=== PATIENT | male | born 1970 | race Caucasian/White ===

== ENCOUNTER 2019-08-23 19:39 | Inpatient (IN) ==
[2019-08-23] MEDS ORDERED: KETOROLAC TROMETHAMINE 15 MG/ML VIAL IV STA (19:57)
[2019-08-23] MEDS ORDERED: SODIUM CHLORIDE 0.9% 1000ML 1,000 ML IV SCH (20:00)
[2019-08-23 20:25] LABS: Basophils # (auto) 0.04 K/uL (0-0.2); Basophils % (auto) 0.4 %; Eosinophils # (auto) 0.03 K/uL (0-0.5); Eosinophils % (auto) 0.3 %; Hematocrit (blood only) 43.6 % (42-52); Immature Granulocytes # (auto) 0.01 K/uL (0.00-0.02); Immature Granulocytes % (auto) 0.1 %; Lymphocytes # (auto) 1.73 K/uL (1.2-3.4); Lymphocytes % (auto) 16.4 %; Mean Corpuscular Hemoglobin 31.3 pg (25-34); Mean Corpuscular Hgb Conc 34.4 g/dL (32-36); Mean Platelet Volume 8.8 fL (7.4-10.4); Monocytes # (auto) 1.62 K/uL (0.11-0.59); Monocytes % (auto) 15.4 %; Neutrophils % (auto) 67.4 %; Platelet Count 342 K/uL (130-400); RDW Coefficient of Variation 12.7 % (11.5-14.5); RDW Standard Deviation 42.6 fL (36.4-46.3); Red Blood Count 4.79 M/uL (4.7-6.1); White Blood Count 10.53 K/uL (4.8-10.8)
--- NOTE | 2019-08-23 20:30 | Emergency Department Note ---
History of Present Illness General Chief complaint: Facial Injury/Pain Stated complaint: INFECTION IN JAW Time Seen by Provider: 08/23/19 19:46 History of Present Illness Maximum Pain Intensity: 9 This is a 49-year-old male that presents to the emergency department via private vehicle with complaints of "infection". The patient notes last week he began with swelling to the right anterior neck/jawline region. He notes that he has a right posterior inferior molar that is broken below the gumline. This is a recent fracture. He unfortunate cannot see a dentist until September 22. This is secondary to the recent coronavirus. He decided to take penicillin that he had at home from a previous prescription and this cover about 2.5 days and then he presented to the emergency department here on 08/21 and at that time was discharged home on p.o. clindamycin as well as as needed [place]. He notes that the swelling has continued and now he has trouble swallowing and breathing through the mouth secondary to the amount of swelling to the right side of the neck/right cheek region. Overall pain is a 9/10. Pain is worse with chewing. Home Medications Home Medications Medication Instructions Recorded Confirmed Type ascorbic acid (vitamin C) [Vitamin 500 mg PO DAILY 04/05/19 08/23/19 History C] multivitamin 1 tab PO DAILY 04/05/19 08/23/19 History aspirin 81 mg tablet,delayed 81 mg PO DAILY 04/12/19 08/23/19 History release tiotropium bromide 2.5 2 puffs INH DAILY 30 Days #4 gm 06/20/19 08/23/19 Rx mcg/actuation mist for inhalation clindamycin HCl 300 mg PO Q6H 10 Days #40 cap 08/22/19 08/23/19 Rx hydrocodone-acetaminophen 1 tab PO Q6H PRN #14 tab 08/22/19 08/23/19 Rx albuterol sulfate 1 - 2 puff INH Q4H PRN 08/23/19 08/23/19 History fluticasone propion-salmeterol 1 puff INHALATION BID 08/23/19 08/23/19 History [Wixela Inhub] Allergies Allergy/AdvReac Type Severity Reaction Status Date / Time No Known Allergies Allergy Verified 08/22/19 01:46 Past Med/Surg History Medical History Brain aneurysm Centrilobular emphysema COPD (chronic obstructive pulmonary disease) Dyspnea on exertion Tobacco abuse Surgical History History of intravascular stent placement Family History Grandfather (Maternal) Myocardial infarction Grandfather (Paternal) Myocardial infarction Mother Ovarian cancer Bladder cancer Other Diabetes Denies family history of Prostate cancer Breast cancer Colorectal cancer Social History Preferred Language: South African Communication Ability: Effective Visual Impairment: No Limitations Hearing Ability: Normal marital status: Current Living Situation: Alone current occupational status: employed 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 Feels Safe at Home: Yes Smoking Status: Former smoker Tobacco Type: cigarettes ; Age Started Using Tobacco: 16 ; Age Quit Using Tobacco: 49 ; packs per day: 1 ; Cigarettes Per Day: 0.5 ; Hx Alcohol Use: Yes Alcohol type: beer and hard liquor Alcohol Intake Frequency: Rarely Hx Substance Use: Yes substance use type: marijuana Last Used Substance: Days (ago) Childhood Exposure to Second-Hand Smoke: Yes Dental Care, Regularly: No Physical Activity Frequency: Does not Exercise Seatbelt Use: always Sunscreen Use: No Review of Systems A total of 10 systems reviewed and were otherwise negative Physical Exam Vital Signs Vital Signs - 24 hr 08/23/19 19:42 08/23/19 21:00 08/23/19 21:24 Temperature 36.7 C Temperature Source Oral Pulse Rate 119 H Respiratory Rate 24 20 Respiratory Effort / Characteristics Non-Labored Respiratory Depth Normal Blood Pressure 115/69 Blood Pressure [Right Arm] 111/79 Blood Pressure Mean 84 Blood Pressure Mean [Right Arm] 89 Pulse Oximetry 91 93 92 Oxygen Delivery Method Room Air Room Air Room Air Sepsis Recent Fever Within 48 Hours No Sepsis Action Taken by Nursing No Action Required 08/23/19 21:41 08/23/19 22:54 Temperature 37.2 C Temperature Source Oral Pulse Rate 92 H Respiratory Rate 20 Respiratory Effort / Characteristics Respiratory Depth Blood Pressure 119/72 Blood Pressure [Right Arm] Blood Pressure Mean Blood Pressure Mean [Right Arm] Pulse Oximetry 92 Oxygen Delivery Method Room Air Sepsis Recent Fever Within 48 Hours Sepsis Action Taken by Nursing VITAL SIGNS - Vital signs and nursing notes were reviewed. Stable and afebrile. Tachycardic. GENERAL - 49-year-old male appearing his stated age who is in no acute distress. Communicates well with provider and answers questions appropriately. SKIN - Without rashes. There is right-sided facial swelling. This is most pronounced to the right anterior superior neck. No drainage. No erythema. Much of the edema is covered by his facial hair/reed. HEAD - NC/AT. EYES - PERRL with EOMI bilaterally. Sclera anicteric. EARS - No deformities of external structures noted on gross examination bilaterally. NOSE - Midline and without cyanosis. No epistaxis or purulent drainage noted. MOUTH/OROPHARYNX - Without perioral cyanosis. Buccal mucosa pink and moist and without leukoplakia. Tongue midline with equal elevation of palate bilaterally. Perhaps slight elevation of the tongue. There is tenderness inferior to the chin as well as most pronounced to the right submandibular region. No drainage in the mouth. No drooling. No trismus. NECK - Neck with FROM. Supple to palpation. Anterior cervical lymphadenopathy noted. No nuchal rigidity. LUNGS - Chest wall symmetric without accessory muscle use, intercostals retractions, or central cyanosis. Normal vesicular breath sounds CTA B/L. No wheezes, rales, or rhonchi appreciated. CARDIAC - RRR with S1/S2. No murmur, rubs, or gallops appreciated. EXTREMITIES - No clubbing or peripheral cyanosis. No pretibial edema present. +5/5 strength noted in UE/LE bilaterally. NEUROLOGIC - Cranial nerves II through XII grossly intact. Sensory intact to light touch throughout. PSYCH - A&Ox3 and cooperates fully with examiner. Pt is very pleasant and interacts well with examiner. Course Administered Medications Ioversol (Optiray 320 100ml) 91 ml IV ONCE PRN PRN Reason: Interaction Checking Stop: 08/27/19 20:59 Last Admin: 08/23/19 21:00 Dose: 91 ml Documented by: [id number] Discontinued Medications Sodium Chloride (Nss 1000ml) 1,000 mls @ 999 mls/hr IV .Q1H1M MITCH Stop: 08/23/19 21:00 Last Infusion: 08/23/19 20:54 Dose: 0 mls/hr Documented by: [id number] Admin: 08/23/19 20:09 Dose: 999 mls/hr Documented by: [id number] Piperacillin Sod/Tazobactam Sod (Zosyn) 4.5 gm in 120 mls @ 240 mls/hr IV NOW ONE Stop: 08/23/19 21:57 Last Infusion: 08/23/19 22:13 Dose: 0 mls/hr Documented by: [id number] Admin: 08/23/19 21:38 Dose: 240 mls/hr Documented by: [id number] Ketorolac Tromethamine (Toradol) 15 mg IV NOW STA Stop: 08/23/19 19:58 Last Admin: 08/23/19 20:09 Dose: 15 mg Documented by: [id number] Medical Decision Making Laboratory Data Result diagrams: 08/23/19 20:12 08/23/19 20:12 Lab Results 08/23/19 08/23/19 08/23/19 Range/Units 20:12 20:12 20:12 WBC 10.53 (4.8-10.8) K/uL RBC 4.79 (4.7-6.1) M/uL Hgb 15.0 (14.0-18.0) g/dL Hct 43.6 (42-52) % MCV 91.0 (80-100) fL MCH 31.3 (25-34) pg MCHC 34.4 (32-36) g/dL RDW Std Deviation 42.6 (36.4-46.3) fL RDW Coeff of Abner 12.7 (11.5-14.5) % Plt Count 342 (130-400) K/uL MPV 8.8 (7.4-10.4) fL Immature Gran % (Auto) 0.1 % Neut % (Auto) 67.4 % Lymph % (Auto) 16.4 % [place] % (Auto) 15.4 % Eos % (Auto) 0.3 % Baso % (Auto) 0.4 % Immature Gran # (Auto) 0.01 (0.00-0.02) K/uL Neut # (Auto) 7.10 H (1.4-6.5) K/uL Lymph # (Auto) 1.73 (1.2-3.4) K/uL [place] # (Auto) 1.62 H (0.11-0.59) K/uL Eos # (Auto) 0.03 (0-0.5) K/uL Baso # (Auto) 0.04 (0-0.2) K/uL Sodium 132 L (136-145) mmol/L Potassium 4.2 (3.5-5.1) mmol/L Chloride 98 (98-107) mmol/L Carbon Dioxide 27 (21-32) mmol/L Anion Gap 7.0 (3-11) BUN 10 (7-18) mg/dl Creatinine 0.86 (0.6-1.4) mg/dl Est Cr Clr Drug Dosing 100.5 ml/min Est GFR ( Amer) 118.0 Est GFR (Non-Af Amer) 101.8 BUN/Creatinine Ratio 11.7 (10-20) Glucose 106 H (70-99) mg/dl Lactate 1.0 (0.4-2.0) mmol/L Calcium 9.3 (8.5-10.1) mg/dl Total Bilirubin 0.8 (0.2-1) mg/dl AST 14 L (15-37) U/L ALT 23 (12-78) U/L Alkaline Phosphatase 59 (45-117) U/L Total Protein 7.4 (6.4-8.2) gm/dl Albumin 3.3 L (3.4-5.0) gm/dl Globulin 4.1 H (2.5-4.0) gm/dl Albumin/Globulin Ratio 0.8 L (0.9-2) Imaging Data Radiologist's Impression: CT OF THE NECK WITH IV CONTRAST CLINICAL HISTORY: Right sided neck edema, dental pain COMPARISON STUDY: No previous studies for comparison. TECHNIQUE: Following IV administration of 91 mL of Optiray-320, helical axial images of the neck were obtained. Sagittal and coronal reconstructions were viewed. Automated exposure control was utilized for the study. A dose lowering technique was utilized adhering to the principles of ALARA. CT DOSE: 631.07 mGy.cm FINDINGS: Incidental note is made of endovascular coils within the right aspect of the posterior fossa with vascular stents. These are suboptimally assessed on this non-CTA exam. No cervical spine fracture is noted. There is no suspicious osseous lesion. Severe emphysema is noted within visualized portions of the lungs. Multiple cavities are present. There is a periapical lucency suggestive of an abscess of a right mandibular molar, likely the third molar. There is an adjacent 2.5 x 2.2 cm rim-enhancing fluid collection along the undersurface of the right hemimandible adjacent to the periapical abscess with cortical breakthrough. There is moderate adjacent inflammation. No soft tissue gas is present. No additional fluid collections are present. Major vasculature of the neck is patent. Mild linear large right-sided cervical lymph nodes are likely reactive. IMPRESSION: 1. 2.5 x 2.2 cm rim-enhancing fluid collection consistent with abscess along the undersurface of the posterior body of the right hemimandible with associated pe riapical abscess of a right mandibular molar, likely the third molar. Moderate adjacent inflammation. Numerous additional cavities. 2. Mildly enlarged right-sided cervical lymph nodes which are likely reactive. 3. Severe emphysema. ACT 112: Negative or not required by law. Electronically signed by: Matt Garay M.D. 08/23/2019 9:42 PM MDM Narrative Patient was seen and evaluated as above in room B 10. Review was performed of nursing notes and vital signs. After obtaining a thorough history and physical examination the above work up was performed. He presents to us today with right-sided anterior neck swelling likely secondary to dental infection now with trouble swallowing secondary to edema. There is also a fair amount of edema surrounding the likely region of abscess indicative of cellulitis. He has been on clindamycin. Decision was made to obtain IV access as well as a CT scan of the neck. Results of the CT as above. There is a large abscess. Patient has maintained an n.p.o. status while here. No leukocytosis or anemia on the labs. Mild decrease in sodium at 132. No evidence of kidney or liver failure. IV Z osyn was ordered. I discussed the findings with the attending physician as well as the on-call oral maxillofacial surgeon, Dr. Ridley. He came to evaluate the patient. Patient will be taken to the operative suite tonight for further evaluation and management. I also discussed the case with the hospitalist. Please refer to further documentation regarding his stay. Case was discussed with the attending physician. In the evaluation and treatment of this patient, the following differential diagnoses were considered: Periapical Abscess, Osteonecrosis of the Jaw, Dental Fracture, Dental Caries, Ajay's Angina, Vincent's Angina, Facial Cellulitis. Impression & Plan Cellulitis and abscess of neck, Dental infection Discharge Plan Visit Data *Final* Discharge Date/Time: 08/23/19 23:14 Chief Complaint: Facial Injury/Pain Stated Complaint: INFECTION IN JAW ED Provider: Lenard Mcdaniel ED Midlevel Provider: Jaime Augustine Discharge Problem: Cellulitis and abscess of neck, Dental infection Discharge Instructions Interventions: ED Discharge Assessment Last Done: 08/23/19 22:54
[2019-08-23 20:44] LABS: Albumin Level 3.3 gm/dl (3.4-5.0); BUN Creatinine Ratio 11.7 (10-20); Calcium 9.3 mg/dl (8.5-10.1); Creatinine Clr Calc Pharmacy 100.5 ml/min; Est GFR (Non-African American) 101.8; Potassium 4.2 mmol/L (3.5-5.1)
[2019-08-23 20:47] LABS: Albumin Globulin Ratio 0.8 (0.9-2); Bilirubin,Total 0.8 mg/dl (0.2-1); Globulin 4.1 gm/dl (2.5-4.0); Total Protein 7.4 gm/dl (6.4-8.2)
[2019-08-23] MEDS ORDERED: IOVERSOL 100ml IV PRN (21:00)
[2019-08-23] MEDS ORDERED: PIPERACILLIN/TAZOBACTAM 4.5 GM/120 ML BAG IV ONE (21:28)
[2019-08-23] MEDS ORDERED: PIPERACILL/TAZOBAC CONSULT ACTIVE PRN (21:28)
--- NOTE | 2019-08-23 21:43 | CT Scan Report ---
CT OF THE NECK WITH IV CONTRAST CLINICAL HISTORY: Right sided neck edema, dental pain COMPARISON STUDY: No previous studies for comparison. TECHNIQUE: Following IV administration of 91 mL of Optiray-320, helical axial images of the neck wer e obtained. Sagittal and coronal reconstructions were viewed. Automated exposure control was utiliz ed for the study. A dose lowering technique was utilized adhering to the principles of ALARA. CT DOSE: 631.07 mGy.cm FINDINGS: Incidental note is made of endovascular coils within the right aspect of the posterior fos sa with vascular stents. These are suboptimally assessed on this non-CTA exam. No cervical spine frac ture is noted. There is no suspicious osseous lesion. Severe emphysema is noted within visualized por tions of the lungs. Multiple cavities are present. There is a periapical lucency suggestive of an abs cess of a right mandibular molar, likely the third molar. There is an adjacent 2.5 x 2.2 cm rim-enhan cing fluid collection along the undersurface of the right hemimandible adjacent to the periapical abs cess with cortical breakthrough. There is moderate adjacent inflammation. No soft tissue gas is prese nt. No additional fluid collections are present. Major vasculature of the neck is patent. Mild linear large right-sided cervical lymph nodes are likely reactive. IMPRESSION: 1. 2.5 x 2.2 cm rim-enhancing fluid collection consistent with abscess along the undersurface of the posterior body of the right hemimandible with associated periapical abscess of a right mandibular mol ar, likely the third molar. Moderate adjacent inflammation. Numerous additional cavities. 2. Mildly enlarged right-sided cervical lymph nodes which are likely reactive. 3. Severe emphysema. ACT 112: Negative or not required by law. Electronically signed by: Matt Garay M.D. 08/23/2019 9:42 PM
[2019-08-23] MEDS ORDERED: CHLORHEXIDINE GLUCONATE 0.12% 480 ML ONE (23:12)
[2019-08-23] MEDS ORDERED: BUPIVACAINE/EPINEPHRINE 0.5% 1:200,000 1.8 ML CARP ONE (23:13)
--- NOTE | 2019-08-23 23:22 | History & Physical Report ---
Date of Service August 23, 2019 Assessment & Plan (1) Dental abscess: 49 yo M with PMH severe COPD 2/2 previous tobacco abuse presents wit concerns of R lower jaw pain and worsening swelling found to have abscess along right hemimandible on Neck CT. Hemimandible Abscess -admit to ICU -Soft Tissue Neck CT: 2.5 x 2.2 cm rim-enhancing fluid collection consistent with abscess along the undersurface of the posterior body of the right hemimandible with associated periapical abscess of a right mandibular molar, likely the third molar -pt has remained afebrile. Labs without leukocytosis. LA WNL -Oral Maxillofacial Consult appreciated- Dr. Ridley took pt into OR for Incision and Drainage of Right Submandibular Abscess and extraction of the lower right wisdom tooth -post op pt self extubated and displayed respiratory distress with hypoxia. Pt emergently reintubated and now sedated. Will remain in ICU for airway management, wean ventilator as tolerated -cont antibiotic coverage with IV Vanc/Zosyn for now, narrow as needed -blood cx pending. MRSA swab pending -pain management with IV Toradol/[place] prn for moderate/severe pain. Pain had been well controlled thus far prior to OR -will advance diet as tolerated Acute Hypoxic Resp Failure/COPD -quit smoking Mar 2019 -follows with Dr. Chen of Pulmonology. Undergoing pulmonary rehab. Severe centrilobular emphysema. Last PFT May 2019: FEV1/FVC ratio of 35, FEV1 26% predicted, FVC 60% predicted -As above, pt self-extubated after procedure and displayed hypoxia, acute resp distress that required emergent re-intubation. Now on [facility] vent -IV Solumedrol 80 mg BID. Taper moving forward -cont home inhaler regimen with advair, spiriva, albuterol otherwise once able FEN/GI: Propofol/fentanyl gtt. NPO DVT Prophylaxis: Heparin, SCD's Full Code Dispo: ICU for further airway management History of Present Illness Chief Complaint: facial pain/swelling Primary Care Provider: Josep Arguello, III, COTTON [employer]ESSER 49 yo M with PMH severe COPD 2/2 previous tobacco abuse presents to [facility] with concerns of worsening R jaw swelling. Pt was seen in ED 08/21 for lower R jaw pain. Pain started last week with cracked tooth that occurred while eating. Swelling and pain has gradually increased, and he called his dentist who is not seeing pts currently 2/2 COVID and was given an appt for end of August. Pt had a tooth extraction in May and was given a Rx for PCN for which he still had 2 days worth so he took that before running out and presenting to ED. Pt was seen and dc'd on PO [place], prn [place]. Pt notes that pain was tolerated with [place]; however, swelling increased into today so represented into ED. Describes pain as constant pressure in R lower jaw, with radiation into entire head. Exacerbated with eating/drinking/swallowing, and relieved somewhat with [place] as above. 9/10 severity at its worst. Associated trouble breathing through mouth and dysphagia, but otherwise denies F/N/V/D, chills, CP, SOB, recent travel or sick contacts. Pt with no other acute concerns or complaints. Soft Tissue Neck CT: 2.5 x 2.2 cm rim-enhancing fluid collection consistent with abscess along the undersurface of the posterior body of the right hemimandible with associated periapical abscess of a right mandibular molar, likely the third molar. Moderate adjacent inflammation. Numerous additional cavities. Mildly enlarged right-sided cervical lymph nodes Pertinent Labs: Na 132. LA WNL. Otherwise unremarkable ER Course: IV Toradol 15 mg, IV Zosyn, NSS Pt to be taken in OR by Dr. Ridley took pt into OR for Incision and Drainage of Right Submandibular Abscess. Social Hx: Tobacco use-started age 16, quit age 49Mar, was 1ppd. Alcohol- social use. Denies illicit drug use Allergies Allergy/AdvReac Type Severity Reaction Status Date / Time No Known Allergies Allergy Verified 08/22/19 01:46 Home Medications Home Medications Medication Instructions Recorded Confirmed Type ascorbic acid (vitamin C) [Vitamin 500 mg PO DAILY 04/05/19 08/23/19 History C] multivitamin 1 tab PO DAILY 04/05/19 08/23/19 History aspirin 81 mg tablet,delayed 81 mg PO DAILY 04/12/19 08/23/19 History release tiotropium bromide 2.5 2 puffs INH DAILY 30 Days #4 gm 06/20/19 08/23/19 Rx mcg/actuation mist for inhalation clindamycin HCl 300 mg PO Q6H 10 Days #40 cap 08/22/19 08/23/19 Rx hydrocodone-acetaminophen 1 tab PO Q6H PRN #14 tab 08/22/19 08/23/19 Rx albuterol sulfate 1 - 2 puff INH Q4H PRN 08/23/19 08/23/19 History fluticasone propion-salmeterol 1 puff INHALATION BID 08/23/19 08/23/19 History [Wixela Inhub] Past Med/Surg History Medical History Brain aneurysm Centrilobular emphysema COPD (chronic obstructive pulmonary disease) Dyspnea on exertion Tobacco abuse Surgical History History of intravascular stent placement Family History Grandfather (Maternal) Myocardial infarction Grandfather (Paternal) Myocardial infarction Mother Ovarian cancer Bladder cancer Other Diabetes Denies family history of Prostate cancer Breast cancer Colorectal cancer Social History Preferred Language: Japanese Communication Ability: Effective Visual Impairment: No Limitations Hearing Ability: Normal Firestopper Technician Required: No marital status: Current Living Situation: Alone current occupational status: employed 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 Last Used Substance: Days (ago) Childhood Exposure to Second-Hand Smoke: Yes Dental Care, Regularly: No Physical Activity Frequency: Does not Exercise Seatbelt Use: always Sunscreen Use: No Review of Systems Review of Systems: All systems reviewed & are unremarkable except as noted in HPI & below Physical Exam Constitutional: WD/WN, vitals as above no acute distress Eyes: PERRL, conjunctivae normal, anicteric sclerae ENMT: Mouth: + dentition abnormality (poor dentition) Swelling and TTP along R lower mandible Respiratory: normal respiratory effort; no respiratory distress Auscultation: + rhonchi coarse throughout Cardiovascular: RRR, no murmur, no edema Gastrointestinal (Abdomen): normal bowel sounds, soft, nontender, no hepatosplenomegaly Skin: no rashes, warm and dry Psychiatric: A+Ox3, euthymic affect Results & Data Results & Data ([facility]) Vital Signs (Past 12 Hours) Vital Signs Temp Pulse Resp BP BP Pulse Ox 08/23/19 21:41 37.2 C 08/23/19 21:24 20 111/79 92 08/23/19 21:00 93 08/23/19 19:42 36.7 C 119 H 24 115/69 91 Laboratory Results Laboratory Results - last 24 hr 08/23/19 08/23/19 08/23/19 20:12 20:12 20:12 WBC 10.53 RBC 4.79 Hgb 15.0 Hct 43.6 MCV 91.0 MCH 31.3 MCHC 34.4 RDW Std Deviation 42.6 RDW Coeff of Abner 12.7 Plt Count 342 MPV 8.8 Immature Gran % (Auto) 0.1 Neut % (Auto) 67.4 Lymph % (Auto) 16.4 [place] % (Auto) 15.4 Eos % (Auto) 0.3 Baso % (Auto) 0.4 Immature Gran # (Auto) 0.01 Neut # (Auto) 7.10 H Lymph # (Auto) 1.73 [place] # (Auto) 1.62 H Eos # (Auto) 0.03 Baso # (Auto) 0.04 Sodium 132 L Potassium 4.2 Chloride 98 Carbon Dioxide 27 Anion Gap 7.0 BUN 10 Creatinine 0.86 Est Cr Clr Drug Dosing 100.5 Est GFR ( Amer) 118.0 Est GFR (Non-Af Amer) 101.8 BUN/Creatinine Ratio 11.7 Glucose 106 H Lactate 1.0 Calcium 9.3 Total Bilirubin 0.8 AST 14 L ALT 23 Alkaline Phosphatase 59 Total Protein 7.4 Albumin 3.3 L Globulin 4.1 H Albumin/Globulin Ratio 0.8 L Medications Administered Current Inpatient Medications Ioversol (Optiray 320 100ml) 91 ml IV ONCE PRN PRN Reason: Interaction Checking Stop: 08/27/19 20:59 Last Admin: 08/23/19 21:00 Dose: 91 ml Documented by: Miscellaneous Information (Consult) 1 ea N/A UD PRN PRN Reason: Consult Stop: 09/22/19 21:27 Code Status & VTE Plan Code Status FULL Supervising Physician Co-Signing Physician Notes Attending addendum: I have physically seen this patient, have supervised the medical residents activities, and agree with the H&P unless as otherwise noted. Assessment and Plan: Right facial abscess/periapical abscess right mandibular molar- NPO Vancomycin IV and Zosyn IV. IV fluids Zofran 4 mg IV every 6 hours PRN. Acetaminophen 1 g IV every 8 hours PRN mild pain or temperature Toradol 30 mg IV every 6 PRN moderate pain or [place] 5/325 1 p.o. every 6 hours PRN moderate pain. Consult Dr. Ridley, maxillofacial surgery, who is with the patient. Severe COPD/acute on chronic respiratory failure with hypoxia- Solu-Medrol IV as noted. Duonebs every 4 hours while awake and every 2 hours when necessary. Remainder of orders and notations as noted. Resident Activity Tracking Resident Involvement: Resident Care Provided Care Provided: Adult Hospital Medicine
[2019-08-23] MEDS ORDERED: fentaNYL citrate 100 MCG/2 ML VIAL ONE (23:29)
--- NOTE | 2019-08-24 00:25 | Post Operative Brief Note ---
Immediate Post Op Note v1 Date of Surgery August 24, 2019 Pre & Post Diagnosis Operation Date: 08/23/19 23:00 Pre-Op Diagnosis: Right submandibular space abscess associated with an infected lower right wisdom tooth. Post-Op Diagnosis: Same I identified the patient and participated in the time-out.: Yes Procedure Operation Date: 08/23/19 23:00 Actual Procedures Incision and Drainage of Right Submandibular Abscess, simple extraction of the lower right wisdom tooth #32 - Danielito Ridley MD, DDS Surgeon Danielito Ridley MD, DDS Hospital Social Worker None Estimated Blood Loss 10 Findings Consistent with Post-Op Diagnosis Drains Dinosaur Drain
[2019-08-24] MEDS ORDERED: PROPOFOL IV EMULSION 10 MG/ML 100 ML VIAL IV ONE (00:50)
[2019-08-24] MEDS ORDERED: ATROPINE SULFATE 0.1 MG/ML 10ML SYR IV PRN (00:59)
[2019-08-24] MEDS ORDERED: ePHEDrine sulfate 50 MG/ML AMP IV PRN (00:59)
--- NOTE | 2019-08-24 00:59 | Anesthesiology Consultation ---
Date of Service August 24, 2019 Assessment & Plan (1) Encounter for pre-operative examination: Chart Review Chart Review: Acceptable Risk for Surgery and Patient NOT seen in Pre Admission Testing Consults Requested none ASA [id number] Proposed Anesthesia Anesthesia Type: General Risk / Benefits Reviewed With: PT / POA / Parent / Guardian, Accepts Plan and Informed Consent Obtained History Surgery Operation Date: 08/23/19 23:00 Proposed Procedures p Complete Bony Impaction - Danielito Ridley MD, DDS Height/Weight Height: 5 ft 8 in Weight: 69.4 kg Allergies Allergy/AdvReac Type Severity Reaction Status Date / Time No Known Allergies Allergy Verified 08/22/19 01:46 Medications Home Medications Medication Instructions Recorded Confirmed Last Taken ascorbic acid (vitamin C) [Vitamin 500 mg PO DAILY 04/05/19 08/23/19 Unknown C] multivitamin 1 tab PO DAILY 04/05/19 08/23/19 Unknown aspirin 81 mg tablet,delayed 81 mg PO DAILY 04/12/19 08/23/19 Unknown release tiotropium bromide 2.5 2 puffs INH DAILY 30 Days #4 gm 06/20/19 08/23/19 Unknown mcg/actuation mist for inhalation clindamycin HCl 300 mg PO Q6H 10 Days #40 cap 08/22/19 08/23/19 08/23/19 15:00 hydrocodone-acetaminophen 1 tab PO Q6H PRN #14 tab 08/22/19 08/23/19 Unknown albuterol sulfate 1 - 2 puff INH Q4H PRN 08/23/19 08/23/19 Unknown fluticasone propion-salmeterol 1 puff INHALATION BID 08/23/19 08/23/19 Unknown [Wixela Inhub] Active Medications Generic Name Dose Route Start Last Admin Trade Name Freq PRN Reason Stop Dose Admin Ioversol 91 ml 08/23/19 21:00 08/23/19 21:00 Optiray 320 100ml IV 08/27/19 20:59 91 ml ONCE PRN Administration Interaction Checking NPO Date Last Intake of Fluids: 08/23/19 Time Last Intake of Fluids: 20:00 Date Last Intake of Solids: 08/23/19 Time Last Intake of Solids: 10:00 Past Medical History Medical History Brain aneurysm Centrilobular emphysema COPD (chronic obstructive pulmonary disease) Dyspnea on exertion Tobacco abuse Exercise / Class Metabolic Activity II 4-5 Yardwork/Stairs/Walk up hill Past Family History Family History Grandfather (Maternal) Myocardial infarction Grandfather (Paternal) Myocardial infarction Mother Ovarian cancer Bladder cancer Other Diabetes Denies family history of Prostate cancer Breast cancer Colorectal cancer Past Surgical History Surgical History History of intravascular stent placement Past Anesthesia History No Hx of Anesthesia Complications and No Family Hx of Anesthesia Complications History of PONV No Hx of PONV and No Hx of Motion Sickness Social History Smoking Status: Former smoker tobacco type: cigarettes Smoking cigarettes per day: 0.5 Hx Alcohol Use: Yes Alcohol type: beer and hard liquor Hx Substance Use: Yes substance use type: marijuana Last Used Substance: Days (ago) Physical Exam Vital Signs Last Vital Signs Temp 37.2 C 08/23/19 21:41 Pulse 92 H 08/23/19 22:54 Resp 20 08/23/19 22:54 BP 119/72 08/23/19 22:54 Pulse Ox 92 08/23/19 22:54 ENMT Mouth: + poor dentition Thyromental Distance: > or= 3.5 Finger Breadths Mallampati Class: III difficult mouth opening Neck normal visual inspection Respiratory + uses accessory muscles Auscultation: + diminished lung sounds very prolonged expiratory phase Cardiovascular Rate/Rhythm: regular rate and regular rhythm Psychiatric Orientation: alert Testing Laboratory Results 08/23/19 20:12 08/23/19 20:12
--- NOTE | 2019-08-24 01:04 | Anesthesiology Progress Note ---
Date of Service August 24, 2019 Anesthesia Post Procedure Vital Signs Vital Signs: Temp Pulse Resp BP BP Pulse Ox 08/23/19 22:54 92 H 20 119/72 92 08/23/19 21:41 37.2 C 08/23/19 21:24 20 111/79 92 08/23/19 21:00 93 08/23/19 19:42 36.7 C 119 H 24 115/69 91 Pain Intensity Right Face: Pain Intensity: 9 Transfer of Care Handoff Completed per policy Notes Mental Status: alert / awake / arousable Patient Amnestic to Procedure: Yes Nausea / Vomiting: adequately controlled Pain: adequately controlled Airway Patency, RR, SpO2: see Notes below BP & HR: stable & adequate Hydration State: stable & adequate Anesthetic Complications: no major complications apparent Notes: At end of case, patient respiratory effort insufficient to support extubation. However, when moving to ICU bed, patient sat directly up in bed and self extubated. Quickly began respiratory distress and tripoding. The decision was quickly made to reintubate as oxygen saturations were declining to the 70s. Propofol 100 and succinylcholine adiministered. 8.0 ETT pass via glidescope laryngoscopy. Oxygen saturations quickly returned to mid 90s. Patient transported on monitor to ICU for continued ventilator care. Full signout to ICU nurse practitioner, who will discuss the case with critical care attending.
[2019-08-24] MEDS ORDERED: ICU PROTOCOL FOR HYPERGLYCEMIA PRN ×2 (01:23→01:58)
[2019-08-24] MEDS ORDERED: STAT IV Infusion **Titration per Protocol STA ×2 (01:23→01:33)
[2019-08-24] MEDS ORDERED: PROPOFOL BOLUS FROM BAG IV PRN (01:23)
[2019-08-24] MEDS ORDERED: DEXAMETHASONE SOD INJ 4 MG/ML VIAL ONE (01:25)
[2019-08-24] MEDS ORDERED: PROPOFOL IV EMULSION 10 MG/ML 20 ML VIAL IV ONE (01:25)
[2019-08-24] MEDS ORDERED: SUCCINYLCHOLINE CHLORIDE 20 MG/ML 10 ML VIAL ONE (01:25)
[2019-08-24] MEDS ORDERED: LIDOCAINE HCL 2% 2 ML VIAL/AMP(20MG/ML) INFIL ONE (01:25)
[2019-08-24] MEDS ORDERED: PHENYLEPHRINE 100MCG/ML 5ML SYR ONE (01:25)
[2019-08-24] MEDS ORDERED: ONDANSETRON INJ 2 MG/ML 2 ML VIAL ONE (01:25)
[2019-08-24] MEDS: propofoL 1,000 MG/100 ML VIAL IV SCH ×2 (01:30→07:13)
[2019-08-24] MEDS ORDERED: FENTANYL BOLUS FROM BAG IV PRN (01:33)
--- NOTE | 2019-08-24 01:36 | Critical Care Consultation ---
Date of Consultation August 24, 2019 Assessment & Plan (1) Respiratory failure with hypoxia: Reason Critically Ill: 49-year-old male with history of severe emphysema, presents postop for right submandibular abscess incision and drainage, acute respiratory failure postop and unable to wean from vent. Neuro - [facility] ICU: Negative Sedation: Propofol, fentanyl drips Cardiac - No cardiac medical history, sinus rhythm and normotensive on monitor Continuous monitoring on telemetry Respiratory - Acute hypoxic hypercapnic respiratory failuresecondary to severe centrilobular emphysema with FEV1 27% in pulmonary clinic, follows with Dr. Chen -Patient undergoing pulmonary rehab, was reportedly unable to attend the last appointment secondary to covid19 pandemic -Patient self extubated in OR following procedure, displayed hypoxia, respiratory distress, and tripoding and was emergently reintubated -Chest x-ray consistent with severe emphysema -AB.33/51/61/27, Vent settings: AC VC 14/500/5/30 percent, will wean as appropriate -Was given Decadron in the OR, will continue Solu-Medrol with steroid taper -Continue DuoNeb -We will reassess with SBT in a.m., concerned that patient will be difficult for extubation due to severe pulmonary disease GI - N.p.o. for now RENAL/LYTES - Creatinine electrolytes stable, monitor with routine BMPs and replete as necessary - Foleystrict I's and O's ENDO - No history diabetes thyroid disease ICU hyperglycemic protocol HEME - H&H stable, monitor routine CBCs ID - Submandibular abscesspatient reportedly cracked tooth and was unable to see dentist for tooth extraction secondary to coronavirus pandemic -Patient was seen in ED on 08/21 for tooth abscess and was discharged with clindamycin and [place], re-presented yesterday with increased swelling and pain -Patient now post incision and drainage of right submandibular abscess and tooth extraction, Francisco drain -Blood cultures pending, surgical culture pending, lactate negative, no leukocytosis, mildly febrile, MRSA swab pending -Continue Vanco and Zosyn for now, narrow with sensitivities LINES/IV ACCESS - Peripheral IV x2, ETT, DVT PROPHYLAXIS - SCDs, heparin subcu I have personally spent 45 minutes of critical care time in the direct management of this patient. This is a life/limb threatening event. This includes time spent evaluating patient, direct bedside care, chart review, placing orders, interpretation of diagnostic studies, discussion with consultants, patient, and family members, as well as other required patient management activities. This time is exclusive of all separately billable procedures, and teaching time and separate from and in addition to any other critical care service time. Thank you for allowing us to participate in the care of this patient. Please refer to my attending physician's documentation for any further recommendations. (2) Centrilobular emphysema: (3) Dental abscess: (4) Admitted to intensive care unit: Supervising Physician Co-Signing Physician Notes Patient seen and examined. Discussed with critical care CARLO. EMR reviewed. Patient is a 49-year-old male with advanced obstructive lung disease. He is followed in the pulmonary clinic. He has known very severe obstructive lung disease. He is been successful in smoking cessation as of late. He was undergoing pulmonary rehab. He developed a tooth infection and was recently placed on antibiotics. Unfortunately this worsened to the point that he developed a submandibular abscess. He was seen in the emergency room yesterday. He was taken to the OR for incision and drainage of submandibular abscess and tooth extraction. The patient apparently self extubated in the OR and was reintubated due to hypoxemia. He was remained on the mechanical ventilator overnight on fentanyl and propofol. He is on minimal vent settings currently. He is hemodynamically stable. His chest x-ray shows no evidence of infiltrate pneumonia. We will plan on proceeding with extubation this morning. He may require noninvasive positive pressure ventilation post extubation. We will continue his bronchodilators for now. No indication for steroids from a lung standpoint at this point time. He is currently on Zosyn which should be adequate for his oral infection. Will defer antibiotics to oral maxillary facial surgery. Trend white blood cell count. Drain management per OMFS. Alpha-1 antitrypsin has been ordered in the outpatient setting so we will hold off on rechecking for now. He does have significant diffuse centrilobular emphysematous changes. Lung transplant has been addressed in the outpatient setting. Patient should remain free of all tobacco products. History of Present Illness Attending Physician: Danielito Ridley MD, DDS History of Present Illness Mr. Geronimo is a 49-year-old male with past medical history of tobacco abuse and severe centrilobular emphysema with FEV1 26%. Patient follows Dr. Chen in pulmonary clinic and has reportedly been doing well in pulmonary rehab and is quit smoking as of April. Patient was seen in the emergency department on 08/21 with complaints of cracked tooth and neck swelling and had been unable to see a dentist until September 24 due to COVID19 pandemic. He was discharged with prescription for clindamycin and [place]. The patient represented to the emergency department last night with progressive swelling and reported trouble with swallowing and difficulty breathing through his mouth secondary to swelling on the right neck/cheek. CT neck showed abscess on the right hemimandible and lymph node edema. Patient was taken to the OR for incision and drainage of right submandibular abscess, simple extraction of lower right wisdom tooth #32, placement of Francisco drain. Postoperatively decision had been made by anesthesiologist to leave patient intubated overnight due to poor respiratory effort. However, patient self extubated and displayed respiratory distress with hypoxia and tripoding, and was emergently reintubated. See anesthesia note for details. Patient arrived to ICU intubated and sedated, will leave intubated overnight and wean ventilator as tolerated. Allergies Allergy/AdvReac Type Severity Reaction Status Date / Time No Known Allergies Allergy Verified 08/22/19 01:46 Home Medications Home Medications Medication Instructions Recorded Confirmed Type ascorbic acid (vitamin C) [Vitamin 500 mg PO DAILY 04/05/19 08/23/19 History C] multivitamin 1 tab PO DAILY 04/05/19 08/23/19 History aspirin 81 mg tablet,delayed 81 mg PO DAILY 04/12/19 08/23/19 History release tiotropium bromide 2.5 2 puffs INH DAILY 30 Days #4 gm 06/20/19 08/23/19 Rx mcg/actuation mist for inhalation clindamycin HCl 300 mg PO Q6H 10 Days #40 cap 08/22/19 08/23/19 Rx hydrocodone-acetaminophen 1 tab PO Q6H PRN #14 tab 08/22/19 08/23/19 Rx albuterol sulfate 1 - 2 puff INH Q4H PRN 08/23/19 08/23/19 History fluticasone propion-salmeterol 1 puff INHALATION BID 08/23/19 08/23/19 History [Wixela Inhub] Patient History Medical History Brain aneurysm Centrilobular emphysema COPD (chronic obstructive pulmonary disease) Dyspnea on exertion Tobacco abuse Surgical History History of intravascular stent placement Family History Grandfather (Maternal) Myocardial infarction Grandfather (Paternal) Myocardial infarction Mother Ovarian cancer Bladder cancer Other Diabetes Denies family history of Prostate cancer Breast cancer Colorectal cancer Social History Preferred Language: Uzbek Communication Ability: Effective Visual Impairment: No Limitations Hearing Ability: Normal Subpoena Server Required: No marital status: Current Living Situation: Alone current occupational status: employed 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 Last Used Substance: Days (ago) Childhood Exposure to Second-Hand Smoke: Yes Dental Care, Regularly: No Physical Activity Frequency: Does not Exercise Seatbelt Use: always Sunscreen Use: No Review of Systems Review of Systems: Unobtainable due to endotracheal tube and Unobtainable due to reduced consciousness Physical Exam Constitutional: Sedated, mechanically ventilated Eyes: PERRL, conjunctivae normal, anicteric sclerae ENMT: external ear and nose normal, oropharynx normal Endotracheal tube 23 centimeters at the lips Neck: Surgical incision and dressing with Harrison drain to right anterior neck Respiratory: Mechanically ventilated, symmetrical chest wall movement, lungs coarse and rhonchi auscultated in all lung daley bilateral Cardiovascular: RRR, no murmur, no edema Heart Sounds: normal S1 and normal S2 Vessels: no JVD Extremities: no edema Gastrointestinal (Abdomen): normal bowel sounds, soft, nontender, no hepatosplenomegaly Skin: no rashes, warm and dry Neurologic: Unable to assess due to sedation Psychiatric: Unable to assess due to sedation Genitourinary: Indwelling Pimentel Results & Data ([facility]) Vital Signs (Past 12 Hours) Vital Signs Temp Pulse Resp BP BP Pulse Ox 08/24/19 00:55 102 H 15 100 08/23/19 22:54 92 H 20 119/72 92 08/23/19 21:41 37.2 C 08/23/19 21:24 20 111/79 92 08/23/19 21:00 93 08/23/19 19:42 36.7 C 119 H 24 115/69 91 Coding Level of Care Code Critical Care 1st 30-74 mins Diagnoses Respiratory failure with hypoxia J96.91 Centrilobular emphysema J43.2 Dental abscess K04.7 Admitted to intensive care unit Z78.9
[2019-08-24] MEDS ORDERED: fentaNYL DRIP 1,250 MCG/250 ML BAG IV SCH (01:45)
[2019-08-24] MEDS ORDERED: HYDROCODONE/ACETAMOPHEN 5/325MG TAB PO PRN (02:10)
[2019-08-24] MEDS ORDERED: VANCOMYCIN CONSULT ACTIVE PRN (02:10)
[2019-08-24] MEDS ORDERED: PIPERACILL/TAZOBAC CONSULT ACTIVE PRN (02:10)
[2019-08-24] MEDS ORDERED: ONDANSETRON INJ 2 MG/ML 2 ML VIAL IV PRN (02:10)
[2019-08-24] MEDS ORDERED: ALUMINUM/MAGNESIUM SUSP 30 ML UDC PO PRN (02:10)
[2019-08-24] MEDS ORDERED: ACETAMINOPHEN 325 MG TAB PO PRN (02:10)
[2019-08-24] MEDS ORDERED: ALBUTEROL HFA 8 GM INHALER INH PRN (02:10)
[2019-08-24 02:15] LABS: iSTAT Allen Test Pass; iSTAT Art Bld Gas pCO2 Correct 53 mmHg (35-46); iSTAT Art Bld Gas pH Corrected 7.312 (7.35-7.45); iSTAT Arterial Blood Gas HCO3 27 meg/L (19-24); iSTAT Arterial Blood Gas pCO2 51 mmHg (35-46); iSTAT Arterial Blood Gas pH 7.33 (7.35-7.45); iSTAT Arterial Blood Gas pO2 61 mmHg (80-95); iSTAT Arterial Blood Gas pO2 C 66; iSTAT Carbon Dioxide 28 mmol/L (24-31); iSTAT FiO2 30 %; iSTAT Hematocrit 37 % (42-52); iSTAT Hemoglobin 12.6 g/dl (14.0-18.0); iSTAT Potassium 4.7 mmol/L (3.3-5.0); iSTAT Site L Radial; iSTAT Sodium 131 mmol/L (135-144)
[2019-08-24] MEDS ORDERED: VANCOMYCIN HCL 1,750 MG in SODIUM CHLORIDE 0.9% 500 ML IV ONE (02:30)
[2019-08-24] MEDS ORDERED: PIPERACILLIN/TAZOBACTAM 3.375 GM in DEXTROSE 5% 100 ML IV SCH (03:00)
[2019-08-24] MEDS ORDERED: INFLUENZA VIRUS QUAD VACCINE 0.5 ML SYR IM ONE (03:03)
[2019-08-24] MEDS ORDERED: PNEUMOCOCCAL POLYSACCHARIDES 25 MCG/0.5 ML VIAL/SYR IM ONE (03:03)
[2019-08-24] MEDS ORDERED: PNEUMOCOCCAL ADMINISTRATION CHARGE ONE (03:03)
[2019-08-24] MEDS ORDERED: INFLUENZA ADMINISTRATION CHARGE ONE (03:03)
[2019-08-24] MEDS: ALBUT/IPRATROP 3MG/0.5MG NEB 3 ML VIAL NEB SCH ×6 (03:45→23:45)
[2019-08-24 04:18] LABS: Basophils # (auto) 0.02 K/uL (0-0.2); Basophils % (auto) 0.1 %; Hematocrit (blood only) 36.7 % (42-52); Hemoglobin 12.5 g/dL (14.0-18.0); Immature Granulocytes # (auto) 0.02 K/uL (0.00-0.02); Immature Granulocytes % (auto) 0.1 %; Lymphocytes # (auto) 0.72 K/uL (1.2-3.4); Lymphocytes % (auto) 5.3 %; Mean Corpuscular Hemoglobin 31.5 pg (25-34); Mean Corpuscular Hgb Conc 34.1 g/dL (32-36); Mean Corpuscular Volume 92.4 fL (80-100); Mean Platelet Volume 8.6 fL (7.4-10.4); Monocytes # (auto) 0.97 K/uL (0.11-0.59); Monocytes % (auto) 7.1 %; Neutrophils # (auto) 11.84 K/uL (1.4-6.5); Neutrophils % (auto) 87.4 %; Platelet Count 306 K/uL (130-400); RDW Coefficient of Variation 12.7 % (11.5-14.5); RDW Standard Deviation 43.1 fL (36.4-46.3); Red Blood Count 3.97 M/uL (4.7-6.1); White Blood Count 13.57 K/uL (4.8-10.8)
[2019-08-24 04:35] LABS: BUN Creatinine Ratio 14.7 (10-20); Calcium 8.3 mg/dl (8.5-10.1); Est GFR (African American) 112.8; Est GFR (Non-African American) 97.3; Potassium 4.8 mmol/L (3.5-5.1)
--- NOTE | 2019-08-24 07:28 | XRay Report ---
XR chest 1V portable HISTORY: resp failure/ intubation COMPARISON: Chest CT 06/20/2019. Chest x-ray 04/05/2019. FINDINGS: Emphysema. No new focal lung consolidations to suggest pneumonia. No evidence for pulmonary edema. No pleural effusions. No pneumothorax. The heart is normal in size. Endotracheal tube termina elvis 7 cm from the jaison. IMPRESSION: 1. The endotracheal tube terminates 7 cm from the jaison. This could be advanced by approximately 3 c m. 2. Emphysema. ACT 112: Negative or not required by law. Electronically signed by: Emiliano Byers M.D. 08/24/2019 7:27 AM
--- NOTE | 2019-08-24 08:03 | Consultation Report ---
DATE OF CONSULTATION: 08/24/2019 CHIEF COMPLAINT: Dental abscess with pain in the right neck and difficulty swallowing. HISTORY OF PRESENT ILLNESS: Mr. Geronimo is a 49-year-old man with longstanding problems with his dentition. Several days ago, in fact about a week ago, he began to have right mandibular pain with associated swelling. Several days ago, he presented to the ER here and was placed on oral clindamycin and recommended to see a dentist. However, with the current COVID-19 pandemic, dental offices are largely closed and he was unable to find care. He represents tonight feeling significantly worse, having a hard time swallowing and having exquisite pain in the right mandible with associated swelling. PAST MEDICAL HISTORY: Significant for stage IV COPD. CURRENT MEDICATIONS: Several inhalers which I will refer to his H and P to. ALLERGIES: He has no known drug allergies. SOCIAL HISTORY: Positive for many years of tobacco use, but he quit last March. FAMILY HISTORY: Noncontributory. REVIEW OF SYSTEMS: I will defer to ER and hospitalist documentation for his review of systems. PHYSICAL EXAMINATION: He is seen at the bedside, resting rather comfortably without any labored breathing or distress. He is afebrile. His vitals are per the EMR. His pupils are equally round and reactive to light. His extraocular movements are intact. The upper jaw is stable. The nasal airway anteriorly is unremarkable and there are no signs of any canine space infections. External ears are unremarkable. Intraoral exam shows a poorly kept dentition. Of note, in the right posterior mandible the wisdom tooth in mesioangular orientation is erupted, exquisitely tender to palpation. There is no buccal swelling but there is a modest amount of swelling in the posterior right floor of mouth. This is exquisitely tender to palpate. His oropharyngeal airway is widely patent, but slightly deviated from the swelling. There is palpable firm swelling of a moderate degree right at the angle of the mandible in the submandibular space. There is shotty lymphadenopathy. DATA: His CT scan shows a 2.5 cm abscess in the right submandibular space, associated periapical lesion with lingual cortical perforation of the right mandible associated with that right mandibular wisdom tooth. IMPRESSION AND PLAN: Aggressive odontogenic infection of the right submandibular space related to the right mandibular wisdom tooth. I discussed with the patient and the ER staff the need for prompt treatment of this airway involving infection that would require removal of the tooth and extraoral incision and drainage of the infection. We will plan to proceed to the OR this evening. The patient is n.p.o. since 10:00 a.m. this morning except for sips of clear liquids which he has not had in the last 2 hours and I have reviewed an informed consent with the patient. He understands the risks and benefits of the surgery and he has signed his consent. TANNER
--- NOTE | 2019-08-24 08:04 | Operative Report (OR) ---
DATE OF OPERATION: 08/24/2019 PREOPERATIVE DIAGNOSIS: Right submandibular space abscess associated with the right mandibular wisdom tooth #32. POSTOPERATIVE DIAGNOSIS: Right submandibular space abscess associated with the right mandibular wisdom tooth #32. PROCEDURE PERFORMED: Extraoral incision and drainage of the right submandibular space and simple extraction of tooth #32. SURGEON: Danielito Ridley DDS RADIO BOARD OPERATOR: None. ANESTHESIA: General. ESTIMATED BLOOD LOSS: 10 mL. SPECIMENS: Routine and anaerobic culture. DRAINS: Francisco x1. COMPLICATIONS: None. INDICATIONS: Mr. Geronimo is a 49-year-old man developing a right submandibular space abscess with symptoms for about a week refractory to oral clindamycin. CT shows 2.5 cm well-defined abscess cavity in the right submandibular space and he is now being brought to the OR for removal of the offending tooth and incision and drainage of the abscess. I have reviewed the diagnosis, the procedure, the risks and benefits, and he has signed an informed consent. DESCRIPTION OF PROCEDURE: The patient was taken to the operating room and placed supine on the operating room table. Routine anesthesia monitors were applied. General anesthesia was induced and oral endotracheal intubation was performed. The eyes were lubed and taped. The endotracheal tube was secured and a sterile prep and drape was performed per our usual manner. We took a timeout. I started with the right neck incision. A natural skin crease below the angle of the mandible was marked out in a position away from the marginal mandibular branch of the facial nerve. Created the skin incision with the electrocautery, divided the subcutaneous tissues and the platysma muscle. From this point forward, I did blunt dissection to skirt the submandibular gland and enter the submandibular space. Copious yellow thick purulent drainage was obtained from the abscess cavity. The loculations in the abscess cavity were broken up. Cultures were obtained and the area was copiously irrigated. A Ragland drain was placed and sutured and a dry dressing applied. We then turned our attention intraorally, packed the throat, irrigated the oral cavity with Peridex solution and gave 1.8 mL of 0.5% Marcaine with 1:200,000 epinephrine as an inferior alveolar nerve block. I then extracted the tooth, sutured it with 4-0 chromic gut sutures, turned him over to anesthesia where he was transferred to the ICU for recovery. I attest to the content of the Intraoperative Record and any orders documented therein. Any exception s are noted below.
[2019-08-24] MEDS: HEPARIN SOD 5,000 UNIT/0.5 ML VIAL SQ SCH ×2 (08:05→20:06)
[2019-08-24] MEDS ORDERED: methylPREDNISolone 80 MG in SYRINGE 0 ML IV SCH (09:00)
[2019-08-24] MEDS: AMPICILLIN/SULBACTAM SOD 3,000 MG in 0.9 % SODIUM CHLORIDE 100 ML IV SCH ×2 (10:57→16:12)
[2019-08-24] MEDS: UMECLIDINIUM BROMIDE 62.5MCG/BLISTER 7 PUFFS/INHALER INH SCH (10:58)
[2019-08-24] MEDS: FLUTICASONE/VILANTEROL 100/25MCG 14 PUFFS/INHALER INH SCH (10:59)
--- NOTE | 2019-08-24 11:28 | Progress Notes ---
DATE: 08/24/2019 I am seeing the patient for a postop check after incision and drainage of a right submandibular abscess and extraction of right mandibular infected wisdom tooth last night. Overnight, the patient was left vented in the ICU and this morning he was successfully extubated. He is speaking clearly, his voice is strong. He is in no apparent distress. Reports feeling somewhat better already. VITALS: Temperature 36.6. I will refer you to the EMR for the remainder of his vitals. On clinical exam, the swelling is already reduced. The drain is in place with simply serosanguineous drainage. No purulent drainage at this point and so I removed the drain. His extraction site looks unremarkable. His airway is widely patent. He is handling his secretions without any difficulty. IMPRESSION: A right submandibular space abscess status post incision and drainage and removal of the offending tooth. My recommendations would be to continue his IV Zosyn while he is here in the hospital, but at such time as his pulmonary status allows to be discharged home he can return to the clindamycin that he was given previously and already has in his possession. We should apply dry dressing to the I&D site p.r.n., saline mouth rinses 4 times daily. From my standpoint we can advance to mechanical soft diet as deemed appropriate by the intensive care staff. I am available if there is any head and neck concerns for this patient. He should see me in about a week's time for suture removal. He can schedule that by calling my office at [phone].
[2019-08-24] MEDS ORDERED: VANCOMYCIN HCL 1,000 MG in SODIUM CHLORIDE 0.9% 250 ML IV SCH (12:00)
[2019-08-24] MEDS: ASCORBIC ACID 500 MG TAB PO SCH (12:54)
[2019-08-24] MEDS: ASPIRIN 81 MG ECTAB PO SCH (12:54)
[2019-08-24] MEDS: MULTIVITAMIN TAB PO SCH (12:54)
--- NOTE | 2019-08-24 13:15 | Anesthesiology Progress Note ---
Date of Service August 24, 2019 Anesthesia Post Procedure Vital Signs Vital Signs: Temp Pulse Pulse Resp BP BP Pulse Ox 08/24/19 11:25 91 H 16 94 08/24/19 08:00 90 08/24/19 07:44 71 14 94 08/24/19 07:02 73 87/54 L 92 08/24/19 07:00 73 93 08/24/19 06:47 72 91/58 L 94 08/24/19 06:32 77 93/58 L 93 08/24/19 06:30 78 93 08/24/19 06:18 104 H 104/84 91 08/24/19 06:02 73 92/55 L 91 08/24/19 06:00 74 91 08/24/19 05:47 75 89/55 L 91 08/24/19 05:32 77 98/54 L 91 08/24/19 05:30 75 91 08/24/19 05:20 77 14 92 08/24/19 05:17 77 94/57 L 91 08/24/19 05:02 80 98/62 L 90 08/24/19 05:00 80 90 08/24/19 04:47 77 101/60 91 08/24/19 04:32 76 93/58 L 92 08/24/19 04:30 77 92 08/24/19 04:17 76 88/57 L 92 08/24/19 04:02 76 88/54 L 92 08/24/19 04:00 76 92 08/24/19 03:47 75 90/57 L 94 08/24/19 03:32 77 87/56 L 94 08/24/19 03:30 78 94 08/24/19 03:17 77 93/58 L 93 08/24/19 03:02 79 89/56 L 92 08/24/19 03:00 80 92 08/24/19 02:46 83 88/56 L 92 08/24/19 02:41 84 90/58 L 92 08/24/19 02:36 85 98/64 L 86 L 08/24/19 02:31 84 105/74 93 08/24/19 02:30 86 92 08/24/19 02:26 85 90/59 L 92 08/24/19 02:21 86 92/58 L 92 08/24/19 02:16 88 87/57 L 92 08/24/19 02:11 88 83/53 L 92 08/24/19 02:06 87 84/51 L 91 08/24/19 02:01 90 75/51 L 91 08/24/19 02:00 90 91 08/24/19 01:56 92 H 83/53 L 91 08/24/19 01:51 94 H 80/48 L 92 08/24/19 01:46 96 H 78/51 L 92 08/24/19 01:41 102 H 85/60 L 96 08/24/19 01:36 104 H 116/75 95 08/24/19 01:31 107 H 105/82 93 08/24/19 01:30 98 H 91 08/24/19 01:26 99 H 83/54 L 91 08/24/19 01:21 101 H 110/63 92 08/24/19 01:20 105 H 14 94 08/24/19 01:16 102 H 14 88/56 L 71 L 08/24/19 01:15 101 H 14 100 08/24/19 01:11 103 H 14 91/57 L 100 08/24/19 01:10 109 H 14 92 08/24/19 01:07 104 H 14 107/65 88 L 08/24/19 01:05 106 H 14 96 08/24/19 01:01 102 H 14 92/58 L 96 08/24/19 01:00 105 H 14 91 08/24/19 00:56 108 H 14 107/64 92 08/24/19 00:55 103 H 14 100 08/24/19 00:51 36.6 C 105 H 95/58 L 100 08/23/19 22:54 92 H 20 119/72 92 08/23/19 21:41 37.2 C 08/23/19 21:24 20 111/79 92 08/23/19 21:00 93 08/23/19 19:42 36.7 C 119 H 24 115/69 91 Pain Intensity Right Face: Pain Intensity: 9 Notes Mental Status: alert / awake / arousable and participated in evaluation Patient Amnestic to Procedure: Yes Nausea / Vomiting: see Notes below Pain: adequately controlled Airway Patency, RR, SpO2: stable & adequate BP & HR: stable & adequate Hydration State: stable & adequate Anesthetic Complications: no major complications apparent and Pt Satisfied with anesthetic care
--- NOTE | 2019-08-24 22:55 | Hospitalist Progress Note ---
Date of Service August 24, 2019 Assessment & Plan (1) Dental abscess: 49 yo M with PMH severe COPD 2/2 previous tobacco abuse presents wit concerns of R lower jaw pain and worsening swelling found to have abscess along right hemimandible on Neck CT. Hemimandible Abscess -admit to ICU -Was intubated but has been extubated on 08/23 -Soft Tissue Neck CT: 2.5 x 2.2 cm rim-enhancing fluid collection consistent with abscess along the undersurface of the posterior body of the right hemimandible with associated periapical abscess of a right mandibular molar, likely the third molar -pt has remained afebrile. Labs without leukocytosis. LA WNL -Oral Maxillofacial Consult appreciated- Dr. Ridley took pt into OR for Incision and Drainage of Right Submandibular Abscess and extraction of the lower right wisdom tooth -cont antibiotic coverage with IV unasyn -pain management with IV Toradol/[place] prn for moderate/severe pain. Pain had been well controlled thus far prior to OR -will advance diet as tolerated Patient will be transferred out of the ICU on 08/23. Will likely discharge on 08/24 (2) Respiratory failure with hypoxia: Acute Hypoxic Resp Failure/COPD -quit smoking Mar 2019 -follows with Dr. Chen of Pulmonology. Undergoing pulmonary rehab. Severe centrilobular emphysema. Last PFT May 2019: FEV1/FVC ratio of 35, FEV1 26% predicted, FVC 60% predicted -As above, now extubated. -tapered steroids. -cont home inhaler regimen with advair, spiriva, albuterol otherwise once able (3) Centrilobular emphysema: As stated above (4) Tobacco abuse: Patient has quit smoking. (5) COPD (chronic obstructive pulmonary disease): As stated above. Admission and Anticipated Discharge Date Admission Date: August 24, 2019 Subjective Patient is extubated. He reports feeling better. Patient denies any signifcant pain at this time. He is breathing better. Review of Systems Review of Systems: All systems reviewed & are unremarkable except as noted in HPI & below Physical Exam Physical Exam: Constitutional: WD/WN, vitals as above no acute distress Eyes: PERRL, conjunctivae normal, anicteric sclerae ENMT: Mouth: + dentition abnormality (poor dentition) Swelling and TTP along R lower mandible Respiratory: normal respiratory effort; no respiratory distress Auscultation: + rhonchi coarse throughout Cardiovascular: RRR, no murmur, no edema Gastrointestinal (Abdomen): normal bowel sounds, soft, nontender, no hepatosplenomegaly Skin: no rashes, warm and dry Psychiatric: A+Ox3, euthymic affect Results & Data Results & Data ([facility]) Vital Signs (Past 12 Hours) Vital Signs Temp Pulse Pulse Resp BP Pulse Ox 08/24/19 18:55 93 H 16 91 08/24/19 18:43 36.4 C L 92 H 20 117/75 90 08/24/19 15:44 86 08/24/19 15:34 100 H 18 92 08/24/19 15:23 36.5 C 81 18 111/74 93 08/24/19 14:00 36.8 C 81 16 101/65 91 08/24/19 13:48 86 95/59 L 90 08/24/19 13:33 89 102/62 90 08/24/19 13:18 94 H 109/61 90 08/24/19 13:03 98 H 114/65 92 08/24/19 13:00 101 H 89 L 08/24/19 12:48 99 H 117/64 91 08/24/19 12:19 91 H 91/72 L 92 08/24/19 12:03 90 113/65 92 08/24/19 12:00 91 H 82 L 08/24/19 11:33 92 H 107/57 L 96 08/24/19 11:25 91 H 16 94 08/24/19 11:19 83 110/66 95 08/24/19 11:03 92 H 113/78 92 08/24/19 11:00 90 91 PG Care Time/CCT Total # of Minutes Spent Total Time Spent with Patient: Total time spent is greater than 50% in coordination of care (as documented) at patient's floor/unit and/or counseling patient: Coding Level of Care Code 80964 Subseq Hosp Care Lvl 3 Diagnoses Dental abscess K04.7 Respiratory failure with hypoxia J96.21 Chronicity: acute on chronic Centrilobular emphysema J43.2 Tobacco abuse Z72.0 COPD (chronic obstructive pulmonary disease) J43.2 COPD type: emphysema Emphysema type: centrilobular Time Spent (min) 35 (1) Respiratory failure with hypoxia Chronicity: acute on chronic Qualified Code(s): J96.21 - Acute and chronic respiratory failure with hypoxia (2) COPD (chronic obstructive pulmonary disease) COPD type: emphysema Emphysema type: centrilobular Qualified Code(s): J43.2 - Centrilobular emphysema
--- NOTE | 2019-08-24 23:29 | Billing Data ---
Date of Service August 24, 2019 Coding Level of Care Code 41885 Initial Inpt Care Lvl 3
[2019-08-25] MEDS: AMPICILLIN/SULBACTAM SOD 3,000 MG in 0.9 % SODIUM CHLORIDE 100 ML IV SCH ×5 (00:37→22:51)
[2019-08-25] MEDS: KETOROLAC TROMETHAMINE 15 MG/ML VIAL IV PRN (00:57)
[2019-08-25] MEDS: ALBUT/IPRATROP 3MG/0.5MG NEB 3 ML VIAL NEB SCH ×5 (03:53→19:16)
[2019-08-25 07:26] LABS: Magnesium 2.5 mg/dl (1.8-2.4); Phosphorus 2.4 mg/dl (2.5-4.9)
[2019-08-25] MEDS: ASCORBIC ACID 500 MG TAB PO SCH (09:08)
[2019-08-25] MEDS: FLUTICASONE/VILANTEROL 100/25MCG 14 PUFFS/INHALER INH SCH (09:09)
[2019-08-25] MEDS: UMECLIDINIUM BROMIDE 62.5MCG/BLISTER 7 PUFFS/INHALER INH SCH (09:09)
[2019-08-25] MEDS: ASPIRIN 81 MG ECTAB PO SCH (09:09)
[2019-08-25] MEDS: MULTIVITAMIN TAB PO SCH (09:09)
[2019-08-25] MEDS: HEPARIN SOD 5,000 UNIT/0.5 ML VIAL SQ SCH ×2 (09:11→20:22)
--- NOTE | 2019-08-25 22:56 | Hospitalist Progress Note ---
Date of Service August 25, 2019 Assessment & Plan (1) Dental abscess: 49 yo M with PMH severe COPD 2/2 previous tobacco abuse presents wit concerns of R lower jaw pain and worsening swelling found to have abscess along right hemimandible on Neck CT. Hemimandible Abscess -admit to ICU -Was intubated but has been extubated on 08/23 -Soft Tissue Neck CT: 2.5 x 2.2 cm rim-enhancing fluid collection consistent with abscess along the undersurface of the posterior body of the right hemimandible with associated periapical abscess of a right mandibular molar, likely the third molar -pt has remained afebrile. Labs without leukocytosis. LA WNL -Oral Maxillofacial Consult appreciated- Dr. Ridley took pt into OR for Incision and Drainage of Right Submandibular Abscess and extraction of the lower right wisdom tooth -cont antibiotic coverage with IV unasyn, while in the hospital. -pain management with IV Toradol/[place] prn for moderate/severe pain. Pain had been well controlled, -will advance diet as tolerated Patient will be transferred out of the ICU on 08/23. Plan was to be discharged home today (08/24), however, patient is still on oxygen. It is too late to set up home oxygen today. Placed on incentive spirometry. will order 2 step, may cancel in AM if patient is doing better however. will hold discharge. Patient already has clindamycin script, the pills are locked in the pharmacy. Worked on his discharge: likely on 08/25 (2) Respiratory failure with hypoxia: Acute Hypoxic Resp Failure/COPD -quit smoking Mar 2019 -follows with Dr. Chen of Pulmonology. Undergoing pulmonary rehab. Severe centrilobular emphysema. Last PFT May 2019: FEV1/FVC ratio of 35, FEV1 26% predicted, FVC 60% predicted -As above, now extubated. -tapered steroids. -On Breo, Incruse and rescue neb while here. - home inhaler regimen with advair, spiriva, albuterol otherwise once able (3) Centrilobular emphysema: As stated above (4) Tobacco abuse: Patient has quit smoking. (5) COPD (chronic obstructive pulmonary disease): As stated above. Admission and Anticipated Discharge Date Admission Date: August 24, 2019 Subjective Patient reports feeling better. Denies any significant pain. Patient continues to have require oxygen in hopsital but states he is not on any oxygen at home. Review of Systems Review of Systems: All systems reviewed & are unremarkable except as noted in HPI & below Physical Exam Physical Exam: Constitutional: WD/WN, vitals as above no acute distress Eyes: PERRL, conjunctivae normal, anicteric sclerae ENMT: Mouth: + dentition abnormality (poor dentition) Decreased Swelling with dry dressing along R lower mandible Respiratory: normal respiratory effort; no respiratory distress Auscultation: + rhonchi coarse throughout Cardiovascular: RRR, no murmur, no edema Gastrointestinal (Abdomen): normal bowel sounds, soft, nontender, no hepatosplenomegaly Skin: no rashes, warm and dry Psychiatric: A+Ox3, euthymic affect Results & Data Results & Data ([facility]) Vital Signs (Past 12 Hours) Vital Signs Temp Pulse Pulse Pulse Resp BP Pulse Ox 08/25/19 19:42 36.8 C 99 H 20 109/68 92 08/25/19 19:17 95 H 18 95 08/25/19 15:36 36.7 C 87 20 104/71 91 08/25/19 12:09 36.7 C 92 H 22 117/67 91 08/25/19 11:13 88 18 92 PG Care Time/CCT Total # of Minutes Spent Total Time Spent with Patient: Total time spent is greater than 50% in coordination of care (as documented) at patient's floor/unit and/or counseling patient: Coding Level of Care Code 71924 Subseq Hosp Care Lvl 3 Diagnoses Dental abscess K04.7 Respiratory failure with hypoxia J96.21 Chronicity: acute on chronic Centrilobular emphysema J43.2 Tobacco abuse Z72.0 COPD (chronic obstructive pulmonary disease) J43.2 COPD type: emphysema Emphysema type: centrilobular Time Spent (min) 35 (1) Respiratory failure with hypoxia Chronicity: acute on chronic Qualified Code(s): J96.21 - Acute and chronic respiratory failure with hypoxia (2) COPD (chronic obstructive pulmonary disease) COPD type: emphysema Emphysema type: centrilobular Qualified Code(s): J43.2 - Centrilobular emphysema
[2019-08-26] MEDS: AMPICILLIN/SULBACTAM SOD 3,000 MG in 0.9 % SODIUM CHLORIDE 100 ML IV SCH ×2 (05:24→11:55)
[2019-08-26] MEDS: KETOROLAC TROMETHAMINE 15 MG/ML VIAL IV PRN (05:28)
[2019-08-26] MEDS: ALBUT/IPRATROP 3MG/0.5MG NEB 3 ML VIAL NEB SCH ×3 (07:05→15:27)
[2019-08-26] MEDS: MULTIVITAMIN TAB PO SCH (08:45)
[2019-08-26] MEDS: ASCORBIC ACID 500 MG TAB PO SCH (08:45)
[2019-08-26] MEDS: ASPIRIN 81 MG ECTAB PO SCH (08:45)
[2019-08-26] MEDS: HEPARIN SOD 5,000 UNIT/0.5 ML VIAL SQ SCH (08:46)
[2019-08-26] MEDS: UMECLIDINIUM BROMIDE 62.5MCG/BLISTER 7 PUFFS/INHALER INH SCH (08:46)
[2019-08-26] MEDS: FLUTICASONE/VILANTEROL 100/25MCG 14 PUFFS/INHALER INH SCH (08:46)
[2019-08-26 09:09] LABS: Hematocrit (blood only) 38.6 % (42-52); Hemoglobin 12.7 g/dL (14.0-18.0); Mean Corpuscular Hemoglobin 30.8 pg (25-34); Mean Corpuscular Hgb Conc 32.9 g/dL (32-36); Mean Corpuscular Volume 93.7 fL (80-100); Mean Platelet Volume 8.6 fL (7.4-10.4); Platelet Count 369 K/uL (130-400); RDW Standard Deviation 44.5 fL (36.4-46.3); Red Blood Count 4.12 M/uL (4.7-6.1)
[2019-08-26 09:27] LABS: BUN Creatinine Ratio 15.3 (10-20); Calcium 8.7 mg/dl (8.5-10.1); Creatinine Clr Calc Pharmacy 110.8 ml/min; Est GFR (African American) 122.8; Potassium 3.9 mmol/L (3.5-5.1)
--- NOTE | 2019-08-26 12:47 | Discharge Summary ---
Date of Service August 26, 2019 Admission HPI Per Admitting Provider 49 yo M with PMH severe COPD 2/2 previous tobacco abuse presents to [facility] with concerns of worsening R jaw swelling. Pt was seen in ED 08/21 for lower R jaw pain. Pain started last week with cracked tooth that occurred while eating. Swelling and pain has gradually increased, and he called his dentist who is not seeing pts currently 2/2 COVID and was given an appt for end of August. Pt had a tooth extraction in May and was given a Rx for PCN for which he still had 2 days worth so he took that before running out and presenting to ED. Pt was seen and dc'd on PO Clinda, prn Gillespie. Pt notes that pain was tolerated with Gillespie; however, swelling increased into today so represented into ED. Describes pain as constant pressure in R lower jaw, with radiation into entire head. Exacerbated with eating/drinking/swallowing, and relieved somewhat with Gillespie as above. 9/10 severity at its worst. Associated trouble breathing through mouth and dysphagia, but otherwise denies F/N/V/D, chills, CP, SOB, recent travel or sick contacts. Pt with no other acute concerns or complaints. Soft Tissue Neck CT: 2.5 x 2.2 cm rim-enhancing fluid collection consistent with abscess along the undersurface of the posterior body of the right hemimandible with associated periapical abscess of a right mandibular molar, likely the third molar. Moderate adjacent inflammation. Numerous additional cavities. Mildly enlarged right-sided cervical lymph nodes Pertinent Labs: Na 132. LA WNL. Otherwise unremarkable ER Course: IV Toradol 15 mg, IV Zosyn, NSS Pt to be taken in OR by Dr. Ridley took pt into OR for Incision and Drainage of Right Submandibular Abscess. Social Hx: Tobacco use-started age 16, quit age 49Mar, was 1ppd. Alcohol- social use. Denies illicit drug use Admission Exam Per Admitting Provider Physical Exam Constitutional: WD/WN, vitals as above no acute distress Eyes: PERRL, conjunctivae normal, anicteric sclerae ENMT: Mouth: + dentition abnormality (poor dentition) Swelling and TTP along R lower mandible Respiratory: normal respiratory effort; no respiratory distress Auscultation: + rhonchi coarse throughout Cardiovascular: RRR, no murmur, no edema Gastrointestinal (Abdomen): normal bowel sounds, soft, nontender, no hepatosplenomegaly Skin: no rashes, warm and dry Psychiatric: A+Ox3, euthymic affect Principal Diagnosis Dental Abscess Hemimandible abscess Acute hypoxic respiratory failure/COPD Centrilobular emphysema Acute respiratory failure with hypoxia Discharge Exam General: awake, alert, no apparent distress Head: Normocephalic, atraumatic ENT: PERRL, EOMI, + purulent exudate expressed from pulled tooth in right lower jaw, mucous membranes moist, + minimal edema surrounding I&D site, poor dentition, multiple missing teeth Chest: + Barrel chested, on room air, O2 sats 90%, on room air, coarse throughout, no wheeze, + cough Cardiac: Regular rate and rhythm, no murmur, no JVD, normal peripheral pulses, good capillary refill Abdominal: NABS x 4 quadrants, soft, nontender to palpation, no rebound, guarding or tenderness Extremities: Normal inspection, no peripheral edema or erythema, calfs nontender to palpation Psych: Normal mood and affect Neuro: AAO x 3, strength intact bilaterally and rated 5/5, no motor deficits, speech is clear, no peripheral sensory deficits Discharge Data Allergies Allergy/AdvReac Type Severity Reaction Status Date / Time No Known Allergies Allergy Verified 08/22/19 01:46 Consultations 08/23/19 22:01 ED Decision to Admit Stat 08/24/19 01:23 Consult Case Management - Discharge Planning Routine 08/24/19 01:58 Consult Case Management - Discharge Planning Routine Consult Multigraph Operator Routine 08/24/19 02:10 Consult Oromaxillofacial Surgery Routine Procedures Performed Operation Date: 08/23/19 23:00 Actual Procedures p Incision and Drainage of Right Submandibular Abcess(Not Applicable) - Danielito Ridley MD, DDS Ordered Studies 08/23/19 19:57 CT soft tissue neck w con Stat CXR Hospital Course (1) Dental abscess: 49 yo M with PMH severe COPD 2/2 previous tobacco abuse presents wit concerns of R lower jaw pain and worsening swelling found to have abscess along right hemimandible on Neck CT. Hemimandible Abscess -admit to ICU initially for airway protection, Was intubated but has been extubated on 08/23 then transferred to [facility]. -Soft Tissue Neck CT: 2.5 x 2.2 cm rim-enhancing fluid collection consistent with abscess along the undersurface of the posterior body of the right hemimandible with associated periapical abscess of a right mandibular molar, likely the third molar -pt has remained afebrile. Labs with leukocytosis likely due to steroid burst. LA WNL -Oral Maxillofacial Consult appreciated- Dr. Ridley took pt into OR for Incision and Drainage of Right Submandibular Abscess and extraction of the lower right wisdom tooth -cont antibiotic coverage with IV unasyn, while in the hospital - continue on clindamycin once discharged -pain management with IV Toradol/[place] prn for moderate/severe pain. Pain had been well controlled, may continue use of Tylenol and Percocet -will advance diet as tolerated, tolerating well -Patient completed two-step walk test for O2, needs for O2 on exertion, delivered in the hospital and can dc home today. (2) Respiratory failure with hypoxia: -secondary to COPD/emphysema in the setting of acute hypoxia d/t edema from dental abscess - s/p extubation on 08/23 -tapered steroids -On Breo, Incruse and rescue neb while here. -home inhaler regimen with advair, spiriva, albuterol otherwise once able (3) Centrilobular emphysema: -quit smoking Mar 2019 -follows with Dr. Chen of Pulmonology. Undergoing pulmonary rehab. Severe centrilobular emphysema. Last PFT May 2019: FEV1/FVC ratio of 35, FEV1 26% predicted, FVC 60% predicted (4) COPD (chronic obstructive pulmonary disease): As stated above. (5) Tobacco abuse: - Hx of such Total Time Total Time Spent Total Time Spent (In Minutes): 44 Discharge Plan Discharge Items Patient Disposition: Home - Self-Care Reason For Visit: ABSCESS Discharge Diagnosis: abscess Condition on Discharge: Fair Activity: Resume your previous activity Lifting: None and Gradually increase as tolerated Bathing: No limitations Exercise/Sports: Gradually increase as tolerated Driving/Machine Use: Resume 1 day after discharge Non-emergency contact: Primary Care Provider, Surgeon and Solar Project Manager Call non-emergency contact if: you have any medication questions, your pain is not controlled, your pain is concerning for you, you have a fever, your temperature is above 101, your wound has increased drainage and your wound pain has increased Follow-up/Referrals: Griel,Josep C. III, [employer] [Primary Care Provider] - (Please call your primary care office to see if they would like you to set up a follow up appointment.) Danielito Ridley MD, DDS [Surgeon] - (Please follow up in at the end of this week for suture removal and follow up.) Diet: Regular Diet Texture: Mechanical soft (ground) Diet Comment: Advance as tolerated. Addtl Attending Provider Instructions: You have been hospitalized for an acute medical problem: tooth abscess. During your stay at [facility], we have made an effort to correct the problem that brought you to the hospital while keeping you as comfortable as possible. Medications were used to bring your condition under control and your discharge instructions will include directions for any medications you should take after leaving the hospital. Please make sure you see your Primary Care Provider as part of your follow up plan. You can return on your clindamycin that you were already given previously and already have in your possession. Apply dry dressing to the I&D site as needed Use saline mouth rinses 4 times daily Continue on mechanical soft diet as needed and advanced as tolerated. You may use Percocet as you were already given this by the ER, for pain every 6 hours as needed[address] DO NOT DRIVE while taking this medication. Percocet contains acetaminophen. Use acetaminophen (Tylenol) for pain, do not exceed 3000 mg within a 24 hour period. Follow Up with ENT, Dr. Ridley Schedule in 1-2 days for an appointment about a week's time out for suture removal. Call my office at [phone]. You will need to wear Oxygen 2L via nasal cannula with exertion, but can take it off at rest. Please follow up with your PCP and Pulmonology to determine when you can come off of the oxygen. Pending Studies at Discharge: No Stand-Alone Forms: My [facility], Smoking Cessation Medications and DC Order Prescriptions: Continued aspirin 81 mg tablet,delayed release (DR/EC) 81 mg PO DAILY RF: 0 Spiriva Respimat 2.5 mcg/actuation mist 2 puffs INH DAILY 30 Days Qty: 4 RF: 2 hydrocodone-acetaminophen 5-325 mg tablet 1 tab PO Q6H PRN (Reason: pain) Qty: 14 RF: 0 clindamycin HCl 300 mg capsule 300 mg PO Q6H 10 Days Qty: 40 RF: 0 ascorbic acid (vitamin C) [Vitamin C] 500 mg Tablet 500 mg PO DAILY RF: 0 multivitamin Tablet,Chewable 1 tab PO DAILY RF: 0 fluticasone propion-salmeterol [Wixela Inhub] 100-50 mcg/dose blister with device 1 puff INHALATION BID RF: 0 albuterol sulfate 90 mcg/actuation HFA aerosol inhaler 1 - 2 puff INH Q4H PRN (Reason: shortness of breath or wheezing) RF: 0 Discharge Orders: Discharge Order (Routine); Ordered 08/26/19 Ordered By: Rowena James Admission Data Admit Date/Time: 08/24/19 01:58 Attending Provider: Rowena James Admit Provider: Tyson Levy Primary Care Provider: Josep Arguello III Other Providers: Paul Borrego ; Oseas Glover ; Danielito Ridley Other Interventions: Discharge Summary Assessment (RN) Last Done: 08/26/19 12:56 DC Date/Time DO NOT enter until pt leaves facility: 08/26/19 16:17 Supervising Physician Co-Signing Physician Notes PA Supervision Note: I personally saw and examined the patient. I verified all brody points and agree with SHERLYN Duarte with the following exceptions and/or additions: Pt feeling much better. Minimal pain at surgical site left jaw. Draining a bit onto his dressing from incision right mandible. Denies dyspnea over his usual Is agreeable to O2 use with exertion His outpt Pulm rehab is currently on hold Right facial abscess/periapical abscess right mandibular molar- now s/p I&D, doing well, finish out clinda on discharge and f/u with OMFS Severe COPD, acute resp failure with hypoxia--> sent out with home O2 for with exertion f/u with Pulm Stable for dc Coding Level of Care Code D/C Day Management >30 mins Diagnoses Dental abscess K04.7 Respiratory failure with hypoxia J96.21 Chronicity: acute on chronic Centrilobular emphysema J43.2 COPD (chronic obstructive pulmonary disease) J43.2 COPD type: emphysema Emphysema type: centrilobular Tobacco abuse Z72.0
== END 2019-08-26 16:17 | disposition home or self-care (01) | DRG 157 ==
LOC: ED 19:39 → OR 23:06 → SUATTDRO 08-24 01:58 → 1E 08-24 01:58 → 2W 08-24 15:11

== ENCOUNTER 2021-03-05 20:22 | Inpatient (IN) ==
[~2021-03-05 20:22] MED LIST: ETOMIDATE 2 MG/ML 20 ML VIAL IV ONE; ROCURONIUM BROMIDE 10 MG/ML 5 ML VIAL IV ONE
[2021-03-05] MEDS ORDERED: ALBUT/IPRATROP 3MG/0.5MG NEB 3 ML VIAL NEB ONE (20:33)
--- NOTE | 2021-03-05 20:39 | Emergency Department Note ---
Impression & Plan Respiratory failure, Acute exacerbation of chronic obstructive airways disease, Acute respiratory acidosis, Hypoxia ED Provider Note NAME: EMILEE MAHARAJ AGE: 50 SEX: M : 1970 ARRIVES VIA: Ambulance INFORMANT: Patient,EMS ED PROVIDER(S): Lenard Mcdaniel DO CHIEF COMPLAINT: Shortness of breath HPI: The patient is a 50-year-old male who presented to the emergency department for an evaluation of difficulty breathing. The patient has a history of COPD and emphysema. He states over the last week he has been having progressive shortness of breath. He describes a cough which is sometimes productive for clear sputum. He denies having any fever or chest pain. He denies having any lower extremity pain. The patient states symptoms became much more severe this evening so he called 911. The patient was noted to have an oxygen saturation of 82% on ambient room air. The patient was placed on submental oxygen prior to arrival. He was also given Solu-Medrol 125 mg and a DuoNeb prior to arrival. The patient states his symptoms are mildly improved. He does complain of severe dyspnea on exertion. He denies having any orthopnea. The patient states he had similar episodes in the past with COPD. ROS: See above HPI for pertinent positives & negatives. A total of 10 systems reviewed and were otherwise negative. PAST MEDICAL HISTORY: See Below PAST SURGICAL HISTORY: See Below FAMILY HISTORY: See Below SOCIAL HISTORY: See Below HOME MEDICATIONS: See Below ALLERGIES: See Below VITALS: See Below PHYSICAL EXAMINATION: GENERAL: The patient is awake and alert. The patient is very anxious appearing and appears to be in significant distress. EYES: The conjunctivae are clear. The pupils are round and reactive. EARS, NOSE, MOUTH AND THROAT: The nose is without any evidence of any deformity. Mucous membranes are dry. NECK: The neck is nontender and supple. RESPIRATORY: Shallow respirations were noted. Supraclavicular retractions were noted. Diminished breath sounds are noted throughout. Pursed lip breathing was noted. Significant conversational dyspnea was appreciated. CARDIOVASCULAR: Regular rate and rhythm noted there no murmurs rubs or gallops normal S1 normal S2. GASTROINTESTINAL: The abdomen is soft. Abdomen is nontender. MUSCULOSKELETAL/EXTREMITIES: There is no evidence of gross deformity full range of motion is noted in the hips and shoulders. SKIN: There is no obvious evidence of any rash. There are no petechiae, pallor or cyanosis noted. NEUROLOGIC: Patient is awake alert and oriented x3 MEDICAL DECISION MAKING: The patient is a 50-year-old male who presented to the emergency department for an evaluation of shortness of breath. The patient does have a history of COPD. The patient initially was placed on an hour-long DuoNeb. He did receive a DuoNeb as well as Solu-Medrol by the EMS personnel prior to arrival. The patient was awake and alert initially. His condition started to decompensate. Initially he was found to have a low pH and a high CO2. He started to have decreased mental status. I discussed the patient's condition with the on-call [facility]. Given the patient's change in his vital signs as well as his mental status decision was made to intubate the patient. The patient was intubated in usual fashion. He tolerated this well. He was placed on a ventilator. Arterial blood gas was obtained. He did have a slight improvement in his pH as well as his CO2 retention. The patient was treated with IV fluids and IV antibiotics. Triage Nursing notes reviewed. Prior medical records reviewed Vital Signs: reviewed and remarkable for hypoxia tachycardia and elevated blood pressure. Differential diagnosis: Reactive airway disease, pneumonia, pneumothorax, COPD, CHF, infections, cardiac ischemia, pulmonary embolism, musculoskeletal, gastrointestinal, as well as other pathologies. ER treatment provided: See below Diagnostics interpreted by me: ECG: EKG was obtained in the emergency department. My interpretation is sinus tachycardia 104 bpm. PACs were noted. There was no acute ST segment abnormalities noted. This was compared to a tracing from April 05, 2019. The PACs are new otherwise there are no significant changes. Cardiac Monitoring: An order was placed for continuous cardiac monitoring. The monitor shows a rate of 169 bpm with multifocal atrial tachycardia. Laboratory studies: As stated above and show below. Imaging studies: See below Consultation(s): I discussed this case with Dr. Dukes who is on-call for the [facility] group. They will evaluate the patient in the emergency department. ED COURSE: Procedures: Endotracheal Intubation Indication respiratory failure. The patient was on 100% oxygen via NRB prior to the procedure. Suction, airway equipment, RSI drugs, respiratory equipment, and appropriate personnel were prepared prior to the initiation of the procedure. A time out was taken. Induction was performed with etomidate and rocuronium. After observing the clinical benefit of the medications, the airway was easily visualized utilizing a glide scope. A 8.0 size ETT tube was placed atraumatically to 26 cm using standard technique. The cuff inflated without signs of malfunction. There were bilateral breath sounds, positive colormetric change, no gastric sounds, a good capnography waveform, and post procedure pulse oximetry was 96%. There were no complications. PDMP:reviewed and no issues Critical Care: I have personally spent greater than 65 minutes of critical care time in the direct management of this patient. This includes bedside care, interpretation of diagnostic studies, and testing, discussion with consultants, patient, and family members, and other required patient management activities. This 65 minutes is in excess of all separately billable procedures. Past Med/Surg History Medical History Brain aneurysm Centrilobular emphysema Chronic hypoxemic respiratory failure COPD (chronic obstructive pulmonary disease) Dyspnea and respiratory abnormalities Dyspnea on exertion History of tobacco abuse Tobacco abuse Surgical History History of intravascular stent placement Family History Grandfather (Maternal) Myocardial infarction Grandfather (Paternal) Myocardial infarction Mother Ovarian cancer Bladder cancer Other Diabetes Denies family history of Prostate cancer Breast cancer Colorectal cancer Social History Smoking Status: Former smoker Tobacco Type: Cigarettes Age Started Using Tobacco: 16; Age Quit Using Tobacco: 49; packs per day: 1; Years Smoked: 33; Cigarettes Per Day: 0.5; Hx Alcohol Use: Yes Alcohol type: beer and hard liquor Hx Substance Use: Yes Last Used Substance: Days (ago) Last Used Substance Othe r:: 2 days ago Substance Use Type Other:: INTUBATED. 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 Feels Safe at Home: Yes Childhood Exposure to Second-Hand Smoke: Yes Dental Care, Regularly: No Physical Activity Frequency: Does not Exercise Seatbelt Use: always Sunscreen Use: No Assistive Devices: Nebulizer Allergies Allergies Allergy/AdvReac Type Severity Reaction Status Date / Time No Known Allergies Allergy Verified 03/05/21 21:08 Home Meds Home Medications Medication Instructions Recorded Confirmed multivitamin 1 tab PO DAILY 04/05/19 03/05/21 aspirin 81 mg tablet,delayed 81 mg PO DAILY 04/12/19 03/05/21 release ascorbic acid (vitamin C) 500 mg 1 g PO DAILY tab 08/04/20 03/05/21 tablet (Vitamin C) Previous Rx's Medication Instructions Recorded ipratropium 20 mcg-albuterol 100 1 puff INHALATION BID #4 g 08/04/20 mcg/actuation mist for inhalation (Combivent Respimat) fluticasone 500 mcg-salmeterol 50 1 inh INH BID #60 ea 09/12/20 mcg/dose blistr powdr for inhalation (Wixela Inhub) albuterol sulfate 90 mcg/actuation 2 puff INHALATION Q4H PRN #8.5 g 01/14/21 aerosol inhaler (Ventolin HFA) Results & Data (ED) Vital Signs Vital Signs - 24 hr 03/05/21 20:29 03/05/21 20:33 03/05/21 20:36 Temperature 36.9 C Temperature Source Oral Pulse Rate 107 H 115 H Pulse Rate from SpO2 Sensor 103 H Respiratory Rate 28 H 22 Respiratory Effort / Characteristics Labored Blood Pressure 145/100 H Blood Pressure Mean 115 Pulse Oximetry 99 Oxygen Delivery Method Nasal Cannula Nasal Cannula Oxygen Flow Rate 2 2 Fraction of Inspired Oxygen Sepsis Recent Fever Within 48 Hours No Sepsis New/Unexplained Change in Mental Status N/A Sepsis Action Taken by Nursing No Action Required End-Tidal CO2 03/05/21 20:40 03/05/21 20:48 03/05/21 20:50 Temperature Temperature Source Pulse Rate 107 H 113 H Pulse Rate from SpO2 Sensor 104 H 103 H Respiratory Rate 24 22 22 Respiratory Effort / Characteristics Spontaneous Labored Short of Breath Blood Pressure Blood Pressure Mean Pulse Oximetry 100 97 99 Oxygen Delivery Method Nasal Cannula Nasal Cannula Oxygen Flow Rate 2 2 Fraction of Inspired Oxygen Sepsis Recent Fever Within 48 Hours Sepsis New/Unexplained Change in Mental Status Sepsis Action Taken by Nursing End-Tidal CO2 03/05/21 21:00 03/05/21 21:10 03/05/21 21:20 Temperature Temperature Source Pulse Rate 101 H 106 H 108 H Pulse Rate from SpO2 Sensor 94 H 106 H 102 H Respiratory Rate 28 H 26 H Respiratory Effort / Characteristics Blood Pressure 162/91 H Blood Pressure Mean 114 Pulse Oximetry 100 100 100 Oxygen Delivery Method Oxygen Flow Rate Fraction of Inspired Oxygen Sepsis Recent Fever Within 48 Hours Sepsis New/Unexplained Change in Mental Status Sepsis Action Taken by Nursing End-Tidal CO2 03/05/21 21:30 03/05/21 21:40 03/05/21 21:50 Temperature Temperature Source Pulse Rate 127 H 114 H 109 H Pulse Rate from SpO2 Sensor 127 H 102 H 108 H Respiratory Rate 25 H 25 H 22 Respiratory Effort / Characteristics Blood Pressure 167/93 H Blood Pressure Mean 117 Pulse Oximetry 100 100 100 Oxygen Delivery Method Oxygen Flow Rate Fraction of Inspired Oxygen Sepsis Recent Fever Within 48 Hours Sepsis New/Unexplained Change in Mental Status Sepsis Action Taken by Nursing End-Tidal CO2 03/05/21 22:00 03/05/21 23:30 03/05/21 23:31 Temperature Temperature Source Pulse Rate 115 H 171 H 162 H Pulse Rate from SpO2 Sensor 117 H 121 H Respiratory Rate 28 H 18 Respiratory Effort / Characteristics Blood Pressure 114/73 Blood Pressure Mean 86 Pulse Oximetry 100 100 100 Oxygen Delivery Method Mechanical Vent Oxygen Flow Rate Fraction of Inspired Oxygen 40 100 Sepsis Recent Fever Within 48 Hours Sepsis New/Unexplained Change in Mental Status Sepsis Action Taken by Nursing End-Tidal CO2 50 55 03/05/21 23:34 03/05/21 23:40 03/05/21 23:50 Temperature Temperature Source Pulse Rate 160 H 169 H Pulse Rate from SpO2 Sensor 117 H 130 H Respiratory Rate 22 Respiratory Effort / Characteristics Blood Pressure 148/100 H Blood Pressure Mean 116 Pulse Oximetry 99 99 Oxygen Delivery Method Mechanical Vent Mechanical Vent Oxygen Flow Rate Fraction of Inspired Oxygen 40 Sepsis Recent Fever Within 48 Hours Sepsis New/Unexplained Change in Mental Status Sepsis Action Taken by Nursing End-Tidal CO2 48 47 Home Medications Current Medication List: was personally reviewed by me Laboratory Data Attestation: I reviewed the patient's lab results. Result diagrams: 03/05/21 20:30 03/05/21 20:30 Lab Results 03/05/21 03/05/21 03/05/21 Range/Units 20:30 20:30 20:30 WBC 11.58 H (4.8-10.8) K/uL RBC 4.50 L (4.7-6.1) M/uL Hgb 13.9 L (14.0-18.0) g/dL POC Hgb (14.0-18.0) g/dl Hct 41.0 L (42-52) % POC Hct (42-52) % MCV 91.1 (80-100) fL MCH 30.9 (25-34) pg MCHC 33.9 (32-36) g/dL RDW Std Deviation 42.3 (36.4-46.3) fL RDW Coeff of Abner 12.6 (11.5-14.5) % Plt Count 304 (130-400) K/uL MPV 10.3 (7.4-10.4) fL Immature Gran % (Auto) 0.2 % Neut % (Auto) 75.0 % Lymph % (Auto) 13.7 % [place] % (Auto) 10.7 % Eos % (Auto) 0.3 % Baso % (Auto) 0.1 % Neut # (Auto) 8.68 H (1.4-6.5) K/uL Lymph # (Auto) 1.59 (1.2-3.4) K/uL [place] # (Auto) 1.24 H (0.11-0.59) K/uL Eos # (Auto) 0.04 (0-0.5) K/uL Baso # (Auto) 0.01 (0-0.2) K/uL Immature Gran # (Auto) 0.02 (0.00-0.02) K/uL PT Cancelled INR Cancelled APTT Cancelled PTT Ratio Cancelled POC pH (7.35-7.45) POC pCO2 (35-46) mmHg POC pO2 (80-95) mmHg POC HCO3 (19-24) tj/L POC Total CO2 (24-31) mmol/L POC Base Excess (-9-1.8) tj/L ABG pH (7.35-7.45) ABG pCO2 (35-46) mmHg ABG pO2 (80-95) mmHg ABG HCO3 (19-24) mmol/L POC ABG O2 Sat (90-95) % ABG O2 Saturation (90-95) % ABG Base Excess (-9-1.8) mEq/L Terrell Test (Pos) VBG pH (7.36-7.41) VBG pCO2 (38-50) mmHg VBG pO2 mmHg VBG HCO3 mmol/L VBG O2 Saturation % VBG Base Excess mEq/L Barometric Pressure mm/Hg Oxygen Given POC Sodium (135-144) mmol/L Sodium 126 L (136-145) mmol/L POC Potassium (3.3-5.0) mmol/L Potassium 4.3 (3.5-5.1) mmol/L Chloride 88 L (98-107) mmol/L Carbon Dioxide 36 H (21-32) mmol/L Anion Gap 3.0 (3-11) BUN 11 (7-18) mg/dl Creatinine 0.55 L (0.6-1.4) mg/dl Est Cr Clr Drug Dosing 155.5 ml/min Est GFR ( Amer) 140.8 ml/min Est GFR (Non-Af Amer) 121.5 ml/min BUN/Creatinine Ratio 20.5 H (10-20) Glucose 111 H (70-99) mg/dl Lactate (0.4-2.0) mmol/L Calcium 8.7 (8.5-10.1) mg/dl Magnesium 2.2 (1.8-2.4) mg/dl Total Bilirubin 1.0 (0.2-1) mg/dl AST 22 (15-37) U/L ALT 21 (12-78) U/L Alkaline Phosphatase 52 (45-117) U/L Troponin I < 0.015 (0-0.045) ng/ml NT-Pro-B Natriuret Pep 116 (0-900) pg/ml Total Protein 6.9 (6.4-8.2) gm/dl Albumin 3.6 (3.4-5.0) gm/dl Globulin 3.3 (2.5-4.0) gm/dl Albumin/Globulin Ratio 1.1 (0.9-2) Procalcitonin (0-0.5) ng/ml Specimen Hemolysis Urine Color Urine Appearance (Clear) Urine pH (4.5-7.5) Ur Specific [place] (1.000-1.030) Urine Protein (Negative) Urine Glucose (UA) (Negative) Urine Ketones (Negative) Urine Blood (Negative) Urine Nitrite (Negative) Urine Bilirubin (Negative) Urine Urobilinogen (Negative) Ur Leukocyte Esterase (Negative) Urine WBC (Auto) (0-5) /hpf Urine RBC (Auto) (0-4) /hpf U Hyaline Cast (Auto) (0-5) /lpf U Epithel Cells (Auto) (0-5) /lpf Urine Bacteria (Auto) (Negative) COVID-19 Eval Order SARS-CoV-2 (PCR) (Negative) 03/05/21 03/05/21 03/05/21 Range/Units 20:45 20:45 21:15 WBC (4.8-10.8) K/uL RBC (4.7-6.1) M/uL Hgb (14.0-18.0) g/dL POC Hgb (14.0-18.0) g/dl Hct (42-52) % POC Hct (42-52) % MCV (80-100) fL MCH (25-34) pg MCHC (32-36) g/dL RDW Std Deviation (36.4-46.3) fL RDW Coeff of Abner (11.5-14.5) % Plt Count (130-400) K/uL MPV (7.4-10.4) fL Immature Gran % (Auto) % Neut % (Auto) % Lymph % (Auto) % [place] % (Auto) % Eos % (Auto) % Baso % (Auto) % Neut # (Auto) (1.4-6.5) K/uL Lymph # (Auto) (1.2-3.4) K/uL [place] # (Auto) (0.11-0.59) K/uL Eos # (Auto) (0-0.5) K/uL Baso # (Auto) (0-0.2) K/uL Immature Gran # (Auto) (0.00-0.02) K/uL PT INR APTT PTT Ratio POC pH (7.35-7.45) POC pCO2 (35-46) mmHg POC pO2 (80-95) mmHg POC HCO3 (19-24) tj/L POC Total CO2 (24-31) mmol/L POC Base Excess (-9-1.8) tj/L ABG pH (7.35-7.45) ABG pCO2 (35-46) mmHg ABG pO2 (80-95) mmHg ABG HCO3 (19-24) mmol/L POC ABG O2 Sat (90-95) % ABG O2 Saturation (90-95) % ABG Base Excess (-9-1.8) mEq/L Terrell Test (Pos) VBG pH (7.36-7.41) VBG pCO2 (38-50) mmHg VBG pO2 mmHg VBG HCO3 mmol/L VBG O2 Saturation % VBG Base Excess mEq/L Barometric Pressure mm/Hg Oxygen Given POC Sodium (135-144) mmol/L Sodium (136-145) mmol/L POC Potassium (3.3-5.0) mmol/L Potassium (3.5-5.1) mmol/L Chloride (98-107) mmol/L Carbon Dioxide (21-32) mmol/L Anion Gap (3-11) BUN (7-18) mg/dl Creatinine (0.6-1.4) mg/dl Est Cr Clr Drug Dosing ml/min Est GFR ( Amer) ml/min Est GFR (Non-Af Amer) ml/min BUN/Creatinine Ratio (10-20) Glucose (70-99) mg/dl Lactate 1.1 (0.4-2.0) mmol/L Calcium (8.5-10.1) mg/dl Magnesium (1.8-2.4) mg/dl Total Bilirubin (0.2-1) mg/dl AST (15-37) U/L ALT (12-78) U/L Alkaline Phosphatase (45-117) U/L Troponin I (0-0.045) ng/ml NT-Pro-B Natriuret Pep (0-900) pg/ml Total Protein (6.4-8.2) gm/dl Albumin (3.4-5.0) gm/dl Globulin (2.5-4.0) gm/dl Albumin/Globulin Ratio (0.9-2) Procalcitonin (0-0.5) ng/ml Specimen Hemolysis Urine Color Urine Appearance (Clear) Urine pH (4.5-7.5) Ur Specific [place] (1.000-1.030) Urine Protein (Negative) Urine Glucose (UA) (Negative) Urine Ketones (Negative) Urine Blood (Negative) Urine Nitrite (Negative) Urine Bilirubin (Negative) Urine Urobilinogen (Negative) Ur Leukocyte Esterase (Negative) Urine WBC (Auto) (0-5) /hpf Urine RBC (Auto) (0-4) /hpf U Hyaline Cast (Auto) (0-5) /lpf U Epithel Cells (Auto) (0-5) /lpf Urine Bacteria (Auto) (Negative) COVID-19 Eval Order Covid19 at [facility] SARS-CoV-2 (PCR) NEGATIVE (Negative) 03/05/21 03/05/21 03/05/21 Range/Units 21:15 21:15 21:15 WBC (4.8-10.8) K/uL RBC (4.7-6.1) M/uL Hgb (14.0-18.0) g/dL POC Hgb (14.0-18.0) g/dl Hct (42-52) % POC Hct (42-52) % MCV (80-100) fL MCH (25-34) pg MCHC (32-36) g/dL RDW Std Deviation (36.4-46.3) fL RDW Coeff of Abner (11.5-14.5) % Plt Count (130-400) K/uL MPV (7.4-10.4) fL Immature Gran % (Auto) % Neut % (Auto) % Lymph % (Auto) % [place] % (Auto) % Eos % (Auto) % Baso % (Auto) % Neut # (Auto) (1.4-6.5) K/uL Lymph # (Auto) (1.2-3.4) K/uL [place] # (Auto) (0.11-0.59) K/uL Eos # (Auto) (0-0.5) K/uL Baso # (Auto) (0-0.2) K/uL Immature Gran # (Auto) (0.00-0.02) K/uL PT 9.9 INR 1.0 APTT 27.9 PTT Ratio 1.1 POC pH (7.35-7.45) POC pCO2 (35-46) mmHg POC pO2 (80-95) mmHg POC HCO3 (19-24) tj/L POC Total CO2 (24-31) mmol/L POC Base Excess (-9-1.8) tj/L ABG pH (7.35-7.45) ABG pCO2 (35-46) mmHg ABG pO2 (80-95) mmHg ABG HCO3 (19-24) mmol/L POC ABG O2 Sat (90-95) % ABG O2 Saturation (90-95) % ABG Base Excess (-9-1.8) mEq/L Terrell Test (Pos) VBG pH 7.21 L (7.36-7.41) VBG pCO2 93 H (38-50) mmHg VBG pO2 49 mmHg VBG HCO3 37 mmol/L VBG O2 Saturation 79.2 % VBG Base Excess 5.1 mEq/L Barometric Pressure 736.9 mm/Hg Oxygen Given POC Sodium (135-144) mmol/L Sodium (136-145) mmol/L POC Potassium (3.3-5.0) mmol/L Potassium (3.5-5.1) mmol/L Chloride (98-107) mmol/L Carbon Dioxide (21-32) mmol/L Anion Gap (3-11) BUN (7-18) mg/dl Creatinine (0.6-1.4) mg/dl Est Cr Clr Drug Dosing ml/min Est GFR ( Amer) ml/min Est GFR (Non-Af Amer) ml/min BUN/Creatinine Ratio (10-20) Glucose (70-99) mg/dl Lactate (0.4-2.0) mmol/L Calcium (8.5-10.1) mg/dl Magnesium (1.8-2.4) mg/dl Total Bilirubin (0.2-1) mg/dl AST (15-37) U/L ALT (12-78) U/L Alkaline Phosphatase (45-117) U/L Troponin I (0-0.045) ng/ml NT-Pro-B Natriuret Pep (0-900) pg/ml Total Protein (6.4-8.2) gm/dl Albumin (3.4-5.0) gm/dl Globulin (2.5-4.0) gm/dl Albumin/Globulin Ratio (0.9-2) Procalcitonin < 0.05 (0-0.5) ng/ml Specimen Hemolysis Urine Color Urine Appearance (Clear) Urine pH (4.5-7.5) Ur Specific [place] (1.000-1.030) Urine Protein (Negative) Urine Glucose (UA) (Negative) Urine Ketones (Negative) Urine Blood (Negative) Urine Nitrite (Negative) Urine Bilirubin (Negative) Urine Urobilinogen (Negative) Ur Leukocyte Esterase (Negative) Urine WBC (Auto) (0-5) /hpf Urine RBC (Auto) (0-4) /hpf U Hyaline Cast (Auto) (0-5) /lpf U Epithel Cells (Auto) (0-5) /lpf Urine Bacteria (Auto) (Negative) COVID-19 Eval Order SARS-CoV-2 (PCR) (Negative) 03/05/21 03/05/21 03/05/21 Range/Units 22:53 23:19 23:31 WBC (4.8-10.8) K/uL RBC (4.7-6.1) M/uL Hgb (14.0-18.0) g/dL POC Hgb 13.6 L (14.0-18.0) g/dl Hct (42-52) % POC Hct 40 L (42-52) % MCV (80-100) fL MCH (25-34) pg MCHC (32-36) g/dL RDW Std Deviation (36.4-46.3) fL RDW Coeff of Abner (11.5-14.5) % Plt Count (130-400) K/uL MPV (7.4-10.4) fL Immature Gran % (Auto) % Neut % (Auto) % Lymph % (Auto) % [place] % (Auto) % Eos % (Auto) % Baso % (Auto) % Neut # (Auto) (1.4-6.5) K/uL Lymph # (Auto) (1.2-3.4) K/uL [place] # (Auto) (0.11-0.59) K/uL Eos # (Auto) (0-0.5) K/uL Baso # (Auto) (0-0.2) K/uL Immature Gran # (Auto) (0.00-0.02) K/uL PT INR APTT PTT Ratio POC pH 7.27 L (7.35-7.45) POC pCO2 86 H (35-46) mmHg POC pO2 > 420 H (80-95) mmHg POC HCO3 40 H (19-24) tj/L POC Total CO2 > 40 H* (24-31) mmol/L POC Base Excess 13.0 H (-9-1.8) tj/L ABG pH 7.30 L 7.30 L (7.35-7.45) ABG pCO2 72 H 64 H (35-46) mmHg ABG pO2 53 L 162 H (80-95) mmHg ABG HCO3 35 H 31 H (19-24) mmol/L POC ABG O2 Sat 100.0 H (90-95) % ABG O2 Saturation 87.3 L 99.1 H (90-95) % ABG Base Excess 5.7 H 2.8 H (-9-1.8) mEq/L Terrell Test POS POS (Pos) VBG pH (7.36-7.41) VBG pCO2 (38-50) mmHg VBG pO2 mmHg VBG HCO3 mmol/L VBG O2 Saturation % VBG Base Excess mEq/L Barometric Pressure 737.0 737.0 mm/Hg Oxygen Given 2 L 40 FIO2 POC Sodium 124 L (135-144) mmol/L Sodium (136-145) mmol/L POC Potassium 3.9 (3.3-5.0) mmol/L Potassium (3.5-5.1) mmol/L Chloride (98-107) mmol/L Carbon Dioxide (21-32) mmol/L Anion Gap (3-11) BUN (7-18) mg/dl Creatinine (0.6-1.4) mg/dl Est Cr Clr Drug Dosing ml/min Est GFR ( Amer) ml/min Est GFR (Non-Af Amer) ml/min BUN/Creatinine Ratio (10-20) Glucose (70-99) mg/dl Lactate (0.4-2.0) mmol/L Calcium (8.5-10.1) mg/dl Magnesium (1.8-2.4) mg/dl Total Bilirubin (0.2-1) mg/dl AST (15-37) U/L ALT (12-78) U/L Alkaline Phosphatase (45-117) U/L Troponin I (0-0.045) ng/ml NT-Pro-B Natriuret Pep (0-900) pg/ml Total Protein (6.4-8.2) gm/dl Albumin (3.4-5.0) gm/dl Globulin (2.5-4.0) gm/dl Albumin/Globulin Ratio (0.9-2) Procalcitonin (0-0.5) ng/ml Specimen Hemolysis Urine Color Urine Appearance (Clear) Urine pH (4.5-7.5) Ur Specific [place] (1.000-1.030) Urine Protein (Negative) Urine Glucose (UA) (Negative) Urine Ketones (Negative) Urine Blood (Negative) Urine Nitrite (Negative) Urine Bilirubin (Negative) Urine Urobilinogen (Negative) Ur Leukocyte Esterase (Negative) Urine WBC (Auto) (0-5) /hpf Urine RBC (Auto) (0-4) /hpf U Hyaline Cast (Auto) (0-5) /lpf U Epithel Cells (Auto) (0-5) /lpf Urine Bacteria (Auto) (Negative) COVID-19 Eval Order SARS-CoV-2 (PCR) (Negative) 03/05/21 Range/Units 23:40 WBC (4.8-10.8) K/uL RBC (4.7-6.1) M/uL Hgb (14.0-18.0) g/dL POC Hgb (14.0-18.0) g/dl Hct (42-52) % POC Hct (42-52) % MCV (80-100) fL MCH (25-34) pg MCHC (32-36) g/dL RDW Std Deviation (36.4-46.3) fL RDW Coeff of Abner (11.5-14.5) % Plt Count (130-400) K/uL MPV (7.4-10.4) fL Immature Gran % (Auto) % Neut % (Auto) % Lymph % (Auto) % [place] % (Auto) % Eos % (Auto) % Baso % (Auto) % Neut # (Auto) (1.4-6.5) K/uL Lymph # (Auto) (1.2-3.4) K/uL [place] # (Auto) (0.11-0.59) K/uL Eos # (Auto) (0-0.5) K/uL Baso # (Auto) (0-0.2) K/uL Immature Gran # (Auto) (0.00-0.02) K/uL PT INR APTT PTT Ratio POC pH (7.35-7.45) POC pCO2 (35-46) mmHg POC pO2 (80-95) mmHg POC HCO3 (19-24) tj/L POC Total CO2 (24-31) mmol/L POC Base Excess (-9-1.8) tj/L ABG pH (7.35-7.45) ABG pCO2 (35-46) mmHg ABG pO2 (80-95) mmHg ABG HCO3 (19-24) mmol/L POC ABG O2 Sat (90-95) % ABG O2 Saturation (90-95) % ABG Base Excess (-9-1.8) mEq/L Terrell Test (Pos) VBG pH (7.36-7.41) VBG pCO2 (38-50) mmHg VBG pO2 mmHg VBG HCO3 mmol/L VBG O2 Saturation % VBG Base Excess mEq/L Barometric Pressure mm/Hg Oxygen Given POC Sodium (135-144) mmol/L Sodium (136-145) mmol/L POC Potassium (3.3-5.0) mmol/L Potassium (3.5-5.1) mmol/L Chloride (98-107) mmol/L Carbon Dioxide (21-32) mmol/L Anion Gap (3-11) BUN (7-18) mg/dl Creatinine (0.6-1.4) mg/dl Est Cr Clr Drug Dosing ml/min Est GFR ( Amer) ml/min Est GFR (Non-Af Amer) ml/min BUN/Creatinine Ratio (10-20) Glucose (70-99) mg/dl Lactate (0.4-2.0) mmol/L Calcium (8.5-10.1) mg/dl Magnesium (1.8-2.4) mg/dl Total Bilirubin (0.2-1) mg/dl AST (15-37) U/L ALT (12-78) U/L Alkaline Phosphatase (45-117) U/L Troponin I (0-0.045) ng/ml NT-Pro-B Natriuret Pep (0-900) pg/ml Total Protein (6.4-8.2) gm/dl Albumin (3.4-5.0) gm/dl Globulin (2.5-4.0) gm/dl Albumin/Globulin Ratio (0.9-2) Procalcitonin (0-0.5) ng/ml Specimen Hemolysis Urine Color Yellow Urine Appearance Clear (Clear) Urine pH 5.5 (4.5-7.5) Ur Specific [place] 1.020 (1.000-1.030) Urine Protein 1+ H (Negative) Urine Glucose (UA) Negative (Negative) Urine Ketones 2+ H (Negative) Urine Blood Trace H (Negative) Urine Nitrite Negative (Negative) Urine Bilirubin Negative (Negative) Urine Urobilinogen Negative (Negative) Ur Leukocyte Esterase Negative (Negative) Urine WBC (Auto) 1-5 (0-5) /hpf Urine RBC (Auto) 0-4 (0-4) /hpf U Hyaline Cast (Auto) 1-5 (0-5) /lpf U Epithel Cells (Auto) 10-20 H (0-5) /lpf Urine Bacteria (Auto) Negative (Negative) COVID-19 Eval Order SARS-CoV-2 (PCR) (Negative) Administered Medications Azithromycin 500 mg/ Dextrose 255 mls @ 127.5 mls/hr IV NOW STA Stop: 03/06/21 01:11 Last Admin: 03/05/21 23:29 Dose: 127.5 mls/hr Documented by: [id number] Propofol (Diprivan) 1,000 mg in 100 mls @ 8.244 mls/hr IV .Q12H8M [facility]; Protocol Stop: 03/08/21 23:44 Last Admin: 03/06/21 00:20 Dose: 20 mcg/kg/min, 8.2 mls/hr Documented by: [id number] Cosigned by: [id number] Discontinued Medications Albuterol (Albut/Ipratrop 3mg/0.5mg Neb 3 Ml Vial) 12 ml NEB ONE ONE Stop: 03/05/21 20:34 Last Admin: 03/05/21 20:49 Dose: 12 ml Documented by: [id number] Magnesium Sulfate/Dextrose (Magnesium Sulfate / D5w) 1 gm in 100 mls @ 600 mls/hr IV Q10M MITCH Stop: 03/05/21 23:01 Last Admin: 03/05/21 23:51 Dose: Not Given Documented by: [id number] Infusion: 03/05/21 23:28 Dose: 0 mls/hr Documented by: [id number] Admin: 03/05/21 23:16 Dose: 600 mls/hr Documented by: [id number] Sodium Chloride (Nss 1000ml) 1,000 mls @ 999 mls/hr IV .Q1H1M ONE Stop: 03/06/21 00:04 Last Admin: 03/05/21 23:30 Dose: 999 mls/hr Documented by: [id number] Piperacillin Sod/Tazobactam Sod (Zosyn) 4.5 gm in 120 mls @ 240 mls/hr IV NOW ONE Stop: 03/05/21 23:33 Last Infusion: 03/06/21 00:21 Dose: 0 mls/hr Documented by: [id number] Admin: 03/05/21 23:53 Dose: 240 mls/hr Documented by: [id number] Magnesium Sulfate/Dextrose (Magnesium Sulfate 1gm / D5w Bag) Confirm Administered Dose 2 gm IV .STK-MED ONE Stop: 03/05/21 22:47 Last Admin: 03/05/21 22:50 Dose: 1 gm Documented by: [id number] Methylprednisolone (Methylprednisolone 125 Mg/2 Ml Vial) 125 mg IV NOW STA Stop: 03/05/21 22:57 Last Admin: 03/05/21 23:42 Dose: Not Given Documented by: [id number] Miscellaneous (Rapid Sequence Induction Bag) Confirm Administered Dose 1 ea .ROUTE .STK-MED ONE Stop: 03/05/21 22:53 Last Admin: 03/05/21 23:21 Dose: 1 ea Documented by: [id number] Imaging Data Attestation: I personally reviewed and interpreted this imaging study as follows: My Impression: Initial chest x-ray was obtained in the emergency department. My interpretation is hyperinflation with bilateral pleural effusions and atelectasis at both bases. There is no free air. There was a suggestion of bullous disease in the right lung field. A second chest x-ray was obtained in the emergency department. An endotracheal tube is noted above the jaison. An orogastric tube was noted as well. There was no definite free air or pneumothorax noted. Discharge Plan Visit Data Chief Complaint: Shortness of Breath/Dyspnea Stated Complaint: SOB ED Provider: Lenard Mcdaniel Discharge Problem: Respiratory failure, Acute exacerbation of chronic obstructive airways disease, Acute respiratory acidosis, Hypoxia Patient Disposition: Being Evaluated by Hospitalist Forms Stand Alone Forms: My [facility] Prescriptions Prescriptions: No Action fluticasone propion-salmeterol [Wixela Inhub] 500-50 mcg/dose blister with device 1 inh INH BID Qty: 60 RF: 5 albuterol sulfate [Ventolin HFA] 90 mcg/actuation HFA aerosol inhaler 2 puff inhalation Q4H PRN (Reason: shortness of breath or wheezing) Qty: 8.5 RF: 3 aspirin 81 mg tablet,delayed release (DR/EC) 81 mg PO DAILY RF: 0 Combivent Respimat 20-100 mcg/actuation mist 1 puff inhalation BID Qty: 4 RF: 2 multivitamin Tablet,Chewable 1 tab PO DAILY RF: 0 ascorbic acid (vitamin C) [Vitamin C] 500 mg tablet 1 g PO DAILY RF: 0 Referrals Referrals: Josep Arguello III, CRNP [Primary Care Provider] -
[2021-03-05 20:56] LABS: Basophils # (auto) 0.01 K/uL (0-0.2); Basophils % (auto) 0.1 %; Eosinophils # (auto) 0.04 K/uL (0-0.5); Eosinophils % (auto) 0.3 %; Hemoglobin 13.9 g/dL (14.0-18.0); Immature Granulocytes # (auto) 0.02 K/uL (0.00-0.02); Immature Granulocytes % (auto) 0.2 %; Lymphocytes # (auto) 1.59 K/uL (1.2-3.4); Lymphocytes % (auto) 13.7 %; Mean Corpuscular Hemoglobin 30.9 pg (25-34); Mean Corpuscular Hgb Conc 33.9 g/dL (32-36); Mean Corpuscular Volume 91.1 fL (80-100); Mean Platelet Volume 10.3 fL (7.4-10.4); Monocytes # (auto) 1.24 K/uL (0.11-0.59); Monocytes % (auto) 10.7 %; Neutrophils # (auto) 8.68 K/uL (1.4-6.5); Platelet Count 304 K/uL (130-400); RDW Coefficient of Variation 12.6 % (11.5-14.5); RDW Standard Deviation 42.3 fL (36.4-46.3); White Blood Count 11.58 K/uL (4.8-10.8)
[2021-03-05 21:25] LABS: Alanine Aminotransferase 21 U/L (12-78); Albumin Globulin Ratio 1.1 (0.9-2); Albumin Level 3.6 gm/dl (3.4-5.0); Alkaline Phosphatase 52 U/L (45-117); Aspartate Aminotransferase 22 U/L (15-37); BUN Creatinine Ratio 20.5 (10-20); Blood Urea Nitrogen 11 mg/dl (7-18); Calcium 8.7 mg/dl (8.5-10.1); Carbon Dioxide 36 mmol/L (21-32); Chloride 88 mmol/L (98-107); Creatinine Clr Calc Pharmacy 155.5 ml/min; Est GFR (African American) 140.8 ml/min; Est GFR (Non-African American) 121.5 ml/min; Globulin 3.3 gm/dl (2.5-4.0); Glucose 111 mg/dl (70-99); Magnesium 2.2 mg/dl (1.8-2.4); Potassium 4.3 mmol/L (3.5-5.1); Sodium 126 mmol/L (136-145); Total Protein 6.9 gm/dl (6.4-8.2); Troponin I < 0.015 ng/ml (0-0.045)
[2021-03-05 21:31] LABS: Base Excess VBG 5.1 mEq/L; Oxygen Saturation VBG 79.2 %; pH VBG 7.21 (7.36-7.41)
[2021-03-05 21:35] LABS: Partial Thromboplastin Ratio 1.1; Partial Thromboplastin Time 27.9 Seconds (21.0-31.0); Prothrombin Time 9.9 Seconds (9.0-12.0)
[2021-03-05] MEDS ORDERED: MAGNESIUM SULFATE 1GM / D5W BAG IV ONE (22:46)
[2021-03-05] MEDS ORDERED: RAPID SEQUENCE INDUCTION BAG ONE (22:52)
[2021-03-05 23:02] LABS: NT Pro B Type Natriuretic Pept 116 pg/ml (0-900)
[2021-03-05 23:04] LABS: Base Excess ABG 5.7 mEq/L (-9-1.8); HCO3 ABG 35 mmol/L (19-24); Oxygen Saturation ABG 87.3 % (90-95); PCO2 ABG 72 mmHg (35-46); PO2 ABG 53 mmHg (80-95)
[2021-03-05] MEDS ORDERED: PIPERACILLIN/TAZOBACTAM 4.5 GM/120 ML BAG IV ONE (23:04)
[2021-03-05] MEDS ORDERED: PIPERACILL/TAZOBAC CONSULT ACTIVE PRN (23:04)
[2021-03-05] MEDS ORDERED: SODIUM CHLORIDE 0.9% 1000ML 1,000 ML IV ONE (23:04)
[2021-03-05 23:12] LABS: Allen Test POS (Pos)
[2021-03-05] MEDS ORDERED: AZITHROMYCIN 500 MG in DEXTROSE 5% 250 ML IV STA (23:12)
[2021-03-05] MEDS: MAGNESIUM SULFATE / D5W 1 GM/100 ML BAG IV SCH ×2 (23:16→23:51)
--- NOTE | 2021-03-05 23:25 | History & Physical Report ---
Date of Service March 05, 2021 Assessment & Plan (1) COPD (chronic obstructive pulmonary disease): Plan: 50yo C male with history of very severe COPD, (FEV1=15% predicted) chronic respiratory failure with hypoxia on 2L home O2 presenting with acute exacerbation of COPD. Hypercarbic respiratory failure on arrival with worsening mental status. Initially trialed on BiPAP but then intubated in the ER admitted to ICU PFTs from 12/21/19 unable to be completed due to shortness of breath. Patient noted to have a very severe obstructive ventilatory defect. COPD Gold D, significant air trapping Patient has been in contact with [facility] re: possible bronchoscopic lung volume reduction surgery vs transplant High resolution CT scan demonstrated severe bilateral centrilobular emphysema [id number] level and mutation studies ordered Nocturnal oxygen study with significant desaturations - average of 84.9% on RA, lowest to 63% Patient intubated in ER. Will be admitted to MICU -Solumedrol 40mg IV TID -Duoneb q 4 hours -ALbuterol q 2 hours PRN -Azithromycin -Mucinex PRN -Consider CT to rule out PE as underlying cause of decompensation (2) Acute and chronic respiratory failure: Plan: Status post intubation with mechanical ventilation Check ABG Sedation with propofol, pain control fentanyl (3) Tachycardia: Plan: ?MFAT in setting of respiratory decompensation vs AF with RVR. Patient does not have history of AF -Management of respiratory failure as above History of Present Illness Chief Complaint: SOB Primary Care Provider: Josep Arguello III, JASMYNE Angel Luis Geronimo is a 50yo male with very severe COPD - Gold D presenting with SOB. Patient reports frequent shortness of breath, worse during the summer due to humidity. Patient reports acute worsening of his baseline shortness of breath starting last night around midnight. He felt short of breath all day which acutely worsened this afternoon around 16:00. Patient reports dry cough as well as chest tightness and wheeze. He also reports pain across his back and between his shoulders. He denies fevers, chills, abdominal pain, nausea, vomiting, diarrhea or constipation Patient clinically worsened while in the ER. Developed narrow complex tachycardia with rate 180 - 200's. Worsening mental state He was initially trialed on BiPAP, however, ultimately intubated for worsening m ental status Allergies Allergy/AdvReac Type Severity Reaction Status Date / Time No Known Allergies Allergy Verified 03/05/21 21:08 Home Medications Medication Instructions Recorded Confirmed Type multivitamin 1 tab PO DAILY 04/05/19 03/05/21 History aspirin 81 mg tablet,delayed 81 mg PO DAILY 04/12/19 03/05/21 History release ascorbic acid (vitamin C) 500 mg 1 g PO DAILY tab 08/04/20 03/05/21 History tablet (Vitamin C) ipratropium 20 mcg-albuterol 100 1 puff INHALATION BID #4 g 08/04/20 03/05/21 Rx mcg/actuation mist for inhalation (Combivent Respimat) fluticasone 500 mcg-salmeterol 50 1 inh INH BID #60 ea 09/12/20 03/05/21 Rx mcg/dose blistr powdr for inhalation (Wixela Inhub) albuterol sulfate 90 mcg/actuation 2 puff INHALATION Q4H PRN #8.5 g 01/14/21 03/05/21 Rx aerosol inhaler (Ventolin HFA) Past Med/Surg History Medical History Brain aneurysm Centrilobular emphysema Chronic hypoxemic respiratory failure COPD (chronic obstructive pulmonary disease) Dyspnea and respiratory abnormalities Dyspnea on exertion History of tobacco abuse Tobacco abuse Surgical History History of intravascular stent placement Family History Grandfather (Maternal) Myocardial infarction Grandfather (Paternal) Myocardial infarction Mother Ovarian cancer Bladder cancer Other Diabetes Denies family history of Prostate cancer Breast cancer Colorectal cancer Social History Smoking Status: Former smoker Tobacco Type: Cigarettes Age Started Using Tobacco: 16; Age Quit Using Tobacco: 49; packs per day: 1; Years Smoked: 33; Cigarettes Per Day: 0.5; Hx Alcohol Use: Yes Alcohol type: beer and hard liquor Hx Substance Use: Yes Last Used Substance: Days (ago) Last Used Substance Other:: 2 days ago Substance Use Type Other:: INTUBATED. 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 Feels Safe at Home: Yes Childhood Exposure to Second-Hand Smoke: Yes Dental Care, Regularly: No Physical Activity Frequency: Does not Exercise Seatbelt Use: always Sunscreen Use: No Assistive Devices: Nebulizer Review of Systems Review of Systems: All systems reviewed & are unremarkable except as noted in HPI & below Physical Exam Physical Exam: General: patient ill in appearance, pursed lip breathing, use of accessory muscles to breath, speaking in 1-2 word sentences Skin: warm, dry, intact, no rashes or lesions HEENT: NC/AT, PERRL, EOMI, anicteric sclera, conjunctiva without injection, external ear normal to inspection and nontender, nares patent, moist mucus membranes, dentition intact, no oropharyngeal lesions, neck supple, trachea midline, no LAD, no thyromegaly, no JVD Heart: +S1/S2, irregularly irregular, tachycardic, no m/r/g Lungs: markedly diminished breath sounds right lung, diminished throughout Abd: +BS, soft, NT/ND, no masses/organomegaly/ascites Ext: warm, 2+ pulses in UE/LE bilaterally, no clubbing/cyanosis or edema Neuro: grossly nonfocal, oriented, episodes of decreased consciousness during my encounter in the ER Results & Data Results & Data ([place]) Vital Signs (Past 12 Hours) Vital Signs Temp Pulse Resp BP Pulse Ox 03/05/21 22:00 115 H 28 H 100 03/05/21 21:50 109 H 22 100 03/05/21 21:40 114 H 25 H 100 03/05/21 21:30 127 H 25 H 167/93 H 100 03/05/21 21:20 108 H 26 H 100 03/05/21 21:10 106 H 28 H 100 03/05/21 21:00 101 H 162/91 H 100 03/05/21 20:50 113 H 22 99 03/05/21 20:48 22 97 03/05/21 20:40 107 H 24 100 03/05/21 20:33 115 H 22 03/05/21 20:29 36.9 C 107 H 28 H 145/100 H 99 Laboratory Results Laboratory Results WBC 11.58 K/uL (4.8-10.8) H 03/05/21 20:30 RBC 4.50 M/uL (4.7-6.1) L 03/05/21 20:30 Hgb 13.9 g/dL (14.0-18.0) L 03/05/21 20:30 POC Hgb 13.6 g/dl (14.0-18.0) L 03/05/21 23:19 Hct 41.0 % (42-52) L 03/05/21 20:30 POC Hct 40 % (42-52) L 03/05/21 23:19 MCV 91.1 fL (80-100) 03/05/21 20:30 MCH 30.9 pg (25-34) 03/05/21 20: MCHC 33.9 g/dL (32-36) 03/05/21 20:30 RDW Std Deviation 42.3 fL (36.4-46.3) 03/05/21 20:30 RDW Coeff of Abner 12.6 % (11.5-14.5) 03/05/21 20: Plt Count 304 K/uL (130-400) 03/05/21 20:30 MPV 10.3 fL (7.4-10.4) 03/05/21 20:30 Immature Gran % (Auto) 0.2 % 03/05/21 20: Neut % (Auto) 75.0 % 03/05/21 20:30 Lymph % (Auto) 13.7 % 03/05/21 20:30 [place] % (Auto) 10.7 % 03/05/21 20:30 Eos % (Auto) 0.3 % 03/05/21 20:30 Baso % (Auto) 0.1 % 03/05/21 20:30 Neut # (Auto) 8.68 K/uL (1.4-6.5) H 03/05/21 20:30 Lymph # (Auto) 1.59 K/uL (1.2-3.4) 03/05/21 20:30 [place] # (Auto) 1.24 K/uL (0.11-0.59) H 03/05/21 20:30 Eos # (Auto) 0.04 K/uL (0-0.5) 03/05/21 20: Baso # (Auto) 0.01 K/uL (0-0.2) 03/05/21 20:30 Immature Gran # (Auto) 0.02 K/uL (0.00-0.02) 03/05/21 20:30 PT 9.9 Seconds (9.0-12.0) 03/05/21 21:15 INR 1.0 (0.9-1.1) 03/05/21 21:15 APTT 27.9 Seconds (21.0-31.0) 03/05/21 21:15 PTT Ratio 1.1 03/05/21 21:15 POC pH 7.27 (7.35-7.45) L 03/05/21 23:19 POC pCO2 86 mmHg (35-46) H 03/05/21 23:19 POC pO2 > 420 mmHg (80-95) H 03/05/21 23:19 POC HCO3 40 tj/L (19-24) H 03/05/21 23:19 POC Total CO2 > 40 mmol/L (24-31) H* 03/05/21 23:19 POC Base Excess 13.0 tj/L (-9-1.8) H 03/05/21 23:19 ABG pH 7.30 (7.35-7.45) L 03/05/21 22:53 ABG pCO2 72 mmHg (35-46) H 03/05/21 22:53 ABG pO2 53 mmHg (80-95) L 03/05/21 22:53 ABG HCO3 35 mmol/L (19-24) H 03/05/21 22:53 POC ABG O2 Sat 100.0 % (90-95) H 03/05/21 23:19 ABG O2 Saturation 87.3 % (90-95) L 03/05/21 22:53 ABG Base Excess 5.7 mEq/L (-9-1.8) H 03/05/21 22:53 Terrell Test POS (Pos) 03/05/21 22:53 VBG pH 7.21 (7.36-7.41) L 03/05/21 21:15 VBG pCO2 93 mmHg (38-50) H 03/05/21 21:15 VBG pO2 49 mmHg 03/05/21 21:15 VBG HCO3 37 mmol/L 03/05/21 21:15 VBG O2 Saturation 79.2 % 03/05/21 21:15 VBG Base Excess 5.1 mEq/L 03/05/21 21:15 Barometric Pressure 737.0 mm/Hg 03/05/21 22:53 Oxygen Given 2 L 03/05/21 22:53 POC Sodium 124 mmol/L (135-144) L 03/05/21 23:19 Sodium 126 mmol/L (136-145) L 03/05/21 20:30 POC Potassium 3.9 mmol/L (3.3-5.0) 03/05/21 23:19 Potassium 4.3 mmol/L (3.5-5.1) 03/05/21 20:30 Chloride 88 mmol/L (98-107) L 03/05/21 20:30 Carbon Dioxide 36 mmol/L (21-32) H 03/05/21 20:30 Anion Gap 3.0 (3-11) 03/05/21 20:30 BUN 11 mg/dl (7-18) 03/05/21 20:30 Creatinine 0.55 mg/dl (0.6-1.4) L 03/05/21 20:30 Est Cr Clr Drug Dosing 155.5 ml/min 03/05/21 20:30 Est GFR ( Amer) 140.8 ml/min 03/05/21 20:30 Est GFR (Non-Af Amer) 121.5 ml/min 03/05/21 20:30 BUN/Creatinine Ratio 20.5 (10-20) H 03/05/21 20:30 Glucose 111 mg/dl (70-99) H 03/05/21 20:30 Lactate 1.1 mmol/L (0.4-2.0) 03/05/21 21:15 Calcium 8.7 mg/dl (8.5-10.1) 03/05/21 20:30 Magnesium 2.2 mg/dl (1.8-2.4) 03/05/21 20:30 Total Bilirubin 1.0 mg/dl (0.2-1) 03/05/21 20:30 AST 22 U/L (15-37) 03/05/21 20:30 ALT 21 U/L (12-78) 03/05/21 20:30 Alkaline Phosphatase 52 U/L (45-117) 03/05/21 20:30 Troponin I < 0.015 ng/ml (0-0.045) 03/05/21 20:30 NT-Pro-B Natriuret Pep 116 pg/ml (0-900) 03/05/21 20:30 Total Protein 6.9 gm/dl (6.4-8.2) 03/05/21 20:30 Albumin 3.6 gm/dl (3.4-5.0) 03/05/21 20:30 Globulin 3.3 gm/dl (2.5-4.0) 03/05/21 20:30 Albumin/Globulin Ratio 1.1 (0.9-2) 03/05/21 20:30 Procalcitonin < 0.05 ng/ml (0-0.5) 03/05/21 21:15 Specimen Hemolysis 03/05/21 20:30 COVID-19 Eval Order Covid19 at [facility] 03/05/21 20:45 SARS-CoV-2 (PCR) NEGATIVE (Negative) 03/05/21 20:45 Diagnostic Findings CXR with hyperinflation, large bullae noted in right hemithorax No PTX, edema Code Status & VTE Plan VTE Prophylaxis Plan VTE Prophylaxis will be ordered: Yes Critical Care Time 45 min PG Care Time/CCT Total # of Minutes Spent Total Time Spent with Patient: Total time spent is greater than 50% in coordination of care (as documented) at patient's floor/unit and/or counseling patient: Coding Level of Care Code None Diagnoses Acute and chronic respiratory failure J96.20 COPD (chronic obstructive pulmonary disease) J43.2 COPD type: emphysema Emphysema type: centrilobular Tachycardia R00.0 (1) COPD (chronic obstructive pulmonary disease) COPD type: emphysema Emphysema type: centrilobular Qualified Code(s): J43.2 - Centrilobular emphysema
[2021-03-05 23:33] LABS: iSTAT Arterial Blood Gas HCO3 40 meg/L (19-24); iSTAT Arterial Blood Gas pCO2 86 mmHg (35-46); iSTAT Arterial Blood Gas pH 7.27 (7.35-7.45); iSTAT Arterial Blood Gas pO2 > 420 mmHg (80-95); iSTAT Carbon Dioxide > 40 mmol/L (24-31); iSTAT Hematocrit 40 % (42-52); iSTAT Hemoglobin 13.6 g/dl (14.0-18.0); iSTAT Potassium 3.9 mmol/L (3.3-5.0); iSTAT Sodium 124 mmol/L (135-144)
[2021-03-05] MEDS: methylPREDNISolone 125 MG/2 ML VIAL IV STA ×2 (23:33→23:42)
[2021-03-05] MEDS ORDERED: propofoL 1,000 MG/100 ML VIAL IV SCH (23:45)
[2021-03-05 23:53] LABS: Appearance Urine Clear (Clear); Bacteria Urine Automated Negative (Negative); Bilirubin Urine Negative (Negative); Blood Urine Trace (Negative); Color Urine Yellow; Glucose Urine UA Negative (Negative); Ketones Urine 2+ (Negative); Leukocyte Esterase Urine Negative (Negative); Nitrite Urine Negative (Negative); Protein Urine 1+ (Negative); RBC Urine Automated 0-4 /hpf (0-4); Urobilinogen Urine Negative (Negative); pH Urine 5.5 (4.5-7.5)
[2021-03-05 23:56] LABS: Base Excess ABG 2.8 mEq/L (-9-1.8); HCO3 ABG 31 mmol/L (19-24); Oxygen Saturation ABG 99.1 % (90-95); PCO2 ABG 64 mmHg (35-46); PO2 ABG 162 mmHg (80-95)
[2021-03-05 23:57] LABS: Allen Test POS (Pos)
[2021-03-05] MEDS ORDERED: STAT IV Infusion **Titration per Protocol STA (23:57)
[2021-03-05] MEDS ORDERED: PROPOFOL BOLUS FROM BAG IV PRN (23:57)
[2021-03-06] MEDS ORDERED: STAT IV Infusion **Titration per Protocol STA ×4 (00:45→10:19)
[2021-03-06] MEDS ORDERED: METOPROLOL TARTRATE 1 MG/ML VIAL IV STA (00:45)
--- NOTE | 2021-03-06 00:49 | Critical Care Consultation ---
Date of Consultation March 06, 2021 Assessment & Plan (1) Acute exacerbation of chronic obstructive airways disease: Reason Critically Ill: 50-year-old male presents to the ICU following acute COPD exacerbation requiring mechanical ventilation. Neuro - Sedation: Holding propofol due to hypotension, currently on fentanyl drip Cardiac - Hypotensionlikely multifactorial as patient was initially normotensive but became hypotensive following propofol infusion, A. fib RVR, and IV metoprolol -Currently on Levophed drip, weaning as tolerated for maps greater than 65 -Hold on further beta-blockers/antihypertensives. Will undergo synchronized cardioversion if patient becomes more tachycardic -Propofol in favor of fentanyl drip due to hemodynamics -Improving, continue to wean vasopressors A. fib RVRno prior history, patient not anticoagulated -Currently rate controlled after receiving 5 mg IV metoprolol, however patient did become hypotensive. Will proceed with synchronized cardioversion if patient becomes tachycardic -Follow-up echo in a.m. -No severe electrolyte abnormalities -Continuous monitor on telemetry Respiratory - Acute on chronic hypercapnic respiratory failuresecondary to COPD exacerbation and patient with end-stage COPD. (FEV1 equals 15%). 2 L O2 at baseline -Patient in contact with [facility] for possible bronchoscopic lung volume reduction versus transplant -Intubated due to hypercapnic respiratory failure with worsening mental statu s, failed trial of BiPAP in ED -ABG with improved hypercapnia following intubation, will wean vent as tolerated -Continue DuoNeb every 4 hours -Solu-Medrol 40 mg IV 3 times daily -Azithromycin, Zosyn -Continuous monitoring on telemetry and end-tidal CO2 -Follow-up chest x-ray in a.m. GI - N.p.o. RENAL/LYTES - Creatinine within normal limits, monitor routine BMPs and replete electrolytes as indicated Hyponatremiasodium 126. Patient appears hypovolemic on exam -Continue LR infusion -Goal to increase sodium no more than 8 mEq per 24-hour -Follow-up BMP this a.m. - Foleystrict I's and O's ENDO - No history of diabetes or thyroid disease ICU hyperglycemic protocol HEME - H&H stable, monitor routine CBCs ID - Afebrile, no leukocytosis, procalcitonin and lactate negative COVID-19 negative Blood cultures pending Continue azithromycin, Zosyn for now LINES/IV ACCESS - Peripheral IVs, OG tube, ET tube DVT PROPHYLAXIS - SCDs, Lovenox I have personally spent 70 minutes of critical care time in the direct management of this patient. This is a life/limb threatening event. This includes time spent evaluating patient, direct bedside care, chart review, placing orders, interpretation of diagnostic studies, discussion with consultants, patient, and family members, as well as other required patient management activities. This time is exclusive of all separately billable procedures, and teaching time and separate from and in addition to any other critical care service time. Thank you for allowing us to participate in the care of this patient. Please refer to my attending physician's documentation for any further recommendations. (2) Respiratory failure: (3) Acute respiratory acidosis: (4) Hypoxia: (5) Tachycardia: (6) Acute and chronic respiratory failure: (7) Chronic hypoxemic respiratory failure: (8) Dyspnea and respiratory abnormalities: (9) History of tobacco abuse: (10) Centrilobular emphysema: (11) Atrial fibrillation with RVR: (12) Hypotension: History of Present Illness History of Present Illness Patient is a 50-year-old male with PMH significant for severe COPD (Gold D) chronically on 2 L nasal cannula who presents to the emergency department earlier today with complaints of shortness of breath that been worsening for the past week and cough with clear sputum. VBG showed respiratory acidosis with CO2 93 and the patient was placed on BiPAP but became altered mental status and entered narrow complex tachycardia with rate 180-200. Patient was intubated in the emergency department and transferred to the ICU. He received antibiotics, DuoNeb, and Solu-Medrol in the ED. On arrival to the ICU patient was noted to be in a irregular tachycardia with rates 150s to 160s. EKG revealed A. fib RVR. He received 5 mg IV metoprolol and although became rate controlled, subsequently became hypotensive requiring vasopressors. Repeat ABG showed improvement and hypercapnia and patient is not significantly hypoxic following intubation. Plan to proceed with synchronized cardioversion if patient becomes increasingly tachycardic. Currently weaning vasopressors. Patient to remain in ICU further management at this time. Allergies Allergy/AdvReac Type Severity Reaction Status Date / Time No Known Allergies Allergy Verified 03/05/21 21:08 Home Medications Medication Instructions Recorded Confirmed Type multivitamin 1 tab PO DAILY 04/05/19 03/05/21 History aspirin 81 mg tablet,delayed 81 mg PO DAILY 04/12/19 03/05/21 History release ascorbic acid (vitamin C) 500 mg 1 g PO DAILY tab 08/04/20 03/05/21 History tablet (Vitamin C) ipratropium 20 mcg-albuterol 100 1 puff INHALATION BID #4 g 08/04/20 03/05/21 Rx mcg/actuation mist for inhalation (Combivent Respimat) fluticasone 500 mcg-salmeterol 50 1 inh INH BID #60 ea 09/12/20 03/05/21 Rx mcg/dose blistr powdr for inhalation (Wixela Inhub) albuterol sulfate 90 mcg/actuation 2 puff INHALATION Q4H PRN #8.5 g 01/14/21 03/05/21 Rx aerosol inhaler (Ventolin HFA) Patient History Medical History Brain aneurysm Centrilobular emphysema Chronic hypoxemic respiratory failure COPD (chronic obstructive pulmonary disease) Dyspnea and respiratory abnormalities Dyspnea on exertion History of tobacco abuse Tobacco abuse Surgical History History of intravascular stent placement Family History Grandfather (Maternal) Myocardial infarction Grandfather (Paternal) Myocardial infarction Mother Ovarian cancer Bladder cancer Other Diabetes Denies family history of Prostate cancer Breast cancer Colorectal cancer Social History Smoking Status: Former smoker Tobacco Type: Cigarettes Age Started Using Tobacco: 16; Age Quit Using Tobacco: 49; packs per day: 1; Years Smoked: 33; Cigarettes Per Day: 0.5; Hx Alcohol Use: No Hx Substance Use: No Preferred Language: Vietnamese Communication Ability: Effective Visual Impairment: No Limitations Hearing Ability: Normal Medical Delivery Driver Required: No marital status: Current Living Situation: Alone current occupational status: employed 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 Feels Safe at Home: Yes Childhood Exposure to Second-Hand Smoke: Yes Dental Care, Regularly: No Physical Activity Frequency: Does not Exercise Seatbelt Use: always Sunscreen Use: No Assistive Devices: Oxygen - Continuous Review of Systems Review of Systems: Unobtainable due to cognitive status and Unobtainable due to endotracheal tube Physical Exam Constitutional: + thin and + mechanically ventilated Eyes: PERRL, conjunctivae normal, anicteric sclerae ENMT: external ear and nose normal, oropharynx normal Neck: trachea midline, no thyromegaly Respiratory: Lungs diminished bilaterally, symmetrical chest wall movement. Cardiovascular: Irregular tachycardia, S1/S2, palpable pedal and radial pulses +2 bilaterally, no edema Gastrointestinal (Abdomen): normal bowel sounds, soft, nontender, no hepatosplenomegaly Skin: no rashes, warm and dry Neurologic: Unable to assess due to sedation Psychiatric: Unable to assess due to sedation Genitourinary: Indwelling Pimentel catheter present Results & Data Results & Data ([facility]) Vital Signs (Past 12 Hours) Vital Signs Temp Pulse Resp BP Pulse Ox 03/06/21 00:42 157 H 26 H 100 03/05/21 23:50 169 H 148/100 H 99 03/05/21 23:40 160 H 99 03/05/21 23:34 22 03/05/21 23:31 162 H 18 100 03/05/21 23:30 171 H 114/73 100 03/05/21 22:00 115 H 28 H 100 03/05/21 21:50 109 H 22 100 03/05/21 21:40 114 H 25 H 100 03/05/21 21:30 127 H 25 H 167/93 H 100 03/05/21 21:20 108 H 26 H 100 03/05/21 21:10 106 H 28 H 100 03/05/21 21:00 101 H 162/91 H 100 03/05/21 20:50 113 H 22 99 03/05/21 20:48 22 97 03/05/21 20:40 107 H 24 100 03/05/21 20:33 115 H 22 03/05/21 20:29 36.9 C 107 H 28 H 145/100 H 99 Coding Level of Care Code Critical Care 1st 30-74 mins Diagnoses Respiratory failure J96.90 Acute exacerbation of chronic obstructive airways disease J44.1 Acute respiratory acidosis E87.2 Hypoxia R09.02 Tachycardia R00.0 Acute and chronic respiratory failure J96.20 Chronic hypoxemic respiratory failure J96.11 Dyspnea and respiratory abnormalities R06.00; R06.89 History of tobacco abuse Z87.891 Centrilobular emphysema J43.2 Atrial fibrillation with RVR I48.91 Hypotension I95.9
[2021-03-06] MEDS ORDERED: ICU PROTOCOL FOR HYPERGLYCEMIA PRN (00:59)
[2021-03-06] MEDS ORDERED: LACTATED RINGER'S 1,000 ML IV SCH (00:59)
[2021-03-06] MEDS ORDERED: ALBUTEROL 0.5% NEB SOLN 2.5 MG/0.5 ML VIAL NEB PRN (00:59)
[2021-03-06] MEDS: PHENYLEPHRINE HCL 20 MG in DEXTROSE 5% 500 ML IV SCH ×3 (01:01→07:50)
[2021-03-06] MEDS: fentaNYL citrate 100 MCG/2 ML VIAL IV PRN ×2 (01:02→13:03)
[2021-03-06] MEDS ORDERED: fentaNYL DRIP 1,250 MCG/250 ML BAG IV SCH (01:15)
[2021-03-06] MEDS ORDERED: NOREPINEPHRINE/D5W 8 MG/508 ML IV ONE (01:19)
[2021-03-06] MEDS: ALBUT/IPRATROP 3MG/0.5MG NEB 3 ML VIAL NEB SCH ×7 (01:31→22:31)
[2021-03-06 01:40] LABS: iSTAT Allen Test Fail; iSTAT Art Bld Gas pCO2 Correct 35 mmHg (35-46); iSTAT Art Bld Gas pH Corrected 7.473 (7.35-7.45); iSTAT Arterial Blood Gas HCO3 26 meg/L (19-24); iSTAT Arterial Blood Gas pCO2 35 mmHg (35-46); iSTAT Arterial Blood Gas pH 7.47 (7.35-7.45); iSTAT Arterial Blood Gas pO2 201 mmHg (80-95); iSTAT Arterial Blood Gas pO2 C 201; iSTAT Carbon Dioxide 27 mmol/L (24-31); iSTAT FiO2 40 %; iSTAT Hematocrit 40 % (42-52); iSTAT Hemoglobin 13.6 g/dl (14.0-18.0); iSTAT Potassium 4.4 mmol/L (3.3-5.0); iSTAT Site R Radial; iSTAT Sodium 121 mmol/L (135-144)
[2021-03-06] MEDS: ENOXAPARIN INJ 40 MG/0.4 ML SYR SQ SCH ×2 (01:55→20:24)
[2021-03-06] MEDS ORDERED: NOREPINEPHRINE/D5W 8 MG/508 ML BAG IV SCH (02:45)
[2021-03-06] MEDS ORDERED: VANCOMYCIN CONSULT ACTIVE PRN (03:44)
[2021-03-06] MEDS ORDERED: DEXTROSE 50% 50 ML SYRINGE IV PRN (03:45)
[2021-03-06] MEDS ORDERED: GLUCOSE 40% GEL 15 GM TUBE PO PRN (03:45)
[2021-03-06] MEDS ORDERED: GLUCAGON FOR INJ 1 MG VIAL SQ PRN (03:45)
[2021-03-06] MEDS ORDERED: GLUCOSE 10 TABS/TUBE PO PRN (03:45)
[2021-03-06] MEDS ORDERED: CARBOHYDRATES FOR HYPOGLYCEMIA PO PRN (03:45)
[2021-03-06] MEDS ORDERED: VANCOMYCIN HCL 1,500 MG in SODIUM CHLORIDE 0.9% 500 ML IV ONE (04:00)
[2021-03-06 04:38] LABS: Hematocrit (blood only) 37.4 % (42-52); Hemoglobin 13.1 g/dL (14.0-18.0); Immature Granulocytes # (auto) 0.02 K/uL (0.00-0.02); Immature Granulocytes % (auto) 0.3 %; Lymphocytes # (auto) 0.46 K/uL (1.2-3.4); Lymphocytes % (auto) 6.3 %; Mean Corpuscular Hemoglobin 30.4 pg (25-34); Mean Corpuscular Volume 86.8 fL (80-100); Mean Platelet Volume 9.7 fL (7.4-10.4); Monocytes # (auto) 0.37 K/uL (0.11-0.59); Neutrophils # (auto) 6.48 K/uL (1.4-6.5); Neutrophils % (auto) 88.4 %; Platelet Count 287 K/uL (130-400); RDW Coefficient of Variation 12.1 % (11.5-14.5); RDW Standard Deviation 38.7 fL (36.4-46.3); Red Blood Count 4.31 M/uL (4.7-6.1); White Blood Count 7.33 K/uL (4.8-10.8)
[2021-03-06 04:40] LABS: iSTAT Allen Test Pass; iSTAT Arterial Blood Gas HCO3 31 meg/L (19-24); iSTAT Arterial Blood Gas pCO2 46 mmHg (35-46); iSTAT Arterial Blood Gas pH 7.44 (7.35-7.45); iSTAT Arterial Blood Gas pO2 91 mmHg (80-95); iSTAT Carbon Dioxide 33 mmol/L (24-31); iSTAT FiO2 30 %; iSTAT Site R Radial
[2021-03-06 04:56] LABS: BUN Creatinine Ratio 13.7 (10-20); Calcium 8.3 mg/dl (8.5-10.1); Creatinine Clr Calc Pharmacy 89.2 ml/min; Est GFR (African American) 116.1 ml/min; Est GFR (Non-African American) 100.2 ml/min; Magnesium 2.4 mg/dl (1.8-2.4); Potassium 4.3 mmol/L (3.5-5.1)
[2021-03-06 05:10] LABS: Phosphorus 1.5 mg/dl (2.5-4.9)
[2021-03-06] MEDS: INSULIN ASPART 100 UNITS/ML 3 ML PEN SC SCH ×3 (05:14→17:57)
[2021-03-06] MEDS: SODIUM CHLORIDE 0.9% 1000ML 1,000 ML IV SCH ×2 (06:12→16:42)
--- NOTE | 2021-03-06 07:16 | XRay Report ---
XR chest 1V portable INDICATION: MN ^SEPSIS . TECHNIQUE: Single frontal radiograph of the chest was obtained. Comparison: Comparison is made to chest one view 08/24/2019 FINDINGS: Lungs are hyperinflated and emphysematous changes are seen. The cardiomediastinal silhouette is olivia l. The lungs are clear. No evidence of pleural effusion or pneumothorax. IMPRESSION: No airspace opacities to suggest pneumonia. ACT 112: Negative or not required by law. Electronically signed by: Timothy Gomez M.D. 03/06/2021 7:15 AM
--- NOTE | 2021-03-06 07:32 | Critical Care Progress Note ---
Date of Service March 06, 2021 Assessment & Plan (1) Acute exacerbation of chronic obstructive airways disease: Plan: Reason Critically Ill: 50-year-old male presents to the ICU on 03/05/21 following acute COPD exacerbation requiring mechanical ventilation and pressors after failing bipap in the ED. Extubated 2:30pm 03/06/21 and is off of pressors. Neuro - Sedation: At 8AM, was on fentanyl 100 for sedation. Propofol was held for hypotension. At 5PM, no sedation, not on vent. CAM ICU negative. Cardiac - Hypotensionlikely multifactorial as patient was initially normotensive but became hypotensive following propofol infusion, A. fib RVR, and IV metoprolol -Patient was started on neosynephrine and levophed (both given via peripheral access), weaned to neosynephrine, switched to levophed, and weaned off levophed in afternoon. A. fib RVRno prior history, patient not anticoagulated -IV metoprolol 5mg provided rate control, but patient became hypotensive after use. -Hold on further beta-blockers/antihypertensives. -ecg at initial ICU presentation showed a fib RVR 170s. Will repeat ecg in AM. -Converted to sinus after amiodarone bolus and drip. Prior to this, considered synchronized cardioversion if unstable vs failed medical therapy. D/c amiodarone if maintains sinus rhythm. -Echo: Normal LV systolic function. EF 55-60. LV wall motion is normal. Borderline concentric LVH. Respiratory - Acute on chronic hypercapnic respiratory failuresecondary to COPD exacerbation and patient with end-stage COPD, GOLD class D. (FEV1 equals 15%). 2 L O2 at baseline -Patient in contact with [facility] for possible bronchoscopic lung volume reduction versus transplant -Intubated due to hypercapnic respiratory failure with worsening mental status, failed trial of BiPAP in ED. Vent settings this AM were Vt450 16 rr 5 peep pplat 16.8. sat 99. -ABG with improved hypercapnia following intubation, since weaned off me chanical ventilation -Continue DuoNeb every 4 hours -Solu-Medrol 40 mg IV 3 times daily x 48 hours. Transition to PO taper after for total of 2 weeks of corticosteroids. -Azithromycin, Zosyn provided at admission, transitioned to vanc, cefepime, and levaquin. Vanc because pos nasal MRSA. Cefepime and Levaquin for double coverage of strep pneumo based on resistance patterns. Also chosed to cover pseudomonas given end-stage COPD GI - NPO at time of writing, may start regular diet. RENAL/LYTES - Creatinine within normal limits, monitor routine BMPs and replete electrolytes as indicated Hyponatremiasodium 126 (121 on POC) ->131. Patient appeared hypovolemic on admission -NSS 100/hr provided, since discontinued -Follow-up BMP - Foleystrict I's and O's. cumulative 3L in 1.4L out. ENDO - No history of diabetes or thyroid disease ICU hyperglycemic protocol HEME - H&H stable, monitor routine CBCs ID - Afebrile, no leukocytosis, procalcitonin and lactate negative COVID-19 negative Blood cultures, sputum culture, and biofire pending COPD exacerbation Consider descalating vanc after 24 hours. Consider descalating cefepime after 48 hours. Longer course of Levaquin. Although endorsed 1 month of urinary frequency and urgency, no dysuria and UA not suggestive of infection LINES/IV ACCESS - Peripheral IVs, OG tube (removed), ET tube (removed) DVT PROPHYLAXIS - SCDs, Lovenox code: full dispo: stable for downgrade from ICU (2) Respiratory failure: (3) Acute respiratory acidosis: (4) Hypoxia: (5) Tachycardia: (6) Acute and chronic respiratory failure: (7) Chronic hypoxemic respiratory failure: (8) Dyspnea and respiratory abnormalities: (9) History of tobacco abuse: (10) Centrilobular emphysema: (11) Atrial fibrillation with RVR: (12) Hypotension: Admission and Anticipated Discharge Date Admission Date: March 05, 2021 Supervising Physician Co-Signing Physician Notes Dr. Servin was resident physician during care of patient. I separately evaluated patient for brody portions of the history and the exam. I was present during the critical portion of medical decision making, and I discussed the case with the resident. I generally agree with the findings and plan. Transition sedation to Precedex and fentanyl pushes Cardiovascular loaded with amiodarone hopefully will stop once cardiovert discontinue phenylephrine consideration given to emergent electrical cardioversion should he not be able to maintain a map Optimize electrolytes 30 mmol K-Phos Can start tube feeding Antibiotics of cefepime and Zyvox given positive MRSA swab -Sputum ordered DVT prophylaxis with Lovenox Subjective Overnight narrative: New onset afib w/ rvr. Intubated for copd exac. Required pressors. This AM: Patient was partially sedated and history limited. 5PM: Patient is off sedation, pressors, and vent. He states his breathing feels mostly back to his baseline. He does have chronic dyspnea on exertion. Denies colored sputum both during and during the days prior to this hospitalization. He endorses 1 month of urinary frequency and urgency, but no dysuria or hematuria. Denies other ROS complaints, including fever/chills, N/V, chest pain, abd pain, OLIVEIRA. Review of Systems Review of Systems: See HPI Physical Exam Physical Exam: Initial exam in AM General: Sedated HEENT: Atraumatic, normocephalic. Pulm: CTAB anteriorly. -wheezes. Slightly decreased air entry. No respiratory distress. + ETT on mechanical ventilation. Cardiac: IRR, tachycardic. No MRG. Peripheral pulses intact. Deferred R radial because wrapped/covered. No LE edema. Abdominal: Nontender, nondistended, soft. Integ: R antecubital area has some swelling at PIV x2 site, asked nurse to readjust. Does not have central line. + [place]. 5PM exam CTAB anteriorly and posteriorly. No wheezes. Decreased air movement diffusely. Results & Data Results & Data ([facility]) Vital Signs (Past 12 Hours) Vital Signs This AM RVR up to 140s, 171 max around midnight. more recently 110s. afebrile At 5PM: Patient was satting 97 on 2L NC. He had a brief desat to low-mid 80s 15 minutes prior, but this was after exertion and the pulse O2 monitor of forehead was not properly attached. This was readjusted and patient's saturation improved. Most recent vitals: 111/74. pulse 87. rr 20. 36.7C. Temp Pulse Pulse Resp BP BP Pulse Ox 03/06/21 06:00 112 H 16 105/79 100 03/06/21 05:48 125 H 16 93/71 L 99 03/06/21 05:18 128 H 16 94/74 L 97 03/06/21 04:48 120 H 16 97/63 L 94 03/06/21 04:18 36.8 C 132 H 16 93/70 L 16 L 03/06/21 03:48 129 H 16 88/71 L 97 03/06/21 03:29 126 H 16 99 03/06/21 03:18 130 H 16 131/100 98 03/06/21 02:48 120 H 16 129/93 100 03/06/21 02:30 132 H 97 03/06/21 02:18 36.8 C 126 H 16 119/87 100 03/06/21 02:15 122 H 98 03/06/21 02:00 120 H 122/94 100 03/06/21 01:49 117 H 16 138/89 98 03/06/21 01:45 116 H 91 03/06/21 01:31 122 H 100 03/06/21 01:26 128 H 22 71/56 L 99 03/06/21 01:15 111 H 22 100 03/06/21 01:02 153 H 99/52 L 03/06/21 01:00 144 H 22 95 03/06/21 00:45 153 H 24 100 03/06/21 00:42 157 H 26 H 100 03/06/21 00:38 157 H 03/06/21 00:35 158 H 22 104/74 100 03/05/21 23:50 169 H 148/100 H 99 03/05/21 23:40 160 H 99 03/05/21 23:34 22 03/05/21 23:31 162 H 18 100 03/05/21 23:30 171 H 114/73 100 03/05/21 22:00 115 H 28 H 100 03/05/21 21:50 109 H 22 100 03/05/21 21:40 114 H 25 H 100 03/05/21 21:30 127 H 25 H 167/93 H 100 03/05/21 21:20 108 H 26 H 100 03/05/21 21:10 106 H 28 H 100 03/05/21 21:00 101 H 162/91 H 100 03/05/21 20:50 113 H 22 99 03/05/21 20:48 22 97 03/05/21 20:40 107 H 24 100 03/05/21 20:33 115 H 22 03/05/21 20:29 36.9 C 107 H 28 H 145/100 H 99 Laboratory Results 11.58->7.33. Hb stable 13.1. 03/05 coags ok. abg 7.27L/86H/>420H/40H -> 7.44/46/91/31H. HypoNa 124->121. Cl 86. Cr 0.55->0.88. baseline ~.8. bsgs 200s. 03/05 lactate 1.1. corrected Ca ok. phos 1.5L*. liver panel ok. neg trop x1. BNP normal.03/05 UA 2+ ketones. nasal mrsa pos. 03/06/21 04:23 03/06/21 04:23 Diagnostic Findings Chest X-Ray 03/05/21 20:33 XR chest 1V portable INDICATION: MN ^SEPSIS . TECHNIQUE: Single frontal radiograph of the chest was obtained. Comparison: Comparison is made to chest one view 08/24/2019 FINDINGS: Lungs are hyperinflated and emphysematous changes are seen. The cardiomediastinal silhouette is normal. The lungs are clear. No evidence of pleural effusion or pneumothorax. IMPRESSION: No airspace opacities to suggest pneumonia. ACT 112: Negative or not required by law. Electronically signed by: Timothy Gomez M.D. 03/06/2021 7:15 AM Chest X-Ray 03/05/21 23:04 XR chest 1V portable INDICATION: MN ^post ETT. TECHNIQUE: Single frontal radiograph of the chest was obtained. Comparison: Comparison is made to chest one view 03/05/2021 FINDINGS: An enteric tube has been placed with the side-port at the gastroesophageal junction. An endotracheal tube has been placed with the tip approximately 2 cm from the jaison. The cardiomediastinal silhouette is normal. The lungs are clear. No evidence of pleural effusion or pneumothorax. IMPRESSION: No acute chest disease. ACT 112: Negative or not required by law. Electronically signed by: Timothy Gomez M.D. 03/06/2021 7:37 AM Chest X-Ray 03/06/21 07:00 XR chest 1V portable INDICATION: MN ^Resp failure . TECHNIQUE: Single frontal radiograph of the chest was obtained. Comparison: Comparison is made to chest one view 03/05/2021 FINDINGS: Unchanged position of the endotracheal tube. Enteric tube side-port is at the level of the gastroesophageal junction. The cardiomediastinal silhouette is normal. The lungs are clear. No evidence of pleural effusion or pneumothorax. IMPRESSION: 1. No evidence of acute abnormality. 2. Enteric tube can be advanced approximately 10 cm for improved positioning. ACT 112: Negative or not required by law. Electronically signed by: Timothy Gomez M.D. 03/06/2021 8:55 AM Critical Care Time I have personally spent 45 minutes of critical care time in the direct management of this patient. This is a life/limb threatening event. This includes time spent evaluating patient, direct bedside care, chart review, placing orders, interpretation of diagnostic studies, discussion with consultants, patient, and/or family members regarding treatment decisions, as well as other required patient management activities. This time is exclusive of all separately billable procedures, and teaching time and separate from and in addition to any other critical care service time. Resident Activity Tracking Resident Involvement: Resident Care Provided Care Provided: Adult [facility]
--- NOTE | 2021-03-06 07:39 | XRay Report ---
XR chest 1V portable INDICATION: MN ^post ETT. TECHNIQUE: Single frontal radiograph of the chest was obtained. Comparison: Comparison is made to chest one view 03/05/2021 FINDINGS: An enteric tube has been placed with the side-port at the gastroesophageal junction. An endotracheal tube has been placed with the tip approximately 2 cm from the jaison. The cardiomediastinal silhouett e is normal. The lungs are clear. No evidence of pleural effusion or pneumothorax. IMPRESSION: No acute chest disease. ACT 112: Negative or not required by law. Electronically signed by: Timothy Gomez M.D. 03/06/2021 7:37 AM
[2021-03-06] MEDS ORDERED: FLUARIX QUADRIVALENT 0.5 ML SYR IM ONE (08:00)
[2021-03-06] MEDS ORDERED: PNEUMOCOCCAL POLYSACCHARIDES 25 MCG/0.5 ML VIAL/SYR IM ONE (08:00)
[2021-03-06] MEDS: ASPIRIN 81 MG CHEW NG SCH (08:29)
--- NOTE | 2021-03-06 08:56 | XRay Report ---
XR chest 1V portable INDICATION: MN ^Resp failure . TECHNIQUE: Single frontal radiograph of the chest was obtained. Comparison: Comparison is made to chest one view 03/05/2021 FINDINGS: Unchanged position of the endotracheal tube. Enteric tube side-port is at the level of the gastroesop hageal junction. The cardiomediastinal silhouette is normal. The lungs are clear. No evidence of pleu ral effusion or pneumothorax. IMPRESSION: 1. No evidence of acute abnormality. 2. Enteric tube can be advanced approximately 10 cm for improved positioning. ACT 112: Negative or not required by law. Electronically signed by: Timothy Gomez M.D. 03/06/2021 8:55 AM
[2021-03-06] MEDS ORDERED: FAMOTIDINE 20 MG in SYRINGE 3 ML IV SCH (09:00)
[2021-03-06] MEDS ORDERED: PANTOprazole 40 MG TAB PO SCH (09:00)
[2021-03-06] MEDS ORDERED: ASPIRIN 81 MG ECTAB PO SCH (09:00)
[2021-03-06] MEDS ORDERED: POTASSIUM PHOS 3 MMOL/1 ML INFUSION IV STA (09:39)
--- NOTE | 2021-03-06 09:49 | Billing Data ---
Date of Service March 06, 2021 Coding Level of Care Code Critical Care 1st - mins
[2021-03-06] MEDS ORDERED: POTASSIUM PHOSPHATE 30 MMOL in SODIUM CHLORIDE 0.9% 500 ML IV ONE (10:00)
[2021-03-06] MEDS ORDERED: 0.2 MICRON FILTER SET 1 EA IV ONE (10:19)
[2021-03-06] MEDS ORDERED: AMIODARONE / D5W 150 MG/100 ML BAG IV STA (10:19)
[2021-03-06] MEDS ORDERED: AMIODARONE IV BOLUS & DRIP IV STA (10:19)
[2021-03-06] MEDS ORDERED: AMIODARONE / D5W 360 MG/200 ML BAG IV ONE (10:29)
[2021-03-06 11:27] LABS: BUN Creatinine Ratio 11.2 (10-20); Calcium 8.6 mg/dl (8.5-10.1); Creatinine Clr Calc Pharmacy 88.2 ml/min; Est GFR (African American) 115.6 ml/min; Est GFR (Non-African American) 99.7 ml/min; Potassium 4.9 mmol/L (3.5-5.1)
[2021-03-06 11:57] LABS: Adenovirus PCR Not Detected (NotDetected); Bordetella parapertussis PCR Not Detected (NotDetected); Bordetella pertussis PCR Not Detected (NotDetected); Chlamydia pneumoniae PCR Not Detected (NotDetected); Coronavirus 229E PCR Not Detected (NotDetected); Coronavirus CoV-2 (COVID19)PCR Not Detected (NotDetected); Coronavirus HKU1 PCR Not Detected (NotDetected); Coronavirus NL63 PCR Not Detected (NotDetected); Coronavirus OC43PCR Not Detected (NotDetected); Human Metapneumovirus PCR Not Detected (NotDetected); Influenza A PCR Not Detected (NotDetected); Influenza B PCR Not Detected (NotDetected); Mycoplasma pneumoniae PCR Not Detected (NotDetected); Parainfluenza Virus 1 PCR Not Detected (NotDetected); Parainfluenza Virus 2 PCR Not Detected (NotDetected); Parainfluenza Virus 3 PCR Not Detected (NotDetected); Parainfluenza Virus 4 PCR Not Detected (NotDetected); Respiratory Syncytial VirusPCR Not Detected (NotDetected); Rhinovirus/Enterovirus PCR Not Detected (NotDetected)
[2021-03-06] MEDS ORDERED: PEPTAMEN 1.5 CAL 1,000 ML BAG NG SCH (12:15)
--- NOTE | 2021-03-06 12:31 | XCELERA ---
[id number]
--- NOTE | 2021-03-06 12:55 | Hospitalist Progress Note ---
Date of Service March 06, 2021 Assessment & Plan (1) Acute exacerbation of chronic obstructive airways disease: Plan: Angel Luis Geronimo is a 50-year-old male with PMHx significant for severe COPD (Gold D) chronically on 2 L nasal cannula who was admitted to [facility] ICU on 03/05 for acute on chronic hypercapnic respiratory failure. Intubated/sedated. Care per ICU. Acute on Chronic Hypercapnic Respiratory Failure COPD Gold D with symptoms suspicious for acute COPD exacerbation. However MRSA nares positive although no leukocytosis, inflammatory markers negative, and no signs of pulmonary infection clinically or on imaging. - Intubated, currently PEEP 5 and FiO2 30% - ABG significantly improved on vent: most recently 7.44/46// this AM - sedated with Fentanyl/Precedex IV pushes - blood/sputum cultures pending, urine Legionella pending - continue DuoNeb Q4H - stopped Solu-Medrol today - Initially started on Azithromycin/Zosyn; will continue with Vancomycin/Levofloxacin/Cefepime to cover for MRSA and respiratory pathogens, including Pseudomonas double-coverage A-fib with RVR; Hypotension Patient presented in a-fib with RVR and became profoundly hypotensive with initially BB treatment, requiring pressors. Care per ICU. - TTE with EF 55-60% and normal RVSP - started on Amiodarone gtt today - consider synchronized cardioversion if RVR remains uncontrolled - continue Levophed to maintain MAP >65 - continue home Aspirin Acute Hyponatremia Patient presented hypovolemic on exam, suspect due to this. However underlying pulmonary infection (not readily noticeable on imaging) may be contributing as well. - continue mIVFs with NSS @100cc/hr - continue to monitor - goal 6-8mEq increase per 24 hours FEN/GI: NPO, tube feeds, NSS @100cc/hr DVT Prophylaxis: Lovenox Code Status: Full code Disposition: ICU (2) Acute and chronic respiratory failure: (3) COPD (chronic obstructive pulmonary disease): (4) Centrilobular emphysema: (5) Admitted to intensive care unit: (6) History of tobacco abuse: (7) Atrial fibrillation with RVR: (8) Acute respiratory acidosis: Admission and Anticipated Discharge Date Admission Date: March 05, 2021 Supervising Physician Co-Signing Physician Notes I also saw the patient confirmed brody portions of the history and physical examination. At the time of our exam, the patient was sedated and intubated. I agree with the impression and plan as noted in the resident documentation. Patient remains under primary care of the ICU team. Family medicine service continues to follow. Acute on chronic hypercapnic respiratory failure Remains intubated Sedation with fentanyl and Precedex Blood and sputum cultures pending, urine Legionella pending. Atrial fibrillation with RVR Consideration for synchronized cardioversion Remains on Levophed Amiodarone started today. Hypotension Acute hyponatremia Suspect secondary to hypovolemia, perhaps underlying infection Continue IV fluids, monitor BMP Additional per resident documentation Subjective Patient is intubated/sedated, on pressors. Remains in a-fib RVR; tachycardic in 120s-130s. Review of Systems Review of Systems: Unobtainable due to endotracheal tube Physical Exam Physical Exam: General: Intubated/sedated. HEENT: Atraumatic, normocephalic. ETT in place. Pulm: No wheezes. Poor air movement bilaterally. Symmetrical chest rise. Breathing in sync with vent. Cardiac: Tachycardic rate, irregularly irregular rhythm. Radial pulses intact and symmetrical. Abdominal: soft, non-distended Skin: warm, dry, no rash Results & Data Results & Data ([facility]) Vital Signs (Past 12 Hours) Vital Signs Temp Pulse Pulse Resp BP BP Pulse Ox 03/06/21 10:50 120 H 16 99 03/06/21 08:50 121 H 98 03/06/21 08:40 108 H 99 03/06/21 08:30 114 H 99 03/06/21 08:20 110 H 99 03/06/21 08:10 127 H 99 03/06/21 08:00 126 H 99 03/06/21 07:50 119 H 99 03/06/21 07:40 106 H 98 03/06/21 07:35 116 H 16 96 03/06/21 07:30 117 H 98 03/06/21 07:20 113 H 98 03/06/21 07:10 106 H 98 03/06/21 07:00 116 H 99 03/06/21 06:50 115 H 100 03/06/21 06:40 116 H 98 03/06/21 06:30 119 H 98 03/06/21 06:20 114 H 100 03/06/21 06:10 130 H 100 03/06/21 06:00 115 H 112 H 16 105/79 99 03/06/21 05:50 128 H 96 03/06/21 05:48 125 H 16 93/71 L 99 03/06/21 05:40 126 H 97 03/06/21 05:30 118 H 97 03/06/21 05:20 120 H 97 03/06/21 05:18 128 H 16 94/74 L 97 03/06/21 05:10 120 H 95 03/06/21 05:00 120 H 95 03/06/21 04:50 128 H 94 03/06/21 04:48 120 H 16 97/63 L 94 03/06/21 04:40 125 H 95 03/06/21 04:30 119 H 95 03/06/21 04:20 123 H 98 03/06/21 04:18 36.8 C 132 H 16 93/70 L 16 L 03/06/21 04:10 121 H 98 03/06/21 04:00 121 H 98 03/06/21 03:50 123 H 98 03/06/21 03:48 129 H 16 88/71 L 97 03/06/21 03:40 124 H 98 03/06/21 03:30 123 H 99 03/06/21 03:29 126 H 16 99 03/06/21 03:20 119 H 99 03/06/21 03:18 130 H 16 131/100 98 03/06/21 03:10 117 H 100 03/06/21 03:00 120 H 100 03/06/21 02:50 126 H 100 03/06/21 02:48 120 H 16 129/93 100 03/06/21 02:40 119 H 99 03/06/21 02:30 132 H 97 03/06/21 02:18 36.8 C 126 H 16 119/87 100 03/06/21 02:15 122 H 98 03/06/21 02:00 120 H 122/94 100 03/06/21 01:49 117 H 16 138/89 98 03/06/21 01:45 116 H 91 03/06/21 01:31 122 H 100 03/06/21 01:26 128 H 22 71/56 L 99 03/06/21 01:15 111 H 22 100 03/06/21 01:02 153 H 99/52 L 03/06/21 01:00 144 H 22 95 Resident Activity Tracking Resident Involvement: Resident Care Provided Care Provided: Adult Hospital Medicine (1) COPD (chronic obstructive pulmonary disease) COPD type: emphysema Emphysema type: centrilobular Qualified Code(s): J43.2 - Centrilobular emphysema
[2021-03-06] MEDS ORDERED: PROSOURCE NO CARB 30 ML/PKT NG SCH (13:00)
[2021-03-06] MEDS: CEFEPIME 2,000 MG in SYRINGE 0 ML IV SCH ×2 (13:41→20:25)
[2021-03-06] MEDS: levoFLOXacin/D5W 750 MG/150 ML BAG IV SCH (13:41)
--- NOTE | 2021-03-06 14:01 | Pharmacy Report ---
Pharmacy Vanc AUC Short Note - Date of Service March 06, 2021 - Assessment & Plan Assessment 50 year old M receiving vancomycin, cefepime and levofloxacin for treatment of pulmonary source. Pertinent microbiologic data includes: Positive MRSA Nasal Swab sputum culture pending. Day # 1 of antimicrobial therapy. Plan Vancomycin * AUC/BOZENA is the preferred PK/PD target for vancomycin * AUC guided dosing is effective and associated with decreased risk of nephroto xicity compared to traditional trough targets * Predicted steady state trough level of 17.5 mcg/mL is predicted to achieve target AUC/BOZENA of 400-600 mg/L.hr and may be associated with a 13 % risk of ne phrotoxicity * Loading dose of 1500mg X 1 administered @ 0500 this morning * Initiate dose of 1000 mg IV every 12 hours @ 1700 * Trough or random level ordered for: 03/08/21 @ 0430 Pharmacy will continue to follow and will adjust dose/frequency as necessary. Thank you.
[2021-03-06] MEDS: TUBE FEEDING WATER FLUSH NG SCH ×2 (14:03→16:34)
[2021-03-06 16:27] LABS: BUN Creatinine Ratio 16.8 (10-20); Calcium 8.4 mg/dl (8.5-10.1); Creatinine Clr Calc Pharmacy 110.6 ml/min; Est GFR (African American) 126.8 ml/min; Est GFR (Non-African American) 109.4 ml/min; Potassium 4.9 mmol/L (3.5-5.1)
[2021-03-06] MEDS: AMIODARONE / D5W 360 MG/200 ML BAG IV SCH (16:42)
[2021-03-06] MEDS: VANCOMYCIN HCL 1,000 MG in SODIUM CHLORIDE 0.9% 250 ML IV SCH (17:26)
--- NOTE | 2021-03-06 17:48 | Electrocardiogram Report ---
Test Reason : Blood Pressure : / mmHG Vent. Rate : 104 BPM Atrial Rate : 104 BPM P-R Int : 114 ms QRS Dur : 082 ms QT Int : 334 ms P-R-T Axes : 090 065 065 degrees QTc Int : 439 ms Poor data quality, interpretation may be adversely affected Sinus tachycardia with occasional Premature ventricular complexes Otherwise normal ECG When compared with ECG of 05-APR-2019 20:02, Premature ventricular complexes are now Present Confirmed by Shahab Lewis ([id number]) on 03/06/2021 5:47:52 PM Referred By: REFERRED SELF Confirmed By:Link Lewis
[2021-03-06] MEDS: methylPREDNISolone 40 MG in SYRINGE 0 ML IV SCH (17:57)
[2021-03-06] MEDS: FAMOTIDINE 20 MG in SYRINGE 3 ML IV SCH (20:25)
[2021-03-06] MEDS ORDERED: Nursing to Pharmacy Communication SCH (21:45)
[2021-03-06] MEDS ORDERED: AZITHROMYCIN 250 MG in DEXTROSE 5% 250 ML IV SCH (22:00)
[2021-03-06 23:03] LABS: BUN Creatinine Ratio 15.7 (10-20); Calcium 9.3 mg/dl (8.5-10.1); Creatinine Clr Calc Pharmacy 93.5 ml/min; Est GFR (African American) 118.3 ml/min; Est GFR (Non-African American) 102.1 ml/min; Potassium 4.9 mmol/L (3.5-5.1)
[2021-03-07] MEDS: methylPREDNISolone 40 MG in SYRINGE 0 ML IV SCH ×3 (00:08→16:28)
[2021-03-07] MEDS: ALBUT/IPRATROP 3MG/0.5MG NEB 3 ML VIAL NEB SCH ×4 (03:44→15:37)
[2021-03-07] MEDS: VANCOMYCIN HCL 1,000 MG in SODIUM CHLORIDE 0.9% 250 ML IV SCH (04:17)
[2021-03-07] MEDS: CEFEPIME 2,000 MG in SYRINGE 0 ML IV SCH ×2 (04:18→13:49)
[2021-03-07] MEDS: AMIODARONE / D5W 360 MG/200 ML BAG IV SCH ×2 (04:19→16:27)
[2021-03-07 05:11] LABS: Basophils # (auto) 0.01 K/uL (0-0.2); Basophils % (auto) 0.1 %; Hemoglobin 12.8 g/dL (14.0-18.0); Immature Granulocytes # (auto) 0.05 K/uL (0.00-0.02); Immature Granulocytes % (auto) 0.3 %; Lymphocytes % (auto) 2.5 %; Mean Corpuscular Hemoglobin 30.2 pg (25-34); Mean Corpuscular Hgb Conc 33.7 g/dL (32-36); Mean Corpuscular Volume 89.6 fL (80-100); Mean Platelet Volume 9.7 fL (7.4-10.4); Monocytes # (auto) 0.83 K/uL (0.11-0.59); Monocytes % (auto) 5.3 %; Neutrophils # (auto) 14.51 K/uL (1.4-6.5); Neutrophils % (auto) 91.8 %; Platelet Count 285 K/uL (130-400); RDW Coefficient of Variation 12.8 % (11.5-14.5); RDW Standard Deviation 41.8 fL (36.4-46.3); Red Blood Count 4.24 M/uL (4.7-6.1)
[2021-03-07 05:34] LABS: BUN Creatinine Ratio 16.6 (10-20); Calcium 9.3 mg/dl (8.5-10.1); Creatinine Clr Calc Pharmacy 85.3 ml/min; Est GFR (Non-African American) 96.6 ml/min; Magnesium 2.4 mg/dl (1.8-2.4); Potassium 4.7 mmol/L (3.5-5.1)
[2021-03-07 05:36] LABS: Phosphorus 2.8 mg/dl (2.5-4.9)
--- NOTE | 2021-03-07 06:53 | Electrocardiogram Report ---
Test Reason : Blood Pressure : / mmHG Vent. Rate : 158 BPM Atrial Rate : 025 BPM P-R Int : 000 ms QRS Dur : 078 ms QT Int : 304 ms P-R-T Axes : 000 089 072 degrees QTc Int : 492 ms Atrial fibrillation with rapid ventricular response Abnormal ECG When compared with ECG of 05-MAR-2021 22:32, (unconfirmed) ST no longer depressed in Anterolateral leads Nonspecific T wave abnormality no longer evident in Inferior leads Confirmed by Shahab Lewis ([id number]) on 03/07/2021 6:53:28 AM Referred By: REFERRED SELF Confirmed By:Link Lewis
--- NOTE | 2021-03-07 06:53 | Electrocardiogram Report ---
Test Reason : Blood Pressure : / mmHG Vent. Rate : 173 BPM Atrial Rate : 082 BPM P-R Int : 000 ms QRS Dur : 082 ms QT Int : 248 ms P-R-T Axes : 000 094 026 degrees QTc Int : 420 ms Poor data quality, interpretation may be adversely affected Atrial fibrillation with rapid ventricular response Rightward axis Nonspecific ST and T wave abnormality Abnormal ECG When compared with ECG of 05-MAR-2021 20:45, (unconfirmed) Atrial fibrillation has replaced Sinus rhythm Vent. rate has increased BY 69 BPM Nonspecific T wave abnormality now evident in Inferior leads Confirmed by Shahab Lewis ([id number]) on 03/07/2021 6:53:07 AM Referred By: REFERRED SELF Confirmed By:Link Lewis
--- NOTE | 2021-03-07 07:31 | XRay Report ---
XR chest 1V portable HISTORY: 50 years-old Male f/u COPD/PNA acute shortness breath with reported pneumonia COMPARISON: Chest radiograph 03/06/2021 TECHNIQUE: AP view of the chest FINDINGS: Interval extubation. Status post removal of the enteric tube. Advanced emphysema with chronic interst itial coarsening. No pneumothorax, large pleural effusion or overt pulmonary edema. Unchanged bluntin g of the costophrenic angles. No acute fracture. IMPRESSION: 1. Interval extubation with removal of the enteric tube. 2. Advanced emphysema with chronic interstitial coarsening. ACT 112: Negative or not required by law. The above report was generated using voice recognition software. It may contain grammatical, syntax o r spelling errors. Electronically signed by: Henry Zimmerman M.D. 03/07/2021 7:29 AM
--- NOTE | 2021-03-07 07:56 | Hospitalist Progress Note ---
Date of Service March 07, 2021 Assessment & Plan (1) Acute and chronic respiratory failure: Plan: Angel Luis Geronimo is a 50-year-old male with PMHx significant for severe COPD (Gold D) chronically on 2 L nasal cannula who was admitted to [facility] ICU on 03/05 for acute on chronic hypercapnic respiratory failure. Intubated/sedated. Care per ICU. Acute on Chronic Hypercapnic Respiratory Failure COPD Gold D with symptoms suspicious for acute COPD exacerbation. However MRSA nares positive although no leukocytosis, inflammatory markers negative, and no signs of pulmonary infection clinically or on imaging. - Intubated, currently PEEP 5 and FiO2 30% - ABG significantly improved on vent: most recently 7.44/46// this AM - sedated with Fentanyl/Precedex IV pushes - blood/sputum cultures pending, urine Legionella pending - continue DuoNeb Q4H prn - Added levalbuterol inhaler scheduled -- patient on albuterol inhaler at home but with elevated HR will use levalbuterol to minimize worsening of this - Plan to continue SoluMedrol 40mg IV q8h x 48h, then transition to PO taper -Pulmonology consulted -- follows with Dr. Chen as outpatient -Continue IV Solu-Medrol at the current dose and decrease to p.o. prednisone the next 1 to 2 days. I would recommend a 10-day course of steroids. -He would qualify for a trilogy noninvasive ventilator. -Due to chronic hypercapnic respiratory failure consequent to COPD, the patient now requires a noninvasive home ventilator. Bilevel therapy with and without a rate would be ineffective as patient requires a volume targeted mode. (See pulm consult note for specific settings) -Discontinued all antibiotics as there is no sign of infection at this time. Started azithromycin 250 mg daily as an immunomodulatory therapy, can be continued for the next 6 to 8 weeks to see if he has improvement in his respiratory symptoms. Anxiety - Patient anxious and easily agitated - He does not have home medications for this - Per pulm consult: - at high risk for reintubation given his anxiety and propensity to develop air trapping - continue to encourage pursed lip breathing - Anxiolytic therapy may be required at low doses - Start lorazepam 1mg PO q4h prn agitation A-fib with RVR Patient presented in a-fib with RVR and became profoundly hypotensive with initial BB treatment, requiring pressors thereafter while intubated. Now extubated and hypotension resolved. - TTE with EF 55-60% and normal RVSP - Cardiology consulted: -would continue intravenous amiodarone through the acute illness. -severe pulmonary disease the likely culprit in his dysrhythmia. -does not need long-term anticoagulation. -uncertain if he will need long-term antiarrhythmic therapy. - Continue amiodarone gtt as above - continue home Aspirin Acute Hyponatremia - resolved Patient presented hypovolemic on exam, suspect due to this. However underlying pulmonary infection (not readily noticeable on imaging) may be contributing as well. - normalized with mIVFs with NSS @100cc/hr -- now discontinued - continue to monitor FEN/GI: Regular DVT Prophylaxis: Lovenox Code Status: Full code Disposition: PCU/Telemetry (2) Acute exacerbation of chronic obstructive airways disease: (3) COPD (chronic obstructive pulmonary disease): (4) Centrilobular emphysema: (5) Tobacco abuse: (6) Atrial fibrillation with RVR: Admission and Anticipated Discharge Date Admission Date: March 05, 2021 Supervising Physician Co-Signing Physician Notes I also saw the patient confirmed brody portions of the history and physical e xamination. The patient has been extubated and is currently maintaining adequate oxygenation on 2 L via nasal cannula. Upon exam, his only complaint is that he wishes he could use a bedside commode r ather than a bedpan. He can speak 1-2 sentences. He does seem anxious. Exam 149/84, 104, 24, 36.9 C, 95% on nasal cannula 1.5 L/min Seated in bed. Mildly anxious. Somewhat pressured speech, hard to tell if this is from anxiety or secondary to his respiratory status, suspect combination of both. Lungs with tachypneic respirations, prolonged expiratory phase. He does use accessory muscles. I do not appreciate wheezing although decreased air movement throughout. Heart is tachycardic but regular Data White blood cell count 15.8, hemoglobin 12.8, platelet count 285 Sodium 137, potassium 4.7, BUN 16, creatinine 0.9 Phosphorus 2.8, magnesium 2.4 Chest x-ray this morning demonstrates interval extubation. No infiltrates or evidence of volume overload. Acute on chronic hypercapnic respiratory failure with hypoxia and hypercapnia Appreciate pulmonary consultation Discontinue levofloxacin, cefepime, vancomycin Azithromycin 250 mg daily Continue methylprednisolone 40 mg TID, consider transition to p.o. prednisone tomorrow or Tuesday We will try to substitute Xopenex for albuterol given tachycardia Pulmonary recommendation for trilogy noninvasive home ventilator noted; case management consultation for assistance in obtaining. Smoking cessation, although he is clearly not open to this idea presently. Atrial fibrillation with RVR, secondary to pulmonary disease and acute illness Now in sinus rhythm Remains on amiodarone for time being No indication for systemic anticoagulation Appreciate cardiology consultation. Hypotension Acute hyponatremia Resolved Monitor BMP Additional per resident documentation Subjective No acute events overnight. Patient reporting he does feel very short of breath and worse than his baseline. However, he is adamant that he wants to be able to get up from bed to use the toilet, insists on not using bedpan and feels if he moves his bowels he will feel less SOB, as he feels somewhat bloated. Denies fever, chills, n/v, CP, diarrhea, abd pain. Review of Systems Review of Systems: per HPI Physical Exam Physical Exam: General: Easily agitated, in moderate distress HEENT: Atraumatic, normocephalic. EOMI. Pulm: No wheezes. Poor air movement bilaterally. Symmetrical chest rise. Increased WOB. Cardiac: Tachycardic rate, regular rhythm. Radial pulses intact and symmetrical. Abdominal: soft, NTND, BS+ Skin: warm, dry, no rash Psych: A&Ox3. Easily agitated. Anxious affect. No hallucinations, normal speech for affect Results & Data Results & Data ([facility]) Vital Signs (Past 12 Hours) Vital Signs Pulse Pulse Resp BP BP Pulse Ox 03/07/21 03:54 88 22 132/76 95 03/07/21 03:44 90 20 95 03/06/21 22:31 96 H 20 94 03/06/21 22:30 90 93 03/06/21 22:05 85 03/06/21 22:00 82 120/68 94 03/06/21 21:30 82 96 03/06/21 21:00 85 124/76 92 03/06/21 20:00 87 92 Resident Activity Tracking Resident Involvement: Resident Care Provided Care Provided: Adult Hospital Medicine (1) COPD (chronic obstructive pulmonary disease) COPD type: emphysema Emphysema type: centrilobular Qualified Code(s): J43.2 - Centrilobular emphysema
[2021-03-07] MEDS: FAMOTIDINE 20 MG in SYRINGE 3 ML IV SCH ×2 (09:24→20:09)
[2021-03-07] MEDS: ASPIRIN 81 MG CHEW NG SCH (09:24)
[2021-03-07] MEDS: INSULIN ASPART 100 UNITS/ML 3 ML PEN SC SCH ×4 (09:32→20:26)
--- NOTE | 2021-03-07 10:05 | Electrocardiogram Report ---
Test Reason : Blood Pressure : / mmHG Vent. Rate : 094 BPM Atrial Rate : 094 BPM P-R Int : 108 ms QRS Dur : 084 ms QT Int : 356 ms P-R-T Axes : 088 074 066 degrees QTc Int : 445 ms Sinus rhythm with short [place] Otherwise normal ECG When compared with ECG of 06-MAR-2021 00:41, (unconfirmed) Sinus rhythm has replaced Atrial fibrillation Vent. rate has decreased BY 64 BPM Confirmed by Lenard Elizondo ([id number]) on 03/07/2021 10:04:27 AM Referred By: REFERRED SELF Confirmed By:Lenard Elizondo
[2021-03-07 10:30] LABS: BUN Creatinine Ratio 18.4 (10-20); Calcium 9.2 mg/dl (8.5-10.1); Creatinine Clr Calc Pharmacy 88.2 ml/min; Est GFR (African American) 115.6 ml/min; Est GFR (Non-African American) 99.7 ml/min; Potassium 4.7 mmol/L (3.5-5.1)
--- NOTE | 2021-03-07 13:29 | Cardiology Consultation ---
Date of Consultation March 07, 2021 Assessment & Plan (1) Atrial fibrillation with RVR: -the patient converted to sinus rhythm on intravenous amiodarone. -would continue intravenous amiodarone through the acute illness. -severe pulmonary disease the likely culprit in his dysrhythmia. -does not need long-term anticoagulation. -uncertain if he will need long-term antiarrhythmic therapy. History of Present Illness Attending Physician: Dante Jerez DO History of Present Illness Mr. Geronimo is a 50-year-old male admitted March 05 with respiratory failure, hypotension, mental status changes, and atrial fibrillation with a rapid ventricular response. This consult was ordered to assistance cardiac management. The patient has a longstanding history of severe COPD. He is undergoing an evaluation for possible lung transplant at [facility]. In any event, he developed severe shortness of breath and presented to the emergency room with the symptoms as described above. The patient was intubated and placed in the intensive care unit. Intravenous amiodarone was started yesterday and the patient has converted to sinus rhythm. He has never had the diagnosis of paroxysmal atrial fibrillation previously. He has never experienced sustained palpitations. Currently, patient is resting comfortably in bed without complaints. Past medical and surgical history 1. Severe COPD 2. Paroxysmal atrial fibrillation-February 2021 3. 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 Allergies Allergy/AdvReac Type Severity Reaction Status Date / Time No Known Allergies Allergy Verified 03/05/21 21:08 Home Medications Medication Instructions Recorded Confirmed Type multivitamin 1 tab PO DAILY 04/05/19 03/05/21 History aspirin 81 mg tablet,delayed 81 mg PO DAILY 04/12/19 03/05/21 History release ascorbic acid (vitamin C) 500 mg 1 g PO DAILY tab 08/04/20 03/05/21 History tablet (Vitamin C) ipratropium 20 mcg-albuterol 100 1 puff INHALATION BID #4 g 08/04/20 03/05/21 Rx mcg/actuation mist for inhalation (Combivent Respimat) fluticasone 500 mcg-salmeterol 50 1 inh INH BID #60 ea 09/12/20 03/05/21 Rx mcg/dose blistr powdr for inhalation (Wixela Inhub) albuterol sulfate 90 mcg/actuation 2 puff INHALATION Q4H PRN #8.5 g 01/14/21 03/05/21 Rx aerosol inhaler (Ventolin HFA) Patient History Medical History Brain aneurysm Centrilobular emphysema Chronic hypoxemic respiratory failure COPD (chronic obstructive pulmonary disease) Dyspnea and respiratory abnormalities Dyspnea on exertion History of tobacco abuse Tobacco abuse Surgical History History of intravascular stent placement Family History Grandfather (Maternal) Myocardial infarction Grandfather (Paternal) Myocardial infarction Mother Ovarian cancer Bladder cancer Other Diabetes Denies family history of Prostate cancer Breast cancer Colorectal cancer Social History Smoking Status: Former smoker Tobacco Type: Cigarettes Age Started Using Tobacco: 16; Age Quit Using Tobacco: 49; packs per day: 1; Years Smoked: 33; Cigarettes Per Day: 0.5; Hx Alcohol Use: No Hx Substance Use: No Preferred Language: [place] Citizen Communication Ability: Unable Visual Impairment: No Limitations Hearing Ability: Normal Parking Lot Signaler Required: No marital status: Single Current Living Situation: Alone current occupational status: employed 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 HEENT exam is negative. Neck is supple with full carotid upstrokes. No obvious bruits. Jugular is pressure is flat at 90. Cardiovascular exam reveals a regular rhythm with a normal S1-S2. No S3 or murmurs. Lungs note distant breath sounds but no rales. Abdomen is soft without bruits. Extremities reveal intact radial artery pulses bilaterally. There is no peripheral edema. Results & Data ([facility]) Vital Signs (Past 12 Hours) Vital Signs Temp Pulse Pulse Resp BP BP Pulse Ox 03/07/21 12:19 36.9 C 104 H 24 149/84 H 95 03/07/21 11:17 99 H 22 96 03/07/21 08:00 36.7 C 91 H 03/07/21 07:55 99 H 22 95 03/07/21 07:20 101 H 115/57 L 97 03/07/21 03:54 88 22 132/76 95 03/07/21 03:44 90 20 95 Laboratory Results CBC notes a hemoglobin of 12.8, crit 30.0, white count 15.8, platelet count [id number]. Electrolytes note a sodium of 135, potassium 4.7, chloride 98, bicarb 35, BUN 15, creatinine 0.92, and glucose of 133. Magnesium level is 2.4. Troponin I level was undetectable at less than 0.015. Diagnostic Findings Initial EKG noted atrial fibrillation with a rapid ventricular response of 170 beats per minute. There is a nonspecific ST and T-wave abnormality. Current tracing notes sinus rhythm without significant abnormalities. Echocardiogram notes normal left ventricular systolic function with ejection fraction 55-60%. There is borderline LVH and no valvular pathology. PG Care Time/CCT Total # of Minutes Spent Total Time Spent with Patient: Total time spent is greater than 50% in coordination of care (as documented) at patient's floor/unit and/or counseling patient: Coding Level of Care Code 76280 Inpt Consult Level 4 Diagnoses Atrial fibrillation with RVR I48.91
[2021-03-07] MEDS: LEVALBUTEROL TARTRATE 15 GM HFA.AER.AD INH SCH ×3 (13:46→20:02)
[2021-03-07] MEDS: levoFLOXacin/D5W 750 MG/150 ML BAG IV SCH (13:54)
--- NOTE | 2021-03-07 14:30 | Pulmonary Consultation ---
Date of Consultation March 07, 2021 Assessment & Plan (1) Acute exacerbation of chronic obstructive airways disease: (2) Acute on chronic respiratory failure with hypoxia and hypercapnia: (3) Tobacco abuse: (4) Centrilobular emphysema: (5) Pulmonary air trapping: (6) Anxiety: 50-year-old male with a past medical history of tobacco abuse (smoked 1.5 packs/day for 34 years), coronary artery disease, CVA, severe COPD (Gold class D) and chronic hypoxemic respiratory failure presenting to the hospital due to an acute COPD exacerbation. Acute COPD exacerbation: Continue IV Solu-Medrol at the current dose and decrease to p.o. prednisone the next 1 to 2 days. I would recommend a 10-day course of steroids. He would qualify for a trilogy noninvasive ventilator. Due to chronic hypercapnic respiratory failure consequent to COPD, the patient now requires a noninvasive home ventilator. Bilevel therapy with and without a rate would be ineffective as patient requires a volume targeted mode. Ventilation is required to decrease work of breathing and improve pulmonary status. Interruption of ventilator support would lead to decline of health status. NIMV settings should be AVAPS-AE; Breath rate: auto; Inspiratory time: auto; Sigh: off; Tidal Volume: 350-450, PS min: 4-10 PS max: 12-20; EPAP min: 6- 10; EPAP max: 10-16; AVAPS rate: 14 during sleep and as needed He has many issues obtaining insurance and I think a case management consultation would be prudent to help him establish insurance so that he can afford his medications. I also strongly encouraged complete smoking cessation. He is in denial with regards to tobacco causing lung injury. He does not feel that all of his problems are tobacco related. Certainly he may have some degree of disease from occupational exposures, but continuing to smoke is going to worsen his lung function and predispose him to future exacerbations of COPD. It does not appear that he completed his alpha-1 antitrypsin deficiency testing as an outpatient. I have discontinued all antibiotics as there is no sign of infection at this time. I have started azithromycin 250 mg daily as an immunomodulatory therapy. This can be continued for the next 6 to 8 weeks to see if he has improvement in his respiratory symptoms. Anxiety: He is at high risk for reintubation given his anxiety and propensity to develop air trapping. Please continue to encourage pursed lip breathing. Anxiolytic therapy may be required at low doses. I will defer this to the primary team. Atrial fibrillation: Secondary to the patient's underlying lung disease. Currently on amiodarone. He is in a normal sinus rhythm. Defer management to cardiology. Tobacco abuse: Strongly encouraged complete cessation as noted above. He called me a "smoking Nazi". It seems that he is not completely ready to quit smoking. Pulmonary will sign off at this time. Thank you for the consultation. Please call with questions. History of Present Illness Reason for Consultation: Acute COPD exacerbation Attending Physician: Dante Jerez DO History of Present Illness 50-year-old male with history of COPD Gold class D, poor compliance with medications, continued tobacco abuse, severe emphysema and severe air trapping who presented to the hospital on 03/05/2021. He has been having shortness of breath and worse cough with clear sputum over the last several weeks. He was altered on admission to the hospital. He was placed on BiPAP. He developed a narrow complex tachycardia with rates in the 180s and he was ultimately intubated. He is currently on amiodarone. He is very short of breath at present. He gets anxious and worked up. He became argumentative with me tangential. He started asking me about why I am wearing a mask and tried to divert the conversation towards COVID-19. He also was upset about his current financial situation and noted that he is unable to get insurance. He uses albuterol, Wixela and Spiriva at home. During previous outpatient encounters with me he has noted that he does not want to wear supplemental oxygen outside the hospital. It is unclear whether he is using oxygen on an outpatient basis at this time. His biggest concern was getting out of bed to use the toilet to have a bowel movement. He does not want to use the bedpan. The nurse and I reiterated to him that he is at risk for worsening respiratory failure and reintubation should he get out of bed. He is very worked up about this. An echocardiogram was completed during this hospital visit. LVEF was normal. Right ventricular systolic pressure was normal. Cardiology consultation appreciated. It is thought that his atrial fibrillation with rapid ventricular response was secondary to his underlying pulmonary disease. The patient is now extubated after requiring a brief amount of time on the ventilator. This is his second intubation in the past year. On arrival to the hospital his ABG was as follows pH 7.27, PCO2 86, PO2 420. Yesterday's ABG improved and his pH is 7.44, PCO2 46 and PO2 of 91. He is currently on amiodarone, levofloxacin, cefepime, vancomycin and methylprednisone 40 mg three times daily. He is receiving levalbuterol four times daily. Cultures are negative to date. Procalcitonin is negative. Chest x-ray without acute infiltrate. No leukocytosis or fever seen. Allergies Allergy/AdvReac Type Severity Reaction Status Date / Time No Known Allergies Allergy Verified 03/05/21 21:08 Home Medications Medication Instructions Recorded Confirmed Type multivitamin 1 tab PO DAILY 04/05/19 03/05/21 History aspirin 81 mg tablet,delayed 81 mg PO DAILY 04/12/19 03/05/21 History release ascorbic acid (vitamin C) 500 mg 1 g PO DAILY tab 08/04/20 03/05/21 History tablet (Vitamin C) ipratropium 20 mcg-albuterol 100 1 puff INHALATION BID #4 g 08/04/20 03/05/21 Rx mcg/actuation mist for inhalation (Combivent Respimat) fluticasone 500 mcg-salmeterol 50 1 inh INH BID #60 ea 09/12/20 03/05/21 Rx mcg/dose blistr powdr for inhalation (Wixela Inhub) albuterol sulfate 90 mcg/actuation 2 puff INHALATION Q4H PRN #8.5 g 01/14/21 03/05/21 Rx aerosol inhaler (Ventolin HFA) Patient History Medical History (Updated 03/07/21 @ 14:43 by Dylon Chen MD) Acute on chronic respiratory failure with hypoxia and hypercapnia Anxiety Brain aneurysm Centrilobular emphysema Chronic hypoxemic respiratory failure COPD (chronic obstructive pulmonary disease) Dyspnea and respiratory abnormalities Dyspnea on exertion History of tobacco abuse Pulmonary air trapping Tobacco abuse Surgical History History of intravascular stent placement Family History Grandfather (Maternal) Myocardial infarction Grandfather (Paternal) Myocardial infarction Mother Ovarian cancer Bladder cancer Other Diabetes Denies family history of Prostate cancer Breast cancer Colorectal cancer Social History Smoking Status: Former smoker Tobacco Type: Cigarettes Age Started Using Tobacco: 16; Age Quit Using Tobacco: 49; packs per day: 1; Years Smoked: 33; Cigarettes Per Day: 0.5; Hx Alcohol Use: No Hx Substance Use: No Preferred Language: Maltese Communication Ability: Unable Visual Impairment: No Limitations Hearing Ability: Normal Internal Auditor Required: No marital status: Single Current Living Situation: Alone current occupational status: employed 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 Nasal cannula in place. Eyes: Pupils are equal round and reactive to light. Conjunctivae are normal. Anicteric sclera. Ears nose, mouth and throat: Mallampati class 2. Normal posterior oropharynx. Uvula is midline. Neck: Trachea is midline. Visual inspection is normal. Respiratory: Prolonged phase of exhalation. No wheezes. He is using accessory muscles. Cardiovascular: Regular rate and rhythm. No murmurs. No edema. Gastrointestinal: Normal bowel sounds, soft, nontender and nondistended. No hepatosplenomegaly noted. Musculoskeletal: No cyanosis. Patient is able to move all extremities. Skin: No rashes, warm dry and intact. Neurologic: No obvious focal neurological deficits seen. Psychiatric: Anxious and agitated. Sometimes tangential. Results & Data Results & Data ([facility]) Vital Signs (Past 12 Hours) Vital Signs Temp Pulse Pulse Resp BP BP Pulse Ox 03/07/21 12:19 98.4 F 104 H 24 149/84 H 95 03/07/21 11:17 99 H 22 96 03/07/21 08:00 98.1 F 91 H 03/07/21 07:55 99 H 22 95 03/07/21 07:20 101 H 115/57 L 97 03/07/21 03:54 88 22 132/76 95 03/07/21 03:44 90 20 95 Vital signs, labs and imaging reviewed PG Care Time/CCT Total # of Minutes Spent Total Time Spent with Patient: Total time spent is greater than 50% in coordination of care (as documented) at patient's floor/unit and/or counseling patient: Coding Level of Care Code 34640 Inpt Consult Level 5 Diagnoses Acute exacerbation of chronic obstructive airways disease J44.1 Acute on chronic respiratory failure with hypoxia and hypercapnia J96.21; J96.22 Tobacco abuse Z72.0 Centrilobular emphysema J43.2 Pulmonary air trapping R09.89 Anxiety F41.9
[2021-03-07] MEDS ORDERED: LORazepam 1 MG TAB PO PRN (15:26)
[2021-03-07 16:21] LABS: BUN Creatinine Ratio 19.9 (10-20); Calcium 9.1 mg/dl (8.5-10.1); Creatinine Clr Calc Pharmacy 95.7 ml/min; Est GFR (African American) 119.5 ml/min; Est GFR (Non-African American) 103.1 ml/min; Potassium 4.6 mmol/L (3.5-5.1)
[2021-03-07] MEDS ORDERED: ALBUT/IPRATROP 3MG/0.5MG NEB 3 ML VIAL NEB PRN (18:16)
[2021-03-07] MEDS: ENOXAPARIN INJ 40 MG/0.4 ML SYR SQ SCH (20:09)
[2021-03-08] MEDS: methylPREDNISolone 40 MG in SYRINGE 0 ML IV SCH ×2 (00:19→10:18)
[2021-03-08] MEDS: AMIODARONE / D5W 360 MG/200 ML BAG IV SCH (02:20)
[2021-03-08] MEDS ORDERED: VANCOMYCIN TROUGH ONE (04:30)
[2021-03-08 06:22] LABS: Hematocrit (blood only) 40.3 % (42-52); Hemoglobin 13.2 g/dL (14.0-18.0); Immature Granulocytes # (auto) 0.05 K/uL (0.00-0.02); Immature Granulocytes % (auto) 0.3 %; Lymphocytes # (auto) 0.41 K/uL (1.2-3.4); Lymphocytes % (auto) 2.5 %; Mean Corpuscular Hemoglobin 30.3 pg (25-34); Mean Corpuscular Hgb Conc 32.8 g/dL (32-36); Mean Corpuscular Volume 92.4 fL (80-100); Mean Platelet Volume 9.7 fL (7.4-10.4); Neutrophils # (auto) 15.19 K/uL (1.4-6.5); Neutrophils % (auto) 91.2 %; Platelet Count 273 K/uL (130-400); Red Blood Count 4.36 M/uL (4.7-6.1); White Blood Count 16.65 K/uL (4.8-10.8)
[2021-03-08 06:48] LABS: BUN Creatinine Ratio 23.6 (10-20); Calcium 8.9 mg/dl (8.5-10.1); Creatinine Clr Calc Pharmacy 120.8 ml/min; Est GFR (African American) 131.5 ml/min; Est GFR (Non-African American) 113.4 ml/min; Magnesium 2.5 mg/dl (1.8-2.4); Potassium 4.3 mmol/L (3.5-5.1)
[2021-03-08] MEDS: LEVALBUTEROL TARTRATE 15 GM HFA.AER.AD INH SCH ×4 (06:51→16:56)
[2021-03-08] MEDS: INSULIN ASPART 100 UNITS/ML 3 ML PEN SC SCH ×4 (07:07→21:30)
[2021-03-08] MEDS ORDERED: METOPROLOL TARTRATE 1 MG/ML VIAL IV ONE (07:10)
[2021-03-08 07:14] LABS: Phosphorus 4.1 mg/dl (2.5-4.9)
[2021-03-08] MEDS: ASPIRIN 81 MG CHEW NG SCH (10:06)
[2021-03-08] MEDS: AZITHROMYCIN 250 MG TAB PO SCH (10:06)
[2021-03-08] MEDS: FAMOTIDINE 20 MG in SYRINGE 3 ML IV SCH ×2 (10:18→20:51)
[2021-03-08] MEDS ORDERED: POLYETHYLENE (MIRALAX) 17 GM PACK PO PRN (10:26)
--- NOTE | 2021-03-08 10:31 | Cardiology Progress Note ---
Date of Service March 08, 2021 Assessment & Plan (1) Atrial fibrillation with RVR: Plan: -converted to sinus rhythm on intravenous amiodarone. -could convert amiodarone to p.o., 200 mg b.i.d.. -severe pulmonary disease the likely culprit in his dysrhythmia. -does not need long-term anticoagulation. -uncertain if he will need long-term antiarrhythmic therapy. Admission and Anticipated Discharge Date Admission Date: March 05, 2021 Subjective The patient is resting comfortably in bed without complaints of chest pain or palpitations. Dyspnea somewhat improved compared with yesterday Physical Exam Physical Exam: In general is well-developed well-nourished white male in no acute distress. HEENT exam is negative. Neck is supple with full carotid upstrokes. No obvious bruits. Jugular is pressure is flat at 90. Cardiovascular exam reveals a regular rhythm with a normal S1-S2. No S3 or murmurs. Lungs note distant breath sounds but no rales. Abdomen is soft without bruits. Extremities reveal intact radial artery pulses bilaterally. There is no peripheral edema. Results & Data ([facility]) Vital Signs (Past 12 Hours) Vital Signs Temp Pulse Pulse Resp BP BP Pulse Ox 03/08/21 08:00 87 03/08/21 07:40 36.8 C 84 117/80 95 03/08/21 06:52 91 H 23 93 03/08/21 05:00 36.7 C 82 24 156/96 H 96 03/07/21 22:59 36.8 C 86 24 98 Diagnostic Findings manager monitoring notes sinus rhythm. No atrial fibrillation. PG Care Time/CCT Total # of Minutes Spent Total Time Spent with Patient: Total time spent is greater than 50% in coordination of care (as documented) at patient's floor/unit and/or counseling patient: Coding Level of Care Code 19850 Subseq Hosp Care Lvl 3 Diagnoses Atrial fibrillation with RVR I48.91
--- NOTE | 2021-03-08 10:57 | Hospitalist Progress Note ---
Date of Service March 08, 2021 Assessment & Plan (1) Acute and chronic respiratory failure: Plan: Angel Luis Geronimo is a 50-year-old male with PMHx significant for severe COPD (Gold D) chronically on 2 L nasal cannula who was admitted to [facility] ICU on 03/05 for acute on chronic hypercapnic respiratory failure. Extubated on 03/06 and downgraded from ICU on 03/06. Improving. Acute on Chronic Hypercapnic Respiratory Failure COPD Gold D with symptoms suspicious for acute COPD exacerbation. MRSA nares positive although no leukocytosis, inflammatory markers negative, and no signs of pulmonary infection clinically or on imaging. - Extubated on 03/06, currently satting well on 2L NC and BiPAP QHS - blood/sputum cultures no growth to date, urine Legionella and alpha-1 antitrypsin pending - Pulm on board - appreciate recs - antibiotics discontinued on 03/07, but will continue for Zithromax 250mg PO daily x6-8 weeks for anti-inflammatory effect - Solu-Medrol decreased to 40mg IV BID today, plan to transition to PO taper tomorrow - continue DuoNeb Q4H PRN, Levalbuterol QID - Requires non-invasive ventilation as outpatient; he would qualify for a trilogy noninvasive ventilator. Anxiety Patient anxious and easily agitated which likely contributes to pulmonary decompensation. Does not have home medications for this. - Per pulm consult: - at high risk for reintubation given his anxiety and propensity to develop air trapping - continue to encourage pursed lip breathing - Anxiolytic therapy may be required at low doses - Started Lorazepam 1mg PO Q4H PRN while hospitalized; may require further treatment as outpatient A-fib with RVR, resolved Patient presented in a-fib with RVR and became profoundly hypotensive with initial BB treatment, requiring pressors thereafter while intubated. Likely was instigated by COPD exacerbation. Now extubated, hypotension resolved, and has been NSR (rate-controlled) for >24 hours. - TTE with EF 55-60% and normal RVSP - Cards on board - appreciate recs - transition Amiodarone gtt to 200mg PO BID, starting this morning - uncertain of need for long-term anti-arrhythmic - does not need long-term anti-coagulation - continue home Aspirin Acute Hyponatremia, resolved Patient presented hypovolemic on exam, suspect due to this. However underlying pulmonary infection (not readily noticeable on imaging) may be contributing as well. - normalized with mIVFs with NSS @100cc/hr - IVFs discontinued on 03/06 - continue to monitor FEN/GI: Regular DVT Prophylaxis: Lovenox Code Status: Full code Disposition: PCU/Telemetry, will need PT/OT evals for safe disposition plan (lives alone) - will order these tomorrow if improves from cardiorespiratory standpoint (2) Acute exacerbation of chronic obstructive airways disease: (3) COPD (chronic obstructive pulmonary disease): (4) Centrilobular emphysema: (5) Tobacco abuse: (6) Atrial fibrillation with RVR: Admission and Anticipated Discharge Date Admission Date: March 05, 2021 Supervising Physician Co-Signing Physician Notes I also saw the patient confirmed brody portions of the history and physical examination. He tells us that his breathing is closer, but not at, his home baseline. He can speak in 1 or 2 sentences before pausing; he is using accessory muscles to breathe. He tolerated BiPAP for most of last evening. Exam 117/80, 100, 17, 36.8, 93% on nasal cannula 2 L/min Lungs with tachypneic respirations, prolonged expiratory phase. He does use accessory muscles. I do not appreciate wheezing. Heart is tachycardic but regular Data There is a 16.65, hemoglobin 13.2, platelet count 273 Sodium 138, potassium 4.3, BUN 15, creatinine 0.65 Phosphorus 4.1, magnesium 2.5 Acute on chronic hypercapnic respiratory failure with hypoxia and hypercapnia Appreciate pulmonary consultation Azithromycin 250 mg daily Continue methylprednisolone 40 mg TID, consider transition to p.o. prednisone tomorrow. Pulmonary recommendation for trilogy noninvasive home ventilator noted; case management consultation for assistance in obtaining. Smoking cessation, although he is clearly not open to this idea presently. Leukocytosis Suspect secondary to steroids Atrial fibrillation with RVR, secondary to pulmonary disease and acute illness Now in sinus rhythm Convert amiodarone to p.o. No indication for systemic anticoagulation Appreciate cardiology consultation. Hypotension Acute hyponatremia Resolved Monitor BMP Additional per resident documentation Subjective Patient mostly tolerated BiPAP overnight although had to switch to 2L NC @ ~0300 - currently 2L NC in place. Patient reports some persistent SOB although improved from yesterday - still not at baseline. Denies anxiety currently. Trying expiration with pursed lips. Denies fever/chills, chest pain, palpitations, N/V, abdominal pain, rash. Review of Systems Review of Systems: All systems reviewed & are unremarkable except as noted in HPI & below Physical Exam Physical Exam: General: A&Ox3. NAD. Cooperative. HEENT: Atraumatic, normocephalic. NC in place. Pulm: Visible shoulder elevation with each respiratory cycle. Appears in mild respiratory distress. Symetrical chest rise. Decreased air movement bilaterally. -wheezes, -rales, -rhonchi. Cardiac: RRR, -mrg. Radial pulses intact and symmetrical. Abdominal: soft, non-tender, non-distended, BS x 4 Skin: warm, dry, no rash Results & Data Results & Data ([facility]) Vital Signs (Past 12 Hours) Vital Signs Temp Pulse Pulse Resp BP BP Pulse Ox 03/08/21 08:00 87 03/08/21 07:40 36.8 C 84 117/80 95 03/08/21 06:52 91 H 23 93 03/08/21 05:00 36.7 C 82 24 156/96 H 96 03/07/21 22:59 36.8 C 86 24 98 Resident Activity Tracking Resident Involvement: Resident Care Provided Care Provided: Adult Hospital Medicine (1) COPD (chronic obstructive pulmonary disease) COPD type: emphysema Emphysema type: centrilobular Qualified Code(s): J43.2 - Centrilobular emphysema
[2021-03-08] MEDS: AMIODARONE 200 MG TAB PO SCH ×2 (11:25→17:07)
[2021-03-08] MEDS: FLUTICASONE/VILANTEROL 200/25MCG 14 PUFFS/INHALER INH SCH (12:54)
[2021-03-08] MEDS: UMECLIDINIUM BROMIDE 62.5MCG/BLISTER 7 PUFFS/INHALER INH SCH (12:55)
[2021-03-08] MEDS: LEVALBUTEROL TARTRATE 15 GM HFA.AER.AD INH PRN ×2 (20:15→23:11)
[2021-03-08] MEDS: ENOXAPARIN INJ 40 MG/0.4 ML SYR SQ SCH (20:52)
[2021-03-08] MEDS ORDERED: methylPREDNISolone 40 MG in SYRINGE 0 ML IV SCH (21:00)
[2021-03-09] MEDS: LEVALBUTEROL TARTRATE 15 GM HFA.AER.AD INH PRN ×6 (04:05→23:42)
[2021-03-09 04:53] LABS: Basophils # (auto) 0.01 K/uL (0-0.2); Basophils % (auto) 0.1 %; Hematocrit (blood only) 40.1 % (42-52); Immature Granulocytes # (auto) 0.02 K/uL (0.00-0.02); Immature Granulocytes % (auto) 0.1 %; Lymphocytes # (auto) 0.42 K/uL (1.2-3.4); Mean Corpuscular Hemoglobin 30.2 pg (25-34); Mean Corpuscular Hgb Conc 32.4 g/dL (32-36); Mean Corpuscular Volume 93.3 fL (80-100); Mean Platelet Volume 9.7 fL (7.4-10.4); Monocytes # (auto) 0.74 K/uL (0.11-0.59); Monocytes % (auto) 5.3 %; Neutrophils # (auto) 12.86 K/uL (1.4-6.5); Neutrophils % (auto) 91.5 %; Platelet Count 291 K/uL (130-400); RDW Coefficient of Variation 13.2 % (11.5-14.5); RDW Standard Deviation 45.1 fL (36.4-46.3); White Blood Count 14.05 K/uL (4.8-10.8)
[2021-03-09 05:07] LABS: BUN Creatinine Ratio 26.2 (10-20); Calcium 8.7 mg/dl (8.5-10.1); Creatinine Clr Calc Pharmacy 98.1 ml/min; Est GFR (African American) 120.7 ml/min; Est GFR (Non-African American) 104.2 ml/min; Magnesium 2.3 mg/dl (1.8-2.4); Phosphorus 3.6 mg/dl (2.5-4.9); Potassium 4.2 mmol/L (3.5-5.1)
[2021-03-09] MEDS: INSULIN ASPART 100 UNITS/ML 3 ML PEN SC SCH ×4 (08:14→20:40)
[2021-03-09] MEDS: AZITHROMYCIN 250 MG TAB PO SCH (09:07)
[2021-03-09] MEDS: AMIODARONE 200 MG TAB PO SCH ×2 (09:07→16:28)
[2021-03-09] MEDS: ASPIRIN 81 MG CHEW NG SCH (09:07)
[2021-03-09] MEDS: FAMOTIDINE 20 MG in SYRINGE 3 ML IV SCH ×2 (09:08→20:18)
[2021-03-09] MEDS: UMECLIDINIUM BROMIDE 62.5MCG/BLISTER 7 PUFFS/INHALER INH SCH (09:08)
[2021-03-09] MEDS: FLUTICASONE/VILANTEROL 200/25MCG 14 PUFFS/INHALER INH SCH (09:08)
[2021-03-09] MEDS: predniSONE 20 MG TAB PO SCH (09:47)
--- NOTE | 2021-03-09 11:31 | Cardiology Progress Note ---
Date of Service March 09, 2021 Assessment & Plan (1) Atrial fibrillation with RVR: Plan: -converted to sinus rhythm on intravenous amiodarone. -tolerating amiodarone 200 mg b.i.d.. -severe pulmonary disease likely culprit in his atrial dysrhythmia. -does not need long-term anticoagulation. -doubt he will need long-term antiarrhythmic therapy. Admission and Anticipated Discharge Date Admission Date: March 05, 2021 Subjective The patient is resting comfortably in the bedside chair without chest pain or p alpitations. Physical Exam Physical Exam: In general is well-developed well-nourished white male in no acute distress. HEENT exam is negative. Neck is supple with full carotid upstrokes. No obvious bruits. Jugular is pressure is flat at 90. Cardiovascular exam reveals a regular rhythm with a normal S1-S2. No S3 or murmurs. Lungs note distant breath sounds but no rales. Abdomen is soft without bruits. Extremities reveal intact radial artery pulses bilaterally. There is no peripheral edema. Results & Data ([facility]) Vital Signs (Past 12 Hours) Vital Signs Temp Pulse Pulse Resp BP Pulse Ox 03/09/21 10:38 92 H 32 H 96 03/09/21 09:00 36.7 C 104 H 21 136/76 96 03/09/21 08:00 94 H 03/09/21 07:14 98 H 14 96 03/09/21 04:07 83 26 H 92 03/09/21 04:00 36.7 C 86 20 111/83 95 03/09/21 00:00 37.1 C 86 26 H 120/70 98 Diagnostic Findings environmental monitoring specialist notes normal sinus rhythm. No further episodes of atrial fibrillation. PG Care Time/CCT Total # of Minutes Spent Total Time Spent with Patient: Total time spent is greater than 50% in coordination of care (as documented) at patient's floor/unit and/or counseling patient: Coding Level of Care Code 25596 Subseq Hosp Care Lvl 3 Diagnoses Atrial fibrillation with RVR I48.91
--- NOTE | 2021-03-09 11:57 | Hospitalist Progress Note ---
Date of Service March 09, 2021 Assessment & Plan (1) Acute and chronic respiratory failure: Plan: Angel Luis Geronimo is a 50-year-old male with PMHx significant for severe COPD (Gold D) chronically on 2 L nasal cannula who was admitted to [facility] ICU on 03/05 for acute on chronic hypercapnic respiratory failure. Extubated on 03/06 and downgraded from ICU on 03/06. Improving. Acute on Chronic Hypercapnic Respiratory Failure COPD Gold D with symptoms suspicious for acute COPD exacerbation. MRSA nares positive although no leukocytosis, inflammatory markers negative, and no signs of pulmonary infection clinically or on imaging. - Extubated on 03/06, currently satting well on 2L NC and BiPAP QHS - blood/sputum cultures no growth to date, urine Legionella and alpha-1 antitrypsin pending - Pulm on board - appreciate recs - antibiotics discontinued on 03/07, but will continue for Zithromax 250mg PO daily x6-8 weeks for anti-inflammatory effect - Transitioned to PO Prednisone taper today (12 days, 60/50/40/30/20/10mg) - continue DuoNeb Q4H PRN, Levalbuterol QID - recommend non-invasive ventilation as outpatient; he would qualify for a trilogy noninvasive ventilator - patient prefers to continue with NC only A-fib with RVR, resolved Patient presented in a-fib with RVR and became profoundly hypotensive with initial BB treatment, requiring pressors thereafter while intubated. Likely was instigated by COPD exacerbation. Now extubated, hypotension resolved, and has been NSR (rate-controlled) for >48 hours. - TTE with EF 55-60% and normal RVSP - Cards on board - appreciate recs - continue Amiodarone 200mg PO BID, plan to discontinue upon discharge - may require low-dose BB, will stop Amio after tonight's dose and reassess tomorrow morning - does not need long-term anti-coagulation - continue home Aspirin Anxiety Patient anxious and easily agitated which likely contributes to pulmonary decompensation. Does not have home medications for this, although he is unlikely to have BASSAM as his anxiety is only in regards to respiratory status. - Per pulm consult: - at high risk for reintubation given his anxiety and propensity to develop air trapping - continue to encourage pursed lip breathing - Anxiolytic therapy may be required at low doses - Started Lorazepam 1mg PO Q4H PRN while hospitalized but patient has not required these at all; will not discharge with medications - f/u with PCP for further eval/management Acute Hyponatremia, resolved Patient presented hypovolemic on exam, suspect due to this. However underlying pulmonary infection (not readily noticeable on imaging) may be contributing as well. - normalized with mIVFs with NSS @100cc/hr - IVFs discontinued on 03/06 - continue to monitor FEN/GI: Regular DVT Prophylaxis: Lovenox Code Status: Full code Disposition: med/surg, tentative plan for home tomorrow (2) Acute exacerbation of chronic obstructive airways disease: (3) COPD (chronic obstructive pulmonary disease): (4) Centrilobular emphysema: (5) Tobacco abuse: (6) Atrial fibrillation with RVR: Admission and Anticipated Discharge Date Admission Date: March 05, 2021 Supervising Physician Co-Signing Physician Notes I personally examined the patient and verified all brody points of history and exam, discussed case, and agree with decision making with Dr Christensen Feeling better. Still significant dyspnea with nearly any exertion, but also not that far from his baseline breathing. Seems to be willing to quit smoking. Has a reasonable understanding of use of maintenance inhalers. Vitals noted, in general he is awake and alert fatigued appearing and using accessory muscles, which unfortunately appears to be close to his baseline. HEENT normocephalic atraumatic mucous membranes moist. Breathing is a bit labored with mild conversational dyspnea and use especially of neck accessory muscles. Neuro shows no focal deficits. Skin without rashes, pallor, icterus. Severe COPD with acute on chronic mixed hypoxic and hypercapnic respiratory failurewas on ventilator for this, fortunately was able to come off, and is now approaching baseline. Continue inhalers, continue oxygen/supportive care. Probably home soon. Would benefit from noninvasive ventilation at night, but there may be nearly insurmountable hurdles with this at this time. A. fib/RVRlow [id number], now sinus. Agree, hopefully will not need long- term management for this. DVT prophylaxisLovenox Otherwise as above. Subjective No acute events overnight. Remained on 2L NC overnight; did not want BiPAP. This morning the patient feels in general to be at respiratory baseline status although is a little "tired". Denies SOB or wheezing. Would like to stay one more night to ensure improved status. Denies fever/chills, chest pain, palpitations, N/V, abdominal pain, rash. Review of Systems Review of Systems: All systems reviewed & are unremarkable except as noted in HPI & below Physical Exam Physical Exam: General: A&Ox3. NAD. Cooperative. HEENT: Atraumatic, normocephalic. NC in place. Pulm: Visible shoulder elevation with each respiratory cycle. Appears in mild respiratory distress. Symetrical chest rise. Decreased air movement bilaterally. -wheezes, -rales, -rhonchi. Cardiac: RRR, -mrg. Radial pulses intact and symmetrical. Abdominal: soft, non-tender, non-distended, BS x 4 Skin: warm, dry, no rash Results & Data Results & Data ([facility]) Vital Signs (Past 12 Hours) Vital Signs Temp Pulse Pulse Resp BP Pulse Ox 03/09/21 10:38 92 H 32 H 96 03/09/21 09:00 36.7 C 104 H 21 136/76 96 03/09/21 08:00 94 H 03/09/21 07:14 98 H 14 96 03/09/21 04:07 83 26 H 92 03/09/21 04:00 36.7 C 86 20 111/83 95 03/09/21 00:00 37.1 C 86 26 H 120/70 98 Resident Activity Tracking Resident Involvement: Resident Care Provided Care Provided: Adult Hospital Medicine (1) COPD (chronic obstructive pulmonary disease) COPD type: emphysema Emphysema type: centrilobular Qualified Code(s): J43.2 - Centrilobular emphysema
--- NOTE | 2021-03-09 18:14 | Billing Data ---
Date of Service March 09, 2021 Coding Level of Care Code 36093 Subseq Hosp Care Lvl 3
[2021-03-09] MEDS: ENOXAPARIN INJ 40 MG/0.4 ML SYR SQ SCH (20:18)
[2021-03-09] MEDS: guaiFENesin 600 MG TABCR PO SCH (20:20)
[2021-03-10] MEDS: LEVALBUTEROL TARTRATE 15 GM HFA.AER.AD INH PRN ×3 (03:04→10:20)
[2021-03-10 05:59] LABS: Hematocrit (blood only) 38.8 % (42-52); Hemoglobin 12.7 g/dL (14.0-18.0); Immature Granulocytes # (auto) 0.03 K/uL (0.00-0.02); Immature Granulocytes % (auto) 0.2 %; Lymphocytes # (auto) 1.23 K/uL (1.2-3.4); Lymphocytes % (auto) 10.2 %; Mean Corpuscular Hemoglobin 30.5 pg (25-34); Mean Corpuscular Hgb Conc 32.7 g/dL (32-36); Mean Corpuscular Volume 93.3 fL (80-100); Mean Platelet Volume 9.3 fL (7.4-10.4); Monocytes # (auto) 1.67 K/uL (0.11-0.59); Monocytes % (auto) 13.9 %; Neutrophils % (auto) 75.7 %; Platelet Count 262 K/uL (130-400); Red Blood Count 4.16 M/uL (4.7-6.1); White Blood Count 12.03 K/uL (4.8-10.8)
[2021-03-10 06:19] LABS: BUN Creatinine Ratio 31.5 (10-20); Calcium 8.8 mg/dl (8.5-10.1); Creatinine Clr Calc Pharmacy 110.4 ml/min; Est GFR (African American) 125.4 ml/min; Est GFR (Non-African American) 108.2 ml/min; Magnesium 2.4 mg/dl (1.8-2.4)
--- NOTE | 2021-03-10 07:59 | Discharge Summary ---
Date of Service March 10, 2021 Admission HPI Per Admitting Provider Angel Luis Geronimo is a 50yo male with very severe COPD - Gold D presenting with SOB. Patient reports frequent shortness of breath, worse during the summer due to humidity. Patient reports acute worsening of his baseline shortness of breath starting last night around midnight. He felt short of breath all day which acutely worsened this afternoon around 16:00. Patient reports dry cough as well as chest tightness and wheeze. He also reports pain across his back and between his shoulders. He denies fevers, chills, abdominal pain, nausea, vomiting, diarrhea or constipation Patient clinically worsened while in the ER. Developed narrow complex tachycardia with rate 180 - 200's. Worsening mental state He was initially trialed on BiPAP, however, ultimately intubated for worsening mental status Admission Exam Per Admitting Provider General: patient ill in appearance, pursed lip breathing, use of accessory muscles to breath, speaking in 1-2 word sentences Skin: warm, dry, intact, no rashes or lesions HEENT: NC/AT, PERRL, EOMI, anicteric sclera, conjunctiva without injection, external ear normal to inspection and nontender, nares patent, moist mucus membranes, dentition intact, no oropharyngeal lesions, neck supple, trachea midline, no LAD, no thyromegaly, no JVD Heart: +S1/S2, irregularly irregular, tachycardic, no m/r/g Lungs: markedly diminished breath sounds right lung, diminished throughout Abd: +BS, soft, NT/ND, no masses/organomegaly/ascites Ext: warm, 2+ pulses in UE/LE bilaterally, no clubbing/cyanosis or edema Neuro: grossly nonfocal, oriented, episodes of decreased consciousness during my encounter in the ER Principal Diagnosis COPD Exacerbation Discharge Exam General: A&Ox3. NAD. Cooperative. HEENT: Atraumatic, normocephalic. NC in place. Pulm: Visible shoulder elevation with each respiratory cycle. Appears in mild respiratory distress (patient reports this is chronic baseline). Symmetrical chest rise. Diminished lung sounds bilaterally. -wheezes, -rales, -rhonchi. Cardiac: RRR, -mrg. Radial pulses intact and symmetrical. Abdominal: soft, non-tender, non-distended, BS x 4 Skin: warm, dry, no rash Discharge Data Allergies Allergy/AdvReac Type Severity Reaction Status Date / Time No Known Allergies Allergy Verified 03/05/21 21:08 Consultations 03/06/21 00:59 Consult Occupational Ther Routine 03/06/21 17:51 Consult Cardiology Routine 03/07/21 11:41 Consult Pulmonology Routine Hospital Course (1) Acute and chronic respiratory failure: Angel Luis Geronimo is a 50-year-old male with PMHx significant for severe COPD (Gold D) chronically on 2 L nasal cannula who was admitted to [facility] ICU on 03/05 for acute on chronic hypercapnic respiratory failure. Extubated on 03/06 and downgraded from ICU on 03/06. Improved to baseline and discharged on 03/10. Acute on Chronic Hypercapnic Respiratory Failure COPD Gold D with symptoms suspicious for acute COPD exacerbation. MRSA nares positive although no leukocytosis, inflammatory markers negative, and no signs of pulmonary infection clinically or on imaging. - Extubated on 03/06, currently satting well on 2L NC and occasional BiPAP QHS - blood/sputum cultures no growth to date, urine Legionella negative - alpha-1 antitrypsin pending - Pulm on board - appreciate recs - antibiotics discontinued on 03/07, but will continue for Zithromax 250mg PO daily x6-8 weeks for anti-inflammatory effect - Transitioned to PO Prednisone taper yesterday (12 days, 60/50/40/30/20/10mg) - recommend non-invasive ventilation as outpatient; he would qualify for a trilogy noninvasive ventilator - patient prefers to continue with NC only - continue home inhalers and NC - patient wants to try changing Wixela for Symbicort - script sent - overall patient needs to be on chronic long-acting beta agonist, inhaled corticosteroid, and anti-cholinergic A-fib with RVR, resolved Patient presented in a-fib with RVR and became profoundly hypotensive with initial BB treatment, requiring pressors thereafter while intubated. Likely was instigated by COPD exacerbation. Now extubated, hypotension resolved, and has been NSR (rate-controlled) for >3 days. - TTE with EF 55-60% and normal RVSP - Cards on board - appreciate recs - Amiodarone gtt transitioned to Amiodarone 200mg PO BID on 03/08 - discontinued on 03/09 - may require rate-control in the future for recurrence, but for now can hold on this - does not need long-term anti-coagulation (CHADS-VASc 0) - continue home Aspirin Anxiety Patient anxious and easily agitated which likely contributes to pulmonary decompensation. Does not have home medications for this, although he is unlikely to have BASSAM as his anxiety is only in regards to respiratory status. - Per pulm consult: - at high risk for reintubation given his anxiety and propensity to develop air trapping - continue to encourage pursed lip breathing - Anxiolytic therapy may be required at low doses - Started Lorazepam 1mg PO Q4H PRN while hospitalized but patient has not required these at all; will not discharge with medications - f/u with PCP for further eval/management Acute Hyponatremia, resolved Patient presented hypovolemic on exam, suspect due to this. However underlying pulmonary infection (not readily noticeable on imaging) may be contributing as well. - normalized with mIVFs with NSS @100cc/hr - IVFs discontinued on 03/06 - no further management indicated (2) Acute exacerbation of chronic obstructive airways disease: (3) COPD (chronic obstructive pulmonary disease): (4) Centrilobular emphysema: (5) Tobacco abuse: (6) Atrial fibrillation with RVR: Total Time Total Time Spent Total Time Spent (In Minutes): <30 minutes Discharge Plan Discharge Items Patient Disposition: Home - Self-Care Reason For Visit: SOB Discharge Diagnosis: COPD Exacerbation Activity: Per Instructions section Non-emergency contact: Primary Care Provider and [employer] Department Manager Call non-emergency contact if: you have any medication questions, your symptoms worsen and you have a fever Follow-up/Referrals: Josep Arguello III, CRNP [Primary Care Provider] - 03/17/21 9:20 am (Please follow up with JASMYNE Wilson on Tuesday03/17/21 at 9:20 am. Please arrive to the office at 9:05 am for your appointment. If you are unable to keep this appointment, please call the office to reschedule at [phone].) Dylon Chen MD [Physician] - (please schedule f/u in 2 weeks) Diet: Regular Addtl Attending Provider Instructions: You were admitted to [facility] from 03/05 - 03/09 for a COPD exacerbation. You need to be intubated (have a breathing tube) for 1 day to help with your breathing but thankfully you were extubated (breathing tube removed) on 03/06. You quickly improved to your chronic 2 liter supplemental oxygen requirement. You were also started on IV steroids for the COPD exacerbation. You were weaned to oral steroids on 03/09. You will continue to take an oral steroid taper for the next 11 days (including today): 60mg daily x1 day, 50mg daily x2 days, 40mg daily x2 days, 30mg daily x2 days, 20mg daily x2 days, 10mg daily x2 days. You were also started on several IV antibiotics initially as there was concern for pneumonia, but thankfully your blood work and imaging ultimately suggested no infection, so the IV antibiotics were stopped. You were started on an oral antibiotic called Azithromycin which is also helpful in COPD exacerbations. You should continue to take this medicine once daily for the next 7 weeks. You were trialed on a breathing machine called BiPAP while you were here. Our [employer] Department Manager was consulted and recommended that you use a BiPAP machine called Trilogy after discharge, but you have elected to continue using supplemental oxygen. Please speak more with your Ready [employer] Department Manager about BiPAP at your next appointment. You will also start taking a combination inhaler called Symbicort. Please take this inhaler twice per day, instead of your Wixela). Continue to use Combivent twice per day, and Albuterol as needed. Additionally, please follow up with your PCP regarding more affordable options for inhalers. Lastly, your heart rate became fast and irregular (a-fib) due to the COPD exacerbation, and you were started on an IV heart rhythm-control medication for this. The medication was transitioned to a twice per day pill on 03/08. Per Cardiology recommendations, you will not need to take any rate-controlling medications after discharge, as your heart rate has remained regular and stable over the last several days. Please follow up with your PCP within 1 week. Pending Studies at Discharge: Yes Studies:: alpha-1 antitrypsin Stand-Alone Forms: [employer], Smoking Cessation Medications and DC Order Prescriptions: New azithromycin 250 mg tablet 250 mg PO DAILY 49 Days Qty: 49 RF: 0 budesonide-formoterol [Symbicort] 160-4.5 mcg/actuation HFA aerosol inhaler 2 inh inhalation BID Qty: 10.2 RF: 1 prednisone 10 mg tablet See Rx Instructions .ROUTE .COMPLEX Qty: 36 RF: 0 Continued fluticasone propion-salmeterol [Wixela Inhub] 500-50 mcg/dose blister with device 1 inh INH BID Qty: 60 RF: 5 albuterol sulfate [Ventolin HFA] 90 mcg/actuation HFA aerosol inhaler 2 puff inhalation Q4H PRN (Reason: shortness of breath or wheezing) Qty: 8.5 RF: 3 aspirin 81 mg tablet,delayed release (DR/EC) 81 mg PO DAILY RF: 0 Combivent Respimat 20-100 mcg/actuation mist 1 puff inhalation BID Qty: 4 RF: 2 multivitamin Tablet,Chewable 1 tab PO DAILY RF: 0 ascorbic acid (vitamin C) [Vitamin C] 500 mg tablet 1 g PO DAILY RF: 0 Discharge Orders: Discharge Order (Routine); Ordered 03/10/21 Ordered By: Tushar Christensen Admission Data Admit Date/Time: 03/05/21 23:05 Attending Provider: Gibran Marshall Admit Provider: Zena Dukes Primary Care Provider: Josep Arguello III Other Providers: Augie Dejesus ; Lenard Elizondo ; Dylon Chen Other Interventions: Discharge Summary Assessment (RN) Last Done: 03/10/21 12:12 Supervising Physician Co-Signing Physician Notes I personally examined the patient and verified all brody points of history and exam, discussed case, and agree with decision making with Dr Christensen Feeling better. feels more or less at his baseline, definitely up to going home. Vitals noted, in general he is awake and alert pleasant no distress. HEENT normocephalic atraumatic mucous membranes moist. Breathing unlabored no accessory muscle use now surprisingly, overall appearing unlabored and good effort. No conversational dyspnea. Skin without rashes, pallor, icterus. Severe COPD with acute on chronic mixed hypoxic and hypercapnic respiratory failurewas on ventilator for this, fortunately was able to come off, and is now approaching baseline. Now appears stable for homereiterated use of maintenance inhalers and rescue inhaler, reiterated the need to be on a chronic maintenance inhaler regimenwith lack of insurance coverage likely to need to switch based on what is available as samples, etc. Would benefit from noninvasive ventilation at night, but there may be nearly insurmountable hurdles with this at this time. Hopefully he will qualify for some form of state coverage and a lot of these hurdles will be less A. fib/RVRlow [id number], now sinus. Agree, hopefully will not need long- term management for this. [id number] is low, does not require antico agulation. DVT prophylaxisLovenox utilized during his stay Otherwise as above. Resident Activity Tracking Resident Involvement: Resident Care Provided Care Provided: Adult Hospital Medicine
[2021-03-10] MEDS: predniSONE 20 MG TAB PO SCH (08:25)
[2021-03-10] MEDS: AZITHROMYCIN 250 MG TAB PO SCH (08:25)
[2021-03-10] MEDS: guaiFENesin 600 MG TABCR PO SCH (08:25)
[2021-03-10] MEDS: FLUTICASONE/VILANTEROL 200/25MCG 14 PUFFS/INHALER INH SCH (08:27)
[2021-03-10] MEDS: UMECLIDINIUM BROMIDE 62.5MCG/BLISTER 7 PUFFS/INHALER INH SCH (08:27)
[2021-03-10] MEDS: INSULIN ASPART 100 UNITS/ML 3 ML PEN SC SCH (08:27)
[2021-03-10] MEDS: FAMOTIDINE 20 MG in SYRINGE 3 ML IV SCH (08:35)
[2021-03-10] MEDS: ASPIRIN 81 MG CHEW NG SCH (08:35)
--- NOTE | 2021-03-10 17:41 | Billing Data ---
Date of Service March 10, 2021 Coding Level of Care Code D/C DAY MANAGEMENT <30 MINS
== END 2021-03-10 13:11 | disposition home or self-care (01) | DRG 208 ==
LOC: ED 20:22 → SUATTDRO 23:05 → 1E 23:05

== ENCOUNTER 2021-10-09 16:19 | Inpatient (IN) ==
[2021-10-09] MEDS ORDERED: ALBUT/IPRATROP 3MG/0.5MG NEB 3 ML VIAL NEB ONE (16:36)
[2021-10-09] MEDS ORDERED: SODIUM CHLORIDE 0.9% 1000ML 1,000 ML IV ONE (16:36)
--- NOTE | 2021-10-09 16:52 | XRay Report ---
XR chest 1V portable CLINICAL HISTORY: Atypical chest pain TECHNIQUE: Single frontal radiograph of the chest was obtained. Comparison: Comparison is made to chest radiograph 03/07/2021 FINDINGS: No lines and tubes are seen. The cardiomediastinal silhouette is normal. The lungs are clear. Bluntin g of the costophrenic angles bilaterally may represent scarring or trace effusions. IMPRESSION: No acute abnormalities apart from possible trace bilateral pleural effusions. ACT 112: Negative or not required by law. Electronically signed by: Timothy Gomez M.D. 10/09/2021 4:51 PM
[2021-10-09] MEDS ORDERED: ETOMIDATE 2 MG/ML 20 ML VIAL IV ONE ×2 (17:24→18:46)
[2021-10-09] MEDS ORDERED: SUCCINYLCHOLINE CHLORIDE 20 MG/ML 10 ML VIAL IV ONE (17:24)
[2021-10-09] MEDS ORDERED: fentaNYL citrate 100 MCG/2 ML VIAL IV ONE (17:24)
[2021-10-09 17:41] LABS: Base Excess VBG 12.8 mEq/L; Oxygen Saturation VBG 65.8 %; pH VBG 7.28 (7.36-7.41)
[2021-10-09 17:43] LABS: Basophils # (auto) 0.01 K/uL (0-0.2); Basophils % (auto) 0.1 %; Eosinophils # (auto) 0.01 K/uL (0-0.5); Eosinophils % (auto) 0.1 %; Hematocrit (blood only) 38.5 % (42-52); Hemoglobin 13.6 g/dL (14.0-18.0); Immature Granulocytes # (auto) 0.01 K/uL (0.00-0.02); Immature Granulocytes % (auto) 0.1 %; Lymphocytes # (auto) 0.74 K/uL (1.2-3.4); Mean Corpuscular Hemoglobin 31.6 pg (25-34); Mean Corpuscular Hgb Conc 35.3 g/dL (32-36); Mean Corpuscular Volume 89.5 fL (80-100); Monocytes # (auto) 0.73 K/uL (0.11-0.59); Monocytes % (auto) 8.9 %; Neutrophils % (auto) 81.8 %; Platelet Count 365 K/uL (130-400); RDW Standard Deviation 38.7 fL (36.4-46.3)
[2021-10-09 18:05] LABS: Alanine Aminotransferase 15 U/L (7-52); Albumin Globulin Ratio 1.8 (0.9-2); Albumin Level 4.2 gm/dl (3.4-5.0); Alkaline Phosphatase 51 U/L (34-104); Anion Gap 5 (3-11); Aspartate Aminotransferase 25 U/L (13-39); BUN Creatinine Ratio 32.4 (10-20); Bilirubin,Total 1.7 mg/dl (0.2-1.0); Blood Urea Nitrogen 12 mg/dl (6-23); Calcium 9.2 mg/dl (8.5-10.1); Carbon Dioxide 41 mmol/L (21-32); Chloride 75 mmol/L (98-107); Creatinine Clr Calc Pharmacy 205.5 ml/min; Est GFR (African American) > 150.0 ml/min; Globulin 2.3 gm/dl (2.5-4.0); Glucose 134 mg/dl (70-99(Fasting)); Lipase 8 U/L (11-82); Magnesium 1.7 mg/dl (1.7-2.4); Phosphorus 3.2 mg/dl (2.5-4.9); Potassium 4.1 mmol/L (3.5-5.1); Sodium 121 mmol/L (136-145); Total Protein 6.5 gm/dl (6.0-8.3); Troponin I High Sensitivity 9.4 pg/ml (0-20)
[2021-10-09 18:14] LABS: Prothrombin Time 10.7 Seconds (9.0-12.0)
[2021-10-09 18:28] LABS: Adenovirus PCR Not Detected (NotDetected); Bordetella parapertussis PCR Not Detected (NotDetected); Bordetella pertussis PCR Not Detected (NotDetected); Chlamydia pneumoniae PCR Not Detected (NotDetected); Coronavirus 229E PCR Not Detected (NotDetected); Coronavirus CoV-2 (COVID19)PCR Not Detected (NotDetected); Coronavirus HKU1 PCR Not Detected (NotDetected); Coronavirus NL63 PCR Not Detected (NotDetected); Coronavirus OC43PCR Not Detected (NotDetected); Human Metapneumovirus PCR Not Detected (NotDetected); Influenza A PCR Not Detected (NotDetected); Influenza B PCR Not Detected (NotDetected); Mycoplasma pneumoniae PCR Not Detected (NotDetected); Parainfluenza Virus 1 PCR Not Detected (NotDetected); Parainfluenza Virus 2 PCR Not Detected (NotDetected); Parainfluenza Virus 3 PCR Not Detected (NotDetected); Parainfluenza Virus 4 PCR Not Detected (NotDetected); Respiratory Syncytial VirusPCR Not Detected (NotDetected); Rhinovirus/Enterovirus PCR Not Detected (NotDetected)
[2021-10-09] MEDS ORDERED: SUCCINYLCHOLINE CHLORIDE 20 MG/ML 10 ML VIAL IV STA (18:46)
[2021-10-09] MEDS ORDERED: STAT IV Infusion **Titration per Protocol STA ×2 (18:46→22:55)
[2021-10-09] MEDS ORDERED: RAPID SEQUENCE INDUCTION BAG ONE (18:48)
[2021-10-09] MEDS: propofoL 1,000 MG/100 ML VIAL IV SCH ×2 (19:10→19:30)
[2021-10-09] MEDS ORDERED: fentaNYL citrate 100 MCG/2 ML VIAL IV STA (19:17)
[2021-10-09] MEDS: PROPOFOL BOLUS FROM BAG IV PRN ×2 (19:17→19:30)
--- NOTE | 2021-10-09 19:35 | XRay Report ---
XR chest 1V portable HISTORY: post intubation COMPARISON: Chest 10/09/2021. FINDINGS: The lungs are hyperexpanded with apical predominant emphysematous changes. The heart is nor mal in size. No pleural effusions. No pneumothorax. The endotracheal tube terminates 6 cm from the ca gladys. Nasogastric tube terminates in the stomach. The tip is not entirely included on this study. IMPRESSION: 1. Endotracheal tube terminates 6 cm from the jaison. This should be advanced by approximately 2 to 3 cm. 2. Nasogastric tube terminates below the diaphragm. 3. Emphysema. ACT 112: Negative or not required by law. Electronically signed by: Emiliano Byers M.D. 10/09/2021 7:33 PM
[2021-10-09] MEDS ORDERED: methylPREDNISolone 125 MG/2 ML VIAL IV STA (19:42)
--- NOTE | 2021-10-09 19:45 | History & Physical Report ---
Date of Service October 09, 2021 Assessment & Plan (1) Acute on chronic respiratory failure with hypoxia and hypercapnia: (2) COPD (chronic obstructive pulmonary disease): (3) Tobacco abuse: (4) Anxiety: (5) Hyponatremia: (6) Metabolic encephalopathy: Plan: 51 yo M PMHx significant for COPD Gold stage D and centrilobular emphysema requiring chronic supplemental oxygen and intubation in the past, atrial fibrillation, anxiety admitted for acute hypoxic hypercapnic respiratory failure. Acute hypoxic hypercapnic respiratory failure, COPD exacerbation: Presented to the ER with worsening dyspnea and noted to be tripoding. Initially placed on BiPAP however patient had worsening of somnolence and ultimately required intubation. ABG with severe hypercapnia with CO2 123 after about 1 hour of BiPAP. Repeat ABG after intubation with pH 7.30, PCO2 80. No urgent need for bicarb drip at this time. CXR with trace bilateral pleural effusions otherwise no acute abnormalities; chronic emphysematous changes noted. Normal WBC count and procalcitonin. Biofire negative CT chest ordered; pending. Solu-Medrol 125 mg x 1 while in the ER, with 40 mg IV every 8 hours following. DuoNebs every 6 hours scheduled with DuoNebs every 2 hours as needed for shortness of breath/wheezing. Continue budesonideformoterol and ipratropiumalbuterol inhalers. Azithromycin 500 mg IV x3 days. Mucinex 1200 mg p.o. twice daily when able to tolerate p.o. Patient is still actively smoking 1/2 pack per day; strongly encourage smoking cessation when patient no longer intubated. Hyponatremia: Admission Na of 121. Patient did receive 1L NSS in ER prior to lab results. Urine and serum osmolality and urine sodium pending. We will adjust plan based on results; most suspicious of SIADH at this point. Patient may require hypertonic saline if he has had further drop since admission. Metabolic encephalopathy: Suspected secondary to hypercapnia. Differential of encephalopathy also includes significant hyponatremia, however patient was conversing appropriately on arrival to ER. CT head pending. CODE STATUS: Full code FEN: N.p.o. DVT prophylaxis: Heparin 5000 units SQ twice daily Dispo: ICU History of Present Illness Chief Complaint: Dyspnea Primary Care Provider: Josep Arguello, III, BILLING SPECIALIST 51 yo M with PMHx significant for COPD and centrilobular emphysema requiring intubation in the past atrial fibrillation, anxiety presented to the ER for worsening dyspnea overnight. On arrival patient noted to be tripoding with poor air movement and was put on BiPAP initially. However patient continued to become less responsive and ABG revealed CO2 of 123 despite 1 hour of BiPAP. Decision was made to intubate patient. Also of note patient received DuoNeb and 1L NSS. Lab work after receiving fluids noted to have sodium of 121, creatinine 0.37, T bili 1.7. Urine and serum lyte/Osms pending. Pro-Stephan negative. Biofire negative. Hospitalist service consulted for admission to ICU for hypoxic hypercapnic respiratory failure. On my interview patient was already intubated and therefore unable to provide history, and no family members were available for collateral. Was able to get leleold of patient's point of contact over the phone (his friend Matt) who reported that patient was discharged from [facility] about 6 weeks ago for trouble breathing with high CO2 and was discharged with advisement to use BIPAP at night. Friend reports that Angel Luis is still actively smoking. Allergies Allergy/AdvReac Type Severity Reaction Status Date / Time No Known Allergies Allergy Verified 10/09/21 19:55 Home Medications Medication Instructions Recorded Confirmed Type aspirin 81 mg tablet,delayed 81 mg PO DAILY 04/12/19 10/09/21 History release ascorbic acid (vitamin C) 500 mg 1 g PO DAILY tab 08/04/20 10/09/21 History tablet (Vitamin C) hydrochlorothiazide 25 mg tablet 25 mg PO DAILY #90 tab 03/17/21 10/09/21 Rx BI-PAP 07/17/21 09/15/21 History Portable Oxygen 07/17/21 09/15/21 History ipratropium 20 mcg-albuterol 100 1 puff INHALATION BID #4 g 08/18/21 10/09/21 Rx mcg/actuation mist for inhalation (Combivent Respimat) albuterol sulfate 90 mcg/actuation 2 puff INHALATION Q4H PRN #8.5 g 09/15/21 10/09/21 Rx aerosol inhaler (Ventolin HFA) budesonide-formoterol HFA 160 2 inh INHALATION BID #10.2 g 09/15/21 10/09/21 Rx mcg-4.5 mcg/actuation aerosol inhaler (Symbicort) multivitamin 1 tab PO DAILY 10/09/21 10/09/21 History Past Med/Surg History Medical History Acute on chronic respiratory failure with hypoxia and hypercapnia Anxiety Brain aneurysm Centrilobular emphysema Chronic hypoxemic respiratory failure COPD (chronic obstructive pulmonary disease) Dyspnea and respiratory abnormalities Dyspnea on exertion History of tobacco abuse Pulmonary air trapping Tobacco abuse Surgical History History of intravascular stent placement Family History Grandfather (Maternal) Myocardial infarction Grandfather (Paternal) Myocardial infarction Mother Ovarian cancer Bladder cancer Other Diabetes Denies family history of Prostate cancer Breast cancer Colorectal cancer Social History Smoking Status: Unknown if ever smoked Tobacco Type: Cigarettes Age Started Using Tobacco: 16; Age Quit Using Tobacco: 49; packs per day: 1; Years Smoked: 33; Cigarettes Per Day: 0.5; Second Hand Exposure: Yes; Preferred Language: Urdu Communication Ability: Unable Visual Impairment: No Limitations Hearing Ability: Normal Vocational Placement Specialist Required: No Beliefs That Will Affect Care: None marital status: Single Current Living Situation: Alone current occupational status: employed 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 Feels Safe at Home: Yes Childhood Exposure to Second-Hand Smoke: Yes Dental Care, Regularly: No Physical Activity Frequency: Does not Exercise Seatbelt Use: always Sunscreen Use: No Assistive Devices: Oxygen - Continuous Review of Systems Review of Systems: Unobtainable due to endotracheal tube Physical Exam Constitutional: WD/WN, vitals as above Eyes: PERRL, conjunctivae normal, anicteric sclerae ENMT: external ear and nose normal, oropharynx normal (Patient intubated) Neck: normal visual inspection Respiratory: Patient on ventilator, lungs clear to auscultation Cardiovascular: Regular rhythm, tachycardic, no murmurs Gastrointestinal (Abdomen): Abdomen soft with normal bowel sounds Musculoskeletal: No cyanosis or clubbing Skin: no rashes, warm and dry Neurologic: Patient is intubated and sedated Results & Data Results & Data ([facility]) Vital Signs (Past 12 Hours) Vital Signs Pulse Resp BP Pulse Ox 10/09/21 19:30 106 H 22 88/59 L 100 10/09/21 19:20 105 H 22 117/70 100 10/09/21 19:15 118 H 16 136/86 100 10/09/21 19:10 117 H 23 163/135 H 100 10/09/21 19:05 110 H 14 163/101 H 100 10/09/21 19:00 141 H 10 L 164/96 H 10/09/21 18:55 119 H 22 100 10/09/21 17:05 28 H 99 10/09/21 17:02 105 H 22 99 10/09/21 16:37 30 H 100 10/09/21 16:13 110 H 30 H 137/83 100 Code Status & VTE Plan VTE Prophylaxis Plan VTE Prophylaxis will be ordered: Yes Critical Care Time 45 minutes Supervising Physician Co-Signing Physician Notes Attending addendum: I have physically seen this patient, have supervised the medical residents activities, and agree with the H&P unless as otherwise noted. Assessment and Plan: Acute on chronic respiratory failure with hypoxia and hypercapnia/COPD exacerbation- While in ED, patient worsened despite BiPAP, and ultimately required intubation Status post Solu-Medrol 125 mg IV x1 from the ED Solu-Medrol 40 mg IV every 8 hours Azithromycin 5 mg IV daily Duonebs every 4 hours while awake and every 2 hours when necessary. Consult routing equipment tender and ICU team for further management Will need tobacco cessation counseling when improved Hyponatremia- Sodium 121 upon admission Order serum and urine osmolality Treat accordingly Remaining orders and notations as noted Resident Activity Tracking Resident Involvement: Resident Care Provided Care Provided: Adult Hospital Medicine (1) COPD (chronic obstructive pulmonary disease) COPD type: emphysema Emphysema type: centrilobular Qualified Code(s): J43.2 - Centrilobular emphysema
[2021-10-09 20:07] LABS: iSTAT Arterial Blood Gas HCO3 40 meg/L (19-24); iSTAT Arterial Blood Gas pCO2 80 mmHg (35-46); iSTAT Arterial Blood Gas pO2 78 mmHg (80-95); iSTAT Carbon Dioxide > 40 mmol/L (24-31); iSTAT Hematocrit 39 % (42-52); iSTAT Hemoglobin 13.3 g/dl (14.0-18.0); iSTAT Sodium 121 mmol/L (135-144)
[2021-10-09 20:07] LABS: iSTAT Arterial Blood Gas HCO3 20 meg/L (19-24); iSTAT Arterial Blood Gas pCO2 54 mmHg (35-46); iSTAT Arterial Blood Gas pH 7.18 (7.35-7.45); iSTAT Arterial Blood Gas pO2 < 32 mmHg (80-95); iSTAT Carbon Dioxide 22 mmol/L (24-31); iSTAT Hematocrit 17 % (42-52); iSTAT Hemoglobin 5.8 g/dl (14.0-18.0); iSTAT Potassium < 2.0 mmol/L (3.3-5.0); iSTAT Sodium 137 mmol/L (135-144)
[2021-10-09] MEDS ORDERED: OPTIRAY 320 125ml IV ONE (20:14)
--- NOTE | 2021-10-09 20:21 | CT Scan Report ---
HEAD CT NONCONTRAST CT DOSE: 1621.66 mGy.cm HISTORY: Altered mental status. Intubation. TECHNIQUE: Multiaxial CT images of the head were performed without the use of intravenous contrast. A utomated exposure control was utilized for this study. A dose lowering technique was utilized adheri ng to the principles of ALARA. Comparison: None. Findings: Mild mucosal thickening within the ethmoid air cells. The mastoid air cells are clear. Part ially visualized endotracheal tube and nasogastric tube. The distal basilar artery stent with adjacen t embolization coils. This results in metallic artifact within the posterior fossa. The calvarium and skull base are intact. The ventricles and sulci are within normal limits. There is no mass, hematoma , midline shift, or acute infarct. Impression: No acute intracranial abnormality. Additional findings as described above. ACT 112: Negative or not required by law. Electronically signed by: Emiliano Byers M.D. 10/09/2021 8:19 PM
--- NOTE | 2021-10-09 20:26 | CT Scan Report ---
CHEST CTA for PULMONARY ARTERIES CT DOSE: 331.02 mGy.cm HISTORY: Altered mental status. Status post intubation. TECHNIQUE: Multiaxial CT images of the chest were performed following the intravenous administration of contrast to evaluate the pulmonary arteries. Maximal intensity projection images were also obtaine d. A dose lowering technique was utilized adhering to the principles of ALARA. COMPARISON STUDY: Chest CT 06/20/2019. FINDINGS: Limited views of the upper abdomen demonstrate normal liver and spleen. There is mild thick ening of the bilateral adrenal glands, unchanged. A nasogastric tube is seen within the stomach. The tip is not included on this study. No pleural or pericardial effusions. The heart is normal in size. Endotracheal tube terminates 4 cm from the jaison. The thyroid gland enhances normally. No mediastina l or hilar lymphadenopathy. Normal caliber thoracic aorta with no evidence for dissection. No filling defects within the pulmonary arteries to suggest a pulmonary embolus. No suspicious lytic or blastic osseous lesions. No pneumothorax. Mild central bronchial wall thickening, unchanged. This likely rep resents a mild chronic bronchitis. Severe emphysema. No focal lung consolidations to suggest pneumoni a. No evidence for pulmonary edema. IMPRESSION: 1. No evidence for pulmonary embolus. 2. Severe emphysema. 3. Satisfactory support line placement. ACT 112: Negative or not required by law. Electronically signed by: Emiliano Byers M.D. 10/09/2021 8:24 PM
[2021-10-09] MEDS ORDERED: ICU PROTOCOL FOR HYPERGLYCEMIA PRN (21:09)
[2021-10-09] MEDS ORDERED: IPRATROPIUM BROMIDE/ALBUTEROL respimat INH INH SCH (21:09)
[2021-10-09] MEDS ORDERED: SODIUM CHLORIDE 3 % 500 ML IV SCH (21:30)
[2021-10-09] MEDS ORDERED: MONTELUKAST SODIUM 10 MG TABLET PO ONE (21:45)
--- NOTE | 2021-10-09 21:45 | Critical Care Consultation ---
Date of Consultation October 09, 2021 Assessment & Plan (1) Acute and chronic respiratory failure: Reason Critically Ill: 51-year-old male presents to the ICU with acute on chronic hypercapnic and hypoxic respiratory failure requiring emergent intubation likely secondary to COPD exacerbation Neuro - Encephalopathylikely secondary to elevated CO2 123. Patient was subsequently intubated at this time and CO2 has shown improvement. Patient also has hyponatremia with sodium of 121 but was apparently exhibiting normal mentation at the time the sodium was drawn so presumed this is mostly related to elevated CO2 although he may be a mixed picture in etiology. CT head Noncon unremarkable. Continue with propofol while intubated. Expect encephalopathy to improve with correction of sodium and CO2. Cardiac - HTNhold HCTZ for now as blood pressure currently soft with sedation. Continuou s monitoring on telemetry Respiratory - Acute on chronic hypercapnic and hypoxic respiratory failurepatient with end- stage COPD requiring 3 L nasal cannula at baseline. Per report still actively smokes. Unsure if he is compliant with BiPAP at home. -Intubated following failed BiPAP trial in the emergency department. Repeat ABG shows improvement in CO2 and respiratory acidosis. -Chest x-ray without evidence of active disease -CTA chest without evidence of PE. Did show severe emphysema -Continue with Solu-Medrol, DuoNeb, Symbicort, Mucinex -Continuous end-tidal CO2 and pulse ox monitor -Follow-up chest x-ray and ABG in a.m. GI - PPI N.p.o. RENAL/LYTES - hyponatremiasodium 121, acute as patient's last BMP from February with normal sodium. Unsure of etiology at this time -Euvolemic on exam and hypoosmolar with osmolality 258 -Urine Osmo and sodium pending -Received 1 L normal saline in the ED -Repeat BMP pending. Will start 3% saline at 50 mL/h and trend BMPs every 4. Consider DDAVP if sodium overcorrects. Target correction of 8 mEq/L in 24 hours - Foleystrict I's and O's ENDO - No history of diabetes or thyroid disease ICU hyperglycemic protocol HEME - H&H stable, monitor routine CBCs ID - Chest x-ray and CTA without evidence of infiltrates Bio fire negative, Pro-Stephan negative. No leukocytosis or fevers Continue empiric azithromycin for now LINES/IV ACCESS - Peripheral IVs DVT PROPHYLAXIS - SCDs, subcu heparin I have personally spent 45 minutes of critical care time in the direct management of this patient. This is a life/limb threatening event. This includes time spent evaluating patient, direct bedside care, chart review, placing orders, interpretation of diagnostic studies, discussion with consultants, patient, and family members, as well as other required patient management activities. This time is exclusive of all separately billable procedures, and teaching time and separate from and in addition to any other critical care service time. Thank you for allowing us to participate in the care of this patient. Please refer to my attending physician's documentation for any further recommendations. (2) Metabolic encephalopathy: (3) Hyponatremia: (4) COPD (chronic obstructive pulmonary disease): (5) Tobacco abuse: (6) Centrilobular emphysema: (7) Admitted to intensive care unit: (8) Anxiety: History of Present Illness Attending Physician: Paul Borrego MD History of Present Illness Patient is a 51-year-old male with past medical history significant for COPD (on 3 L nasal cannula baseline), anxiety disorder, hypertension, tobacco abuse (active smoker) who presented to the emergency department with respiratory distress and tripoding. Patient was placed on BiPAP and given hour-long nebulizer but repeat ABG showed worsening of acidosis and CO2 of 123. His mentation was deteriorating and decision was made in the emergency department to intubate. Patient was also found to be hyponatremic with sodium 121. Chest x- ray was unremarkable and Pro-Stephan and bio fire were negative. Repeat ABG showed improving respiratory acidosis following intubation. Patient is now being transferred to ICU for further management at this time. Allergies Allergy/AdvReac Type Severity Reaction Status Date / Time No Known Allergies Allergy Verified 10/09/21 19:55 Home Medications Medication Instructions Recorded Confirmed Type aspirin 81 mg tablet,delayed 81 mg PO DAILY 04/12/19 10/09/21 History release ascorbic acid (vitamin C) 500 mg 1 g PO DAILY tab 08/04/20 10/09/21 History tablet (Vitamin C) hydrochlorothiazide 25 mg tablet 25 mg PO DAILY #90 tab 03/17/21 10/09/21 Rx BI-PAP 07/17/21 09/15/21 History Portable Oxygen 07/17/21 09/15/21 History ipratropium 20 mcg-albuterol 100 1 puff INHALATION BID #4 g 08/18/21 10/09/21 Rx mcg/actuation mist for inhalation (Combivent Respimat) albuterol sulfate 90 mcg/actuation 2 puff INHALATION Q4H PRN #8.5 g 09/15/21 10/09/21 Rx aerosol inhaler (Ventolin HFA) budesonide-formoterol HFA 160 2 inh INHALATION BID #10.2 g 09/15/21 10/09/21 Rx mcg-4.5 mcg/actuation aerosol inhaler (Symbicort) multivitamin 1 tab PO DAILY 10/09/21 10/09/21 History Patient History Medical History Acute on chronic respiratory failure with hypoxia and hypercapnia Anxiety Brain aneurysm Centrilobular emphysema Chronic hypoxemic respiratory failure COPD (chronic obstructive pulmonary disease) Dyspnea and respiratory abnormalities Dyspnea on exertion History of tobacco abuse Pulmonary air trapping Tobacco abuse Surgical History History of intravascular stent placement Family History Grandfather (Maternal) Myocardial infarction Grandfather (Paternal) Myocardial infarction Mother Ovarian cancer Bladder cancer Other Diabetes Denies family history of Prostate cancer Breast cancer Colorectal cancer Social History Smoking Status: Unknown if ever smoked Tobacco Type: Cigarettes Age Started Using Tobacco: 16; Age Quit Using Tobacco: 49; packs per day: 1; Years Smoked: 33; Cigarettes Per Day: 0.5; Second Hand Exposure: Yes; Preferred Language: Swedish Communication Ability: Unable Visual Impairment: No Limitations Hearing Ability: Normal Farm Supervisor Required: No Beliefs That Will Affect Care: None marital status: Single Current Living Situation: Alone current occupational status: employed 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 Feels Safe at Home: Yes Childhood Exposure to Second-Hand Smoke: Yes Dental Care, Regularly: No Physical Activity Frequency: Does not Exercise Seatbelt Use: always Sunscreen Use: No Assistive Devices: Oxygen - Continuous Review of Systems Review of Systems: Unobtainable due to cognitive status and Unobtainable due to endotracheal tube Physical Exam Constitutional: + mechanically ventilated Sedated Eyes: PERRL, conjunctivae normal, anicteric sclerae ENMT: external ear and nose normal, oropharynx normal Neck: trachea midline, no thyromegaly Respiratory: symmetric chest movement diminished lung sounds auscultated bilaterally in all daley Cardiovascular: RRR, no murmur, no edema Heart Sounds: normal S1 and normal S2 Extremities: normal capillary refill; no edema Gastrointestinal (Abdomen): normal bowel sounds, soft, nontender, no hepatosplenomegaly Musculoskeletal: Unable to assess due to sedation Skin: no rashes, warm and dry Neurologic: Unable to assess due to sedation Psychiatric: Unable to assess due to sedation Genitourinary: Indwelling Pimentel catheter present Results & Data Results & Data ([facility]) Vital Signs (Past 12 Hours) Vital Signs Pulse Resp BP Pulse Ox 10/09/21 20:45 110 H 22 100 10/09/21 19:50 98 H 22 114/84 96 10/09/21 19:45 105 H 23 109/72 99 10/09/21 19:40 98 H 16 106/70 90 10/09/21 19:35 108 H 22 100/73 100 10/09/21 19:30 106 H 22 88/59 L 100 10/09/21 19:20 105 H 22 117/70 100 10/09/21 19:15 118 H 16 136/86 100 10/09/21 19:10 117 H 23 163/135 H 100 10/09/21 19:05 110 H 14 163/101 H 100 10/09/21 19:00 141 H 10 L 164/96 H 100 10/09/21 18:55 119 H 22 100 10/09/21 17:05 28 H 99 10/09/21 17:02 105 H 22 99 10/09/21 16:37 30 H 100 10/09/21 16:13 110 H 30 H 137/83 100 Coding Level of Care Code Critical Care 1st 30-74 mins Diagnoses Metabolic encephalopathy G93.41 Hyponatremia E87.1 COPD (chronic obstructive pulmonary disease) J43.2 COPD type: emphysema Emphysema type: centrilobular Acute and chronic respiratory failure J96.20 Tobacco abuse Z72.0 Centrilobular emphysema J43.2 Admitted to intensive care unit Z78.9 Anxiety F41.9 (1) COPD (chronic obstructive pulmonary disease) COPD type: emphysema Emphysema type: centrilobular Qualified Code(s): J43.2 - Centrilobular emphysema
[2021-10-09] MEDS ORDERED: NOREPINEPHRINE/D5W 8 MG/508 ML IV ONE (21:50)
[2021-10-09 21:59] LABS: Anion Gap 8 (3-11); Blood Urea Nitrogen 11 mg/dl (6-23); Carbon Dioxide 34 mmol/L (21-32); Chloride 81 mmol/L (98-107); Creatinine Clr Calc Pharmacy 161.3 ml/min; Est GFR (African American) > 150.0 ml/min; Est GFR (Non-African American) 132.2 ml/min; Glucose 137 mg/dl (70-99(Fasting)); Sodium 123 mmol/L (136-145)
--- NOTE | 2021-10-09 22:24 | Emergency Department Note ---
Impression & Plan Acute on chronic respiratory failure with hypoxia and hypercapnia, COPD exacerbation, Hyponatremia, Acute respiratory acidosis ED Provider Note NAME: EMILEE MAHARAJ AGE: 51 SEX: M ARRIVES VIA: Ambulance INFORMANT: Patient ED PROVIDER(S): Jeff Gleason MD CHIEF COMPLAINT: SOB PLAN: Disposition: Admit MEDICAL DECISION MAKING: The patient is a pleasant 51-year-old gentleman with a past medical history of COPD with history of prior intubations for exacerbations who presents emergency department via EMS with worsening shortness of breath in setting of worsening COPD symptoms over the past several days. The patient was treated with Solu-Med rol by EMS and given DuoNeb. He arrives to the emergency department in severe respiratory distress with tripoding with accessory muscle use. On arrival patient is afebrile with heart rate in the 110s, respiratory rate in the 30s with O2 saturation 95% on oxime mask. Patient was agreeable to have his reed shaved and was placed on BiPAP which did appear to improve his work of breathing. Fortunately, while initially improved upon reevaluation I was alerted by RN that the patient was less responsive. I reevaluated the patient and he awaken and open his eyes and follow commands though he was somnolent and nonverbal. He would exhibit intermittent myoclonic jerks, raising suspicion for worsening hypercapnia. Byejg-wv-nihi ABG was performed by respiratory therapy demonstrated worsening respiratory failure. pH 7.18, PCO2 123. Initial VBG demonstrated pH of 7.28 with PCO2 of 96. Thus, patient was transferred to critical care bay where rapid sequence intubation was performed with etomidate and succinylcholine per procedure note. Intubation was successful without complication. ET Tube was subsequently advanced following chest x-ray per my instruction. EKG without overt acute ischemia. Chest x-ray negative for acute cardiopulmonary process. WBC and platelets within normal limits. H/H 13.6/38.5 approximate to prior values. Chemistry with bicarbonate of 41 suggesting chronic component to the patient's hypercapnia and his similar to prior values. Sodium 121 with chloride 75 and glucose 134. Given the patient did arrive alert and oriented do not suspect the patient's obtundation was related to his hyponatremia. He was initially treated with IV fluid hydration and so will defer aggressive treatment with hypertonic saline to avoid overcorrection as the patient's change in mental status is explained by his worsening CO2 retention. LFTs are unremarkable. High-sensitivity troponin 9.4, within normal limits. Lipase is not elevated. Procalcitonin was undetectable. Respiratory viral panel/bio fire was negative and specifically negative for COVID-19. CT of the head was negative for acute process. Case was discussed with Dr. Marcin FERGUSON admitting resident with OLIVIA Mcclellan hospitalist, who will evaluate the patient for admission. Case also discussed with Jaime Goodwin, ICU PAC. I did review the patient's condition with his primary contact Matt Pressley ([phone] cell). He reports the patient does not have family nearby and he is the primary contact and friend. He reports the patient was admitted to [facility] last month for similar flare and recalls that he was also intubated. He reports that the patient was told that he requires a double lung transplant as his COPD given the severity of his COPD. Triage Nursing notes reviewed and agree them. Prior medical records reviewed Vital Signs: reviewed and remarkable for tachycardia, tachypnea. Differential diagnosis: Reactive airway disease, pneumonia, pneumothorax, COPD, CHF, infections, cardiac ischemia, pulmonary embolism, musculoskeletal, gastrointestinal, as well as other pathologies. ER treatment provided: See below. Diagnostics interpreted by me: ECG: Sinus tachycardia, PACs with aberrant conduction, 106 bpm, no overt ST elevation or depression, QTC 438, QRS 82 Cardiac Monitoring: An order for continuous cardiac monitoring was placed and demonstrated Sinus tachycardia, PACs with aberrant conduction, 106 bpm. Laboratory studies See below Imaging studies: See below Consultation(s): Case was discussed with Dr. Marcin FERGUSON admitting resident with OLIVIA Perez hospitalist. Case also discussed with Jaime Goodwin, ICU PAC. HPI: The patient is a pleasant 51-year-old gentleman with a past medical history of COPD with history of prior intubations for exacerbations who presents emergency department via EMS with worsening shortness of breath in setting of worsening COPD symptoms over the past several days. The patient was treated with Solu-Medrol by EMS and given DuoNeb. He arrives to the emergency department in severe respiratory distress with tripoding with accessory muscle use. ROS: See above HPI for pertinent positives & negatives. A total of 10 systems reviewed and were otherwise negative. VITALS:See Below PHYSICAL EXAMINATION: GENERAL: Awake, alert, ill-appearing, in no distress HENT: Normocephalic, atraumatic. Oropharynx with dry mucous membranes and otherwise unremarkable. Poor dentition. EYES: Normal conjunctiva. Sclera non-icteric. NECK: Supple. No nuchal rigidity. FROM. No JVD. RESPIRATORY: Diminished breath sounds throughout with scant underlying wheeze and prolonged expiratory phase. Severe respiratory distress with tripoding/accessory muscle use. CARDIAC: Tachycardic rate, normal rhythm. Extremities warm and well perfused. Pulses equal. ABDOMEN: Soft, non-distended. No tenderness to palpation. No rebound or guarding. No masses. RECTAL: Deferred. MUSCULOSKELETAL: Chest examination reveals no tenderness. The back is symmetrical on inspection without obvious abnormality. There is no CVA tenderness to palpation. No joint edema. LOWER EXTREMITIES: Calves are equal size bilaterally and non-tender. No edema. No discoloration. NEURO: Normal sensorium. No sensory or motor deficits noted. SKIN: No rash or jaundice noted. ED COURSE: Procedures: Endotracheal Intubation Indication: Acute on chronic hypercapnic respiratory failure. Obtundation. The patient was on 100% oxygen via NRB prior to the procedure. Suction, airway equipment, RSI drugs, respiratory equipment, and appropriate personnel were prepared prior to the initiation of the procedure. A time out was taken. Induction was performed with etomidate and paralysis with succinylcholine. After observing the clinical benefit of the medications, the airway was easily visualized utilizing a Mac3 glidescope. A 7.5 size ETT tube was placed atraumatically to 22.5 cm using standard technique. The cuff inflated without signs of malfunction. There were bilateral breath sounds, positive colormetric change, no gastric sounds, a good capnography waveform, and post procedure pulse oximetry was 100%. Post intubation sedation was administered using propofol. Fentanyl bolus for pain. There were no complications. Critical Care: I have personally spent greater than 75 minutes of critical care time in the direct management of this patient. This includes bedside care, interpretation of diagnostic studies, and testing, discussion with consultants, patient, and family members, and other required patient management activities. This 75 too elvis is in excess of all separately billable procedures. Jeff Gleason MD Past Med/Surg History Medical History Acute on chronic respiratory failure with hypoxia and hypercapnia Anxiety Brain aneurysm Centrilobular emphysema Chronic hypoxemic respiratory failure COPD (chronic obstructive pulmonary disease) Dyspnea and respiratory abnormalities Dyspnea on exertion History of tobacco abuse Pulmonary air trapping Tobacco abuse Surgical History History of intravascular stent placement Family History Grandfather (Maternal) Myocardial infarction Grandfather (Paternal) Myocardial infarction Mother Ovarian cancer Bladder cancer Other Diabetes Denies family history of Prostate cancer Breast cancer Colorectal cancer Social History Smoking Status: Unknown if ever smoked Tobacco Type: Cigarettes Age Started Using Tobacco: 16; Age Quit Using Tobacco: 49; packs per day: 1; Years Smoked: 33; Cigarettes Per Day: 0.5; Second Hand Exposure: Yes; Preferred Language: Amharic Communication Ability: Unable Visual Impairment: No Limitations Hearing Ability: Normal Pigment Weigher Required: No Beliefs That Will Affect Care: None marital status: Single Current Living Situation: Alone current occupational status: employed 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 Feels Safe at Home: Yes Childhood Exposure to Second-Hand Smoke: Yes Dental Care, Regularly: No Physical Activity Frequency: Does not Exercise Seatbelt Use: always Sunscreen Use: No Assistive Devices: Oxygen - Continuous Allergies Allergies Allergy/AdvReac Type Severity Reaction Status Date / Time No Known Allergies Allergy Verified 10/09/21 19:55 Home Meds Home Medications Medication Instructions Recorded Confirmed aspirin 81 mg tablet,delayed 81 mg PO DAILY 04/12/19 10/09/21 release ascorbic acid (vitamin C) 500 mg 1 g PO DAILY tab 08/04/20 10/09/21 tablet (Vitamin C) BI-PAP 07/17/21 09/15/21 Portable Oxygen 07/17/21 09/15/21 multivitamin 1 tab PO DAILY 10/09/21 10/09/21 Previous Rx's Medication Instructions Recorded hydrochlorothiazide 25 mg tablet 25 mg PO DAILY #90 tab 03/17/21 ipratropium 20 mcg-albuterol 100 1 puff INHALATION BID #4 g 08/18/21 mcg/actuation mist for inhalation (Combivent Respimat) albuterol sulfate 90 mcg/actuation 2 puff INHALATION Q4H PRN #8.5 g 09/15/21 aerosol inhaler (Ventolin HFA) budesonide-formoterol HFA 160 2 inh INHALATION BID #10.2 g 09/15/21 mcg-4.5 mcg/actuation aerosol inhaler (Symbicort) Results & Data (ED) Vital Signs Vital Signs - 24 hr 10/09/21 16:13 10/09/21 16:37 10/09/21 17:02 Pulse Rate 110 H 105 H Pulse Rate from SpO2 Sensor Respiratory Rate 30 H 30 H 22 Respiratory Effort / Characteristics Tripoding Spontaneous Labored Respiratory Depth Retractive Shallow Respiratory Pattern Tachypnea Grunting Blood Pressure 137/83 Blood Pressure Mean 101 Pulse Oximetry 100 100 99 Oxygen Delivery Method Oxymask Oxymask BiPAP Oxygen Flow Rate 15 Fraction of Inspired Oxygen 35 Sepsis Recent Fever Within 48 Hours No Sepsis New/Unexplained Change in Mental Status No Sepsis Action Taken by Nursing No Action Required End-Tidal CO2 10/09/21 17:05 10/09/21 18:55 10/09/21 19:00 Pulse Rate 119 H 141 H Pulse Rate from SpO2 Sensor Respiratory Rate 28 H 22 10 L Respiratory Effort / Characteristics Spontaneous Grunting Labored Short of Breath Respiratory Depth Respiratory Pattern Blood Pressure 164/96 H Blood Pressure Mean 118 Pulse Oximetry 99 100 100 Oxygen Delivery Method High Flow Nasal Cannula Oxygen Flow Rate 40 Fraction of Inspired Oxygen 60 40 Sepsis Recent Fever Within 48 Hours Sepsis New/Unexplained Change in Mental Status Sepsis Action Taken by Nursing End-Tidal CO2 62 10/09/21 19:05 10/09/21 19:10 10/09/21 19:15 Pulse Rate 110 H 117 H 118 H Pulse Rate from SpO2 Sensor 112 H 114 H 118 H Respiratory Rate 14 23 16 Respiratory Effort / Characteristics Respiratory Depth Respiratory Pattern Blood Pressure 163/101 H 163/135 H 136/86 Blood Pressure Mean 121 144 102 Pulse Oximetry 100 100 100 Oxygen Delivery Method Oxygen Flow Rate Fraction of Inspired Oxygen Sepsis Recent Fever Within 48 Hours Sepsis New/Unexplained Change in Mental Status Sepsis Action Taken by Nursing End-Tidal CO2 56 72 10/09/21 19:20 Pulse Rate 105 H Pulse Rate from SpO2 Sensor 103 H Respiratory Rate 22 Respiratory Effort / Characteristics Respiratory Depth Respiratory Pattern Blood Pressure 117/70 Blood Pressure Mean 85 Pulse Oximetry 100 Oxygen Delivery Method Oxygen Flow Rate Fraction of Inspired Oxygen Sepsis Recent Fever Within 48 Hours Sepsis New/Unexplained Change in Mental Status Sepsis Action Taken by Nursing End-Tidal CO2 69 Laboratory Data Attestation: I reviewed the patient's lab results. Result diagrams: 10/09/21 16:00 10/09/21 21:19 Lab Results 10/09/21 10/09/21 10/09/21 Range/Units 16:00 16:00 16:00 WBC 8.20 (4.8-10.8) K/uL RBC 4.30 L (4.7-6.1) M/uL Hgb 13.6 L (14.0-18.0) g/dL Hct 38.5 L (42-52) % MCV 89.5 (80-100) fL MCH 31.6 (25-34) pg MCHC 35.3 (32-36) g/dL RDW Std Deviation 38.7 (36.4-46.3) fL RDW Coeff of Abner 12.0 (11.5-14.5) % Plt Count 365 (130-400) K/uL MPV 10.0 (7.4-10.4) fL Immature Gran % (Auto) 0.1 % Neut % (Auto) 81.8 % Lymph % (Auto) 9.0 % Roosevelt % (Auto) 8.9 % Eos % (Auto) 0.1 % Baso % (Auto) 0.1 % Neut # (Auto) 6.70 H (1.4-6.5) K/uL Lymph # (Auto) 0.74 L (1.2-3.4) K/uL Roosevelt # (Auto) 0.73 H (0.11-0.59) K/uL Eos # (Auto) 0.01 (0-0.5) K/uL Baso # (Auto) 0.01 (0-0.2) K/uL Immature Gran # (Auto) 0.01 (0.00-0.02) K/uL PT (9.0-12.0) Seconds INR (0.9-1.1) VBG pH (7.36-7.41) VBG pCO2 (38-50) mmHg VBG pO2 mmHg VBG HCO3 mmol/L VBG O2 Saturation % VBG Base Excess mEq/L Barometric Pressure mm/Hg Sodium 121 L (136-145) mmol/L Potassium 4.1 (3.5-5.1) mmol/L Chloride 75 L (98-107) mmol/L Carbon Dioxide 41 H* (21-32) mmol/L Anion Gap 5 (3-11) BUN 12 (6-23) mg/dl Creatinine 0.37 L (0.6-1.4) mg/dl Est Cr Clr Drug Dosing 205.5 ml/min Est GFR ( Amer) > 150.0 ml/min Est GFR (Non-Af Amer) 142.0 ml/min BUN/Creatinine Ratio 32.4 H (10-20) Glucose 134 H (70-99(Fasting)) mg/dl POC Glucose (70-99) mg/dl Osmolality (280-300) mOsm/kg Calcium 9.2 (8.5-10.1) mg/dl Phosphorus 3.2 (2.5-4.9) mg/dl Magnesium 1.7 (1.7-2.4) mg/dl Total Bilirubin 1.7 H (0.2-1.0) mg/dl AST 25 (13-39) U/L ALT 15 (7-52) U/L Alkaline Phosphatase 51 (34-104) U/L Troponin I High Sens 9.4 (0-20) pg/ml Total Protein 6.5 (6.0-8.3) gm/dl Albumin 4.2 (3.4-5.0) gm/dl Globulin 2.3 L (2.5-4.0) gm/dl Albumin/Globulin Ratio 1.8 (0.9-2) Lipase 8 L (11-82) U/L Procalcitonin < 0.05 (0-0.5) ng/ml Adenovirus (PCR) (NotDetected) B. pertussis DNA (PCR) (NotDetected) B.parapertussis DNA PCR (NotDetected) C. pneumoniae DNA (PCR) (NotDetected) Coronavirus OC43 (PCR) (NotDetected) Coronavirus HKU1 (PCR) (NotDetected) Coronavirus 229E (PCR) (NotDetected) SARS-CoV-2 (PCR) (NotDetected) Coronavirus NL63 (PCR) (NotDetected) Human Metapneumovir PCR (NotDetected) Influenza Type A (PCR) (NotDetected) Influenza Type B (PCR) (NotDetected) M. pneumoniae (PCR) (NotDetected) Parainfluenza 1 (PCR) (NotDetected) Parainfluenza 2 (PCR) (NotDetected) Parainfluenza 3 (PCR) (NotDetected) Parainfluenza 4 (PCR) (NotDetected) RSV (PCR) (NotDetected) Entero/Rhino (PCR) (NotDetected) 10/09/21 10/09/21 10/09/21 Range/Units 16:00 17:15 17:27 WBC (4.8-10.8) K/uL RBC (4.7-6.1) M/uL Hgb (14.0-18.0) g/dL Hct (42-52) % MCV (80-100) fL MCH (25-34) pg MCHC (32-36) g/dL RDW Std Deviation (36.4-46.3) fL RDW Coeff of Abner (11.5-14.5) % Plt Count (130-400) K/uL MPV (7.4-10.4) fL Immature Gran % (Auto) % Neut % (Auto) % Lymph % (Auto) % Roosevelt % (Auto) % Eos % (Auto) % Baso % (Auto) % Neut # (Auto) (1.4-6.5) K/uL Lymph # (Auto) (1.2-3.4) K/uL Roosevelt # (Auto) (0.11-0.59) K/uL Eos # (Auto) (0-0.5) K/uL Baso # (Auto) (0-0.2) K/uL Immature Gran # (Auto) (0.00-0.02) K/uL PT 10.7 (9.0-12.0) Seconds INR 1.0 (0.9-1.1) VBG pH 7.28 L (7.36-7.41) VBG pCO2 96 H (38-50) mmHg VBG pO2 37 mmHg VBG HCO3 44 mmol/L VBG O2 Saturation 65.8 % VBG Base Excess 12.8 mEq/L Barometric Pressure 734.7 mm/Hg Sodium (136-145) mmol/L Potassium (3.5-5.1) mmol/L Chloride (98-107) mmol/L Carbon Dioxide (21-32) mmol/L Anion Gap (3-11) BUN (6-23) mg/dl Creatinine (0.6-1.4) mg/dl Est Cr Clr Drug Dosing ml/min Est GFR ( Amer) ml/min Est GFR (Non-Af Amer) ml/min BUN/Creatinine Ratio (10-20) Glucose (70-99(Fasting)) mg/dl POC Glucose (70-99) mg/dl Osmolality (280-300) mOsm/kg Calcium (8.5-10.1) mg/dl Phosphorus (2.5-4.9) mg/dl Magnesium (1.7-2.4) mg/dl Total Bilirubin (0.2-1.0) mg/dl AST (13-39) U/L ALT (7-52) U/L Alkaline Phosphatase (34-104) U/L Troponin I High Sens (0-20) pg/ml Total Protein (6.0-8.3) gm/dl Albumin (3.4-5.0) gm/dl Globulin (2.5-4.0) gm/dl Albumin/Globulin Ratio (0.9-2) Lipase (11-82) U/L Procalcitonin (0-0.5) ng/ml Adenovirus (PCR) Not Detected (NotDetected) B. pertussis DNA (PCR) Not Detected (NotDetected) B.parapertussis DNA PCR Not Detected (NotDetected) C. pneumoniae DNA (PCR) Not Detected (NotDetected) Coronavirus OC43 (PCR) Not Detected (NotDetected) Coronavirus HKU1 (PCR) Not Detected (NotDetected) Coronavirus 229E (PCR) Not Detected (NotDetected) SARS-CoV-2 (PCR) Not Detected (NotDetected) Coronavirus NL63 (PCR) Not Detected (NotDetected) Human Metapneumovir PCR Not Detected (NotDetected) Influenza Type A (PCR) Not Detected (NotDetected) Influenza Type B (PCR) Not Detected (NotDetected) M. pneumoniae (PCR) Not Detected (NotDetected) Parainfluenza 1 (PCR) Not Detected (NotDetected) Parainfluenza 2 (PCR) Not Detected (NotDetected) Parainfluenza 3 (PCR) Not Detected (NotDetected) Parainfluenza 4 (PCR) Not Detected (NotDetected) RSV (PCR) Not Detected (NotDetected) Entero/Rhino (PCR) Not Detected (NotDetected) 10/09/21 10/09/21 Range/Units 18:28 19:06 WBC (4.8-10.8) K/uL RBC (4.7-6.1) M/uL Hgb (14.0-18.0) g/dL Hct (42-52) % MCV (80-100) fL MCH (25-34) pg MCHC (32-36) g/dL RDW Std Deviation (36.4-46.3) fL RDW Coeff of Abner (11.5-14.5) % Plt Count (130-400) K/uL MPV (7.4-10.4) fL Immature Gran % (Auto) % Neut % (Auto) % Lymph % (Auto) % Roosevelt % (Auto) % Eos % (Auto) % Baso % (Auto) % Neut # (Auto) (1.4-6.5) K/uL Lymph # (Auto) (1.2-3.4) K/uL Roosevelt # (Auto) (0.11-0.59) K/uL Eos # (Auto) (0-0.5) K/uL Baso # (Auto) (0-0.2) K/uL Immature Gran # (Auto) (0.00-0.02) K/uL PT (9.0-12.0) Seconds INR (0.9-1.1) VBG pH (7.36-7.41) VBG pCO2 (38-50) mmHg VBG pO2 mmHg VBG HCO3 mmol/L VBG O2 Saturation % VBG Base Excess mEq/L Barometric Pressure mm/Hg Sodium (136-145) mmol/L Potassium (3.5-5.1) mmol/L Chloride (98-107) mmol/L Carbon Dioxide (21-32) mmol/L Anion Gap (3-11) BUN (6-23) mg/dl Creatinine (0.6-1.4) mg/dl Est Cr Clr Drug Dosing ml/min Est GFR ( Amer) ml/min Est GFR (Non-Af Amer) ml/min BUN/Creatinine Ratio (10-20) Glucose (70-99(Fasting)) mg/dl POC Glucose 153 H (70-99) mg/dl Osmolality 258 L (280-300) mOsm/kg Calcium (8.5-10.1) mg/dl Phosphorus (2.5-4.9) mg/dl Magnesium (1.7-2.4) mg/dl Total Bilirubin (0.2-1.0) mg/dl AST (13-39) U/L ALT (7-52) U/L Alkaline Phosphatase (34-104) U/L Troponin I High Sens (0-20) pg/ml Total Protein (6.0-8.3) gm/dl Albumin (3.4-5.0) gm/dl Globulin (2.5-4.0) gm/dl Albumin/Globulin Ratio (0.9-2) Lipase (11-82) U/L Procalcitonin (0-0.5) ng/ml Adenovirus (PCR) (NotDetected) B. pertussis DNA (PCR) (NotDetected) B.parapertussis DNA PCR (NotDetected) C. pneumoniae DNA (PCR) (NotDetected) Coronavirus OC43 (PCR) (NotDetected) Coronavirus HKU1 (PCR) (NotDetected) Coronavirus 229E (PCR) (NotDetected) SARS-CoV-2 (PCR) (NotDetected) Coronavirus NL63 (PCR) (NotDetected) Human Metapneumovir PCR (NotDetected) Influenza Type A (PCR) (NotDetected) Influenza Type B (PCR) (NotDetected) M. pneumoniae (PCR) (NotDetected) Parainfluenza 1 (PCR) (NotDetected) Parainfluenza 2 (PCR) (NotDetected) Parainfluenza 3 (PCR) (NotDetected) Parainfluenza 4 (PCR) (NotDetected) RSV (PCR) (NotDetected) Entero/Rhino (PCR) (NotDetected) Administered Medications Propofol (Diprivan) 1,000 mg in 100 mls @ 15.6 mls/hr IV .Q6H25M MITCH; Protocol Stop: 10/12/21 18:59 Last Titration: 10/09/21 19:51 Dose: 40 mcg/kg/min, 15.6 mls/hr Documented by: [id number] Admin: 10/09/21 19:30 Dose: 30 mcg/kg/min, 11.7 mls/hr Documented by: [id number] Cosigned by: [id number] Titration: 10/09/21 19:30 Dose: 20 mcg/kg/min, 7.8 mls/hr Documented by: [id number] Cosigned by: [id number] Admin: 10/09/21 19:10 Dose: 20 mcg/kg/min, 7.8 mls/hr Documented by: [id number] Cosigned by: [id number] Propofol (Propofol Bolus From Bag) 20 mg IV Q5M PRN PRN Reason: Sedation Stop: 10/12/21 18:45 Last Admin: 10/09/21 19:30 Dose: 20 mg Documented by: [id number] Cosigned by: [id number] Admin: 10/09/21 19:17 Dose: 20 mg Documented by: [id number] Cosigned by: [id number] Discontinued Medications Albuterol (Albut/Ipratrop 3mg/0.5mg Neb 3 Ml Vial) 12 ml NEB ONE ONE; Protocol Stop: 10/09/21 16:37 Last Admin: 10/09/21 17:02 Dose: 12 ml Documented by: [id number] Etomidate (Etomidate 2 Mg/Ml 20 Ml Vial) 20 mg IV NOW ONE Stop: 10/09/21 18:47 Last Admin: 10/09/21 19:17 Dose: Not Given Documented by: [id number] Fentanyl Citrate (Fentanyl Citrate 100 Mcg/2 Ml Vial) 100 mcg IV NOW STA Stop: 10/09/21 19:18 Last Admin: 10/09/21 19:30 Dose: Not Given Documented by: [id number] Sodium Chloride (Nss 1000ml) 1,000 mls @ 999 mls/hr IV .Q1H1M ONE Stop: 10/09/21 17:36 Last Infusion: 10/09/21 18:43 Dose: 0 mls/hr Documented by: [id number] Admin: 10/09/21 17:42 Dose: 999 mls/hr Documented by: [id number] Ioversol (Optiray 320 125ml) 118 ml IV ONCE ONE Stop: 10/09/21 20:15 Last Admin: 10/09/21 20:15 Dose: 118 ml Documented by: [id number] Methylprednisolone (Methylprednisolone 125 Mg/2 Ml Vial) 125 mg IV NOW STA Stop: 10/09/21 19:43 Last Admin: 10/09/21 19:50 Dose: 125 mg Documented by: [id number] Miscellaneous (Rapid Sequence Induction Bag) Confirm Administered Dose 1 ea .ROUTE .STK-MED ONE Stop: 10/09/21 18:49 Last Admin: 10/09/21 19:16 Dose: 1 ea Documented by: [id number] Succinylcholine Chloride (Succinylcholine Chloride 20 Mg/Ml 10 Ml Vial) 100 mg IV NOW STA Stop: 10/09/21 18:47 Last Admin: 10/09/21 19:17 Dose: Not Given Documented by: [id number] Imaging Data Radiologist's Impression: Chest X-Ray 10/09/21 16:37 XR chest 1V portable CLINICAL HISTORY: Atypical chest pain TECHNIQUE: Single frontal radiograph of the chest was obtained. Comparison: Comparison is made to chest radiograph 03/07/2021 FINDINGS: No lines and tubes are seen. The cardiomediastinal silhouette is normal. The lungs are clear. Blunting of the costophrenic angles bilaterally may represent scarring or trace effusions. IMPRESSION: No acute abnormalities apart from possible trace bilateral pleural effusions. ACT 112: Negative or not required by law. Electronically signed by: Timothy Gomez M.D. 10/09/2021 4:51 PM Chest X-Ray 10/09/21 19:03 XR chest 1V portable HISTORY: post intubation COMPARISON: Chest 10/09/2021. FINDINGS: The lungs are hyperexpanded with apical predominant emphysematous changes. The heart is normal in size. No pleural effusions. No pneumothorax. The endotracheal tube terminates 6 cm from the jaison. Nasogastric tube terminates in the stomach. The tip is not entirely included on this study. IMPRESSION: 1. Endotracheal tube terminates 6 cm from the jaison. This should be advanced by approximately 2 to 3 cm. 2. Nasogastric tube terminates below the diaphragm. 3. Emphysema. ACT 112: Negative or not required by law. Electronically signed by: Emiliano Byers M.D. 10/09/2021 7:[address] 10/09/21 19:[address] DOSE: 1621.66 mGy.cm HISTORY: Altered mental status. Intubation. TECHNIQUE: Multiaxial CT images of the head were performed without the use of intravenous contrast. Automated exposure control was utilized for this study. A dose lowering technique was utilized adhering to the principles of ALARA. Comparison: None. Findings: Mild mucosal thickening within the ethmoid air cells. The mastoid air cells are clear. Partially visualized endotracheal tube and nasogastric tube. The distal basilar artery stent with adjacent embolization coils. This results in metallic artifact within the posterior fossa. The calvarium and skull base are intact. The ventricles and sulci are within normal limits. There is no mass, hematoma, midline shift, or acute infarct. Impression: No acute intracranial abnormality. Additional findings as described above. ACT 112: Negative or not required by law. Electronically signed by: Emiliano Byers M.D. 10/09/2021 8:19 PM Discharge Plan Visit Data Chief Complaint: Shortness of Breath/Dyspnea Discharge Problem: Acute on chronic respiratory failure with hypoxia and hypercapnia, COPD exacerbation, Hyponatremia, Acute respiratory acidosis Patient Disposition: Admitted As Inpatient Discharge Instructions Interventions: ED Discharge Assessment Last Done: 10/09/21 20:30
[2021-10-09] MEDS: AZITHROMYCIN 500 MG in DEXTROSE 5% 250 ML IV SCH (22:35)
[2021-10-09] MEDS: guaiFENesin 600 MG TABCR PO SCH (22:39)
[2021-10-09] MEDS: HEPARIN SOD 5,000 UNIT/0.5 ML VIAL SQ SCH (22:40)
[2021-10-09] MEDS ORDERED: NOREPINEPHRINE/D5W 8 MG/508 ML BAG IV SCH (23:00)
[2021-10-09] MEDS ORDERED: VANCOMYCIN CONSULT ACTIVE PRN (23:34)
[2021-10-10] MEDS ORDERED: VANCOMYCIN HCL 1,500 MG in SODIUM CHLORIDE 0.9% 500 ML IV ONE
[2021-10-10] MEDS: ALBUT/IPRATROP 3MG/0.5MG NEB 3 ML VIAL INH SCH ×4 (00:16→19:25)
[2021-10-10] MEDS: propofoL 1,000 MG/100 ML VIAL IV SCH ×5 (01:19→23:40)
[2021-10-10 01:23] LABS: Blood Urea Nitrogen 13 mg/dl (6-23); Calcium 9.2 mg/dl (8.5-10.1); Carbon Dioxide 32 mmol/L (21-32); Chloride 79 mmol/L (98-107); Creatinine Clr Calc Pharmacy 120.3 ml/min; Est GFR (African American) 135.9 ml/min; Est GFR (Non-African American) 117.2 ml/min; Glucose 187 mg/dl (70-99(Fasting))
[2021-10-10] MEDS: fentaNYL citrate 100 MCG/2 ML VIAL IV PRN ×7 (02:16→23:40)
[2021-10-10 04:31] LABS: Hematocrit (blood only) 35.2 % (42-52); Hemoglobin 12.3 g/dL (14.0-18.0); Immature Granulocytes # (auto) 0.01 K/uL (0.00-0.02); Immature Granulocytes % (auto) 0.1 %; Lymphocytes # (auto) 0.38 K/uL (1.2-3.4); Lymphocytes % (auto) 5.6 %; Mean Corpuscular Hemoglobin 31.1 pg (25-34); Mean Corpuscular Hgb Conc 34.9 g/dL (32-36); Mean Corpuscular Volume 88.9 fL (80-100); Mean Platelet Volume 9.6 fL (7.4-10.4); Monocytes # (auto) 0.26 K/uL (0.11-0.59); Monocytes % (auto) 3.8 %; Neutrophils # (auto) 6.19 K/uL (1.4-6.5); Neutrophils % (auto) 90.5 %; Platelet Count 315 K/uL (130-400); RDW Standard Deviation 38.9 fL (36.4-46.3); Red Blood Count 3.96 M/uL (4.7-6.1); White Blood Count 6.84 K/uL (4.8-10.8)
[2021-10-10] MEDS: methylPREDNISolone 40 MG in SYRINGE 0 ML IV SCH ×2 (04:47→11:13)
[2021-10-10 04:50] LABS: iSTAT Allen Test Pass; iSTAT Arterial Blood Gas HCO3 39 meg/L (19-24); iSTAT Arterial Blood Gas pCO2 45 mmHg (35-46); iSTAT Arterial Blood Gas pH 7.55 (7.35-7.45); iSTAT Arterial Blood Gas pO2 73 mmHg (80-95); iSTAT Carbon Dioxide > 40 mmol/L (24-31); iSTAT FiO2 30 %; iSTAT Site R Radial
[2021-10-10 05:11] LABS: Calcium 8.8 mg/dl (8.5-10.1); Creatinine Clr Calc Pharmacy 101.4 ml/min; Est GFR (African American) 126.6 ml/min; Est GFR (Non-African American) 109.3 ml/min; Magnesium 1.7 mg/dl (1.7-2.4); Phosphorus 1.4 mg/dl (2.5-4.9)
[2021-10-10] MEDS ORDERED: DEXTROSE 5% 250 ML IV ONE (05:28)
[2021-10-10] MEDS: MAGNESIUM SULFATE / D5W 1 GM/100 ML BAG IV SCH ×3 (06:40→11:00)
--- NOTE | 2021-10-10 08:07 | Pharmacy Report ---
Pharmacy Vanc AUC Short Note - Date of Service October 10, 2021 - Assessment & Plan Assessment 51 year old M receiving vancomycin + azithromycin for treatment of Acute hypoxic hypercapnic respiratory failure, COPD exacerbation Pertinent microbiologic data includes: Positive MRSA Nasal Swab Plan Vancomycin * Loading dose: 1500 mg (25 mg/kg) * Maintenance dose: 1250 mg (~22 mg/kg) IV every 12 hours * This regimen is predicted to achieve target AUC/BOZENA of 400-600 mg/L.hr * Trough level ordered for: 10/11/21 @ 0730 Pharmacy will continue to follow and will adjust dose/frequency as necessary. Thank you.
[2021-10-10] MEDS: HEPARIN SOD 5,000 UNIT/0.5 ML VIAL SQ SCH (09:07)
[2021-10-10 09:20] LABS: BUN Creatinine Ratio 24.2 (10-20); Calcium 9.3 mg/dl (8.5-10.1); Creatinine Clr Calc Pharmacy 114.4 ml/min; Est GFR (African American) 133.1 ml/min; Est GFR (Non-African American) 114.9 ml/min; Potassium 3.8 mmol/L (3.5-5.1)
--- NOTE | 2021-10-10 09:26 | Critical Care Progress Note ---
Date of Service October 10, 2021 Assessment & Plan (1) Acute and chronic respiratory failure: Plan: Reason Critically Ill: 51-year-old male presents to the ICU with acute on chronic hypercapnic and hypoxic respiratory failure requiring emergent intubation likely secondary to COPD exacerbation Neuro - Encephalopathysecondary to hypercapnic respiratory failure and possibly a component of acute hyponatremia. Continue propofol and intermittent boluses of fentanyl as needed. Cardiac - HTNholding antihypertensive therapy at this time given that he is on continuous sedation and is hypotensive. Maintain maps above 65. Respiratory - Acute on chronic hypercapnic and hypoxic respiratory failurepatient with end- stage COPD requiring 3 L nasal cannula at baseline. Per report still actively smokes. Unsure if he is compliant with BiPAP at home. -Intubated following failed BiPAP trial in the emergency department. Repeat ABG shows improvement in CO2 and respiratory acidosis. -Chest x-ray without evidence of active disease -CTA chest without evidence of PE. Did show severe emphysema -Continue with Solu-Medrol, DuoNeb, Symbicort, Mucinex -Continuous end-tidal CO2 and pulse ox monitor GI - PPI Start tube feeds today. RENAL/LYTES - hyponatremiareceived hypertonic saline overnight. We will keep a close eye on the sodium level and consider additional boluses of D5 if sodium level is correcting too quickly. Replace electrolytes. - Foleystrict I's and O's ENDO - No history of diabetes or thyroid disease ICU hyperglycemic protocol HEME - H&H stable, monitor routine CBCs ID - Chest x-ray and CTA without evidence of infiltrates Bio fire negative, Pro-Stephan negative. No leukocytosis or fevers Continue empiric Vanc/azithromycin for now LINES/IV ACCESS - Peripheral IVs DVT PROPHYLAXIS - SCDs, subcu heparin I have personally spent 36 minutes of critical care time in the direct management of this patient. This is a life/limb threatening event. This includes time spent evaluating patient, direct bedside care, chart review, placing o rders, interpretation of diagnostic studies, discussion with consultants, patient, and family members, as well as other required patient management activities. This time is exclusive of all separately billable procedures, and teaching time and separate from and in addition to any other critical care service time. Thank you for allowing us to participate in the care of this patient. (2) Metabolic encephalopathy: (3) Hyponatremia: (4) COPD (chronic obstructive pulmonary disease): (5) Tobacco abuse: (6) Centrilobular emphysema: (7) Admitted to intensive care unit: (8) Anxiety: Admission and Anticipated Discharge Date Admission Date: October 09, 2021 Subjective Currently on sedation and mechanically intubated. Appears comfortable on the ventilator. Hemodynamically stable. Review of Systems Review of Systems: Unobtainable due to endotracheal tube Physical Exam Constitutional: + mechanically ventilated Sedated Eyes: PERRL, conjunctivae normal, anicteric sclerae ENMT: external ear and nose normal, oropharynx normal Neck: trachea midline, no thyromegaly Respiratory: symmetric chest movement diminished lung sounds auscultated bilaterally in all daley Cardiovascular: RRR, no murmur, no edema Heart Sounds: normal S1 and normal S2 Extremities: normal capillary refill; no edema Gastrointestinal (Abdomen): normal bowel sounds, soft, nontender, no hepatosplenomegaly Musculoskeletal: Unable to assess due to sedation Skin: no rashes, warm and dry Neurologic: Unable to assess due to sedation Psychiatric: Unable to assess due to sedation Genitourinary: Indwelling Pimentel catheter present Results & Data Results & Data ([facility]) Vital Signs (Past 12 Hours) Vital Signs Temp Pulse Pulse Resp BP Pulse Ox 10/10/21 07:12 95 H 16 94 10/10/21 05:00 37.1 C 108 H 14 100/64 95 10/10/21 04:40 16 10/10/21 04:00 37.1 C 110 H 22 118/83 99 10/10/21 03:12 109 H 22 100 10/10/21 03:00 37.0 C 111 H 22 95/70 L 100 10/10/21 02:10 37.0 C 117 H 22 93/60 L 99 10/10/21 02:00 37.0 C 108 H 22 104/74 99 10/10/21 01:00 37.0 C 99 H 22 108/70 98 10/10/21 00:16 97 H 22 99 10/10/21 00:00 37.3 C 100 H 22 110/75 99 10/09/21 23:43 37.4 C 101 H 22 120/86 100 10/09/21 23:30 37.4 C 109 H 22 108/75 99 10/09/21 23:18 37.4 C 113 H 22 101/73 99 10/09/21 23:00 37.4 C 111 H 22 96/74 L 99 10/09/21 22:40 126 H 22 100 10/09/21 22:00 37.3 C 116 H 25 H 83/66 L 100 Coding Level of Care Code Critical Care 1st 30-74 mins Diagnoses Acute and chronic respiratory failure J96.20 Metabolic encephalopathy G93.41 Hyponatremia E87.1 COPD (chronic obstructive pulmonary disease) J43.2 COPD type: emphysema Emphysema type: centrilobular Tobacco abuse Z72.0 Centrilobular emphysema J43.2 Admitted to intensive care unit Z78.9 Anxiety F41.9 Time Spent (min) 36 (1) COPD (chronic obstructive pulmonary disease) COPD type: emphysema Emphysema type: centrilobular Qualified Code(s): J43.2 - Centrilobular emphysema
--- NOTE | 2021-10-10 09:29 | XRay Report ---
KUB HISTORY: Evaluate NG tube placement. COMPARISON: None. FINDINGS: The bowel gas pattern is unremarkable. There are no dilated loops of small bowel to suggest an obstruction. No renal calculi. No ureteral calculi. No pneumoperitoneum or pneumatosis. Nasogastric tube terminates in the distal stomach. IMPRESSION: Nasogastric tube terminates in the distal stomach. ACT 112: Negative or not required by law. Electronically signed by: Emiliano Byers M.D. 10/10/2021 9:28 AM
[2021-10-10] MEDS ORDERED: Nursing to Pharmacy Communication SCH (09:30)
[2021-10-10] MEDS ORDERED: PANTOprazole 40 MG TAB PO SCH (09:30)
--- NOTE | 2021-10-10 09:30 | XRay Report ---
XR chest 1V portable HISTORY: Stroke failure. Follow-up. COMPARISON: Chest 10/09/2021. FINDINGS: Endotracheal tube terminates approximately 5.8 cm from the jaison. This is similar to the p rior study. Nasogastric tube terminates below the diaphragm. The tip is not included on this study. N o pneumothorax. No pleural fusions. The lungs are clear. Severe emphysema again noted. The heart is n ormal in size. IMPRESSION: 1. Lines and tubes are unchanged in position as described above. 2. Severe emphysema again noted. ACT 112: Negative or not required by law. Electronically signed by: Emiliano Byers M.D. 10/10/2021 9:29 AM
[2021-10-10] MEDS: FLUTICASONE/VILANTEROL 200/25MCG 14 PUFFS/INHALER INH SCH (09:36)
[2021-10-10] MEDS: VANCOMYCIN HCL 1,250 MG in SODIUM CHLORIDE 0.9% 250 ML IV SCH ×2 (09:38→20:11)
--- NOTE | 2021-10-10 10:05 | Electrocardiogram Report ---
Test Reason : Blood Pressure : / mmHG Vent. Rate : 106 BPM Atrial Rate : 106 BPM P-R Int : 114 ms QRS Dur : 082 ms QT Int : 330 ms P-R-T Axes : 088 076 071 degrees QTc Int : 438 ms Poor data quality, interpretation may be adversely affected Sinus tachycardia with PVC's Possible Left atrial enlargement RSR' or QR pattern in V1 suggests right ventricular conduction delay Abnormal ECG When compared with ECG of 07-MAR-2021 05:42, PVC is now Present Septal infarct is now Present Confirmed by Matt Garcia ([id number]) on 10/10/2021 10:04:52 AM Referred By: REFERRED SELF Confirmed By:Matt Garcia
--- NOTE | 2021-10-10 10:12 | Electrocardiogram Report ---
Test Reason : Blood Pressure : / mmHG Vent. Rate : 107 BPM Atrial Rate : 107 BPM P-R Int : 140 ms QRS Dur : 102 ms QT Int : 364 ms P-R-T Axes : 086 086 088 degrees QTc Int : 485 ms Sinus tachycardia RSR' or QR pattern in V1 suggests right ventricular conduction delay Nonspecific T wave abnormality Abnormal ECG When compared with ECG of 09-OCT-2021 16:29, (unconfirmed) pvc's is no longer Present Nonspecific T wave abnormality now evident in Lateral leads Confirmed by Matt Garcia ([id number]) on 10/10/2021 10:12:42 AM Referred By: REFERRED SELF Confirmed By:Matt Garcia
[2021-10-10] MEDS: ALBUT/IPRATROP 3MG/0.5MG NEB 3 ML VIAL NEB PRN ×2 (10:56→15:23)
[2021-10-10] MEDS ORDERED: PEPTAMEN INTENSE VHP 1.0 CAL 1,000 ML BAG OG SCH (11:00)
[2021-10-10] MEDS ORDERED: PANTOprazole 40 MG in SYRINGE 0 ML IV SCH (11:00)
[2021-10-10] MEDS: guaiFENesin 600 MG TABCR PO SCH (11:07)
[2021-10-10] MEDS: TUBE FEEDING WATER FLUSH OG SCH ×5 (11:08→22:50)
[2021-10-10] MEDS: LANSOPRAZOLE 30 MG SOLTAB OG SCH ×2 (11:50→12:00)
[2021-10-10] MEDS ORDERED: PANTOPRAZOLE BOLUS/DRIP 1 EA IV STA (11:58)
[2021-10-10 12:19] LABS: Hematocrit (blood only) 34.1 % (42-52); Hemoglobin 11.9 g/dL (14.0-18.0); Mean Corpuscular Volume 88.8 fL (80-100); Mean Platelet Volume 9.2 fL (7.4-10.4); Platelet Count 284 K/uL (130-400); RDW Coefficient of Variation 12.3 % (11.5-14.5); RDW Standard Deviation 39.4 fL (36.4-46.3); Red Blood Count 3.84 M/uL (4.7-6.1)
[2021-10-10] MEDS ORDERED: PANTOprazole 80 MG in DEXTROSE 5% 100 ML IV ONE (12:30)
[2021-10-10 12:54] LABS: Mean Corpuscular Hgb Conc 34.9 g/dL (32-36)
[2021-10-10 13:08] LABS: BUN Creatinine Ratio 25.9 (10-20); Creatinine Clr Calc Pharmacy 129.8 ml/min; Est GFR (African American) 140.9 ml/min; Est GFR (Non-African American) 121.6 ml/min; Potassium 3.7 mmol/L (3.5-5.1)
[2021-10-10] MEDS: PANTOprazole 40 MG in DEXTROSE 5% 100 ML IV SCH ×3 (13:17→22:50)
--- NOTE | 2021-10-10 13:41 | Hospitalist Progress Note ---
Date of Service October 10, 2021 Assessment & Plan (1) COPD exacerbation: Plan: With worse respiratory failure despite BiPap that resulted in intubation on 10/09. - Presently ventilated per ICU team - As of AM settings were 16/380/5/30% with SpO2 of 95%. - Will keep him intubated today per ICU team, then attempt to extubate tomorrow. - Continue antibiotics, steroids, and breathing treatments. - Discussed with ICU provider. Per provider, he was recently evaluated for lung transplant at [facility] and was rejected for continued tobacco abuse and poor social support. (2) Atrial fibrillation with RVR: Plan: Presently in NSR in the ICU. - Monitor (3) Anxiety: Plan: No anxiety at this time due to intubation and sedation. - Monitor (4) DVT prophylaxis: Plan: SCDs - Per ICU team GI ppx - PPI IV Admission and Anticipated Discharge Date Admission Date: October 09, 2021 Subjective Sedated and intubated. Review of Systems Review of Systems: Unobtainable due to endotracheal tube Physical Exam Constitutional: WD/WN, vitals as above + acute distress Eyes: EOM intact bilaterally; no conjunctival abnormality ENMT: external ear and nose normal, oropharynx normal Neck: trachea midline, no thyromegaly normal visual inspection Respiratory: + labored breathing; no respiratory distress Auscultation: + rhonchi Intubated Cardiovascular: RRR, no murmur, no edema Gastrointestinal (Abdomen): Inspection/Auscultation: abdomen normal to inspection; abdomen not distended Skin: no rashes, warm and dry Neurologic: + does not move all extremities and + not awake Psychiatric: Orientation: + not alert and + not oriented x 3 Results & Data Results & Data ([facility]) Vital Signs (Past 12 Hours) Vital Signs Temp Pulse Resp BP Pulse Ox 10/10/21 12:10 36.8 C 98 H 16 10/10/21 12:00 36.8 C 100 H 16 108/61 10/10/21 11:52 36.7 C 10/10/21 11:50 36.7 C 101 H 16 94 10/10/21 11:40 36.7 C 100 H 13 94 10/10/21 11:30 36.7 C 101 H 16 104/60 94 10/10/21 11:20 36.8 C 100 H 16 93 10/10/21 11:10 36.7 C 100 H 14 94 10/10/21 11:00 36.7 C 99 H 16 104/61 95 10/10/21 10:48 96 H 16 94 10/10/21 10:30 36.7 C 97 H 17 110/67 94 10/10/21 10:00 36.6 C 109 H 14 133/79 97 10/10/21 09:30 36.6 C 95 H 16 99/62 L 95 10/10/21 09:00 36.6 C 98 H 16 109/64 95 10/10/21 08:30 36.8 C 103 H 17 119/74 96 10/10/21 08:01 36.7 C 107 H 17 126/85 98 10/10/21 08:00 36.7 C 100 H 18 97 10/10/21 07:30 36.8 C 100 H 16 106/64 96 10/10/21 07:12 95 H 16 94 10/10/21 07:00 36.9 C 92 H 16 114/73 96 10/10/21 05:00 37.1 C 108 H 14 100/64 95 10/10/21 04:40 16 10/10/21 04:00 37.1 C 110 H 22 118/83 99 10/10/21 03:12 109 H 22 100 10/10/21 03:00 37.0 C 111 H 22 95/70 L 100 10/10/21 02:10 37.0 C 117 H 22 93/60 L 99 10/10/21 02:00 37.0 C 108 H 22 104/74 99 PG Care Time/CCT Total # of Minutes Spent Total Time Spent with Patient: Total time spent is greater than 50% in coordination of care (as documented) at patient's floor/unit and/or counseling patient: Coding Level of Care Code 60985 Subseq Hosp Care Lvl 3 Diagnoses COPD exacerbation J44.1 Atrial fibrillation with RVR I48.91 Anxiety F41.9 DVT prophylaxis Z29.9
--- NOTE | 2021-10-10 14:13 | Gastrointestinal Consultation ---
Date of Consultation October 10, 2021 Assessment & Plan (1) Upper GI bleed: In this setting, UGI bleeding noted in the gastric aspirate could be related to suction trauma to the gastric mucosa, stress hemorrhagic gastritis or stress gastric ulceration, dieulafoy gastric erosion, duodenal ulcer, erosive esophagitis. Evidence is that bleeding has been minor and not destabilizing to this point. I agree with conservative management with an IV PPI, avoidance of aspirin, NSAIDs, anticoagulants, observation and monitoring. Resuscitation with packed RBCs for HCT <27%. Endoscopy indicated for management of life threatening bleeding, hemodynamic instability, blood loss anemia requiring packed RBC resuscitation. Otherwise, endoscopy is elective in this case. GI service will follow patient progress and assist as needed. Supervising Physician Co-Signing Physician Notes As the consulting physician I, have spent 75 minutes of discrete time performing the activities of this consultation which include but are not limited to: 1. Review of past and current medical records 2. Patient interview, physical examination, discussion of the assessment and plan of care with the patient and family if present 3. Documentation of the consultation in the medical record including orders and discussion of the plan of care with members of the healthcare team History of Present Illness Reason for Consultation: UGI bleeding noted Attending Physician: Radu Padron MD History of Present Illness Mr. Geronimo is a 51 year old man with history of acute on chronic hypoxemic COPD and tobacco use disorder admitted to ICU late yesterday PM after intubation in the ER due to acute respiratory failure. An orogastric tube was passed for gastric decompression. According to healthcare team staff in the ICU, dark blood tinged and coffee ground drainage was noted in the OG tube and cannister starting overnight and continuing to the present, there is minimal volume of drainage noted on this day shift, and the drainage is thin translucent dark rust colored with scattered coffee grounds, no bright red blood. He has had no stools, no melena, no hematochezia. Past medical history is obtained from the EHR and health care team staff in the ICU, the patient is intubated and sedated on Propofol and unable to give any history. There is no recorded or known history of previous GI bleed, digestive disorder, alcohol use disorder, NSAID abuse. Home medications did include daily 81 mg aspirin, no other NSAIDs. Oral prednisone was prescribed in June 2021 but is not on his list of home medications this admission. I don't see any references to GI bleeding, GI consultation, or endoscopy in the EHR going back to March 2019. Allergies Allergy/AdvReac Type Severity Reaction Status Date / Time No Known Allergies Allergy Verified 10/09/21 19:55 Home Medications Medication Instructions Recorded Confirmed Type aspirin 81 mg tablet,delayed 81 mg PO DAILY 04/12/19 10/09/21 History release ascorbic acid (vitamin C) 500 mg 1 g PO DAILY tab 08/04/20 10/09/21 History tablet (Vitamin C) hydrochlorothiazide 25 mg tablet 25 mg PO DAILY #90 tab 03/17/21 10/09/21 Rx BI-PAP 07/17/21 09/15/21 History Portable Oxygen 07/17/21 09/15/21 History ipratropium 20 mcg-albuterol 100 1 puff INHALATION BID #4 g 08/18/21 10/09/21 Rx mcg/actuation mist for inhalation (Combivent Respimat) albuterol sulfate 90 mcg/actuation 2 puff INHALATION Q4H PRN #8.5 g 09/15/21 10/09/21 Rx aerosol inhaler (Ventolin HFA) budesonide-formoterol HFA 160 2 inh INHALATION BID #10.2 g 09/15/21 10/09/21 Rx mcg-4.5 mcg/actuation aerosol inhaler (Symbicort) multivitamin 1 tab PO DAILY 10/09/21 10/09/21 History Patient History Medical History Acute on chronic respiratory failure with hypoxia and hypercapnia Anxiety Brain aneurysm Centrilobular emphysema Chronic hypoxemic respiratory failure COPD (chronic obstructive pulmonary disease) Dyspnea and respiratory abnormalities Dyspnea on exertion History of tobacco abuse Pulmonary air trapping Tobacco abuse Surgical History History of intravascular stent placement Family History Grandfather (Maternal) Myocardial infarction Grandfather (Paternal) Myocardial infarction Mother Ovarian cancer Bladder cancer Other Diabetes Denies family history of Prostate cancer Breast cancer Colorectal cancer Social History Smoking Status: Unknown if ever smoked Tobacco Type: Cigarettes Age Started Using Tobacco: 16; Age Quit Using Tobacco: 49; packs per day: 1; Years Smoked: 33; Cigarettes Per Day: 0.5; Second Hand Exposure: Yes; Preferred Language: French Communication Ability: Unable Visual Impairment: No Limitations Hearing Ability: Normal Director Of Officiating Required: No Beliefs That Will Affect Care: None marital status: Single Current Living Situation: Alone current occupational status: employed 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 Feels Safe at Home: Yes Childhood Exposure to Second-Hand Smoke: Yes Dental Care, Regularly: No Physical Activity Frequency: Does not Exercise Seatbelt Use: always Sunscreen Use: No Assistive Devices: Oxygen - Continuous Review of Systems Review of Systems: Unobtainable due to cognitive status and Unobtainable due to endotracheal tube Physical Exam Constitutional: Chronically ill appearing, intubated and sedated, unresponsive to verbal stimuli, slight response to palpation of the abdomen Eyes: no scleral icterus noted Respiratory: distant decreased breath sounds Cardiovascular: Distant heart tones Gastrointestinal (Abdomen): Flat, soft, no guarding, no palpable masses. Rectal exam deferred, staff states no stools at all throughout ER visit and hospital admission Skin: Erythematous rash on both arms. Not jaundiced Neurologic: sedated, unresponsive Results & Data ([facility]) Vital Signs (Past 12 Hours) Vital Signs Temp Pulse Resp BP Pulse Ox 10/10/21 13:00 36.9 C 10/10/21 12:10 36.8 C 98 H 16 10/10/21 12:00 36.8 C 100 H 16 108/61 94 10/10/21 11:52 36.7 C 10/10/21 11:50 36.7 C 101 H 16 10/10/21 11:40 36.7 C 100 H 13 10/10/21 11:30 36.7 C 101 H 16 104/60 94 10/10/21 11:20 36.8 C 100 H 16 93 10/10/21 11:10 36.7 C 100 H 14 10/10/21 11:00 36.7 C 99 H 16 104/61 95 10/10/21 10:48 96 H 16 94 10/10/21 10:30 36.7 C 97 H 17 110/67 94 10/10/21 10:00 36.6 C 109 H 14 133/79 97 10/10/21 09:30 36.6 C 95 H 16 99/62 L 95 10/10/21 09:00 36.6 C 98 H 16 109/64 95 10/10/21 08:30 36.8 C 103 H 17 119/74 96 10/10/21 08:01 36.7 C 107 H 17 126/85 98 10/10/21 08:00 36.7 C 100 H 18 97 10/10/21 07:30 36.8 C 100 H 16 106/64 96 10/10/21 07:12 95 H 16 94 10/10/21 07:00 36.9 C 92 H 16 114/73 96 10/10/21 05:00 37.1 C 108 H 14 100/64 95 10/10/21 04:40 16 10/10/21 04:00 37.1 C 110 H 22 118/83 99 10/10/21 03:12 109 H 22 100 10/10/21 03:00 37.0 C 111 H 22 95/70 L 100 10/10/21 02:10 37.0 C 117 H 22 93/60 L 99 Laboratory Results Laboratory Results WBC 8.20 K/uL (4.8-10.8) 10/10/21 12:12 RBC 3.84 M/uL (4.7-6.1) L 10/10/21 12:12 Hgb 11.9 g/dL (14.0-18.0) L 10/10/21 12:12 POC Hgb 13.3 g/dl (14.0-18.0) L 10/09/21 19:49 Hct 34.1 % (42-52) L 10/10/21 12:12 POC Hct 39 % (42-52) L 10/09/21 19:49 MCV 88.8 fL (80-100) 10/10/21 12:12 MCH 31.0 pg (25-34) 10/10/21 12:12 MCHC 34.9 g/dL (32-36) 10/10/21 12:12 RDW Std Deviation 39.4 fL (36.4-46.3) 10/10/21 12:12 RDW Coeff of Abner 12.3 % (11.5-14.5) 10/10/21 12:12 Plt Count 284 K/uL (130-400) 10/10/21 12:12 MPV 9.2 fL (7.4-10.4) 10/10/21 12:12 Immature Gran % (Auto) 0.1 % 10/10/21 04:16 Neut % (Auto) 90.5 % 10/10/21 04:16 Lymph % (Auto) 5.6 % 10/10/21 04:16 [place]man % (Auto) 3.8 % 10/10/21 04:16 Eos % (Auto) 0.0 % 10/10/21 04:16 Baso % (Auto) 0.0 % 10/10/21 04:16 Neut # (Auto) 6.19 K/uL (1.4-6.5) 10/10/21 04:16 Lymph # (Auto) 0.38 K/uL (1.2-3.4) L 10/10/21 04:16 [place]utsman # (Auto) 0.26 K/uL (0.11-0.59) 10/10/21 04:16 Eos # (Auto) 0.00 K/uL (0-0.5) 10/10/21 04:16 Baso # (Auto) 0.00 K/uL (0-0.2) 10/10/21 04:16 Immature Gran # (Auto) 0.01 K/uL (0.00-0.02) 10/10/21 04:16 PT 10.7 Seconds (9.0-12.0) 10/09/21 16:00 INR 1.0 (0.9-1.1) 10/09/21 16:00 Sample Site R Radial 10/10/21 04:35 POC pH 7.55 (7.35-7.45) H* 10/10/21 04:35 POC pCO2 45 mmHg (35-46) 10/10/21 04:35 POC pO2 73 mmHg (80-95) L 10/10/21 04:35 POC HCO3 39 tj/L (19-24) H 10/10/21 04:35 POC Total CO2 > 40 mmol/L (24-31) H* 10/10/21 04:35 POC Base Excess 17.0 tj/L (-9-1.8) H 10/10/21 04:35 POC ABG O2 Sat 96.0 % (90-95) H 10/10/21 04:35 Terrell Test Pass 10/10/21 04:35 VBG pH 7.28 (7.36-7.41) L 10/09/21 17:27 VBG pCO2 96 mmHg (38-50) H 10/09/21 17:27 VBG pO2 37 mmHg 10/09/21 17:27 VBG HCO3 44 mmol/L 10/09/21 17:27 VBG O2 Saturation 65.8 % 10/09/21 17:27 VBG Base Excess 12.8 mEq/L 10/09/21 17:27 Barometric Pressure 734.7 mm/Hg 10/09/21 17:27 O2 Delivery Device Ventilator 10/10/21 04:35 POC O2 Rate 22 10/10/21 04:35 POC FiO2 30 % 10/10/21 04:35 Tidal Volume 380 10/10/21 04:35 PEEP 5 10/10/21 04:35 POC Sodium 121 mmol/L (135-144) L 10/09/21 19:49 Sodium 130 mmol/L (136-145) L 10/10/21 12:12 POC Potassium 4.0 mmol/L (3.3-5.0) 10/09/21 19:49 Potassium 3.7 mmol/L (3.5-5.1) 10/10/21 12:12 Chloride 88 mmol/L (98-107) L 10/10/21 12:12 Carbon Dioxide 40 mmol/L (21-32) H 10/10/21 12:12 Anion Gap 2 (3-11) L 10/10/21 12:12 BUN 14 mg/dl (6-23) 10/10/21 12:12 Creatinine 0.54 mg/dl (0.6-1.4) L 10/10/21 12:12 Est Cr Clr Drug Dosing 129.8 ml/min 10/10/21 12:12 Est GFR ( Amer) 140.9 ml/min 10/10/21 12:12 Est GFR (Non-Af Amer) 121.6 ml/min 10/10/21 12:12 BUN/Creatinine Ratio 25.9 (10-20) H 10/10/21 12:12 Glucose 171 mg/dl (70-99(Fasting)) H 10/10/21 12:12 POC Glucose 205 mg/dl (70-99) H 10/10/21 11:15 Osmolality 258 mOsm/kg (280-300) L 10/09/21 19:06 Calcium 9.0 mg/dl (8.5-10.1) 10/10/21 12:12 Phosphorus 1.4 mg/dl (2.5-4.9) L* D 10/10/21 04:16 Magnesium 1.7 mg/dl (1.7-2.4) 10/10/21 04:16 Total Bilirubin 1.7 mg/dl (0.2-1.0) H 10/09/21 16:00 AST 25 U/L (13-39) 10/09/21 16:00 ALT 15 U/L (7-52) 10/09/21 16:00 Alkaline Phosphatase 51 U/L (34-104) 10/09/21 16:00 Troponin I High Sens 9.4 pg/ml (0-20) 10/09/21 16:00 Total Protein 6.5 gm/dl (6.0-8.3) 10/09/21 16:00 Albumin 4.2 gm/dl (3.4-5.0) 10/09/21 16:00 Globulin 2.3 gm/dl (2.5-4.0) L 10/09/21 16:00 Albumin/Globulin Ratio 1.8 (0.9-2) 10/09/21 16:00 Lipase 8 U/L (11-82) L 10/09/21 16:00 Procalcitonin < 0.05 ng/ml (0-0.5) 10/09/21 16:00 Urine Osmolality 112 mOsm/kg (500-800) L 10/10/21 10:52 Ur Random Sodium < 10 mmol/L 10/10/21 10:52 Nasal Screen MRSA (PCR) Positive (Negative) A 10/09/21 20:50 Adenovirus (PCR) Not Detected (NotDetected) 10/09/21 17:15 B. pertussis DNA (PCR) Not Detected (NotDetected) 10/09/21 17:15 B.parapertussis DNA PCR Not Detected (NotDetected) 10/09/21 17:15 C. pneumoniae DNA (PCR) Not Detected (NotDetected) 10/09/21 17:15 Coronavirus OC43 (PCR) Not Detected (NotDetected) 10/09/21 17:15 Coronavirus HKU1 (PCR) Not Detected (NotDetected) 10/09/21 17:15 Coronavirus 229E (PCR) Not Detected (NotDetected) 10/09/21 17:15 SARS-CoV-2 (PCR) Not Detected (NotDetected) 10/09/21 17:15 Coronavirus NL63 (PCR) Not Detected (NotDetected) 10/09/21 17:15 Human Metapneumovir PCR Not Detected (NotDetected) 10/09/21 17:15 Influenza Type A (PCR) Not Detected (NotDetected) 10/09/21 17:15 Influenza Type B (PCR) Not Detected (NotDetected) 10/09/21 17:15 M. pneumoniae (PCR) Not Detected (NotDetected) 10/09/21 17:15 Parainfluenza 1 (PCR) Not Detected (NotDetected) 10/09/21 17:15 Parainfluenza 2 (PCR) Not Detected (NotDetected) 10/09/21 17:15 Parainfluenza 3 (PCR) Not Detected (NotDetected) 10/09/21 17:15 Parainfluenza 4 (PCR) Not Detected (NotDetected) 10/09/21 17:15 RSV (PCR) Not Detected (NotDetected) 10/09/21 17:15 Entero/Rhino (PCR) Not Detected (NotDetected) 10/09/21 17:[address] 10/09/21 19:[address] DOSE: 1621.66 mGy.cm HISTORY: Altered mental status. Intubation. TECHNIQUE: Multiaxial CT images of the head were performed without the use of intravenous contrast. Automated exposure control was utilized for this study. A dose lowering technique was utilized adhering to the principles of ALARA. Comparison: None. Findings: Mild mucosal thickening within the ethmoid air cells. The mastoid air cells are clear. Partially visualized endotracheal tube and nasogastric tube. The distal basilar artery stent with adjacent embolization coils. This results in metallic artifact within the posterior fossa. The calvarium and skull base are intact. The ventricles and sulci are within normal limits. There is no mass, hematoma, midline shift, or acute infarct. Impression: No acute intracranial abnormality. Additional findings as described above. ACT 112: Negative or not required by law. Electronically signed by: Emiliano Byers M.D. 10/09/2021 8:19 PM Chest CTA 10/09/21 20:05 CHEST CTA for PULMONARY ARTERIES CT DOSE: 331.02 mGy.cm HISTORY: Altered mental status. Status post intubation. TECHNIQUE: Multiaxial CT images of the chest were performed following the intravenous administration of contrast to evaluate the pulmonary arteries. Maximal intensity projection images were also obtained. A dose lowering technique was utilized adhering to the principles of ALARA. COMPARISON STUDY: Chest CT 06/20/2019. FINDINGS: Limited views of the upper abdomen demonstrate normal liver and spleen. There is mild thickening of the bilateral adrenal glands, unchanged. A nasogastric tube is seen within the stomach. The tip is not included on this study. No pleural or pericardial effusions. The heart is normal in size. Endotracheal tube terminates 4 cm from the jaison. The thyroid gland enhances normally. No mediastinal or hilar lymphadenopathy. Normal caliber thoracic aorta with no evidence for dissection. No filling defects within the pulmonary arteries to suggest a pulmonary embolus. No suspicious lytic or blastic osseous lesions. No pneumothorax. Mild central bronchial wall thickening, unchanged. This likely represents a mild chronic bronchitis. Severe emphysema. No focal lung consolidations to suggest pneumonia. No evidence for pulmonary edema. IMPRESSION: 1. No evidence for pulmonary embolus. 2. Severe emphysema. 3. Satisfactory support line placement. ACT 112: Negative or not required by law. Electronically signed by: Emiliano Byers M.D. 10/09/2021 8:24 PM Chest X-Ray 10/10/21 07:00 XR chest 1V portable HISTORY: Stroke failure. Follow-up. COMPARISON: Chest 10/09/2021. FINDINGS: Endotracheal tube terminates approximately 5.8 cm from the jaison. This is similar to the prior study. Nasogastric tube terminates below the diaphragm. The tip is not included on this study. No pneumothorax. No pleural fusions. The lungs are clear. Severe emphysema again noted. The heart is normal in size. IMPRESSION: 1. Lines and tubes are unchanged in position as described above. 2. Severe emphysema again noted. ACT 112: Negative or not required by law. Electronically signed by: Emiliano Byers M.D. 10/10/2021 9:29 AM KUB X-Ray 10/10/21 08:19 KUB HISTORY: Evaluate NG tube placement. COMPARISON: None. FINDINGS: The bowel gas pattern is unremarkable. There are no dilated loops of small bowel to suggest an obstruction. No renal calculi. No ureteral calculi. No pneumoperitoneum or pneumatosis. Nasogastric tube terminates in the distal stomach. IMPRESSION: Nasogastric tube terminates in the distal stomach. ACT 112: Negative or not required by law. Electronically signed by: Emiliano Byers M.D. 10/10/2021 9:28 AM Diagnostic Findings Since admission there has been a drop in Hgb from his baseline of around 1 gm, from 13 gm to 12 gm. There has been a drop in Hct from his baseline of around 4%, 38% to 34%. Alycia sifnificant change in vital signs noted. Blood count changes could be dilutional or related to blood loss
[2021-10-10] MEDS ORDERED: SODIUM PHOSPHATE 3 MMOL/1 ML INFUSION IV STA (15:23)
[2021-10-10] MEDS ORDERED: SODIUM PHOSPHATE 30 MMOL in SODIUM CHLORIDE 0.9% 500 ML IV ONE (15:45)
[2021-10-10] MEDS: CEFEPIME 2,000 MG in SYRINGE 0 ML IV SCH (16:35)
[2021-10-10] MEDS: ICU ELECTROLYTE REPLACEMENT PROTOCOL SCH (18:23)
[2021-10-10] MEDS: MONTELUKAST SODIUM 10 MG TABLET PO SCH ×2 (20:09→20:40)
[2021-10-10] MEDS: AZITHROMYCIN 500 MG in DEXTROSE 5% 250 ML IV SCH (21:44)
--- NOTE | 2021-10-10 21:57 | Billing Data ---
Date of Service October 10, 2021 Coding Level of Care Code Critical Care 1st 30-74 mins
[2021-10-11] MEDS: ALBUT/IPRATROP 3MG/0.5MG NEB 3 ML VIAL INH SCH ×4 (00:15→19:50)
[2021-10-11] MEDS: CEFEPIME 2,000 MG in SYRINGE 0 ML IV SCH ×4 (00:24→23:12)
[2021-10-11] MEDS: TUBE FEEDING WATER FLUSH OG SCH ×3 (03:55→10:24)
[2021-10-11] MEDS: PANTOprazole 40 MG in DEXTROSE 5% 100 ML IV SCH ×2 (04:06→08:00)
[2021-10-11 04:27] LABS: iSTAT Allen Test Pass; iSTAT Arterial Blood Gas HCO3 43 meg/L (19-24); iSTAT Arterial Blood Gas pCO2 59 mmHg (35-46); iSTAT Arterial Blood Gas pH 7.48 (7.35-7.45); iSTAT Arterial Blood Gas pO2 64 mmHg (80-95); iSTAT Carbon Dioxide > 40 mmol/L (24-31); iSTAT FiO2 30 %; iSTAT Site R Brachial
[2021-10-11] MEDS: fentaNYL citrate 100 MCG/2 ML VIAL IV PRN (04:59)
[2021-10-11 05:13] LABS: Hematocrit (blood only) 33.1 % (42-52); Hemoglobin 11.2 g/dL (14.0-18.0); Immature Granulocytes # (auto) 0.03 K/uL (0.00-0.02); Immature Granulocytes % (auto) 0.3 %; Lymphocytes # (auto) 0.79 K/uL (1.2-3.4); Lymphocytes % (auto) 6.6 %; Mean Corpuscular Hemoglobin 30.9 pg (25-34); Mean Corpuscular Hgb Conc 33.8 g/dL (32-36); Mean Corpuscular Volume 91.2 fL (80-100); Mean Platelet Volume 9.7 fL (7.4-10.4); Monocytes # (auto) 0.71 K/uL (0.11-0.59); Monocytes % (auto) 5.9 %; Neutrophils # (auto) 10.41 K/uL (1.4-6.5); Neutrophils % (auto) 87.2 %; Platelet Count 290 K/uL (130-400); RDW Coefficient of Variation 12.5 % (11.5-14.5); Red Blood Count 3.63 M/uL (4.7-6.1); White Blood Count 11.94 K/uL (4.8-10.8)
[2021-10-11 05:44] LABS: BUN Creatinine Ratio 26.4 (10-20); Calcium 8.9 mg/dl (8.5-10.1); Creatinine Clr Calc Pharmacy 132.2 ml/min; Est GFR (Non-African American) 122.5 ml/min; Magnesium 2.5 mg/dl (1.7-2.4); Potassium 3.7 mmol/L (3.5-5.1)
[2021-10-11] MEDS: ICU ELECTROLYTE REPLACEMENT PROTOCOL SCH (05:51)
[2021-10-11] MEDS: propofoL 1,000 MG/100 ML VIAL IV SCH (06:03)
[2021-10-11] MEDS: POTASSIUM CHLORIDE / WTR 10 MEQ/100 ML PLCT IV SCH ×4 (06:03→08:59)
[2021-10-11] MEDS ORDERED: VANCOMYCIN TROUGH ONE (07:30)
[2021-10-11] MEDS: methylPREDNISolone 40 MG in SYRINGE 0 ML IV SCH (08:05)
[2021-10-11] MEDS ORDERED: VANCOMYCIN TROUGH STA (08:26)
--- NOTE | 2021-10-11 08:54 | Critical Care Progress Note ---
Date of Service October 11, 2021 Assessment & Plan (1) Acute and chronic respiratory failure: Plan: Reason Critically Ill: 51-year-old male presents to the ICU with acute on chronic hypercapnic and hypoxic respiratory failure requiring emergent intubation likely secondary to COPD exacerbation Neuro - Encephalopathysecondary to hypercapnic respiratory failure and possibly a component of acute hyponatremia. Resolved. Off sedation. Cardiac - HTNwe will discontinue hydrochlorothiazide given hyponatremia. We will start a different agent depending on his blood pressure. Respiratory - Acute on chronic hypercapnic and hypoxic respiratory failureextubated 022. Patient has poor compliance with therapy as an outpatient he should be on NIV therapy and ICS/LABA/LAMA. Follows with outpatient pulmonology at [facility]. Start Performist and budesonide nebulized twice daily. Continue IV steroids and transition to p.o. once able to take p.o. P.o. steroids should be on board for 5 to 7 days. He should be on a noninvasive ventilator at all times while sleeping including upon discharge. GI - Swallow study and then diet if able. Currently on Protonix drip due to suspicion of upper GI bleed. GI consultation appreciated. No indication for EG D at this time. Will need outpatient follow-up most likely. RENAL/LYTES - Replacing electrolytes per protocol. Hyponatremia resolved. Likely SIADH. Possibly related to HCTZ as well. - Foleystrict I's and O's ENDO - No history of diabetes or thyroid disease ICU hyperglycemic protocol HEME - Slight downtrend in hemoglobin. ID - Chest x-ray and CTA without evidence of infiltrates Bio fire negative, Pro-Stephan negative. No leukocytosis or fevers Continue empiric vancomycin, azithromycin and cefepime. LINES/IV ACCESS - Peripheral IVs DVT PROPHYLAXIS - SCDs, chemical prophylaxis on hold Downgrade out of ICU I have personally spent 34 minutes of critical care time in the direct management of this patient. This is a life/limb threatening event. This includes time spent evaluating patient, direct bedside care, chart review, placing orders, interpretation of diagnostic studies, discussion with consultants, patient, and family members, as well as other required patient management activities. This time is exclusive of all separately billable procedures, and teaching time and separate from and in addition to any other critical care service time. Thank you for allowing us to participate in the care of this patient. (2) Metabolic encephalopathy: (3) Hyponatremia: (4) COPD (chronic obstructive pulmonary disease): (5) Tobacco abuse: (6) Centrilobular emphysema: (7) Admitted to intensive care unit: (8) Anxiety: Admission and Anticipated Discharge Date Admission Date: October 09, 2021 Subjective Patient seen and examined. Following commands on spontaneous breathing trial and with sedation weaned off. He was ultimately extubated and is currently on BiPAP. He is using his cell phone. Review of Systems Review of Systems: All systems reviewed & are unremarkable except as noted in HPI & below Physical Exam Constitutional: WD/WN, vitals as above + thin Eyes: PERRL, conjunctivae normal, anicteric sclerae ENMT: external ear and nose normal, oropharynx normal Neck: trachea midline, no thyromegaly Respiratory: Auscultation: + diminished lung sounds and + abnormal I/E ratio; no wheezes Cardiovascular: RRR, no murmur, no edema Gastrointestinal (Abdomen): normal bowel sounds, soft, nontender, no hepatosplenomegaly Musculoskeletal: no cyanosis or clubbing, extremities motor strength 5/5 Skin: no rashes, warm and dry Neurologic: PERRL, EOMI, accommodation nl, no face palsy, no dysarthria Psychiatric: A+Ox3, euthymic affect Results & Data Results & Data ([facility]) Vital Signs (Past 12 Hours) Vital Signs Temp Pulse Pulse Resp BP Pulse Ox Pulse Ox 10/11/21 08:30 36.6 C 114 H 20 117/77 94 10/11/21 08:25 114 H 26 H 96 10/11/21 08:15 36.4 C L 106 H 15 108/66 97 10/11/21 08:00 36.4 C L 98 H 17 113/69 98 10/11/21 07:50 16 10/11/21 07:45 36.3 C L 94 H 20 96/67 L 96 10/11/21 07:34 88 10/11/21 07:30 36.2 C L 87 16 104/66 97 10/11/21 07:15 36.2 C L 93 H 17 93/54 L 96 10/11/21 07:00 36.2 C L 87 16 88/49 L 93 10/11/21 06:30 36.3 C L 89 16 89/47 L 93 10/11/21 06:00 36.3 C L 92 H 14 97/55 L 95 10/11/21 05:00 36.4 C L 93 H 16 115/71 96 10/11/21 04:00 36.4 C L 103 H 16 116/73 92 10/11/21 03:45 92 H 16 95 10/11/21 03:00 36.4 C L 96 H 16 107/69 94 10/11/21 02:00 36.3 C L 97 H 16 110/65 94 10/11/21 01:00 36.5 C 97 H 16 106/59 L 93 10/11/21 00:16 98 H 17 94 10/11/21 00:07 98 H 10/11/21 00:00 36.6 C 97 H 16 104/61 93 10/10/21 23:00 36.6 C 94 H 21 105/58 L 95 10/10/21 22:47 88 17 93 10/10/21 22:00 36.7 C 95 H 15 94/54 L 93 10/10/21 21:09 95 10/10/21 21:00 36.8 C 104 H 20 96/55 L 93 Coding Level of Care Code Critical Care 1st 30-74 mins Diagnoses Acute and chronic respiratory failure J96.20 Metabolic encephalopathy G93.41 Hyponatremia E87.1 COPD (chronic obstructive pulmonary disease) J43.2 COPD type: emphysema Emphysema type: centrilobular Tobacco abuse Z72.0 Centrilobular emphysema J43.2 Admitted to intensive care unit Z78.9 Anxiety F41.9 Time Spent (min) 34 (1) COPD (chronic obstructive pulmonary disease) COPD type: emphysema Emphysema type: centrilobular Qualified Code(s): J43.2 - Centrilobular emphysema
[2021-10-11] MEDS: VANCOMYCIN HCL 1,250 MG in SODIUM CHLORIDE 0.9% 250 ML IV SCH ×3 (08:57→19:30)
[2021-10-11] MEDS ORDERED: MULTI VIT W/MINERALS LIQUID 15 ML UDP NG SCH (09:00)
--- NOTE | 2021-10-11 09:02 | XRay Report ---
XR chest 1V portable HISTORY: Resp failure COMPARISON: Chest 10/10/2021. FINDINGS: Lines and tubes remain unchanged in position. No pneumothorax. Severe emphysema again noted . The heart is normal in size. No pleural effusions. No new focal lung consolidations. IMPRESSION: 1. Satisfactory support line placement. 2. Severe emphysema again noted. ACT 112: Negative or not required by law. Electronically signed by: Emiliano Byers M.D. 10/11/2021 9:01 AM
[2021-10-11] MEDS: FLUTICASONE/VILANTEROL 200/25MCG 14 PUFFS/INHALER INH SCH (09:43)
[2021-10-11] MEDS ORDERED: Nursing to Pharmacy Communication SCH (10:15)
[2021-10-11] MEDS: FORMOTEROL 20 MCG/2 ML VIAL NEB SCH ×2 (10:23→19:50)
[2021-10-11] MEDS: BUDESONIDE 0.25 MG/2 ML VIAL (PULMICORT) NEB SCH ×2 (10:23→19:49)
--- NOTE | 2021-10-11 10:30 | Gastroenterology Progress Note ---
Date of Service October 11, 2021 Assessment & Plan (1) Upper GI bleed: Plan: UGI bleeding has remained a minor problem, not destabilizing. It may be due to suction trauma or stress related inflammation, erosion, ulceration. Hgb has drifted downward by 2 gm, from 13 gm to 11 gm, and Hct from around 38% to around 33%. Blood loss has not been destabilizing, endoscopic intervention not indicated at this time. Recommend advance diet, switch PPI to PO administration and continue for 6 weeks, avoid aspirin and NSAIDs and oral prednisone, continue to monitor H/H while he is in the hospital. GI service will "sign off" and intervene again as requested by the primary care team Admission and Anticipated Discharge Date Admission Date: October 09, 2021 Supervising Physician Co-Signing Physician Notes As the consulting physician I have spent 45 minutes of discrete time performing the activities of this consultation which include but are not limited to: 1. Review of past and current medical records 2. Patient interview, physical examination, discussion of the assessment and plan of care with the patient and family if present 3. Documentation of the consultation in the medical record including orders and discussion of the plan of care with members of the healthcare team Subjective Mr. Geronimo seen in follow up of UGI bleed, noted in OG aspirate yesterday. Overnight and this morning, only minimal OG drainage noted, and no melena or hematochezia, AM H/H reveals decline of Hgb from 12 gm to 11 gm, no significant decline in Hct. This morning he was extubated, OG tube removed, he is fully awake, oriented, conversant. He denies any previous history of GI bleeding, peptic ulcer disease or any other digestive illness. Review of Systems Review of Systems: Other ROS limited to digestive system and is negative, he denied dysphagia, odynophagia, nausea, vomiting, abdominal pain Physical Exam Constitutional: WD/WN, vitals as above Gastrointestinal (Abdomen): normal bowel sounds, soft, nontender, no hepatosplenomegaly Neurologic: No focal neurologic signs Psychiatric: Orientation: alert and oriented x 3 Apperance: appeared stated age Eye Contact: good eye contact Motor Behavior: no abnormal motor movements Mood: + irritable mood He is irritated by the face mask, but not in distress Results & Data ([facility]) Vital Signs (Past 12 Hours) Vital Signs Temp Pulse Pulse Resp BP Pulse Ox Pulse Ox 10/11/21 10:24 113 H 20 96 10/11/21 09:31 36.8 C 103 H 19 113/67 94 10/11/21 09:30 36.8 C 115 H 19 95 10/11/21 09:15 36.8 C 106 H 18 110/70 98 10/11/21 09:00 36.8 C 108 H 20 101/71 96 10/11/21 08:45 36.7 C 107 H 20 110/70 96 10/11/21 08:30 36.6 C 114 H 20 117/77 94 97 10/11/21 08:25 114 H 26 H 96 10/11/21 08:15 36.4 C L 106 H 15 108/66 97 10/11/21 08:00 36.4 C L 98 H 17 113/69 98 10/11/21 07:50 16 10/11/21 07:45 36.3 C L 94 H 20 96/67 L 96 10/11/21 07:34 88 10/11/21 07:30 36.2 C L 87 16 104/66 97 10/11/21 07:15 36.2 C L 93 H 17 93/54 L 96 10/11/21 07:00 36.2 C L 87 16 88/49 L 93 10/11/21 06:30 36.3 C L 89 16 89/47 L 93 10/11/21 06:00 36.3 C L 92 H 14 97/55 L 95 10/11/21 05:00 36.4 C L 93 H 16 115/71 96 10/11/21 04:00 36.4 C L 103 H 16 116/73 92 10/11/21 03:45 92 H 16 95 10/11/21 03:00 36.4 C L 96 H 16 107/69 94 10/11/21 02:00 36.3 C L 97 H 16 110/65 94 10/11/21 01:00 36.5 C 97 H 16 106/59 L 93 10/11/21 00:16 98 H 17 94 10/11/21 00:07 98 H 10/11/21 00:00 36.6 C 97 H 16 104/61 93 10/10/21 23:00 36.6 C 94 H 21 105/58 L 95 10/10/21 22:47 88 17 93 Laboratory Results 10/11/21 10/11/21 10/11/21 Range/Units 08:33 07:21 04:40 WBC (4.8-10.8) K/uL RBC (4.7-6.1) M/uL Hgb (14.0-18.0) g/dL Hct (42-52) % MCV (80-100) fL MCH (25-34) pg MCHC (32-36) g/dL RDW Std Deviation (36.4-46.3) fL RDW Coeff of Abner (11.5-14.5) % Plt Count (130-400) K/uL MPV (7.4-10.4) fL Immature Gran % (Auto) % Neut % (Auto) % Lymph % (Auto) % [place] % (Auto) % Eos % (Auto) % Baso % (Auto) % Neut # (Auto) (1.4-6.5) K/uL Lymph # (Auto) (1.2-3.4) K/uL [place] # (Auto) (0.11-0.59) K/uL Eos # (Auto) (0-0.5) K/uL Baso # (Auto) (0-0.2) K/uL Immature Gran # (Auto) (0.00-0.02) K/uL Sample Site POC pH (7.35-7.45) POC pCO2 (35-46) mmHg POC pO2 (80-95) mmHg POC HCO3 (19-24) tj/L POC Total CO2 (24-31) mmol/L POC Base Excess (-9-1.8) tj/L POC ABG O2 Sat (90-95) % Terrell Test O2 Delivery Device POC O2 Rate Minute Ventilation POC FiO2 % Tidal Volume PEEP Sodium 135 L (136-145) mmol/L Potassium 3.7 (3.5-5.1) mmol/L Chloride 93 L (98-107) mmol/L Carbon Dioxide 40 H (21-32) mmol/L Anion Gap 2 L (3-11) BUN 14 (6-23) mg/dl Creatinine 0.53 L (0.6-1.4) mg/dl Est Cr Clr Drug Dosing 132.2 ml/min Est GFR ( Amer) 142.0 ml/min Est GFR (Non-Af Amer) 122.5 ml/min BUN/Creatinine Ratio 26.4 H (10-20) Glucose 142 H (70-99(Fasting)) mg/dl POC Glucose (70-99) mg/dl Lactate (0.4-2.0) mmol/L Calcium 8.9 (8.5-10.1) mg/dl Phosphorus 4.0 D (2.5-4.9) mg/dl Magnesium 2.5 H (1.7-2.4) mg/dl Procalcitonin (0-0.5) ng/ml Urine Osmolality (500-800) mOsm/kg Ur Random Sodium mmol/L Vancomycin Trough 11.3 (10-20) mcg/ml Random Vancomycin 10.1 (10-20) mcg/ml 10/11/21 10/11/21 10/11/21 Range/Units 04:40 04:40 04:13 WBC 11.94 H (4.8-10.8) K/uL RBC 3.63 L (4.7-6.1) M/uL Hgb 11.2 L (14.0-18.0) g/dL Hct 33.1 L (42-52) % MCV 91.2 (80-100) fL MCH 30.9 (25-34) pg MCHC 33.8 (32-36) g/dL RDW Std Deviation 42.0 (36.4-46.3) fL RDW Coeff of Abner 12.5 (11.5-14.5) % Plt Count 290 (130-400) K/uL MPV 9.7 (7.4-10.4) fL Immature Gran % (Auto) 0.3 % Neut % (Auto) 87.2 % Lymph % (Auto) 6.6 % [place] % (Auto) 5.9 % Eos % (Auto) 0.0 % Baso % (Auto) 0.0 % Neut # (Auto) 10.41 H (1.4-6.5) K/uL Lymph # (Auto) 0.79 L (1.2-3.4) K/uL [place] # (Auto) 0.71 H (0.11-0.59) K/uL Eos # (Auto) 0.00 (0-0.5) K/uL Baso # (Auto) 0.00 (0-0.2) K/uL Immature Gran # (Auto) 0.03 H (0.00-0.02) K/uL Sample Site R Brachial POC pH 7.48 H (7.35-7.45) POC pCO2 59 H (35-46) mmHg POC pO2 64 L (80-95) mmHg POC HCO3 43 H (19-24) tj/L POC Total CO2 > 40 H* (24-31) mmol/L POC Base Excess 20.0 H (-9-1.8) tj/L POC ABG O2 Sat 93.0 (90-95) % Terrell Test Pass O2 Delivery Device Ventilator POC O2 Rate 16 Minute Ventilation 6 POC FiO2 30 % Tidal Volume 380 PEEP 5 Sodium (136-145) mmol/L Potassium (3.5-5.1) mmol/L Chloride (98-107) mmol/L Carbon Dioxide (21-32) mmol/L Anion Gap (3-11) BUN (6-23) mg/dl Creatinine (0.6-1.4) mg/dl Est Cr Clr Drug Dosing ml/min Est GFR ( Amer) ml/min Est GFR (Non-Af Amer) ml/min BUN/Creatinine Ratio (10-20) Glucose (70-99(Fasting)) mg/dl POC Glucose (70-99) mg/dl Lactate (0.4-2.0) mmol/L Calcium (8.5-10.1) mg/dl Phosphorus (2.5-4.9) mg/dl Magnesium (1.7-2.4) mg/dl Procalcitonin < 0.05 (0-0.5) ng/ml Urine Osmolality (500-800) mOsm/kg Ur Random Sodium mmol/L Vancomycin Trough (10-20) mcg/ml Random Vancomycin (10-20) mcg/ml 10/11/21 10/10/21 10/10/21 Range/Units 03:58 20:31 20:06 WBC (4.8-10.8) K/uL RBC (4.7-6.1) M/uL Hgb (14.0-18.0) g/dL Hct (42-52) % MCV (80-100) fL MCH (25-34) pg MCHC (32-36) g/dL RDW Std Deviation (36.4-46.3) fL RDW Coeff of Abner (11.5-14.5) % Plt Count (130-400) K/uL MPV (7.4-10.4) fL Immature Gran % (Auto) % Neut % (Auto) % Lymph % (Auto) % [place] % (Auto) % Eos % (Auto) % Baso % (Auto) % Neut # (Auto) (1.4-6.5) K/uL Lymph # (Auto) (1.2-3.4) K/uL [place] # (Auto) (0.11-0.59) K/uL Eos # (Auto) (0-0.5) K/uL Baso # (Auto) (0-0.2) K/uL Immature Gran # (Auto) (0.00-0.02) K/uL Sample Site POC pH (7.35-7.45) POC pCO2 (35-46) mmHg POC pO2 (80-95) mmHg POC HCO3 (19-24) tj/L POC Total CO2 (24-31) mmol/L POC Base Excess (-9-1.8) tj/L POC ABG O2 Sat (90-95) % Terrell Test O2 Delivery Device POC O2 Rate Minute Ventilation POC FiO2 % Tidal Volume PEEP Sodium 132 L (136-145) mmol/L Potassium (3.5-5.1) mmol/L Chloride (98-107) mmol/L Carbon Dioxide (21-32) mmol/L Anion Gap (3-11) BUN (6-23) mg/dl Creatinine (0.6-1.4) mg/dl Est Cr Clr Drug Dosing ml/min Est GFR ( Amer) ml/min Est GFR (Non-Af Amer) ml/min BUN/Creatinine Ratio (10-20) Glucose (70-99(Fasting)) mg/dl POC Glucose 172 H 182 H (70-99) mg/dl Lactate (0.4-2.0) mmol/L Calcium (8.5-10.1) mg/dl Phosphorus (2.5-4.9) mg/dl Magnesium (1.7-2.4) mg/dl Procalcitonin (0-0.5) ng/ml Urine Osmolality (500-800) mOsm/kg Ur Random Sodium mmol/L Vancomycin Trough (10-20) mcg/ml Random Vancomycin (10-20) mcg/ml 10/10/21 10/10/21 10/10/21 Range/Units 16:39 15:16 12:12 WBC (4.8-10.8) K/uL RBC (4.7-6.1) M/uL Hgb (14.0-18.0) g/dL Hct (42-52) % MCV (80-100) fL MCH (25-34) pg MCHC (32-36) g/dL RDW Std Deviation (36.4-46.3) fL RDW Coeff of Abner (11.5-14.5) % Plt Count (130-400) K/uL MPV (7.4-10.4) fL Immature Gran % (Auto) % Neut % (Auto) % Lymph % (Auto) % [place] % (Auto) % Eos % (Auto) % Baso % (Auto) % Neut # (Auto) (1.4-6.5) K/uL Lymph # (Auto) (1.2-3.4) K/uL [place] # (Auto) (0.11-0.59) K/uL Eos # (Auto) (0-0.5) K/uL Baso # (Auto) (0-0.2) K/uL Immature Gran # (Auto) (0.00-0.02) K/uL Sample Site POC pH (7.35-7.45) POC pCO2 (35-46) mmHg POC pO2 (80-95) mmHg POC HCO3 (19-24) tj/L POC Total CO2 (24-31) mmol/L POC Base Excess (-9-1.8) tj/L POC ABG O2 Sat (90-95) % Terrell Test O2 Delivery Device POC O2 Rate Minute Ventilation POC FiO2 % Tidal Volume PEEP Sodium 130 L (136-145) mmol/L Potassium 3.7 (3.5-5.1) mmol/L Chloride 88 L (98-107) mmol/L Carbon Dioxide 40 H (21-32) mmol/L Anion Gap 2 L (3-11) BUN 14 (6-23) mg/dl Creatinine 0.54 L (0.6-1.4) mg/dl Est Cr Clr Drug Dosing 129.8 ml/min Est GFR ( Amer) 140.9 ml/min Est GFR (Non-Af Amer) 121.6 ml/min BUN/Creatinine Ratio 25.9 H (10-20) Glucose 171 H (70-99(Fasting)) mg/dl POC Glucose 180 H (70-99) mg/dl Lactate 0.9 (0.4-2.0) mmol/L Calcium 9.0 (8.5-10.1) mg/dl Phosphorus (2.5-4.9) mg/dl Magnesium (1.7-2.4) mg/dl Procalcitonin (0-0.5) ng/ml Urine Osmolality (500-800) mOsm/kg Ur Random Sodium mmol/L Vancomycin Trough (10-20) mcg/ml Random Vancomycin (10-20) mcg/ml 10/10/21 10/10/21 10/10/21 Range/Units 12:12 11:15 10:52 WBC 8.20 (4.8-10.8) K/uL RBC 3.84 L (4.7-6.1) M/uL Hgb 11.9 L (14.0-18.0) g/dL Hct 34.1 L (42-52) % MCV 88.8 (80-100) fL MCH 31.0 (25-34) pg MCHC 34.9 (32-36) g/dL RDW Std Deviation 39.4 (36.4-46.3) fL RDW Coeff of Abner 12.3 (11.5-14.5) % Plt Count 284 (130-400) K/uL MPV 9.2 (7.4-10.4) fL Immature Gran % (Auto) % Neut % (Auto) % Lymph % (Auto) % [place] % (Auto) % Eos % (Auto) % Baso % (Auto) % Neut # (Auto) (1.4-6.5) K/uL Lymph # (Auto) (1.2-3.4) K/uL [place] # (Auto) (0.11-0.59) K/uL Eos # (Auto) (0-0.5) K/uL Baso # (Auto) (0-0.2) K/uL Immature Gran # (Auto) (0.00-0.02) K/uL Sample Site POC pH (7.35-7.45) POC pCO2 (35-46) mmHg POC pO2 (80-95) mmHg POC HCO3 (19-24) tj/L POC Total CO2 (24-31) mmol/L POC Base Excess (-9-1.8) tj/L POC ABG O2 Sat (90-95) % Terrell Test O2 Delivery Device POC O2 Rate Minute Ventilation POC FiO2 % Tidal Volume PEEP Sodium (136-145) mmol/L Potassium (3.5-5.1) mmol/L Chloride (98-107) mmol/L Carbon Dioxide (21-32) mmol/L Anion Gap (3-11) BUN (6-23) mg/dl Creatinine (0.6-1.4) mg/dl Est Cr Clr Drug Dosing ml/min Est GFR ( Amer) ml/min Est GFR (Non-Af Amer) ml/min BUN/Creatinine Ratio (10-20) Glucose (70-99(Fasting)) mg/dl POC Glucose 205 H (70-99) mg/dl Lactate (0.4-2.0) mmol/L Calcium (8.5-10.1) mg/dl Phosphorus (2.5-4.9) mg/dl Magnesium (1.7-2.4) mg/dl Procalcitonin (0-0.5) ng/ml Urine Osmolality (500-800) mOsm/kg Ur Random Sodium < 10 mmol/L Vancomycin Trough (10-20) mcg/ml Random Vancomycin (10-20) mcg/ml 10/10/21 Range/Units 10:52 WBC (4.8-10.8) K/uL RBC (4.7-6.1) M/uL Hgb (14.0-18.0) g/dL Hct (42-52) % MCV (80-100) fL MCH (25-34) pg MCHC (32-36) g/dL RDW Std Deviation (36.4-46.3) fL RDW Coeff of Abner (11.5-14.5) % Plt Count (130-400) K/uL MPV (7.4-10.4) fL Immature Gran % (Auto) % Neut % (Auto) % Lymph % (Auto) % [place] % (Auto) % Eos % (Auto) % Baso % (Auto) % Neut # (Auto) (1.4-6.5) K/uL Lymph # (Auto) (1.2-3.4) K/uL [place] # (Auto) (0.11-0.59) K/uL Eos # (Auto) (0-0.5) K/uL Baso # (Auto) (0-0.2) K/uL Immature Gran # (Auto) (0.00-0.02) K/uL Sample Site POC pH (7.35-7.45) POC pCO2 (35-46) mmHg POC pO2 (80-95) mmHg POC HCO3 (19-24) tj/L POC Total CO2 (24-31) mmol/L POC Base Excess (-9-1.8) tj/L POC ABG O2 Sat (90-95) % Terrell Test O2 Delivery Device POC O2 Rate Minute Ventilation POC FiO2 % Tidal Volume PEEP Sodium (136-145) mmol/L Potassium (3.5-5.1) mmol/L Chloride (98-107) mmol/L Carbon Dioxide (21-32) mmol/L Anion Gap (3-11) BUN (6-23) mg/dl Creatinine (0.6-1.4) mg/dl Est Cr Clr Drug Dosing ml/min Est GFR ( Amer) ml/min Est GFR (Non-Af Amer) ml/min BUN/Creatinine Ratio (10-20) Glucose (70-99(Fasting)) mg/dl POC Glucose (70-99) mg/dl Lactate (0.4-2.0) mmol/L Calcium (8.5-10.1) mg/dl Phosphorus (2.5-4.9) mg/dl Magnesium (1.7-2.4) mg/dl Procalcitonin (0-0.5) ng/ml Urine Osmolality 112 L (500-800) mOsm/kg Ur Random Sodium mmol/L Vancomycin Trough (10-20) mcg/ml Random Vancomycin (10-20) mcg/ml
--- NOTE | 2021-10-11 10:36 | Electrocardiogram Report ---
Test Reason : Blood Pressure : / mmHG Vent. Rate : 094 BPM Atrial Rate : 094 BPM P-R Int : 108 ms QRS Dur : 090 ms QT Int : 374 ms P-R-T Axes : 089 080 081 degrees QTc Int : 467 ms Sinus rhythm with short OH Nonspecific T wave abnormality Abnormal ECG When compared with ECG of 10-OCT-2021 05:12, No significant change was found Confirmed by Matt Garcia [id number]) on 10/11/2021 10:35:54 AM Referred By: REFERRED SELF Confirmed By:Matt Garcia
--- NOTE | 2021-10-11 11:27 | Hospitalist Progress Note ---
Date of Service October 11, 2021 Assessment & Plan (1) COPD exacerbation: Plan: With worse respiratory failure despite BiPap that resulted in intubation on 10/09. Discussed with ICU provider. Per provider, he was recently evaluated for lung transplant at [facility] and was rejected for continued tobacco abuse and poor social support. - Presently ventilated per ICU team - Plan for extubation today. - Continue antibiotics, steroids, and breathing treatments. -> Extubated on 10/11 - Now on BiPap. (2) Atrial fibrillation with RVR: Plan: Presently tachycardic, but in sinus - Monitor (3) Hypertension: Plan: BP was 115/70 today. - Holding home HCTZ as he was hypotensive while intubated. - Monitor (4) Anxiety: Plan: No anxiety at this time due to intubation and sedation. - Monitor (5) DVT prophylaxis: Plan: SCDs - Per ICU team GI ppx - PPI IV Admission and Anticipated Discharge Date Admission Date: October 09, 2021 Subjective Intubated, but alert. Review of Systems Review of Systems: Unobtainable due to endotracheal tube Physical Exam Constitutional: WD/WN, vitals as above Eyes: EOM intact bilaterally; no conjunctival abnormality ENMT: external ear and nose normal, oropharynx normal Neck: trachea midline, no thyromegaly normal visual inspection Respiratory: + labored breathing; no respiratory distress Auscultation: + rhonchi Cardiovascular: Rate/Rhythm: regular rhythm and + tachycardic Gastrointestinal (Abdomen): Inspection/Auscultation: abdomen normal to inspection; abdomen not distended Skin: no rashes, warm and dry Neurologic: moves all extremities and awake Psychiatric: Orientation: alert; + not oriented x 3 Results & Data Results & Data ([facility]) Vital Signs (Past 12 Hours) Vital Signs Temp Pulse Pulse Resp BP Pulse Ox Pulse Ox 10/11/21 10:24 113 H 20 96 10/11/21 09:31 36.8 C 103 H 19 113/67 94 10/11/21 09:30 36.8 C 115 H 19 95 10/11/21 09:15 36.8 C 106 H 18 110/70 98 10/11/21 09:00 36.8 C 108 H 20 101/71 96 10/11/21 08:45 36.7 C 107 H 20 110/70 96 10/11/21 08:30 36.6 C 114 H 20 117/77 94 97 10/11/21 08:25 114 H 26 H 96 10/11/21 08:15 36.4 C L 106 H 15 108/66 97 10/11/21 08:00 36.4 C L 98 H 17 113/69 98 10/11/21 07:50 16 10/11/21 07:45 36.3 C L 94 H 20 96/67 L 96 10/11/21 07:34 88 10/11/21 07:30 36.2 C L 87 16 104/66 97 10/11/21 07:15 36.2 C L 93 H 17 93/54 L 96 10/11/21 07:00 36.2 C L 87 16 88/49 L 93 10/11/21 06:30 36.3 C L 89 16 89/47 L 93 10/11/21 06:00 36.3 C L 92 H 14 97/55 L 95 10/11/21 05:00 36.4 C L 93 H 16 115/71 96 10/11/21 04:00 36.4 C L 103 H 16 116/73 92 10/11/21 03:45 92 H 16 95 10/11/21 03:00 36.4 C L 96 H 16 107/69 94 10/11/21 02:00 36.3 C L 97 H 16 110/65 94 10/11/21 01:00 36.5 C 97 H 16 106/59 L 93 10/11/21 00:16 98 H 17 94 10/11/21 00:07 98 H 10/11/21 00:00 36.6 C 97 H 16 104/61 93 PG Care Time/CCT Total # of Minutes Spent Total Time Spent with Patient: Total time spent is greater than 50% in coordination of care (as documented) at patient's floor/unit and/or counseling patient: Coding Level of Care Code 22831 Subseq Hosp Care Lvl 3 Diagnoses COPD exacerbation J44.1 Atrial fibrillation with RVR I48.91 Anxiety F41.9 DVT prophylaxis Z29.9 Hypertension I10
--- NOTE | 2021-10-11 11:36 | Pharmacy Report ---
Pharmacy Vanc AUC Short Note - Date of Service October 11, 2021 - Assessment & Plan Assessment * 51 year old M receiving vancomycin, cefepime, and azithromycin for treatment of acute hypoxic hypercapnic respiratory failure, COPD exacerbation * Pertinent microbiologic data includes: Positive MRSA Nasal Swab and sputum with Staph species * WBC increasing today. However, procalcitonin remains negative. Patient was extubated this AM. Norepinephrine titrated to off. * SCr stable and at baseline. Vancomycin * Maintenance dose: 1250 mg (~22 mg/kg) IV every 12 hours * Target AUC/BOZENA of 400-600 mg/L.hr * Level this AM of 10.1 mcg/mL. Based on this, the current regimen is predicted to achieve an AUC of 444 mg/L/hr with an associated 6% risk of nephrotoxicity * Random levels may be used instead of trough levels with current AUC software. Repeat level in 48 hours. This will be a random level (not a trough), therefore elevation is not necessarily a cause for alarm Plan * Continue vancomycin 1250 mg IV q12h * Random level 10/13 w AM labs Pharmacy will continue to follow and will adjust dose/frequency as necessary. Thank you.
[2021-10-11] MEDS: PANTOprazole 40 MG TAB PO SCH ×2 (11:50→20:46)
[2021-10-11] MEDS: MONTELUKAST SODIUM 10 MG TABLET PO SCH (20:47)
[2021-10-11] MEDS: AZITHROMYCIN 500 MG in DEXTROSE 5% 250 ML IV SCH (21:02)
[2021-10-12] MEDS: ALBUT/IPRATROP 3MG/0.5MG NEB 3 ML VIAL INH SCH ×4 (00:06→20:04)
[2021-10-12 05:17] LABS: Hematocrit (blood only) 36.3 % (42-52); Hemoglobin 11.7 g/dL (14.0-18.0); Mean Corpuscular Hgb Conc 32.2 g/dL (32-36); Platelet Count 280 K/uL (130-400); RDW Coefficient of Variation 13.3 % (11.5-14.5); RDW Standard Deviation 46.1 fL (36.4-46.3); Red Blood Count 3.78 M/uL (4.7-6.1); White Blood Count 15.56 K/uL (4.8-10.8)
[2021-10-12 05:29] LABS: Immature Granulocytes # (auto) 0.04 K/uL (0.00-0.02); Immature Granulocytes % (auto) 0.3 %; Lymphocytes # (auto) 0.83 K/uL (1.2-3.4); Lymphocytes % (auto) 5.3 %; Monocytes % (auto) 5.8 %; Neutrophils # (auto) 13.79 K/uL (1.4-6.5); Neutrophils % (auto) 88.6 %
[2021-10-12 05:40] LABS: BUN Creatinine Ratio 42.6 (10-20); Calcium 8.8 mg/dl (8.5-10.1); Creatinine Clr Calc Pharmacy 129.8 ml/min; Est GFR (African American) 140.9 ml/min; Est GFR (Non-African American) 121.6 ml/min; Magnesium 2.3 mg/dl (1.7-2.4); Phosphorus 2.8 mg/dl (2.5-4.9); Potassium 4.5 mmol/L (3.5-5.1)
[2021-10-12] MEDS: BUDESONIDE 0.25 MG/2 ML VIAL (PULMICORT) NEB SCH ×2 (07:16→20:03)
[2021-10-12] MEDS: FORMOTEROL 20 MCG/2 ML VIAL NEB SCH ×2 (07:16→20:04)
[2021-10-12] MEDS: PANTOprazole 40 MG TAB PO SCH ×2 (08:50→21:05)
[2021-10-12] MEDS: CEFEPIME 2,000 MG in SYRINGE 0 ML IV SCH (08:52)
[2021-10-12] MEDS: methylPREDNISolone 40 MG in SYRINGE 0 ML IV SCH (08:53)
[2021-10-12] MEDS: VANCOMYCIN HCL 1,250 MG in SODIUM CHLORIDE 0.9% 250 ML IV SCH (08:53)
[2021-10-12 10:03] LABS: iSTAT Arterial Blood Gas HCO3 46 meg/L (19-24); iSTAT Arterial Blood Gas pCO2 123 mmHg (35-46); iSTAT Arterial Blood Gas pH 7.18 (7.35-7.45); iSTAT Arterial Blood Gas pO2 23 mmHg (80-95); iSTAT Carbon Dioxide 50 mmol/L (24-31)
--- NOTE | 2021-10-12 11:39 | Hospitalist Progress Note ---
Date of Service October 12, 2021 Assessment & Plan (1) COPD exacerbation: Plan: With worse respiratory failure despite BiPap that resulted in intubation on 10/09. Discussed with ICU provider. Per provider, he was recently evaluated for lung transplant at [facility] and was rejected for continued tobacco abuse and poor social support. - Presently ventilated per ICU team - Plan for extubation today. - Continue antibiotics, steroids, and breathing treatments. -> Moved to oral abx given the low concern for infection (low procal, no fevers, clear CXR). -> Extubated on 10/11 - Working with BiPap 2-3 hours at a time. (2) Upper GI bleed: Plan: Concern for GI bleed from NG trauma or possible gastritis. Followed by GI who counseled conservative measures. - PPI PO BID - Hold NSAIDs; minimize oral steroids. - O/p f/u (3) Atrial fibrillation with RVR: Plan: Presently tachycardic, but in sinus - Monitor (4) Hypertension: Plan: BP was 150/80 today. - Holding home HCTZ as he was hypotensive while intubated. - Monitor (5) Anxiety: Plan: No anxiety at this time. - Monitor (6) DVT prophylaxis: Plan: SCDs - Hold heparin for GI bleed GI ppx - PPI PO Admission and Anticipated Discharge Date Admission Date: October 09, 2021 Subjective Pleasant today. Breathing still not great, but better. Reports no fevers/chills, chest pain, abdominal pain, nausea, or vomiting. Physical Exam Constitutional: WD/WN, vitals as above Eyes: EOM intact bilaterally; no conjunctival abnormality ENMT: external ear and nose normal, oropharynx normal Neck: trachea midline, no thyromegaly normal visual inspection Respiratory: + labored breathing and + prolonged expiratory phase; no respiratory distress Auscultation: + diminished lung sounds and + wheezes (Faint) Cardiovascular: Rate/Rhythm: regular rhythm and + tachycardic Gastrointestinal (Abdomen): Inspection/Auscultation: abdomen normal to inspection; abdomen not distended Skin: no rashes, warm and dry Neurologic: moves all extremities and awake Psychiatric: Orientation: alert; + not oriented x 3 Results & Data Results & Data ([facility]) Vital Signs (Past 12 Hours) Vital Signs Temp Pulse Resp BP BP Pulse Ox 10/12/21 11:26 36.4 C L 110 H 24 146/80 H 93 10/12/21 07:17 105 H 14 92 10/12/21 04:02 37.1 C 112 H 20 119/73 94 10/12/21 00:10 95 PG Care Time/CCT Total # of Minutes Spent Total Time Spent with Patient: Total time spent is greater than 50% in coordination of care (as documented) at patient's floor/unit and/or counseling patient: Coding Level of Care Code 15297 Subseq Hosp Care Lvl 3 Diagnoses COPD exacerbation J44.1 Atrial fibrillation with RVR I48.91 Hypertension I10 Anxiety F41.9 DVT prophylaxis Z29.9 Upper GI bleed K92.2
--- NOTE | 2021-10-12 17:18 | Gastroenterology Progress Note ---
Date of Service October 12, 2021 Assessment & Plan (1) Upper GI bleed: Plan: No drop in H/H over the past 24 hours, and no overt signs of any bleeding Plan: Recommend no change in plan of care for UGI bleeding. Continue monitoring and BID PO PPI, avoid aspirin, NSAIDs, and minimize oral steroids. Endoscopy is not indicated, potential risk exceeds potential benefit at this time. GI service will round on Mr. Geronimo as requested by the primary care team Admission and Anticipated Discharge Date Admission Date: October 09, 2021 Supervising Physician Co-Signing Physician Notes As a consulting physician I have spent 20 minutes of discrete time performing the activities of this consultation which include but are not limited to: 1. Review of past and current medical records 2. Patient interview, physical examination, discussion of the assessment and plan of care with the patient and family if present 3. Documentation of the consultation in the medical record including orders and discussion of the plan of care with members of the healthcare team Subjective Mr. Geronimo seen on rounds this afternoon. He denies nausea, vomiting, hematemesis, abdominal pain, melena, hematochezia, no symptoms refferable to the GI tract Review of Systems Review of Systems: No other systems reviewed with the patient Physical Exam Constitutional: Appears chronically ill, and dyspneic at rest Eyes: not icteric Respiratory: dyspnea and tachypnea Gastrointestinal (Abdomen): The abdomen is flat, soft, nontender, no guarding, no organomegaly or masses, hypoactive normal bowel sounds noted Musculoskeletal: No dependent edema, no cyanosis Skin: No jaundice or pallor Neurologic: Awake, alert oriented, no focal neurologic signs Psychiatric: Affect: euthymic affect and mood congruent with affect Results & Data ([facility]) Vital Signs (Past 12 Hours) Vital Signs Temp Pulse Pulse Resp BP Pulse Ox 10/12/21 15:16 104 H 10/12/21 14:57 37.1 C 103 H 18 151/82 H 95 10/12/21 14:29 109 H 10/12/21 14:15 36.9 C 106 H 20 141/76 H 96 10/12/21 12:30 108 H 20 94 10/12/21 11:26 36.4 C L 110 H 24 146/80 H 93 10/12/21 07:17 105 H 14 92 Laboratory Results 10/12/21 10/12/21 10/12/21 Range/Units 07:33 04:35 04:35 WBC 15.56 H (4.8-10.8) K/uL RBC 3.78 L (4.7-6.1) M/uL Hgb 11.7 L (14.0-18.0) g/dL Hct 36.3 L (42-52) % MCV 96.0 D (80-100) fL MCH 31.0 (25-34) pg MCHC 32.2 (32-36) g/dL RDW Std Deviation 46.1 (36.4-46.3) fL RDW Coeff of Abner 13.3 (11.5-14.5) % Plt Count 280 (130-400) K/uL MPV 10.0 (7.4-10.4) fL Immature Gran % (Auto) 0.3 % Neut % (Auto) 88.6 % Lymph % (Auto) 5.3 % Floyd % (Auto) 5.8 % Eos % (Auto) 0.0 % Baso % (Auto) 0.0 % Neut # (Auto) 13.79 H (1.4-6.5) K/uL Lymph # (Auto) 0.83 L (1.2-3.4) K/uL Floyd # (Auto) 0.90 H (0.11-0.59) K/uL Eos # (Auto) 0.00 (0-0.5) K/uL Baso # (Auto) 0.00 (0-0.2) K/uL Immature Gran # (Auto) 0.04 H (0.00-0.02) K/uL POC pH (7.35-7.45) POC pCO2 (35-46) mmHg POC pO2 (80-95) mmHg POC HCO3 (19-24) tj/L POC Total CO2 (24-31) mmol/L POC Base Excess (-9-1.8) tj/L POC ABG O2 Sat (90-95) % Sodium 139 (136-145) mmol/L Potassium 4.5 D (3.5-5.1) mmol/L Chloride 96 L (98-107) mmol/L Carbon Dioxide 40 H (21-32) mmol/L Anion Gap 3 (3-11) BUN 23 (6-23) mg/dl Creatinine 0.54 L (0.6-1.4) mg/dl Est Cr Clr Drug Dosing 129.8 ml/min Est GFR ( Amer) 140.9 ml/min Est GFR (Non-Af Amer) 121.6 ml/min BUN/Creatinine Ratio 42.6 H (10-20) Glucose 117 H (70-99(Fasting)) mg/dl Calcium 8.8 (8.5-10.1) mg/dl Phosphorus 2.8 D (2.5-4.9) mg/dl Magnesium 2.3 (1.7-2.4) mg/dl Procalcitonin < 0.05 (0-0.5) ng/ml 10/09/21 Range/Units 18:39 WBC (4.8-10.8) K/uL RBC (4.7-6.1) M/uL Hgb (14.0-18.0) g/dL Hct (42-52) % MCV (80-100) fL MCH (25-34) pg MCHC (32-36) g/dL RDW Std Deviation (36.4-46.3) fL RDW Coeff of Abner (11.5-14.5) % Plt Count (130-400) K/uL MPV (7.4-10.4) fL Immature Gran % (Auto) % Neut % (Auto) % Lymph % (Auto) % Floyd % (Auto) % Eos % (Auto) % Baso % (Auto) % Neut # (Auto) (1.4-6.5) K/uL Lymph # (Auto) (1.2-3.4) K/uL Floyd # (Auto) (0.11-0.59) K/uL Eos # (Auto) (0-0.5) K/uL Baso # (Auto) (0-0.2) K/uL Immature Gran # (Auto) (0.00-0.02) K/uL POC pH 7.18 L* (7.35-7.45) POC pCO2 123 H (35-46) mmHg POC pO2 23 L (80-95) mmHg POC HCO3 46 H (19-24) tj/L POC Total CO2 50 H* (24-31) mmol/L POC Base Excess 18.0 H (-9-1.8) tj/L POC ABG O2 Sat 25.0 L (90-95) % Sodium (136-145) mmol/L Potassium (3.5-5.1) mmol/L Chloride (98-107) mmol/L Carbon Dioxide (21-32) mmol/L Anion Gap (3-11) BUN (6-23) mg/dl Creatinine (0.6-1.4) mg/dl Est Cr Clr Drug Dosing ml/min Est GFR ( Amer) ml/min Est GFR (Non-Af Amer) ml/min BUN/Creatinine Ratio (10-20) Glucose (70-99(Fasting)) mg/dl Calcium (8.5-10.1) mg/dl Phosphorus (2.5-4.9) mg/dl Magnesium (1.7-2.4) mg/dl Procalcitonin (0-0.5) ng/ml
[2021-10-12] MEDS: CEFDINIR 300 MG CAP PO SCH (21:06)
[2021-10-12] MEDS: MONTELUKAST SODIUM 10 MG TABLET PO SCH (21:06)
[2021-10-12] MEDS: DOXYCYCLINE HYCLATE 100 MG CAP PO SCH (21:47)
[2021-10-12] MEDS: ALBUT/IPRATROP 3MG/0.5MG NEB 3 ML VIAL NEB PRN (22:42)
[2021-10-13] MEDS: ALBUT/IPRATROP 3MG/0.5MG NEB 3 ML VIAL INH SCH ×4 (00:28→19:42)
[2021-10-13] MEDS: BUDESONIDE 0.25 MG/2 ML VIAL (PULMICORT) NEB SCH ×2 (07:14→19:42)
[2021-10-13] MEDS: FORMOTEROL 20 MCG/2 ML VIAL NEB SCH ×2 (07:16→19:42)
[2021-10-13 07:28] LABS: Anion Gap 1 (3-11); BUN Creatinine Ratio 47.7 (10-20); Blood Urea Nitrogen 21 mg/dl (6-23); Calcium 8.8 mg/dl (8.5-10.1); Carbon Dioxide 44 mmol/L (21-32); Chloride 92 mmol/L (98-107); Creatinine Clr Calc Pharmacy 167.2 ml/min; Est GFR (African American) > 150.0 ml/min; Est GFR (Non-African American) 132.2 ml/min; Glucose 110 mg/dl (70-99(Fasting)); Magnesium 2.2 mg/dl (1.7-2.4); Phosphorus 3.1 mg/dl (2.5-4.9); Sodium 137 mmol/L (136-145)
[2021-10-13] MEDS ORDERED: VANCOMYCIN TROUGH ONE (07:30)
[2021-10-13] MEDS: CEFDINIR 300 MG CAP PO SCH ×2 (07:43→20:36)
[2021-10-13] MEDS: DOXYCYCLINE HYCLATE 100 MG CAP PO SCH ×2 (07:43→20:35)
[2021-10-13] MEDS: methylPREDNISolone 40 MG in SYRINGE 0 ML IV SCH (07:43)
[2021-10-13] MEDS: PANTOprazole 40 MG TAB PO SCH ×2 (07:44→20:35)
--- NOTE | 2021-10-13 16:11 | Hospitalist Progress Note ---
Date of Service October 13, 2021 Assessment & Plan (1) COPD exacerbation: Plan: With worse respiratory failure despite BiPap that resulted in intubation on 10/09. Discussed with ICU provider. Per provider, he was recently evaluated for lung transplant at [place] and was rejected for continued tobacco abuse and poor social support. - Presently ventilated per ICU team - Plan for extubation today. - Continue antibiotics, steroids, and breathing treatments. -> Moved to oral abx given the low concern for infection (low procal, no fevers, clear CXR). -> Extubated on 10/11 - Working with BiPap 2-3 hours at a time. Doing well today. Back to 3L NC. Will be ready for discharge tomorrow. (2) Upper GI bleed: Plan: Concern for GI bleed from NG trauma or possible gastritis. Followed by GI who counseled conservative measures. - PPI PO BID - Hold NSAIDs; minimize oral steroids. - O/p f/u (3) Atrial fibrillation with RVR: Plan: Presently tachycardic, but in sinus - Monitor (4) Hypertension: Plan: BP was 120/80 today. - Holding home HCTZ as he was hypotensive while intubated. - Monitor (5) Anxiety: Plan: No anxiety at this time. - Monitor (6) DVT prophylaxis: Plan: SCDs - Hold heparin for GI bleed GI ppx - PPI PO Admission and Anticipated Discharge Date Admission Date: October 09, 2021 Subjective Doing well. Breathing comfortably. No major changes. Physical Exam Constitutional: WD/WN, vitals as above Eyes: EOM intact bilaterally; no conjunctival abnormality ENMT: external ear and nose normal, oropharynx normal Neck: trachea midline, no thyromegaly normal visual inspection Respiratory: + prolonged expiratory phase; no respiratory distress Auscultation: + diminished lung sounds; no wheezes Cardiovascular: RRR, no murmur, no edema Rate/Rhythm: regular rhythm and + tachycardic Gastrointestinal (Abdomen): Inspection/Auscultation: abdomen normal to inspe ction; abdomen not distended Skin: no rashes, warm and dry Neurologic: moves all extremities and awake Psychiatric: Orientation: alert; + not oriented x 3 Results & Data Results & Data ([facility]) Vital Signs (Past 12 Hours) Vital Signs Temp Pulse Pulse Resp BP BP Pulse Ox 10/13/21 15:29 36.8 C 112 H 18 120/76 93 10/13/21 15:08 101 H 10/13/21 12:56 115 H 20 98 10/13/21 10:39 10/13/21 10:38 36.9 C 106 H 18 104/63 98 10/13/21 07:31 36.7 C 88 17 129/90 100 10/13/21 07:18 93 H 20 98 10/13/21 07:06 93 H Pulse Ox Pulse Ox 10/13/21 15:29 10/13/21 15:08 10/13/21 12:56 10/13/21 10:39 2 L 88 L 10/13/21 10:38 10/13/21 07:31 10/13/21 07:18 10/13/21 07:06 PG Care Time/CCT Total # of Minutes Spent Total Time Spent with Patient: Total time spent is greater than 50% in coordination of care (as documented) at patient's floor/unit and/or counseling patient: Coding Level of Care Code 80622 Subseq Hosp Care Lvl 2 Diagnoses COPD exacerbation J44.1 Upper GI bleed K92.2 Atrial fibrillation with RVR I48.91 Hypertension I10 Anxiety F41.9 DVT prophylaxis Z29.9
[2021-10-13] MEDS: MONTELUKAST SODIUM 10 MG TABLET PO SCH (20:35)
[2021-10-14] MEDS: ALBUT/IPRATROP 3MG/0.5MG NEB 3 ML VIAL INH SCH ×2 (00:08→07:12)
[2021-10-14 07:02] LABS: Anion Gap 2 (3-11); BUN Creatinine Ratio 47.5 (10-20); Blood Urea Nitrogen 19 mg/dl (6-23); Calcium 8.6 mg/dl (8.5-10.1); Carbon Dioxide 42 mmol/L (21-32); Chloride 92 mmol/L (98-107); Creatinine Clr Calc Pharmacy 183.9 ml/min; Est GFR (African American) > 150.0 ml/min; Est GFR (Non-African American) 137.5 ml/min; Glucose 96 mg/dl (70-99(Fasting)); Magnesium 2.1 mg/dl (1.7-2.4); Phosphorus 3.2 mg/dl (2.5-4.9); Potassium 4.1 mmol/L (3.5-5.1); Sodium 136 mmol/L (136-145)
[2021-10-14] MEDS: BUDESONIDE 0.25 MG/2 ML VIAL (PULMICORT) NEB SCH (07:12)
[2021-10-14] MEDS: FORMOTEROL 20 MCG/2 ML VIAL NEB SCH (07:12)
[2021-10-14] MEDS: CEFDINIR 300 MG CAP PO SCH (07:46)
[2021-10-14] MEDS: methylPREDNISolone 40 MG in SYRINGE 0 ML IV SCH (07:47)
[2021-10-14] MEDS: DOXYCYCLINE HYCLATE 100 MG CAP PO SCH (07:47)
[2021-10-14] MEDS: PANTOprazole 40 MG TAB PO SCH (07:48)
--- NOTE | 2021-10-14 08:48 | XRay Report ---
XR chest 2V PA/lateral HISTORY: 51 years-old Male PNA, increasing WBC acute shortness of breath. Leukocytosis with reported pneumonia COMPARISON: Chest radiograph 10/12/2019 TECHNIQUE: PA and lateral views of the chest FINDINGS: Severe emphysema with chronic interstitial coarsening and hyperinflation. Interval extubation. No pne umothorax, large pleural effusion, overt pulmonary edema or lobar airspace consolidation. The bones a ppear grossly intact. IMPRESSION: 1. Interval extubation. 2. Severe emphysema with chronic interstitial coarsening. ACT 112: Negative or not required by law. The above report was generated using voice recognition software. It may contain grammatical, syntax o r spelling errors. Electronically signed by: Henry Zimmerman M.D. 10/14/2021 8:47 AM
--- NOTE | 2021-10-14 13:16 | Discharge Summary ---
Date of Service October 14, 2021 Admission HPI Per Admitting Provider 51 yo M with PMHx significant for COPD and centrilobular emphysema requiring intubation in the past atrial fibrillation, anxiety presented to the ER for worsening dyspnea overnight. On arrival patient noted to be tripoding with poor air movement and was put on BiPAP initially. However patient continued to become less responsive and ABG revealed CO2 of 123 despite 1 hour of BiPAP. Decision was made to intubate patient. Also of note patient received DuoNeb and 1L NSS. Lab work after receiving fluids noted to have sodium of 121, creatinine 0.37, T bili 1.7. Urine and serum lyte/Osms pending. Pro-Stephan negative. Biofire negative. Hospitalist service consulted for admission to ICU for hypoxic hypercapnic respiratory failure. On my interview patient was already intubated and therefore unable to provide history, and no family members were available for collateral. Was able to get ahold of patient's point of contact over the phone (his friend Matt) who reported that patient was discharged from [facility] about 6 weeks ago for trouble breathing with high CO2 and was discharged with advisement to use BIPAP at night. Friend reports that Angel Luis is still actively smoking. Principal Diagnosis COPD exacerbation Discharge Exam Constitutional WD/WN, vitals as above Eyes EOM intact bilaterally; no conjunctival abnormality ENMT external ear and nose normal, oropharynx normal Neck trachea midline, no thyromegaly normal visual inspection Respiratory + prolonged expiratory phase; no respiratory distress Auscultation: + diminished lung sounds; no wheezes Cardiovascular RRR, no murmur, no edema Rate/Rhythm: regular rhythm and + tachycardic Gastrointestinal (Abdomen) Inspection/Auscultation: abdomen normal to inspection; abdomen not distended Skin no rashes, warm and dry Neurologic moves all extremities and awake Psychiatric Orientation: alert and oriented x 3 Discharge Data Allergies Allergy/AdvReac Type Severity Reaction Status Date / Time No Known Allergies Allergy Verified 10/09/21 19:55 Consultations 10/09/21 19:12 ED Decision to Admit Stat 10/09/21 21:09 Consult Splitter Hand Routine 10/10/21 11:59 Consult Gastroenterology Routine Ordered Studies 10/09/21 19:05 CT head/brain wo con Stat 10/09/21 20:05 CT angio chest PE protocol Stat Hospital Course (1) COPD exacerbation: With worse respiratory failure despite BiPap that resulted in intubation on 10/09. Discussed with ICU provider. Per provider, he was recently evaluated for lung transplant at [place] and was rejected for continued tobacco abuse and poor social support. - Presently ventilated per ICU team - Plan for extubation today. - Continue antibiotics, steroids, and breathing treatments. -> Moved to oral abx given the low concern for infection (low procal, no fevers, clear CXR). -> Extubated on 10/11 - Doing well today. Back to 3L NC. Ready for discharge. Discharge on: * Prednisone x 3 days * Cefdinir & doxycycline x 3 more days * Montelukast * Trelegy inhaler to better optimize therapy (2) Upper GI bleed: Concern for GI bleed from NG trauma or possible gastritis. Followed by GI who counseled conservative measures. - PPI PO BID - Hold NSAIDs; minimize oral steroids. - O/p f/u (3) Atrial fibrillation with RVR: Presently tachycardic, but in sinus - Monitor (4) Hypertension: BP was 120/80 today. - Held home HCTZ as he didn't need it while in the hospital. - Monitor (5) Anxiety: No anxiety at this time. - Monitor (6) DVT prophylaxis: SCDs - Hold heparin for GI bleed GI ppx - PPI PO Total Time Total Time Spent Total Time Spent (In Minutes): 35 Discharge Plan Discharge Items Patient Disposition: Home - Home Health Services Reason For Visit: ACUTE CHRONIC HYPOXIC HYPERCAPNIC RESPIRATORY FAIL Discharge Diagnosis: COPD exacerbation Activity: Resume your previous activity Non-emergency contact: Primary Care Provider and [employer]fer [employer] Worker Call non-emergency contact if: your symptoms worsen and your temperature is above 101 Follow-up/Referrals: Josep Arguello III, CRNP [Primary Care Provider] - 10/27/21 9:20 am Diet: Heart Healthy Addtl Attending Provider Instructions: Mr. Geronimo, You were admitted to the hospital with a COPD exacerbation. Unfortunately, your lungs have a lot of emphysema from your exposure to dust/fumes and smoking. We have done our best to improve your breathing with breathing treatments, steroids, and antibiotics. We will send you home with a bit more treatment to help keep your breathing as good as we can make it. Pending Studies at Discharge: No Stand-Alone Forms: My [facility] I and love and you, Smoking Cessation Medications and DC Order Prescriptions: New cefdinir 300 mg Capsule 300 mg PO BID Qty: 7 RF: 0 doxycycline hyclate 100 mg Capsule 100 mg PO BID Qty: 7 RF: 0 montelukast [Singulair] 10 mg Tablet 10 mg PO HS Qty: 30 RF: 0 Trelegy Ellipta 200-62.5-25 mcg blister with device 1 inh inhalation DAILY Qty: 60 RF: 0 prednisone 20 mg tablet 40 mg PO DAILY Qty: 6 RF: 0 pantoprazole 40 mg tablet,delayed release (DR/EC) 40 mg PO BID Qty: 60 RF: 0 Continued Combivent Respimat 20-100 mcg/actuation mist 1 puff inhalation BID Qty: 4 RF: 2 aspirin 81 mg tablet,delayed release (DR/EC) 81 mg PO DAILY RF: 0 albuterol sulfate [Ventolin HFA] 90 mcg/actuation HFA aerosol inhaler 2 puff inhalation Q4H PRN (Reason: shortness of breath or wheezing) Qty: 8.5 RF: 3 (DME) BI-PAP Misc See Rx Instructions .Route RF: 0 (DME) Portable Oxygen Misc See Rx Instructions .Route RF: 0 ascorbic acid (vitamin C) [Vitamin C] 500 mg tablet 1 g PO DAILY RF: 0 multivitamin Tablet 1 tab PO DAILY RF: 0 Discontinued budesonide-formoterol [Symbicort] 160-4.5 mcg/actuation HFA aerosol inhaler 2 inh inhalation BID Qty: 10.2 RF: 1 Hold Instructions: New medication hydrochlorothiazide 25 mg tablet 25 mg PO DAILY Qty: 90 RF: 1 Discharge Orders: Discharge Order (Routine); Ordered 10/14/21 Ordered By: Radu Dial/Other Patient Handouts: Low-Salt Choices Admission Data Admit Date/Time: 10/09/21 19:28 Attending Provider: Radu Padron Admit Provider: Paul Borrego Primary Care Provider: Josep Arguello III Other Providers: Radu Padron ; Paul Borrego ; Dylon Chen ; Kathryn Jacobsen ; Augie Wilson ; Edmundo Corcoran ; Grant Wilcox ; Davin Scruggs ; Moe Kwong Other Interventions: Discharge Summary Assessment (RN) Last Done: 10/14/21 10:55 Coding Level of Care Code D/C DAY MANAGEMENT >30 MINS Diagnoses COPD exacerbation J44.1 Upper GI bleed K92.2 Atrial fibrillation with RVR I48.91 Hypertension I10 Anxiety F41.9 DVT prophylaxis Z29.9
== END 2021-10-14 11:47 | disposition home health service (06) | DRG 208 ==
LOC: ED 16:19 → SUATTDRO 19:28 → 1E 19:28 → 2N 10-12 11:33

== ENCOUNTER 2021-11-10 12:14 | Inpatient (IN) ==
[2021-11-10] MEDS ORDERED: methylPREDNISolone 125 MG/2 ML VIAL IV STA (12:19)
[2021-11-10] MEDS ORDERED: ALBUT/IPRATROP 3MG/0.5MG NEB 3 ML VIAL NEB ONE (12:19)
--- NOTE | 2021-11-10 12:25 | Emergency Department Note ---
Impression & Plan Respiratory failure, Acute exacerbation of chronic obstructive airways disease, Acute respiratory acidosis ED Provider Note NAME: EMILEE MAHARAJ AGE: 51 SEX: M : 1970 ARRIVES VIA: Ambulance INFORMANT: Patient, EMS ED PROVIDER(S): Lenard Mcdaniel DO CHIEF COMPLAINT: Shortness of breath HPI: The patient is a 51-year-old male who presented to the emergency department for an evaluation of shortness of breath. The patient arrived via ALS. The patient has a history of COPD as well as tobacco use. He has been intubated in the past because of severe shortness of breath and COPD exacerbation. He states he recently was discharged from facility. He states he is not currently taking an antibiotic. He states he was doing well until last evening approximately 11 PM. He started noticing worsening shortness of breath especially with exertion. He denies having any lower extremity swelling or pain. He denies having any orthopnea. He states he has not been seen by his provider for the symptoms but because of the severity called 911 and presented to the emergency department. He has been using his nebulizer machine. He was noted to have an oxygen saturation of 87% on his usual 3 L nasal cannula. The patient states his oxygen tank is working. He denies having any recent trauma. ROS: See above HPI for pertinent positives & negatives. A total of 10 systems reviewed and were otherwise negative. PAST MEDICAL HISTORY: See Below PAST SURGICAL HISTORY: See Below FAMILY HISTORY: See Below SOCIAL HISTORY: See Below HOME MEDICATIONS: See Below ALLERGIES: See Below VITALS: See Below PHYSICAL EXAMINATION: GENERAL: Patient is awake and alert. He is somewhat anxious appearing. EYES: The conjunctivae are clear. The pupils are round and reactive. EARS, NOSE, MOUTH AND THROAT: The nose is without any evidence of any deformity. NECK: The neck is nontender and supple. RESPIRATORY: Diminished breath sounds are noted throughout especially in the right lung field. There is scattered wheezing in the left upper lung field. There is significant tachypnea and conversational dyspnea. CARDIOVASCULAR: Regular rate and rhythm noted there no murmurs rubs or gallops normal S1 normal S2. GASTROINTESTINAL: The abdomen is soft. Abdomen is nontender. MUSCULOSKELETAL/EXTREMITIES: There is no evidence of gross deformity full range of motion is noted in the hips and shoulders. SKIN: There is no obvious evidence of any rash. There are no petechiae, pallor or cyanosis noted. NEUROLOGIC: Patient is awake alert and oriented x3 MEDICAL DECISION MAKING: The patient is a 51-year-old male who has a history of COPD as well as chronic tobacco use who presented to the emergency department by ambulance for shortness of breath. The patient's history and physical exam appear to be consistent with COPD exacerbation. Blood gas was obtained and revealed significant CO2 retention with respiratory acidosis. The patient was placed on BiPAP but his mental status continued to wax and wane while he was in the emergency department. Ultimately decision was made to place the patient on a ventilator. He was intubated in usual fashion. I discussed the patient's laboratory and radiographic studies with him. I also discussed his case with the on-call [facility] hospitalist group. He was treated with IV fluids and IV antibiotics. He was also given IV steroids and bronchodilator therapy. Triage Nursing notes reviewed. Prior medical records reviewed Vital Signs: reviewed and remarkable for tachycardia and hypoxia on supplemental oxygen. Differential diagnosis: Reactive airway disease, pneumonia, pneumothorax, COPD, CHF, infections, cardiac ischemia, pulmonary embolism, musculoskeletal, gastrointestinal, as well as other pathologies. ER treatment provided: See below Diagnostics interpreted by me: ECG: EKG was obtained in the emergency department. My interpretation is sinus tachycardia at 103 bpm. There is no ectopy. Inferior and lateral ST depressions were noted. This was compared to a tracing from October 11, 2021. The ST segment depressions are new compared the previous tracing. Cardiac Monitoring: An order was placed for continuous cardiac monitoring. The monitor shows a rate of 110 bpm with sinus tachycardia. Laboratory studies: As stated above and show below. Imaging studies: See below Consultation(s): I discussed this case with [place] who is on-call for the [facility] hospitalist group. ED COURSE: Procedures: Endotracheal Intubation Indication respiratory failure. The patient was on 100% oxygen via NRB prior to the procedure. Suction, airway equipment, RSI drugs, respiratory equipment, and appropriate personnel were prepared prior to the initiation of the procedure. A time out was taken. Induction was performed with ketamine and rocuronium. After observing the clinical benefit of the medications, the airway was easily visualized utilizing a glide scope. A 7.5 size ETT tube was placed atraumatically to 23 cm using standard technique. The cuff inflated without signs of malfunction. There were bilateral breath sounds, positive colormetric change, no gastric sounds, a good capnography waveform, and post procedure pulse oximetry was 99%. Post intubation sedation and paralysis was administered using propofol. There were no complications. Critical Care: I have personally spent greater than 45 minutes of critical care time in the direct management of this patient. This includes bedside care, interpretation of diagnostic studies, and testing, discussion with consultants, patient, and family members, and other required patient management activities. This 45 minutes is in excess of all separately billable procedures. Past Med/Surg History Medical History Acute on chronic respiratory failure with hypoxia and hypercapnia Anxiety Brain aneurysm Centrilobular emphysema Chronic hypoxemic respiratory failure COPD (chronic obstructive pulmonary disease) Dyspnea and respiratory abnormalities Dyspnea on exertion History of tobacco abuse Pulmonary air trapping Tobacco abuse Surgical History History of intravascular stent placement Family History Grandfather (Maternal) Myocardial infarction Grandfather (Paternal) Myocardial infarction Mother Ovarian cancer Bladder cancer Other Diabetes Denies family history of Prostate cancer Breast cancer Colorectal cancer Social History Smoking Status: Never smoker Tobacco Type: Cigarettes Age Started Using Tobacco: 16; Age Quit Using Tobacco: 49; packs per day: 1; Years Smoked: 33; Cigarettes Per Day: 0.5; Second Hand Exposure: Yes; Preferred Language: Bulgarian Communication Ability: Effective Visual Impairment: No Limitations Hearing Ability: Normal Motion Picture Critic Required: No Beliefs That Will Affect Care: None marital status: Single Current Living Situation: Alone current occupational status: employed 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 Feels Safe at Home: Yes Childhood Exposure to Second-Hand Smoke: Yes Dental Care, Regularly: No Physical Activity Frequency: Does not Exercise Seatbelt Use: always Sunscreen Use: No Assistive Devices: BiPap and Oxygen - Continuous Allergies Allergies Allergy/AdvReac Type Severity Reaction Status Date / Time No Known Allergies Allergy Verified 10/09/21 19:55 Home Meds Home Medications Medication Instructions Recorded Confirmed aspirin 81 mg tablet,delayed 81 mg PO DAILY 04/12/19 10/09/21 release ascorbic acid (vitamin C) 500 mg 1 g PO DAILY tab 08/04/20 10/09/21 tablet (Vitamin C) BI-PAP 07/17/21 09/15/21 Portable Oxygen 07/17/21 09/15/21 multivitamin 1 tab PO DAILY 10/09/21 10/09/21 Previous Rx's Medication Instructions Recorded ipratropium 20 mcg-albuterol 100 1 puff INHALATION BID #4 g 08/18/21 mcg/actuation mist for inhalation (Combivent Respimat) albuterol sulfate 90 mcg/actuation 2 puff INHALATION Q4H PRN #8.5 g 09/15/21 aerosol inhaler (Ventolin HFA) cefdinir 300 mg capsule 300 mg PO BID #7 cap 10/14/21 doxycycline hyclate 100 mg capsule 100 mg PO BID #7 cap 10/14/21 fluticasone fur. 200 mcg-umeclid 1 inh INHALATION DAILY #60 ea 10/14/21 62.5 mcg-vilant 25 mcg inhalat.powder (Trelegy Ellipta) montelukast 10 mg tablet 10 mg PO HS #30 tab 10/14/21 (Singulair) pantoprazole 40 mg tablet,delayed 40 mg PO BID #60 tab 10/14/21 release prednisone 20 mg tablet 40 mg PO DAILY #6 tab 10/14/21 Results & Data (ED) Vital Signs Vital Signs - 24 hr 11/10/21 12:15 11/10/21 12:53 11/10/21 13:12 Temperature 36.7 C Temperature Source Oral Pulse Rate 105 H 109 H Pulse Rhythm Regular Pulse Strength Normal Respiratory Rate 30 H 21 20 Respiratory Effort / Characteristics Spontaneous Accessory Muscle Use Labored Retracting SOB on Exertion Non-Labored Spontaneous Spontaneous Labored Respiratory Depth Retractive Normal Respiratory Pattern Rapid/Shallow Tachypnea Blood Pressure 127/84 Blood Pressure Mean 98 Pulse Oximetry 100 100 100 Oxygen Delivery Method Oxymask Non-rebreather Oxygen Flow Rate 8 6 8 Fraction of Inspired Oxygen Sepsis Recent Fever Within 48 Hours No Sepsis New/Unexplained Change in Mental Status No Sepsis Action Taken by Nursing Physician Notified End-Tidal CO2 11/10/21 13:54 Temperature Temperature Source Pulse Rate 168 H Pulse Rhythm Pulse Strength Respiratory Rate 24 Respiratory Effort / Characteristics Respiratory Depth Respiratory Pattern Blood Pressure Blood Pressure Mean Pulse Oximetry 100 Oxygen Delivery Method Oxygen Flow Rate Fraction of Inspired Oxygen 28 Sepsis Recent Fever Within 48 Hours Sepsis New/Unexplained Change in Mental Status Sepsis Action Taken by Nursing End-Tidal CO2 49 Home Medications Current Medication List: was personally reviewed by me Laboratory Data Attestation: I reviewed the patient's lab results. Result diagrams: 11/10/21 12:30 11/10/21 12:30 Lab Results 11/10/21 11/10/21 11/10/21 Range/Units 12:30 12:30 12:30 WBC 5.19 (4.8-10.8) K/uL RBC 4.62 L (4.7-6.1) M/uL Hgb 14.6 (14.0-18.0) g/dL Hct 44.8 (42-52) % MCV 97.0 (80-100) fL MCH 31.6 (25-34) pg MCHC 32.6 (32-36) g/dL RDW Std Deviation 44.1 (36.4-46.3) fL RDW Coeff of Abner 12.5 (11.5-14.5) % Plt Count 403 H (130-400) K/uL MPV 9.8 (7.4-10.4) fL Immature Gran % (Auto) 0.2 % Neut % (Auto) 67.9 % Lymph % (Auto) 19.5 % Sully % (Auto) 11.4 % Eos % (Auto) 0.8 % Baso % (Auto) 0.2 % Neut # (Auto) 3.53 (1.4-6.5) K/uL Lymph # (Auto) 1.01 L (1.2-3.4) K/uL Sully # (Auto) 0.59 (0.11-0.59) K/uL Eos # (Auto) 0.04 (0-0.5) K/uL Baso # (Auto) 0.01 (0-0.2) K/uL Immature Gran # (Auto) 0.01 (0.00-0.02) K/uL PT 10.7 (9.0-12.0) Seconds INR 1.0 (0.9-1.1) APTT 25.5 (21.0-31.0) Seconds PTT Ratio 0.9 VBG pH (7.36-7.41) VBG pCO2 (38-50) mmHg VBG pO2 mmHg VBG HCO3 mmol/L VBG O2 Saturation % VBG Base Excess mEq/L Barometric Pressure mm/Hg Sodium 138 (136-145) mmol/L Potassium 4.0 (3.5-5.1) mmol/L Chloride 92 L (98-107) mmol/L Carbon Dioxide 42 H* (21-32) mmol/L Anion Gap 4 (3-11) BUN 7 (6-23) mg/dl Creatinine 0.48 L (0.6-1.4) mg/dl Est Cr Clr Drug Dosing 147.3 ml/min Est GFR ( Amer) 147.9 ml/min Est GFR (Non-Af Amer) 127.6 ml/min BUN/Creatinine Ratio 14.6 (10-20) Glucose 106 H (70-99(Fasting)) mg/dl Calcium 9.4 (8.5-10.1) mg/dl Magnesium 2.0 (1.7-2.4) mg/dl Total Bilirubin 1.1 H (0.2-1.0) mg/dl AST 14 (13-39) U/L ALT 12 (7-52) U/L Alkaline Phosphatase 55 (34-104) U/L Troponin I High Sens 9.6 (0-20) pg/ml Total Protein 6.8 (6.0-8.3) gm/dl Albumin 4.3 (3.4-5.0) gm/dl Globulin 2.5 (2.5-4.0) gm/dl Albumin/Globulin Ratio 1.7 (0.9-2) 11/10/21 Range/Units 12:30 WBC (4.8-10.8) K/uL RBC (4.7-6.1) M/uL Hgb (14.0-18.0) g/dL Hct (42-52) % MCV (80-100) fL MCH (25-34) pg MCHC (32-36) g/dL RDW Std Deviation (36.4-46.3) fL RDW Coeff of Abner (11.5-14.5) % Plt Count (130-400) K/uL MPV (7.4-10.4) fL Immature Gran % (Auto) % Neut % (Auto) % Lymph % (Auto) % Sully % (Auto) % Eos % (Auto) % Baso % (Auto) % Neut # (Auto) (1.4-6.5) K/uL Lymph # (Auto) (1.2-3.4) K/uL Sully # (Auto) (0.11-0.59) K/uL Eos # (Auto) (0-0.5) K/uL Baso # (Auto) (0-0.2) K/uL Immature Gran # (Auto) (0.00-0.02) K/uL PT (9.0-12.0) Seconds INR (0.9-1.1) APTT (21.0-31.0) Seconds PTT Ratio VBG pH 7.24 L (7.36-7.41) VBG pCO2 99 H (38-50) mmHg VBG pO2 45 mmHg VBG HCO3 42 mmol/L VBG O2 Saturation 76.6 % VBG Base Excess 9.4 mEq/L Barometric Pressure 731.2 mm/Hg Sodium (136-145) mmol/L Potassium (3.5-5.1) mmol/L Chloride (98-107) mmol/L Carbon Dioxide (21-32) mmol/L Anion Gap (3-11) BUN (6-23) mg/dl Creatinine (0.6-1.4) mg/dl Est Cr Clr Drug Dosing ml/min Est GFR ( Amer) ml/min Est GFR (Non-Af Amer) ml/min BUN/Creatinine Ratio (10-20) Glucose (70-99(Fasting)) mg/dl Calcium (8.5-10.1) mg/dl Magnesium (1.7-2.4) mg/dl Total Bilirubin (0.2-1.0) mg/dl AST (13-39) U/L ALT (7-52) U/L Alkaline Phosphatase (34-104) U/L Troponin I High Sens (0-20) pg/ml Total Protein (6.0-8.3) gm/dl Albumin (3.4-5.0) gm/dl Globulin (2.5-4.0) gm/dl Albumin/Globulin Ratio (0.9-2) Administered Medications Discontinued Medications Albuterol (Albut/Ipratrop 3mg/0.5mg Neb 3 Ml Vial) 12 ml NEB ONE ONE; Protocol Stop: 11/10/21 12:20 Last Admin: 11/10/21 12:44 Dose: 12 ml Documented by: [id number] Sodium Chloride (Nss 1000ml) 500 mls @ 999 mls/hr IV .Q31M ONE Stop: 11/10/21 13:12 Last Admin: 11/10/21 12:45 Dose: 999 mls/hr Documented by: [id number] Ceftriaxone Sodium (Rocephin) 1,000 mg in 50 mls @ 100 mls/hr IV NOW STA Stop: 11/10/21 13:47 Last Admin: 11/10/21 13:51 Dose: 100 mls/hr Documented by: [id number] Methylprednisolone (Methylprednisolone 125 Mg/2 Ml Vial) 125 mg IV NOW STA Stop: 11/10/21 12:20 Last Admin: 11/10/21 12:43 Dose: 125 mg Documented by: [id number] Imaging Data Radiologist's Impression: Chest X-Ray 11/10/21 12:20 XR chest 1V portable CLINICAL HISTORY: Dyspnea. COMPARISON STUDY: Chest CT October 09, 2021. Chest radiograph October 14, 2021. FINDINGS: Lung hyperinflation with emphysema is noted. Lung volumes are normal. Lungs are clear. There is no pneumothorax or pleural effusion. Cardiac size is normal. Mediastinal contours are normal. There is no evidence for pulmonary edema. IMPRESSION: No acute cardiopulmonary findings. Emphysema. ACT 112: Negative or not required by law. Electronically signed by: Matt Garay M.D. 11/10/2021 1:02 PM Chest X-Ray 11/10/21 13:45 XR chest 1V portable CLINICAL HISTORY: ETT placement. COMPARISON STUDY: 11/10/2021 TECHNIQUE: 1 view of the chest FINDINGS: Single frontal view of the chest demonstrates the cardiomediastinal silhouette to be within normal limits. There has been interval placement of an endotracheal tube with tip 2.5 cm above the jaison. There is evidence for hyperinflation the lungs with emphysematous changes again seen. The lungs are clear of alveolar opacities. There is no evidence for pleural effusion. There is no evidence for vascular congestion. There is no acute osseous pathology. IMPRESSION: 1. ET tube 2.5 cm above the jaison. 2. No acute chest disease with emphysematous changes again noted. ACT 112: Negative or not required by law. Electronically signed by: Gene Puckett M.D. 11/10/2021 1:53 PM Discharge Plan Visit Data Chief Complaint: Respiratory Distress Stated Complaint: RESP DISTRESS ED Provider: Lenard Mcdaniel Discharge Problem: Respiratory failure, Acute exacerbation of chronic obstructive airways disease, Acute respiratory acidosis Patient Disposition: Being Evaluated by Hospitalist Forms Stand Alone Forms: My [facility] Prescriptions Prescriptions: No Action Combivent Respimat 20-100 mcg/actuation mist 1 puff inhalation BID Qty: 4 RF: 2 aspirin 81 mg tablet,delayed release (DR/EC) 81 mg PO DAILY RF: 0 albuterol sulfate [Ventolin HFA] 90 mcg/actuation HFA aerosol inhaler 2 puff inhalation Q4H PRN (Reason: shortness of breath or wheezing) Qty: 8.5 RF: 3 (DME) BI-PAP Misc See Rx Instructions .Route RF: 0 (DME) Portable Oxygen Misc See Rx Instructions .Route RF: 0 ascorbic acid (vitamin C) [Vitamin C] 500 mg tablet 1 g PO DAILY RF: 0 multivitamin Tablet 1 tab PO DAILY RF: 0 cefdinir 300 mg Capsule 300 mg PO BID Qty: 7 RF: 0 doxycycline hyclate 100 mg Capsule 100 mg PO BID Qty: 7 RF: 0 montelukast [Singulair] 10 mg Tablet 10 mg PO HS Qty: 30 RF: 0 Trelegy Ellipta 200-62.5-25 mcg blister with device 1 inh inhalation DAILY Qty: 60 RF: 0 prednisone 20 mg tablet 40 mg PO DAILY Qty: 6 RF: 0 pantoprazole 40 mg tablet,delayed release (DR/EC) 40 mg PO BID Qty: 60 RF: 0 Referrals Referrals: Josep Arguello III, CRNP [Primary Care Provider] -
[2021-11-10] MEDS ORDERED: SODIUM CHLORIDE 0.9% 1000ML 500 ML IV ONE (12:42)
[2021-11-10 12:56] LABS: Basophils # (auto) 0.01 K/uL (0-0.2); Basophils % (auto) 0.2 %; Eosinophils # (auto) 0.04 K/uL (0-0.5); Eosinophils % (auto) 0.8 %; Hematocrit (blood only) 44.8 % (42-52); Hemoglobin 14.6 g/dL (14.0-18.0); Immature Granulocytes # (auto) 0.01 K/uL (0.00-0.02); Immature Granulocytes % (auto) 0.2 %; Lymphocytes # (auto) 1.01 K/uL (1.2-3.4); Lymphocytes % (auto) 19.5 %; Mean Corpuscular Hemoglobin 31.6 pg (25-34); Mean Corpuscular Hgb Conc 32.6 g/dL (32-36); Mean Platelet Volume 9.8 fL (7.4-10.4); Monocytes # (auto) 0.59 K/uL (0.11-0.59); Monocytes % (auto) 11.4 %; Neutrophils # (auto) 3.53 K/uL (1.4-6.5); Neutrophils % (auto) 67.9 %; Platelet Count 403 K/uL (130-400); RDW Coefficient of Variation 12.5 % (11.5-14.5); RDW Standard Deviation 44.1 fL (36.4-46.3); Red Blood Count 4.62 M/uL (4.7-6.1); White Blood Count 5.19 K/uL (4.8-10.8)
[2021-11-10 12:58] LABS: Base Excess VBG 9.4 mEq/L; Oxygen Saturation VBG 76.6 %; pH VBG 7.24 (7.36-7.41)
--- NOTE | 2021-11-10 13:04 | XRay Report ---
XR chest 1V portable CLINICAL HISTORY: Dyspnea. COMPARISON STUDY: Chest CT October 09, 2021. Chest radiograph October 14, 2021. FINDINGS: Lung hyperinflation with emphysema is noted. Lung volumes are normal. Lungs are clear. Ther e is no pneumothorax or pleural effusion. Cardiac size is normal. Mediastinal contours are normal. Th ere is no evidence for pulmonary edema. IMPRESSION: No acute cardiopulmonary findings. Emphysema. ACT 112: Negative or not required by law. Electronically signed by: Matt Garay M.D. 11/10/2021 1:02 PM
[2021-11-10 13:07] LABS: Partial Thromboplastin Ratio 0.9; Partial Thromboplastin Time 25.5 Seconds (21.0-31.0); Prothrombin Time 10.7 Seconds (9.0-12.0)
[2021-11-10] MEDS ORDERED: cefTRIAXone SODIUM 1,000 MG/50 ML BAG IV STA (13:18)
[2021-11-10] MEDS ORDERED: RAPID SEQUENCE INDUCTION BAG ONE (13:27)
[2021-11-10 13:30] LABS: Albumin Globulin Ratio 1.7 (0.9-2); Albumin Level 4.3 gm/dl (3.4-5.0); BUN Creatinine Ratio 14.6 (10-20); Bilirubin,Total 1.1 mg/dl (0.2-1.0); Calcium 9.4 mg/dl (8.5-10.1); Creatinine Clr Calc Pharmacy 147.3 ml/min; Est GFR (African American) 147.9 ml/min; Est GFR (Non-African American) 127.6 ml/min; Globulin 2.5 gm/dl (2.5-4.0); Total Protein 6.8 gm/dl (6.0-8.3); Troponin I High Sensitivity 9.6 pg/ml (0-20)
[2021-11-10] MEDS: propofoL 1,000 MG/100 ML VIAL IV SCH (13:34)
[2021-11-10] MEDS ORDERED: GLUCAGON FOR INJ 1 MG VIAL SQ PRN (13:46)
[2021-11-10] MEDS ORDERED: GLUCOSE 10 TABS/TUBE PO PRN (13:46)
[2021-11-10] MEDS ORDERED: ICU PROTOCOL FOR HYPERGLYCEMIA PRN (13:46)
[2021-11-10] MEDS ORDERED: CARBOHYDRATES FOR HYPOGLYCEMIA PO PRN (13:46)
[2021-11-10] MEDS ORDERED: DEXTROSE 50% 50 ML SYRINGE IV PRN (13:46)
[2021-11-10] MEDS ORDERED: fentaNYL citrate 100 MCG/2 ML VIAL IV PRN (13:46)
[2021-11-10] MEDS ORDERED: STAT IV Infusion **Titration per Protocol STA (13:46)
[2021-11-10] MEDS ORDERED: GLUCOSE 40% GEL 15 GM TUBE PO PRN (13:46)
[2021-11-10] MEDS ORDERED: AZITHROMYCIN 250 MG TAB PO ONE (13:52)
[2021-11-10] MEDS ORDERED: VANCOMYCIN CONSULT ACTIVE PRN ×2 (13:52)
--- NOTE | 2021-11-10 13:54 | XRay Report ---
XR chest 1V portable CLINICAL HISTORY: ETT placement. COMPARISON STUDY: 11/10/2021 TECHNIQUE: 1 view of the chest FINDINGS: Single frontal view of the chest demonstrates the cardiomediastinal silhouette to be within normal li mits. There has been interval placement of an endotracheal tube with tip 2.5 cm above the jaison. The re is evidence for hyperinflation the lungs with emphysematous changes again seen. The lungs are jatinder r of alveolar opacities. There is no evidence for pleural effusion. There is no evidence for vascular congestion. There is no acute osseous pathology. IMPRESSION: 1. ET tube 2.5 cm above the jaison. 2. No acute chest disease with emphysematous changes again noted. ACT 112: Negative or not required by law. Electronically signed by: Gene Puckett M.D. 11/10/2021 1:53 PM
[2021-11-10] MEDS ORDERED: ADENOSINE IV SOLN 3 MG/ML 2 ML VIAL IV ONE (13:59)
[2021-11-10] MEDS ORDERED: METOPROLOL TARTRATE 1 MG/ML VIAL IV ONE (14:05)
[2021-11-10] MEDS ORDERED: SODIUM CHLORIDE 0.9% 1000ML 1,000 ML IV ONE (14:06)
[2021-11-10] MEDS: PROPOFOL IV EMULSION 10 MG/ML 100 ML VIAL IV ONE ×2 (14:10→15:50)
--- NOTE | 2021-11-10 14:11 | History & Physical Report ---
Date of Service November 10, 2021 Assessment & Plan (1) Respiratory failure: Plan: Hypercarbic respiratory failure secondary to COPD exacerbation requring intubation and mechanical ventilation - patient arrives hypercarbic, dyspneic, with poor air movement following 125mg Solumederol and 1 hour long nebulizer - Intubated as high likely ma to continue to fail - ketamine/rocuronium for induction- propofol sedation following to ICU - Patient previously with MRSA in sputum- will add on Vancomycin and Azithromycin for now- PCT pending, sputum culture pending - Continue with methylpred 40mg IV q 8 hour - pulmicort respules BID nebs - Albuterol/atrovent nebs q6 scheduled - ABG post intubation then PRN to ICU - Ventilator managment to ICU- ARDSnet (2) COPD exacerbation: Plan: As above Patient with hypercarbic respiratory failure requiring intubation in 07/21, 10/18, 11/18 medically optimized ? adding roflumilast if can remain out of hospital (3) Hypertension: Plan: Previously on HCTZ- was discontinued secondry to hypotension last admission - IV dosing PRN while in ICU- follow when extubated (4) Hyperglycemia: Plan: Hyperglycemia likely secondary to steroid use without the diagnosis of DM - insulin sliding scale for BG > 180 - ICU hyperglycemic protocol (5) GERD (gastroesophageal reflux disease): Plan: Continue with PPI 40mg Protonix IV BID - EGD performed in September with Gastritis - remain while intubated and with steroid therapy - NGT placed - enteral feedings per ICU History of Present Illness Primary Care Provider: 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 Patient comes to the EMD today for 1 day history of increased dyspnea, cough, and sputum production with no relieve with his inhalers. States he hasn't been smoking, but did go outside yesterday and after the humidity and "pollen" he started to feel dysgenic and coughing. Patient was previously admitted in September for hypercarbic respiratory failure with failing of BiPAP requiring intubation he was discharged and inhalers changed to include Trelegy. Patient states that he was doing well at home up until yesterday. He states his sputum is saenz and yellow in color and this is his normal sputum for him. In the EMD on arrival the patient was somnulent with hypercarbia noted on VBG with Co2 99 and HCo3 42, he was placed on bipap with hour long nebulizer. Hospitalist was consulted for admission, patient was more awake but remains somnolent and he remains not moving much air on the BiPAP despite adequate VT. Discussed with patient and EMD physician, and unlikely to reverse his hypercarbia and remain stable on the BiPAP. Decision was made with patient for intubation secondary to hypercarbic respiratory failure secondary to severe COPD. COVID and Flu on admission are: NEGATIVe Allergies Allergy/AdvReac Type Severity Reaction Status Date / Time No Known Allergies Allergy Verified 10/09/21 19:55 Home Medications Medication Instructions Recorded Confirmed Type aspirin 81 mg tablet,delayed 81 mg PO DAILY 04/12/19 10/09/21 History release ascorbic acid (vitamin C) 500 mg 1 g PO DAILY tab 08/04/20 10/09/21 History tablet (Vitamin C) BI-PAP 07/17/21 09/15/21 History Portable Oxygen 07/17/21 09/15/21 History ipratropium 20 mcg-albuterol 100 1 puff INHALATION BID #4 g 08/18/21 10/09/21 Rx mcg/actuation mist for inhalation (Combivent Respimat) albuterol sulfate 90 mcg/actuation 2 puff INHALATION Q4H PRN #8.5 g 09/15/21 10/09/21 Rx aerosol inhaler (Ventolin HFA) multivitamin 1 tab PO DAILY 10/09/21 10/09/21 History cefdinir 300 mg capsule 300 mg PO BID #7 cap 10/14/21 Rx doxycycline hyclate 100 mg capsule 100 mg PO BID #7 cap 10/14/21 Rx fluticasone fur. 200 mcg-umeclid 1 inh INHALATION DAILY #60 ea 10/14/21 Rx 62.5 mcg-vilant 25 mcg inhalat.powder (Trelegy Ellipta) montelukast 10 mg tablet 10 mg PO HS #30 tab 10/14/21 Rx (Singulair) pantoprazole 40 mg tablet,delayed 40 mg PO BID #60 tab 10/14/21 Rx release prednisone 20 mg tablet 40 mg PO DAILY #6 tab 10/14/21 Rx Past Med/Surg History Medical History Acute on chronic respiratory failure with hypoxia and hypercapnia Anxiety Brain aneurysm Centrilobular emphysema Chronic hypoxemic respiratory failure COPD (chronic obstructive pulmonary disease) Dyspnea and respiratory abnormalities Dyspnea on exertion History of tobacco abuse Pulmonary air trapping Tobacco abuse Surgical History History of intravascular stent placement Family History Grandfather (Maternal) Myocardial infarction Grandfather (Paternal) Myocardial infarction Mother Ovarian cancer Bladder cancer Other Diabetes Denies family history of Prostate cancer Breast cancer Colorectal cancer Social History Smoking Status: Never smoker Tobacco Type: Cigarettes Age Started Using Tobacco: 16; Age Quit Using Tobacco: 49; packs per day: 1; Years Smoked: 33; Cigarettes Per Day: 0.5; Second Hand Exposure: Yes; Preferred Language: Nauruan Communication Ability: Effective Visual Impairment: No Limitations Hearing Ability: Normal Technology Director Required: No Beliefs That Will Affect Care: None marital status: Single Current Living Situation: Alone current occupational status: employed 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 Feels Safe at Home: Yes Childhood Exposure to Second-Hand Smoke: Yes Dental Care, Regularly: No Physical Activity Frequency: Does not Exercise Seatbelt Use: always Sunscreen Use: No Assistive Devices: BiPap and Oxygen - Continuous Review of Systems Review of Systems: REVIEW OF SYSTEMS: Constitutional: No fever, sweats or chills Eyes: No diplopia, no worsening or blurred vision ENT: normal hearing, no trouble swallowing Respiratory: (+) cough, sputum, dyspnea at rest or on exertion Cardiovascular: No chest pain, tightness or palpitations Abdomen: No pain, nausea, vomiting, diarrhea or constipation Musculoskeletal: No joint pain, calf pain, swelling Neurologic: No weakness, numbness/tingling, or balance problems Psychiatric: No anxiety or depression Skin: No rash or itch Physical Exam Physical Exam: PHYSICAL EXAM: General: awake but somnumlent, oriented, and dyspneic Head: Normocephalic, atraumatic ENT: PERRL, EOMI, no pharyngeal exudate, mucous membranes moist Neuro: AAO x 3, speech clear and appropriate, strength intact bilaterally 5/5, sensation intact and equal all extremities and dermatomes, no pronator drift Chest: equal rise and fall of the chest, accessory muscle use, air movement in upper lobes only, with inspiratory/expiratory wheezing. Cardiac: Regular rate and rhythm, telemetry reviewed, skin warm dry, cap refill <3 seconds, peripheral pulses +2 no JVD, no murmur, no edema, tachycardic following intubation GI: NABS x 4 quadrants, soft, nontender to palpation, no rebound, guarding or tenderness : Spontaneously voiding, no pain, no CVA tenderness, Extremities: Normal inspection, no peripheral edema or erythema, calfs nontender to palpation Psych: Normal mood and affect Skin: no rash or erythema Results & Data Results & Data ([facility]) Vital Signs (Past 12 Hours) Vital Signs Temp Pulse Resp BP Pulse Ox 11/10/21 13:54 168 H 24 100 11/10/21 13:12 109 H 20 100 11/10/21 12:53 21 100 11/10/21 12:15 36.7 C 105 H 30 H 127/84 100 Laboratory Results Abnormal lab results 11/10/21 11/10/21 11/10/21 Range/Units 12:30 12:30 12:30 RBC 4.62 L (4.7-6.1) M/uL Plt Count 403 H (130-400) K/uL Lymph # (Auto) 1.01 L (1.2-3.4) K/uL VBG pH 7.24 L (7.36-7.41) VBG pCO2 99 H (38-50) mmHg Chloride 92 L (98-107) mmol/L Carbon Dioxide 42 H* (21-32) mmol/L Creatinine 0.48 L (0.6-1.4) mg/dl Glucose 106 H (70-99(Fasting)) mg/dl Total Bilirubin 1.1 H (0.2-1.0) mg/dl Diagnostic Findings Chest X-Ray 11/10/21 12:20 XR chest 1V portable CLINICAL HISTORY: Dyspnea. COMPARISON STUDY: Chest CT October 09, 2021. Chest radiograph October 14, 2021. FINDINGS: Lung hyperinflation with emphysema is noted. Lung volumes are normal. Lungs are clear. There is no pneumothorax or pleural effusion. Cardiac size is normal. Mediastinal contours are normal. There is no evidence for pulmonary edema. IMPRESSION: No acute cardiopulmonary findings. Emphysema. ACT 112: Negative or not required by law. Electronically signed by: Matt Garay M.D. 11/10/2021 1:02 PM Chest X-Ray 11/10/21 13:45 XR chest 1V portable CLINICAL HISTORY: ETT placement. COMPARISON STUDY: 11/10/2021 TECHNIQUE: 1 view of the chest FINDINGS: Single frontal view of the chest demonstrates the cardiomediastinal silhouette to be within normal limits. There has been interval placement of an endotracheal tube with tip 2.5 cm above the jaison. There is evidence for hyperinflation the lungs with emphysematous changes again seen. The lungs are clear of alveolar opacities. There is no evidence for pleural effusion. There is no evidence for vascular congestion. There is no acute osseous pathology. IMPRESSION: 1. ET tube 2.5 cm above the jaison. 2. No acute chest disease with emphysematous changes again noted. ACT 112: Negative or not required by law. Electronically signed by: Gene Puckett M.D. 11/10/2021 1:53 PM Medications Administered Home Medications aspirin 81 mg tablet,delayed release 81 mg PO DAILY 04/12/19 [History Confirmed 10/09/21] ascorbic acid (vitamin C) 500 mg tablet (Vitamin C) 1 g PO DAILY tab 08/04/20 [History Confirmed 10/09/21] BI-PAP 07/17/21 [History Confirmed 09/15/21] Portable Oxygen 07/17/21 [History Confirmed 09/15/21] ipratropium 20 mcg-albuterol 100 mcg/actuation mist for inhalation (Combivent Respimat) 1 puff INHALATION BID #4 g 08/18/21 [Rx Confirmed 10/09/21] albuterol sulfate 90 mcg/actuation aerosol inhaler (Ventolin HFA) 2 puff INHALATION Q4H PRN #8.5 g 09/15/21 [Rx Confirmed 10/09/21] multivitamin 1 tab PO DAILY 10/09/21 [History Confirmed 10/09/21] cefdinir 300 mg capsule 300 mg PO BID #7 cap 10/14/21 [Rx] doxycycline hyclate 100 mg capsule 100 mg PO BID #7 cap 10/14/21 [Rx] fluticasone fur. 200 mcg-umeclid 62.5 mcg-vilant 25 mcg inhalat.powder (Trelegy Ellipta) 1 inh INHALATION DAILY #60 ea 10/14/21 [Rx] montelukast 10 mg tablet (Singulair) 10 mg PO HS #30 tab 10/14/21 [Rx] pantoprazole 40 mg tablet,delayed release 40 mg PO BID #60 tab 10/14/21 [Rx] prednisone 20 mg tablet 40 mg PO DAILY #6 tab 10/14/21 [Rx] Active Medications Azithromycin (Azithromycin 250 Mg Tab) 250 mg PO QAM [facility] Stop: 11/13/21 09:01 Budesonide (Budesonide 0.5 Mg/2 Ml Vial (Pulmicort)) 0.5 mg NEB BIDR [facility] Stop: 12/10/21 18:59 Dextrose (Dextrose 50% 50 Ml Syringe) 25 - 50 ml IV UD PRN; Protocol PRN Reason: Hypoglycemia Protocol Stop: 12/10/21 13:45 Enoxaparin Sodium (Enoxaparin Inj 40 Mg/0.4 Ml Syr) [facility]: 12/11/21 08:59 Fentanyl Citrate (Fentanyl Citrate 100 Mcg/2 Ml Vial) 50 mcg IV Q2H PRN PRN Reason: Moderate Pain (4,5,6) on NRS Stop: 11/24/21 13:45 Glucagon (Glucagon For Inj 1 Mg Vial) 1 mg SQ UD PRN; Protocol PRN Reason: Hypoglycemia Protocol Stop: 12/10/21 13:45 Glucose (Glucose 10 Tabs/Tube) 4 - 8 tabs PO UD PRN; Protocol PRN Reason: Hypoglycemia Protocol Stop: 12/10/21 13:45 Glucose (Glucose 40% Gel 15 Gm Tube) 15 - 30 gm PO UD PRN; Protocol PRN Reason: Hypoglycemia Protocol Stop: 12/10/21 13:45 Parenteral Electrolytes (Plasma-Lyte A) 1,000 mls @ 90 mls/hr IV .Q11H7M MITCH Stop: 12/10/21 13:59 Propofol (Diprivan) 1,000 mg in 100 mls @ 8.58 mls/hr IV .[id number] MITCH; Protocol Stop: 11/13/21 13:59 Methylprednisolone 40 mg/ (Syringe) 0.64 mls @ 1.5 mls/min IV Q8 MITCH Stop: 12/10/21 13:59 Vancomycin HCl 1,250 mg/ (Sodium Chloride) 525 mls @ 200 mls/hr IV NOW STA Stop: 11/10/21 16:52 Sodium Chloride (Nss 1000ml) 1,000 mls @ 999 mls/hr IV .Q1H1M ONE Stop: 11/10/21 15:06 Last Admin: 11/10/21 14:03 Dose: 999 mls/hr Documented by: Insulin Aspart (Insulin Aspart Per Unit) 0 units SC ACHS MITCH Stop: 12/10/21 16:29 Miscellaneous (Icu Protocol For Hyperglycemia) 1 ea N/A PRN PRN; Protocol PRN Reason: Hyperglycemia Protocol Stop: 11/12/21 13:45 Miscellaneous (Stat Iv Infusion Titration Per Protocol) 1 ea N/A NOW STA Stop: 11/10/21 13:47 Miscellaneous (Carbohydrates For Hypoglycemia ) 15 - 30 gm PO UD PRN PRN Reason: Hypoglycemia Protocol Stop: 12/10/21 13:45 Miscellaneous Information (Vancomycin Consult Active) 1 ea N/A UD PRN PRN Reason: Consult Stop: 12/10/21 13:51 Miscellaneous Information (Vancomycin Consult Active) 1 ea N/A UD PRN PRN Reason: Consult Stop: 12/10/21 13:51 Propofol (Propofol Bolus From Bag) 20 mg IV Q5M PRN PRN Reason: Sedation Stop: 11/13/21 13:45 Sodium Chloride (Nss 1000ml) 1,000 mls @ 999 mls/hr IV .Q1H1M ONE Stop: 11/10/21 15:06 Last Admin: 11/10/21 14:03 Dose: 999 mls/hr Documented by: [id number] Discontinued Medications Adenosine (Adenosine Iv Soln 3 Mg/Ml 2 Ml Vial) Confirm Administered Dose 18 mg IV .STK-MED ONE Stop: 11/10/21 14:00 Last Admin: 11/10/21 14:03 Dose: 6 mg Documented by: [id number] Albuterol (Albut/Ipratrop 3mg/0.5mg Neb 3 Ml Vial) 12 ml NEB ONE ONE; Protocol Stop: 11/10/21 12:20 Last Admin: 11/10/21 12:44 Dose: 12 ml Documented by: [id number] Sodium Chloride (Nss 1000ml) 500 mls @ 999 mls/hr IV .Q31M ONE Stop: 11/10/21 13:12 Last Admin: 11/10/21 12:45 Dose: 999 mls/hr Documented by: [id number] Ceftriaxone Sodium (Rocephin) 1,000 mg in 50 mls @ 100 mls/hr IV NOW STA Stop: 11/10/21 13:47 Last Admin: 11/10/21 13:51 Dose: 100 mls/hr Documented by: [id number] Methylprednisolone (Methylprednisolone 125 Mg/2 Ml Vial) 125 mg IV NOW STA Stop: 11/10/21 12:20 Last Admin: 11/10/21 12:43 Dose: 125 mg Documented by: [id number] Metoprolol Tartrate (Metoprolol Tartrate 1 Mg/Ml Vial) Confirm Administered Dose 5 mg IV .STK-MED ONE Stop: 11/10/21 14:06 Last Admin: 11/10/21 14:07 Dose: 5 mg Documented by: [id number] Propofol (Propofol Iv Emulsion 10 Mg/Ml 100 Ml Vial) Confirm Administered Dose 1,000 mg IV .STK-MED ONE Stop: 11/10/21 13:35 Last Admin: 11/10/21 14:10 Dose: 1,000 mg Documented by: [id number] Cosigned by: [id number] ECG Additional Comments: Single frontal view of the chest demonstrates the cardiomediastinal silhouette to be within normal limits. There has been interval placement of an endotracheal tube with tip 2.5 cm above the jaison. There is evidence for hyperinflation the lungs with emphysematous changes again seen. The lungs are clear of alveolar opacities. There is no evidence for pleural effusion. There is no evidence for vascular congestion. There is no acute osseous pathology. IMPRESSION: 1. ET tube 2.5 cm above the jaison. 2. No acute chest disease with emphysematous changes again noted. Code Status & VTE Plan Code Status CODE: FULL VTE: SCds, Lovenox 40mg sub q daily VTE Prophylaxis Plan VTE Prophylaxis will be ordered: Yes PG Care Time/CCT Total # of Minutes Spent Total Time Spent with Patient: Total time spent is greater than 50% in coordination of care (as documented) at patient's floor/unit and/or counseling patient: Coding Level of Care Code 34189 Initial Inpt Care Lvl 3 Diagnoses Respiratory failure J96.01; J96.02 Chronicity: acute Respiratory failure complication: hypoxia and hypercapnia COPD exacerbation J44.1 Hypertension I10 Hyperglycemia R73.9 GERD (gastroesophageal reflux disease) K21.9 (1) Respiratory failure Chronicity: acute Respiratory failure complication: hypoxia and hypercapnia Qualified Code(s): J96.01 - Acute respiratory failure with hypoxia; J96.02 - Acute respiratory failure with hypercapnia
[2021-11-10] MEDS ORDERED: ADENOSINE IV SOLN 3 MG/ML 2 ML VIAL IV STA (14:13)
[2021-11-10] MEDS ORDERED: VANCOMYCIN HCL 1,250 MG in SODIUM CHLORIDE 0.9% 500 ML IV STA (14:15)
[2021-11-10] MEDS ORDERED: MAGNESIUM SULFATE 1GM / D5W BAG IV ONE (14:15)
[2021-11-10 14:33] LABS: Influenza A virus by PCR Negative (Neg); Influenza B virus by PCR Negative (Neg); RSV by PCR Negative (Neg); SARS CoV2 RNA(COVID-19) InHosp NEGATIVE (Negative)
[2021-11-10 14:58] LABS: Base Excess ABG 9.6 mEq/L (-9-1.8); HCO3 ABG 37 mmol/L (19-24); PCO2 ABG 60 mmHg (35-46); PO2 ABG 84 mmHg (80-95); pH ABG 7.41 (7.35-7.45)
[2021-11-10 14:59] LABS: Allen Test Pos (Pos)
--- NOTE | 2021-11-10 15:34 | Critical Care Consultation ---
Date of Consultation November 10, 2021 Assessment & Plan (1) Acute on chronic respiratory failure with hypoxia and hypercapnia: Reason Critically Ill: 51-year-old male with severe COPD and chronic oxygen therapy with COPD exacerbation. PLAN: Neuro: Acute metabolic encephalopathy -Likely secondary to hypercapnia Resp: COPD Acute on chronic respiratory failure with hypercapnia -mechanical ventilation Evidence of chronic retention on basic metabolic panel: Carbon dioxide in high 30s and low 40s -Scheduled nebulizers -6 mg magnesium IV, give at 1 g every 30 minutes observe for hypotension CV: Tachycardia to 170s -This occurred after intubation, was given 6 mg of adenosine and appeared to be sinus tachycardia -5 mg metoprolol x1 achieved significant control Fluids/Renal: Chronic compensation for respiratory acidosis ID: COPD exacerbation -Rocephin, Zithromax, vancomycin -If MRSA swab negative can discontinue vancomycin GI/Nutrition: History of recent gastritis -Protonix 40 mg twice daily Heme: Thrombocytosis DVT prophylaxis: Lovenox 40 mg daily Endocrine: ICU hyperglycemia protocol Solu-Medrol 40 mg every 8 hours Vascular access: Peripheral IVs Code Status: Full code Disposition: ICU (2) GERD (gastroesophageal reflux disease): (3) Hypertension: Supervising Physician Co-Signing Physician Notes I have personally spent 45 minutes of critical care time in the direct management of this patient. This is a life/limb threatening event. This includes time spent evaluating patient, direct bedside care, chart review, placing orders, interpretation of diagnostic studies, discussion with consultants, patient, and/or family members regarding treatment decisions, as well as other required patient management activities. This time is exclusive of all separately billable procedures, and teaching time and separate from and in addition to any other critical care service time. History of Present Illness Reason for Consultation: Acute on chronic hypercapnic respiratory failure Requesting Physician: Steve Santana Attending Physician: Steve Santana History of Present Illness History is obtained from prior records as patient is obtunded. The patient was recently admitted to the ICU for COPD exacerbation and was discharged home. Most recently in his normal state of health as of yesterday until he had increasing shortness of breath starting at approximately 11 PM. He uses 3 L nasal cannula oxygen at baseline. In the emergency department he was found to be hypercapnic was started on BiPAP however he continued to progress and and increasing somnolence. He was intubated and we have been requested for further evaluation and treatment. Allergies Allergy/AdvReac Type Severity Reaction Status Date / Time No Known Allergies Allergy Verified 10/09/21 19:55 Home Medications Medication Instructions Recorded Confirmed Type aspirin 81 mg tablet,delayed 81 mg PO DAILY 04/12/19 10/09/21 History release ascorbic acid (vitamin C) 500 mg 1 g PO DAILY tab 08/04/20 10/09/21 History tablet (Vitamin C) BI-PAP 07/17/21 09/15/21 History Portable Oxygen 07/17/21 09/15/21 History ipratropium 20 mcg-albuterol 100 1 puff INHALATION BID #4 g 08/18/21 10/09/21 Rx mcg/actuation mist for inhalation (Combivent Respimat) albuterol sulfate 90 mcg/actuation 2 puff INHALATION Q4H PRN #8.5 g 09/15/21 10/09/21 Rx aerosol inhaler (Ventolin HFA) multivitamin 1 tab PO DAILY 10/09/21 10/09/21 History fluticasone fur. 200 mcg-umeclid 1 inh INHALATION DAILY #60 ea 10/14/21 Rx 62.5 mcg-vilant 25 mcg inhalat.powder (Trelegy Ellipta) montelukast 10 mg tablet 10 mg PO HS #30 tab 10/14/21 Rx (Singulair) pantoprazole 40 mg tablet,delayed 40 mg PO BID #60 tab 10/14/21 Rx release Patient History Medical History Acute on chronic respiratory failure with hypoxia and hypercapnia Anxiety Brain aneurysm Centrilobular emphysema Chronic hypoxemic respiratory failure COPD (chronic obstructive pulmonary disease) Dyspnea and respiratory abnormalities Dyspnea on exertion History of tobacco abuse Pulmonary air trapping Tobacco abuse Surgical History History of intravascular stent placement Family History Grandfather (Maternal) Myocardial infarction Grandfather (Paternal) Myocardial infarction Mother Ovarian cancer Bladder cancer Other Diabetes Denies family history of Prostate cancer Breast cancer Colorectal cancer Social History Smoking Status: Never smoker Tobacco Type: Cigarettes Age Started Using Tobacco: 16; Age Quit Using Tobacco: 49; packs per day: 1; Years Smoked: 33; Cigarettes Per Day: 0.5; Second Hand Exposure: Yes; Preferred Language: Portuguese Communication Ability: Effective Visual Impairment: No Limitations Hearing Ability: Normal Supervisor Underwriting Clerks Required: No Beliefs That Will Affect Care: None marital status: Single Current Living Situation: Alone current occupational status: employed 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 Feels Safe at Home: Yes Childhood Exposure to Second-Hand Smoke: Yes Dental Care, Regularly: No Physical Activity Frequency: Does not Exercise Seatbelt Use: always Sunscreen Use: No Assistive Devices: BiPap and Oxygen - Continuous Review of Systems Review of Systems: Unobtainable due to endotracheal tube Physical Exam 2 Physical Exam: General: Sedated, localizing to painful stimuli Skin: Warm, dry, Head: Atraumatic Ears, nose, mouth and throat: airway obscured by endotracheal tube Cardiovascular: Tachycardia noted 170 Respiratory: Distant breath sounds, poor air movement Gastrointestinal: Non distended Musculoskeletal: No deformity Results & Data Results & Data ([facility]) Vital Signs (Past 12 Hours) Vital Signs Temp Pulse Resp BP Pulse Ox 11/10/21 15:00 82 24 99 11/10/21 14:50 87 24 151/118 H 99 11/10/21 14:41 91 H 24 156/118 H 100 11/10/21 14:40 92 H 24 98 11/10/21 14:30 94 H 24 131/102 H 97 11/10/21 14:20 93 H 24 158/119 H 97 11/10/21 14:10 113 H 24 137/96 99 11/10/21 14:07 163 H 143/99 H 11/10/21 14:00 169 H 13 142/99 H 99 11/10/21 13:54 168 H 24 100 11/10/21 13:50 169 H 24 112/83 100 11/10/21 13:40 104 H 27 H 132/86 100 11/10/21 13:33 103 H 16 158/75 H 87 L 11/10/21 13:31 102 H 23 11/10/21 13:20 103 H 34 H 100 11/10/21 13:12 109 H 20 100 11/10/21 13:10 104 H 27 H 100 11/10/21 13:00 108 H 19 135/103 H 100 11/10/21 12:53 21 100 11/10/21 12:50 108 H 33 H 100 11/10/21 12:47 120 H 21 100 11/10/21 12:15 36.7 C 105 H 30 H 127/84 100 Critical Care Results & Data Vital Signs (Past 12 Hours) Vital Signs Temp Pulse Resp BP Pulse Ox 11/10/21 15:00 82 24 99 11/10/21 14:50 87 24 151/118 H 99 11/10/21 14:41 91 H 24 156/118 H 100 11/10/21 14:40 92 H 24 98 11/10/21 14:30 94 H 24 131/102 H 97 11/10/21 14:20 93 H 24 158/119 H 97 11/10/21 14:10 113 H 24 137/96 99 11/10/21 14:07 163 H 143/99 H 11/10/21 14:00 169 H 13 142/99 H 99 11/10/21 13:54 168 H 24 100 11/10/21 13:50 169 H 24 112/83 100 11/10/21 13:40 104 H 27 H 132/86 100 11/10/21 13:33 103 H 16 158/75 H 87 L 11/10/21 13:31 102 H 23 11/10/21 13:20 103 H 34 H 100 11/10/21 13:12 109 H 20 100 11/10/21 13:10 104 H 27 H 100 11/10/21 13:00 108 H 19 135/103 H 100 11/10/21 12:53 21 100 11/10/21 12:50 108 H 33 H 100 11/10/21 12:47 120 H 21 100 11/10/21 12:15 36.7 C 105 H 30 H 127/84 100 Lab & Micro Results (Past 24 Hours) RBC 4.62 M/uL (4.7-6.1) L 11/10/21 WBC 5.19 K/uL (4.8-10.8) 11/10/21 Hgb 14.6 g/dL (14.0-18.0) 11/10/21 Hct 44.8 % (42-52) 11/10/21 MCV 97.0 fL (80-100) 11/10/21 MCH 31.6 pg (25-34) 11/10/21 MCHC 32.6 g/dL (32-36) 11/10/21 RDW Standard Deviation 44.1 fL (36.4-46.3) 11/10/21 RDW Coefficient of Variation 12.5 % (11.5-14.5) 11/10/21 Plt Count 403 K/uL (130-400) H 11/10/21 MPV 9.8 fL (7.4-10.4) 11/10/21 Neutrophils (%) (Auto) 67.9 % 11/10/21 Lymphocytes (%) (Auto) 19.5 % 11/10/21 Monocytes # (Auto) 0.59 K/uL (0.11-0.59) 11/10/21 Eosinophils # (Auto) 0.04 K/uL (0-0.5) 11/10/21 Immature Granulocyte % (Auto) 0.2 % 11/10/21 Neutrophils # (Auto) 3.53 K/uL (1.4-6.5) 11/10/21 Lymphocytes # (Auto) 1.01 K/uL (1.2-3.4) L 11/10/21 Monocytes # (Auto) 0.59 K/uL (0.11-0.59) 11/10/21 Eosinophils # (Auto) 0.04 K/uL (0-0.5) 11/10/21 Basophils # (Auto) 0.01 K/uL (0-0.2) 11/10/21 Immature Granulocyte # (Auto) 0.01 K/uL (0.00-0.02) 11/10/21 Na 138 mmol/L (136-145) 11/10/21 K 4.0 mmol/L (3.5-5.1) 11/10/21 Cl 92 mmol/L (98-107) L 11/10/21 CO2 42 mmol/L (21-32) H* 11/10/21 Anion Gap 4 (3-11) 11/10/21 BUN 7 mg/dl (6-23) 11/10/21 Creatinine 0.48 mg/dl (0.6-1.4) L 11/10/21 Estimated GFR ( Amer) 147.9 ml/min 11/10/21 Estimated GFR (Non-Af Amer) 127.6 ml/min 11/10/21 BUN/Creatinine Ratio 14.6 (10-20) 11/10/21 Glu 106 mg/dl (70-99(Fasting)) H 11/10/21 Ca 9.4 mg/dl (8.5-10.1) 11/10/21 Total Bilirubin 1.1 mg/dl (0.2-1.0) H 11/10/21 AST 14 U/L (13-39) 11/10/21 ALT 12 U/L (7-52) 11/10/21 Alkaline Phosphatase 55 U/L (34-104) 11/10/21 TP 6.8 gm/dl (6.0-8.3) 11/10/21 Albumin 4.3 gm/dl (3.4-5.0) 11/10/21 Globulin 2.5 gm/dl (2.5-4.0) 11/10/21 Albumin/Globulin Ratio 1.7 (0.9-2) 11/10/21 Mg 2.0 mg/dl (1.7-2.4) 11/10/21 12:30 11/10/21 Calcium Level 9.4 mg/dl (8.5-10.1) 11/10/21 12:30 11/10/21 Prothromb Time International Ratio 1.0 (0.9-1.1) 11/10/21 12:30 11/10/21 Venous Blood pH 7.24 (7.36-7.41) L 11/10/21 12:30 11/10/21 Venous Blood Partial Pressure CO2 99 mmHg (38-50) H 11/10/21 12:30 11/10/21 Venous Blood Partial Pressure O2 45 mmHg 11/10/21 12:30 11/10/21 Venous Blood HCO3 42 mmol/L 11/10/21 12:30 11/10/21 Venous Blood Base Excess 9.4 mEq/L 11/10/21 12:30 11/10/21 Venous Blood Oxygen Saturation 76.6 % 11/10/21 12:30 11/10/21 Blood Gas Barometric Pressure 731.2 mm/Hg 11/10/21 14:25 11/10/21 Arterial Blood pH 7.41 (7.35-7.45) 11/10/21 14:25 11/10/21 Arterial Blood Partial Pressure CO2 60 mmHg (35-46) H 11/10/21 14:25 11/10/21 Arterial Blood Partial Pressure O2 84 mmHg (80-95) 11/10/21 14:25 11/10/21 Arterial Blood HCO3 37 mmol/L (19-24) H 11/10/21 14:25 11/10/21 Arterial Blood Base Excess 9.6 mEq/L (-9-1.8) H 11/10/21 14:25 11/10/21 Arterial Blood Oxygen Saturation 96.0 % (90-95) H 11/10/21 14:25 11/10/21 Blood Gas Oxygen Given 28% 11/10/21 14:25 11/10/21 Terrell Test Pos (Pos) 11/10/21 14:11/10/21 Blood Gas Barometric Pressure 731.2 mm/Hg 11/10/21 14:25 11/10/21 Diagnostic Findings (Past 24 Hours) Chest X-Ray 11/10/21 12:20 XR chest 1V portable CLINICAL HISTORY: Dyspnea. COMPARISON STUDY: Chest CT October 09, 2021. Chest radiograph October 14, 2021. FINDINGS: Lung hyperinflation with emphysema is noted. Lung volumes are normal. Lungs are clear. There is no pneumothorax or pleural effusion. Cardiac size is normal. Mediastinal contours are normal. There is no evidence for pulmonary edema. IMPRESSION: No acute cardiopulmonary findings. Emphysema. ACT 112: Negative or not required by law. Electronically signed by: Matt Garay M.D. 11/10/2021 1:02 PM Chest X-Ray 11/10/21 13:45 XR chest 1V portable CLINICAL HISTORY: ETT placement. COMPARISON STUDY: 11/10/2021 TECHNIQUE: 1 view of the chest FINDINGS: Single frontal view of the chest demonstrates the cardiomediastinal silhouette to be within normal limits. There has been interval placement of an endotracheal tube with tip 2.5 cm above the jaison. There is evidence for hyperinflation the lungs with emphysematous changes again seen. The lungs are clear of alveolar opacities. There is no evidence for pleural effusion. There is no evidence for vascular congestion. There is no acute osseous pathology. IMPRESSION: 1. ET tube 2.5 cm above the jaison. 2. No acute chest disease with emphysematous changes again noted. ACT 112: Negative or not required by law. Electronically signed by: Gene Puckett M.D. 11/10/2021 1:53 PM I & O Totals 24 Hours 11/09/21 11/10/21 11/11/21 06:59 06:59 06:59 Intake Total 450 / 450 Balance 450 / 450 Cumulative 11/10/21 12:14 thru 11/10/21 15:09 Intake Total 450 Balance 450 RT Ventilator Mngmt (Last Documented) Ventilator Ordered Settings Ventilator Support Mode Assist Control 11/10/21 13:54 Respiratory Rate 24 11/10/21 15:00 Ventilator Tidal Volume 450 11/10/21 13:54 Setting Minute Ventilation 11.3 11/10/21 13:54 Positive End Expiratory 5 11/10/21 13:54 Pressure Fraction of Inspired Oxygen 28 11/10/21 13:54 Ventilator - PT Measurements Respiratory Rate 24 Exhaled Tidal Volume 490 Minute Ventilation 11.3 Peak Inspiratory Airway 27 Pressure Inspiratory Phase Time 0.8 End-Tidal CO2 48 Dynamic Lung Compliance 22.27 Normal Static Lung Compliance 46.00 Coding Level of Care Code Critical Care 1st 30-74 mins Diagnoses GERD (gastroesophageal reflux disease) K21.9 Hypertension I10 Acute on chronic respiratory failure with hypoxia and hypercapnia J96.21; J96.22
[2021-11-10] MEDS: NORMOSOL-R 1,000 ML IV SCH (15:53)
[2021-11-10 16:40] LABS: Appearance Urine Clear (Clear); Bacteria Urine Automated Negative (Negative); Bilirubin Urine Negative (Negative); Blood Urine Negative (Negative); Color Urine Yellow; Epithelial Cell Urine Auto >30 /lpf (0-5); Glucose Urine UA Negative (Negative); Ketones Urine 2+ (Negative); Leukocyte Esterase Urine Negative (Negative); Nitrite Urine Negative (Negative); RBC Urine Automated 0-4 /hpf (0-4); Specific Gravity Urine 1.013 (1.000-1.030); Urobilinogen Urine Negative (Negative); pH Urine 7.5 (4.5-7.5)
[2021-11-10 16:41] LABS: Protein Urine 3+ (Negative)
[2021-11-10 16:57] LABS: Cast Urine Automated >30 /lpf (0-5)
[2021-11-10] MEDS ORDERED: METOPROLOL TARTRATE 1 MG/ML VIAL IV STA (17:15)
[2021-11-10] MEDS ORDERED: MAGNESIUM SULFATE / D5W 1 GM/100 ML BAG IV SCH (17:15)
[2021-11-10] MEDS: MAGNESIUM SULFATE / D5W 1 GM/100 ML BAG IV SCH ×6 (17:31→20:12)
[2021-11-10] MEDS ORDERED: KETAMINE HCL INJ 50 MG/ML 10 ML VIAL IV ONE (17:43)
[2021-11-10] MEDS ORDERED: ROCURONIUM BROMIDE 10 MG/ML 5 ML VIAL IV ONE (17:43)
[2021-11-10] MEDS: INSULIN ASPART PER UNIT SC SCH (17:49)
--- NOTE | 2021-11-10 19:15 | Electrocardiogram Report ---
Test Reason : Blood Pressure : / mmHG Vent. Rate : 097 BPM Atrial Rate : 097 BPM P-R Int : 122 ms QRS Dur : 082 ms QT Int : 382 ms P-R-T Axes : 092 080 079 degrees QTc Int : 485 ms Poor data quality, interpretation may be adversely affected Normal sinus rhythm Possible Left atrial enlargement Abnormal ECG Confirmed by Shahab Lewis ([id number]) on 11/10/2021 7:14:48 PM Referred By: REFERRED SELF Confirmed By:Link Lewis
[2021-11-10] MEDS: BUDESONIDE 0.5 MG/2 ML VIAL (PULMICORT) NEB SCH (19:52)
[2021-11-10] MEDS: ALBUTEROL 0.5% NEB SOLN 2.5 MG/0.5 ML VIAL NEB SCH (19:52)
[2021-11-10] MEDS: methylPREDNISolone 40 MG in SYRINGE 0 ML IV SCH (20:17)
[2021-11-10] MEDS: MONTELUKAST SODIUM 10 MG TABLET PO SCH (21:37)
[2021-11-10] MEDS: PANTOprazole 40 MG in SYRINGE 0 ML IV SCH (21:38)
[2021-11-11] MEDS: INSULIN ASPART PER UNIT SC SCH ×6 (00:10→21:05)
[2021-11-11] MEDS: PROPOFOL BOLUS FROM BAG IV PRN ×3 (01:24→04:06)
[2021-11-11] MEDS: ALBUTEROL 0.5% NEB SOLN 2.5 MG/0.5 ML VIAL NEB SCH ×4 (01:25→20:10)
[2021-11-11] MEDS: NORMOSOL-R 1,000 ML IV SCH (02:51)
[2021-11-11] MEDS: propofoL 1,000 MG/100 ML VIAL IV SCH (02:52)
[2021-11-11] MEDS ORDERED: PNEUMOCOCCAL Polysaccharide Vaccine 25mcg/0.5mL vial/Syr IM ONE (03:00)
[2021-11-11] MEDS: methylPREDNISolone 40 MG in SYRINGE 0 ML IV SCH ×3 (04:05→22:27)
[2021-11-11 04:35] LABS: iSTAT Allen Test Pass; iSTAT Art Bld Gas pCO2 Correct 48 mmHg (35-46); iSTAT Art Bld Gas pH Corrected 7.481 (7.35-7.45); iSTAT Arterial Blood Gas HCO3 36 meg/L (19-24); iSTAT Arterial Blood Gas pCO2 48 mmHg (35-46); iSTAT Arterial Blood Gas pH 7.48 (7.35-7.45); iSTAT Arterial Blood Gas pO2 73 mmHg (80-95); iSTAT Arterial Blood Gas pO2 C 72; iSTAT Carbon Dioxide 37 mmol/L (24-31); iSTAT FiO2 28 %; iSTAT Hematocrit 35 % (42-52); iSTAT Hemoglobin 11.9 g/dl (14.0-18.0); iSTAT Potassium 3.8 mmol/L (3.3-5.0); iSTAT Site L Radial; iSTAT Sodium 133 mmol/L (135-144)
[2021-11-11] MEDS ORDERED: VANCOMYCIN HCL 1,250 MG in SODIUM CHLORIDE 0.9% 250 ML IV SCH (05:00)
[2021-11-11 05:21] LABS: Hematocrit (blood only) 36.1 % (42-52); Hemoglobin 12.1 g/dL (14.0-18.0); Immature Granulocytes # (auto) 0.02 K/uL (0.00-0.02); Immature Granulocytes % (auto) 0.4 %; Lymphocytes # (auto) 0.56 K/uL (1.2-3.4); Lymphocytes % (auto) 10.1 %; Mean Corpuscular Hemoglobin 30.9 pg (25-34); Mean Corpuscular Hgb Conc 33.5 g/dL (32-36); Mean Corpuscular Volume 92.3 fL (80-100); Mean Platelet Volume 9.5 fL (7.4-10.4); Monocytes # (auto) 0.25 K/uL (0.11-0.59); Monocytes % (auto) 4.5 %; Platelet Count 371 K/uL (130-400); RDW Coefficient of Variation 12.6 % (11.5-14.5); RDW Standard Deviation 42.4 fL (36.4-46.3); Red Blood Count 3.91 M/uL (4.7-6.1); White Blood Count 5.53 K/uL (4.8-10.8)
[2021-11-11 05:58] LABS: Calcium 8.4 mg/dl (8.5-10.1); Creatinine Clr Calc Pharmacy 119.8 ml/min; Est GFR (African American) 135.9 ml/min; Est GFR (Non-African American) 117.2 ml/min; Magnesium 2.9 mg/dl (1.7-2.4); Potassium 3.9 mmol/L (3.5-5.1)
[2021-11-11 06:09] LABS: Prothrombin Time 10.6 Seconds (9.0-12.0)
[2021-11-11] MEDS: BUDESONIDE 0.5 MG/2 ML VIAL (PULMICORT) NEB SCH ×2 (07:03→20:10)
--- NOTE | 2021-11-11 07:40 | Critical Care Progress Note ---
Date of Service November 11, 2021 Assessment & Plan (1) Acute on chronic respiratory failure with hypoxia and hypercapnia: Plan: Reason Critically Ill: 51-year-old male with severe COPD and chronic oxygen therapy with COPD exacerbation. PLAN: Neuro: Acute metabolic encephalopathy: resolved -Likely secondary to hypercapnia Resp: COPD -Gold Stage D: reviewed pulmonary notes. Needs COVID-19 vaccination to be considered for transplant evaluation as well as smoking cessation - Consideration should be given to palliative care if patient chooses to pursue less aggressive treatment options as he very symptomatic and now experiencing recurrent hospitaliztions Acute on chronic respiratory failure with hypercapnia -mechanical ventilation: extubation this morning Evidence of chronic retention on basic metabolic panel: Carbon dioxide in high 30s and low 40s Tobacco dependance -Scheduled nebulizers -smoking cessation education CV: Tachycardia: improved Fluids/Renal: Chronic compensation for respiratory acidosis ID: COPD exacerbation: no significant infiltrate on CXR -Empiric ABX based on severity of COPD -D/C Vancomycin, discontinue rocephin for today. Once taking PO, convert to oral azithromycin. GI/Nutrition: History of recent gastritis -Protonix 40 mg twice daily - Convert to PO when passing bedside swallow Heme: Thrombocytosis DVT prophylaxis: Lovenox 40 mg daily Endocrine: ICU hyperglycemia protocol - Once taking PO, convert to prednisone taper Vascular access: Peripheral IVs Code Status: Full code Disposition: If remains stable 4-6 hours S/P extubation, would be candidate for downgrade. (2) GERD (gastroesophageal reflux disease): (3) Hypertension: Admission and Anticipated Discharge Date Admission Date: November 10, 2021 Supervising Physician Co-Signing Physician Notes I have personally spent 35 minutes of critical care time in the direct management of this patient. This is a life/limb threatening event. This includes time spent evaluating patient, direct bedside care, chart review, sandor cing orders, interpretation of diagnostic studies, discussion with consultants, patient, and/or family members regarding treatment decisions, as well as other required patient management activities. This time is exclusive of all separately billable procedures, and teaching time and separate from and in addition to any other critical care service time. Subjective No overnight events. Tolerating CPAP trial this morning. Review of Systems Review of Systems: Unobtainable due to endotracheal tube Physical Exam Physical Exam: General: Asked patient to give thumbs up, he gave middle finger purposely. Demonstrated he wanted to write. Skin: Warm, dry, Head: Atraumatic Ears, nose, mouth and throat: airway obscured by endotracheal tube Cardiovascular: mild tachycardia to 105 on bedside monitor Respiratory: No respiratory distress Gastrointestinal: Non distended Musculoskeletal: No deformity Results & Data Results & Data ([facility]) Vital Signs (Past 12 Hours) Vital Signs Temp Pulse Resp BP Pulse Ox 11/11/21 06:00 91 H 24 104/74 11/11/21 05:45 82 24 137/86 96 11/11/21 05:30 85 24 116/78 95 11/11/21 05:15 95 H 24 102/69 11/11/21 05:00 89 24 109/71 11/11/21 04:45 87 24 118/73 11/11/21 04:30 96 H 24 143/86 H 99 11/11/21 04:15 85 24 118/82 100 11/11/21 04:00 95 H 24 108/70 11/11/21 03:45 96 H 24 121/79 97 11/11/21 03:30 93 H 24 144/95 H 97 11/11/21 03:17 36.7 C 99 H 25 H 147/86 H 93 11/11/21 03:00 90 24 96 11/11/21 02:30 95 H 24 101/70 95 11/11/21 02:15 91 H 24 122/79 96 11/11/21 02:00 96 H 24 100/66 94 11/11/21 01:45 93 H 24 126/77 97 11/11/21 01:30 89 24 140/94 95 11/11/21 01:15 82 24 135/85 100 11/11/21 01:00 87 24 108/77 98 11/11/21 00:30 83 24 100 11/11/21 00:15 87 24 95/65 L 96 11/11/21 00:00 36.8 C 90 24 93/65 L 97 11/10/21 23:45 88 24 100/71 98 11/10/21 23:30 85 24 98 11/10/21 23:15 93 H 24 105/72 97 11/10/21 23:12 89 25 H 98 11/10/21 23:00 93 H 24 97/68 L 97 11/10/21 22:45 90 24 105/73 96 11/10/21 22:30 99 H 20 128/88 99 06/14/22 22:15 92 H 24 142/95 H 97 11/10/21 22:00 92 H 24 148/105 H 99 11/10/21 21:45 92 H 24 95/65 L 98 11/10/21 21:30 93 H 24 93/62 L 98 11/10/21 21:15 94 H 24 97/65 L 97 11/10/21 21:00 96 H 24 101/67 98 11/10/21 20:45 99 H 24 100/71 98 11/10/21 20:30 103 H 24 105/74 98 11/10/21 20:15 98 H 24 124/93 99 11/10/21 20:00 94 H 24 121/88 100 11/10/21 19:45 89 24 128/93 100 Critical Care Results & Data Vital Signs (Past 12 Hours) Vital Signs Temp Pulse Resp BP Pulse Ox 11/11/21 06:00 91 H 24 104/74 11/11/21 05:45 82 24 137/86 96 11/11/21 05:30 85 24 116/78 95 11/11/21 05:15 95 H 24 102/69 11/11/21 05:00 89 24 109/71 11/11/21 04:45 87 24 118/73 11/11/21 04:30 96 H 24 143/86 H 99 11/11/21 04:15 85 24 118/82 100 11/11/21 04:00 95 H 24 108/70 11/11/21 03:45 96 H 24 121/79 97 11/11/21 03:30 93 H 24 144/95 H 97 11/11/21 03:17 36.7 C 99 H 25 H 147/86 H 93 11/11/21 03:00 90 24 96 11/11/21 02:30 95 H 24 101/70 95 11/11/21 02:15 91 H 24 122/79 96 11/11/21 02:00 96 H 24 100/66 94 11/11/21 01:45 93 H 24 126/77 97 11/11/21 01:30 89 24 140/94 95 11/11/21 01:15 82 24 135/85 100 11/11/21 01:00 87 24 108/77 98 11/11/21 00:30 83 24 100 11/11/21 00:15 87 24 95/65 L 96 11/11/21 00:00 36.8 C 90 24 93/65 L 97 11/10/21 23:45 88 24 100/71 98 11/10/21 23:30 85 24 98 11/10/21 23:15 93 H 24 105/72 97 11/10/21 23:12 89 25 H 98 11/10/21 23:00 93 H 24 97/68 L 97 11/10/21 22:45 90 24 105/73 96 11/10/21 22:30 99 H 20 128/88 99 11/10/21 22:15 92 H 24 142/95 H 97 11/10/21 22:00 92 H 24 148/105 H 99 11/10/21 21:45 92 H 24 95/65 L 98 11/10/21 21:30 93 H 24 93/62 L 98 11/10/21 21:15 94 H 24 97/65 L 97 11/10/21 21:00 96 H 24 101/67 98 11/10/21 20:45 99 H 24 100/71 98 11/10/21 20:30 103 H 24 105/74 98 11/10/21 20:15 98 H 24 124/93 99 11/10/21 20:00 94 H 24 121/88 100 11/10/21 19:45 89 24 128/93 100 Lab & Micro Results (Past 24 Hours) RBC 3.91 M/uL (4.7-6.1) L 11/11/21 WBC 5.53 K/uL (4.8-10.8) 11/11/21 Hgb 12.1 g/dL (14.0-18.0) L 11/11/21 Hct 36.1 % (42-52) L 11/11/21 MCV 92.3 fL (80-100) 11/11/21 MCH 30.9 pg (25-34) 11/11/21 MCHC 33.5 g/dL (32-36) 11/11/21 RDW Standard Deviation 42.4 fL (36.4-46.3) 11/11/21 RDW Coefficient of Variation 12.6 % (11.5-14.5) 11/11/21 Plt Count 371 K/uL (130-400) 11/11/21 MPV 9.5 fL (7.4-10.4) 11/11/21 Neutrophils (%) (Auto) 85.0 % 11/11/21 Lymphocytes (%) (Auto) 10.1 % 11/11/21 Monocytes # (Auto) 0.25 K/uL (0.11-0.59) 11/11/21 Eosinophils # (Auto) 0.00 K/uL (0-0.5) 11/11/21 Immature Granulocyte % (Auto) 0.4 % 11/11/21 Neutrophils # (Auto) 4.70 K/uL (1.4-6.5) 11/11/21 Lymphocytes # (Auto) 0.56 K/uL (1.2-3.4) L 11/11/21 Monocytes # (Auto) 0.25 K/uL (0.11-0.59) 11/11/21 Eosinophils # (Auto) 0.00 K/uL (0-0.5) 11/11/21 Basophils # (Auto) 0.00 K/uL (0-0.2) 11/11/21 Immature Granulocyte # (Auto) 0.02 K/uL (0.00-0.02) 11/11/21 Na 135 mmol/L (136-145) L 11/11/21 K 3.9 mmol/L (3.5-5.1) 11/11/21 Cl 95 mmol/L (98-107) L 11/11/21 CO2 34 mmol/L (21-32) H 11/11/21 Anion Gap 6 (3-11) 11/11/21 BUN 13 mg/dl (6-23) 11/11/21 Creatinine 0.59 mg/dl (0.6-1.4) L 11/11/21 Estimated GFR ( Amer) 135.9 ml/min 11/11/21 Estimated GFR (Non-Af Amer) 117.2 ml/min 11/11/21 BUN/Creatinine Ratio 22.0 (10-20) H 11/11/21 Glu 158 mg/dl (70-99(Fasting)) H 11/11/21 Ca 8.4 mg/dl (8.5-10.1) L 11/11/21 Phosphorus Level 2.0 mg/dl (2.5-4.9) L 11/11/21 Total Bilirubin 1.1 mg/dl (0.2-1.0) H 11/10/21 AST 14 U/L (13-39) 11/10/21 ALT 12 U/L (7-52) 11/10/21 Alkaline Phosphatase 55 U/L (34-104) 11/10/21 TP 6.8 gm/dl (6.0-8.3) 11/10/21 Albumin 4.3 gm/dl (3.4-5.0) 11/10/21 Globulin 2.5 gm/dl (2.5-4.0) 11/10/21 Albumin/Globulin Ratio 1.7 (0.9-2) 11/10/21 Mg 2.9 mg/dl (1.7-2.4) H 11/11/21 04:58 11/11/21 Calcium Level 8.4 mg/dl (8.5-10.1) L 11/11/21 04:58 11/11/21 Prothromb Time International Ratio 1.0 (0.9-1.1) 11/11/21 04:58 11/11/21 Venous Blood pH 7.24 (7.36-7.41) L 11/10/21 12:30 11/10/21 Venous Blood Partial Pressure CO2 99 mmHg (38-50) H 11/10/21 12:30 11/10/21 Venous Blood Partial Pressure O2 45 mmHg 11/10/21 12:30 11/10/21 Venous Blood HCO3 42 mmol/L 11/10/21 12:30 11/10/21 Venous Blood Base Excess 9.4 mEq/L 11/10/21 12:30 11/10/21 Venous Blood Oxygen Saturation 76.6 % 11/10/21 12:30 11/10/21 Blood Gas Barometric Pressure 731.2 mm/Hg 11/10/21 14:25 11/10/21 Arterial Blood pH 7.41 (7.35-7.45) 11/10/21 14:11/10/21 Arterial Blood Partial Pressure CO2 60 mmHg (35-46) H 11/10/21 14:25 11/10/21 Arterial Blood Partial Pressure O2 84 mmHg (80-95) 11/10/21 14:25 11/10/21 Arterial Blood HCO3 37 mmol/L (19-24) H 11/10/21 14:25 11/10/21 Arterial Blood Base Excess 9.6 mEq/L (-9-1.8) H 11/10/21 14:25 11/10/21 Arterial Blood Oxygen Saturation 96.0 % (90-95) H 11/10/21 14:25 11/10/21 Blood Gas Oxygen Given 28% 11/10/21 14:25 11/10/21 Terrell Test Pass 11/11/21 04:20 11/11/21 Blood Gas Barometric Pressure 731.2 mm/Hg 11/10/21 14:25 11/10/21 Diagnostic Findings (Past 24 Hours) Chest X-Ray 11/10/21 12:20 XR chest 1V portable CLINICAL HISTORY: Dyspnea. COMPARISON STUDY: Chest CT October 09, 2021. Chest radiograph October 14, 2021. FINDINGS: Lung hyperinflation with emphysema is noted. Lung volumes are normal. Lungs are clear. There is no pneumothorax or pleural effusion. Cardiac size is normal. Mediastinal contours are normal. There is no evidence for pulmonary edema. IMPRESSION: No acute cardiopulmonary findings. Emphysema. ACT 112: Negative or not required by law. Electronically signed by: Matt Garay M.D. 11/10/2021 1:02 PM Chest X-Ray 11/10/21 13:45 XR chest 1V portable CLINICAL HISTORY: ETT placement. COMPARISON STUDY: 11/10/2021 TECHNIQUE: 1 view of the chest FINDINGS: Single frontal view of the chest demonstrates the cardiomediastinal silhouette to be within normal limits. There has been interval placement of an endotracheal tube with tip 2.5 cm above the jaison. There is evidence for hyperinflation the lungs with emphysematous changes again seen. The lungs are clear of alveolar opacities. There is no evidence for pleural effusion. There is no evidence for vascular congestion. There is no acute osseous pathology. IMPRESSION: 1. ET tube 2.5 cm above the jaison. 2. No acute chest disease with emphysematous changes again noted. ACT 112: Negative or not required by law. Electronically signed by: Gene Puckett M.D. 11/10/2021 1:53 PM I & O Totals 24 Hours 11/10/21 11/11/21 11/12/21 06:59 06:59 06:59 Intake Total 4196.210 / 4196.210 29.44 / 29.44 Output Total 800 / 800 Balance 3396.210 / 3396.210 29.44 / 29.44 Cumulative 11/10/21 12:14 thru 11/11/21 07:08 Intake Total 4225.650 Output Total 800 Balance 3425.650 RT Ventilator Mngmt (Last Documented) Ventilator Ordered Settings Ventilator Support Mode Assist Control 11/11/21 04:00 Respiratory Rate 24 11/11/21 06:00 Ventilator Tidal Volume 350 11/11/21 04:00 Setting Minute Ventilation 8.6 11/11/21 03:30 Positive End Expiratory 5 11/11/21 04:00 Pressure Fraction of Inspired Oxygen 28 11/11/21 04:00 Ventilator - PT Measurements Respiratory Rate 24 Exhaled Tidal Volume 361 Minute Ventilation 8.6 Peak Inspiratory Airway 18 Pressure Plateau Pressure 12.8 Respiratory Cycle Inspiratory: 1:2.1 Expiratory Ratio Inspiratory Phase Time 0.8 End-Tidal CO2 30 Static Lung Compliance 46.28 Dynamic Lung Compliance 27.77 Normal Static Lung Compliance 47.00 Patient Measurements Comment Pt found in room on above settings. Added EtCO2 and aerogen inline. ETT found at 25 @ lip, b ased on notes ETT has been at 25 since ICU admission , notified Tee Nowak. Coding Level of Care Code Critical Care 1st 30-74 mins Diagnoses Acute on chronic respiratory failure with hypoxia and hypercapnia J96.21; J96.22 GERD (gastroesophageal reflux disease) K21.9 Hypertension I10
[2021-11-11] MEDS: ENOXAPARIN INJ 40 MG/0.4 ML SYR SQ SCH (08:19)
[2021-11-11] MEDS: PANTOprazole 40 MG in SYRINGE 0 ML IV SCH (08:19)
--- NOTE | 2021-11-11 08:22 | XRay Report ---
XR chest 1V portable CLINICAL HISTORY: f/u TECHNIQUE: Single frontal radiograph of the chest was obtained. Comparison: Comparison is made to chest radiograph 11/10/2021 FINDINGS: Interval placement of enteric tube with the side-port and tip below the diaphragm. Endotracheal tube is unchanged. The cardiomediastinal silhouette is normal. The lungs are clear. No evidence of pleural effusion or pneumothorax. IMPRESSION: Satisfactory placement of enteric tube. Endotracheal tube is unchanged. ACT 112: Negative or not required by law. Electronically signed by: Timothy Gomez M.D. 11/11/2021 8:21 AM
[2021-11-11] MEDS ORDERED: AZITHROMYCIN 250 MG in DEXTROSE 5% 250 ML IV SCH (09:00)
--- NOTE | 2021-11-11 10:28 | Hospitalist Progress Note ---
Date of Service November 11, 2021 Assessment & Plan (1) Acute on chronic respiratory failure with hypoxia and hypercapnia: Plan: 51-year-old male with severe COPD and chronic oxygen therapy with COPD exacerbation requiring intubation and ICU admission on 11/10. Was extubated on 11/11 and transferred out of ICU. This is the 4th hospitalization with intubation since Feb 2021, last being September 2021. Acute on Chronic hypercapnic hypoxic respiratory failure 2/2 COPD exacerbation: GOLD Stage D, last known PFTs in 2019 with FEV1 16% and FEV1/FVC 28%. Current exacerbation with no clear etiology although may be due to possible smoking, med nonadherence, or oxygen compressor failure - continue Methylprednisolone 40mg IV Q8H - scheduled Albuterol nebs Q6H; PRN Duonebs Q4H - scheduled Mucinex 600mg PO BID - supplemental O2 to maintain SpO2 88-92% (on chronic 2L at rest, 3L ambulation) - continue Azithromycin 500mg PO daily x3 days total - initially started on Vanco/CTX as well (MRSA positive) but no evidence for pneumonia so will discontinue these -blood cultures pending, no growth to date Pulmonology consulted - appreciate recs - consider addition of Roflumilast before discharge - patient is poor candidate for lung transplant due to questionable current smoking, frail body habitus, and lack of COVID/pneumococcal vaccinations (and refusal to get these done as of yet) - continue home Trelegy - QTC is 464, it would not be a good candidate for chronic azithromycin therapy Patient states he remains interested in lung transplant - per [facility] [employer] financial analyst, eligibility for lung transplant would include smoking cessation for >6 months, vaccination against common respiratory including Covid-19, along with many other factors including weight gain. Patient was counseled on these eligibility criteria at that time. - patient states he is open to getting Covid-19 vaccination if it is a requirement for transplant eligibility - patient counseled that he would still need to be evaluated by transplant/[facility] pulmonology and meet all criteria prior to transplant eligibility Acute metabolic encephalopathy: resolved -Likely secondary to hypercapnia -A&Ox3 this AM History of recent gastritis -Diagnosed at last hospitalization mid-September 2021 by EGD -Protonix 40 mg PO BID Vascular access: Peripheral IVs Code Status: Full code FEN/GI: sliding scale insulin, regular diet, +nutritional supplements DVT prophylaxis: Lovenox 40 mg daily Disposition: downgrade to med/surg with tele (2) GERD (gastroesophageal reflux disease): (3) Hypertension: (4) Metabolic encephalopathy: Admission and Anticipated Discharge Date Admission Date: November 10, 2021 Supervising Physician Co-Signing Physician Notes Attending attestation Pt seen and examined in concert with Fermin Dale and [facility]. Dr. Spaulding. In agreement with the documented findings as noted in the student/resident documentation with any exceptions or additions as noted here. Ongoing nonproductive cough and shortness of breath at rest on O2 at high end of baseline with visible laborious breathing during discussion impacting # of words. Reports overall better than time of presentation. Preceding events are unclear, though still attests to falling asleep at his kitchen table because he was too weak to get up and get to his bedroom with his BIPAP. Attests to smoking cessation for ~5 months, remains interested in lung transplant. VS reviewed, on examination, S1/S2 nl tachycardic no MCG. limited air movement without appreciable adventitious sounds, significant accessory muscle use on O2 during speech. Abd NT/ND BS+ve. CNII-XII grossly intact as tested. Acute on chronic hypercapnic hypoxic respiratory failure in the setting of Stage 4 COPD, GOLD stage D - pulm consult - will continue methylpred with slow taper, azithromycin and inhaled therapy as currently prescribed. Follow up cultures. Trend CMP. Patient interested in returning to symbicort therapy which he also used as a 'rescue' which he found helpful. Will d/w pulm team. Lung transplant inquiry - established w/ [facility]ad previously. Reviewed that criteria for transplant may likely include 6+ months of smoking cessation, vaccination against common pulmonary pathogens and multiple other factors decided by the transplant center. Patient inquiring if vaccinations, which have historically been declined by the patient, would prevent him from getting transplant - dependant on the criteria for transplant from the center, but traditionally yes, and rec'd vaccination for basic preventative in critically ill patient, to which he is agreeable at this time. Gastritis - continue protonix BID regina with steroid use Else see student/resident documentation as noted. Subjective Patient feeling SOB today with cough. No chest pain or palpitations. He was extubated this AM and is currently on 3L O2 NC. 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 He has a 35 pack year history of smoking, and states that he quit cold turkey 4-5 months ago. States no alcohol use for over 1 year. No childhood vaccines other than polio. States he has received a flu and PNA vaccine recently but no covid-19 vaccination. He is open to getting a covid-19 vaccination if it is a requirement for lung transplant. Review of Systems Constitutional: no fever or chills Respiratory: +cough with yellow sputum, +SOB Cardiovascular: Additional Comments: no chest pain or palpitations Gastrointestinal: no abdominal pain, no constipation or diarrhea Genitourinary: no dysuria Physical Exam Constitutional: resting in bed in no acute distress Respiratory: increased respiratory effort with accessory muscle use and pursed lip breathing. Minimal breath sounds heard on auscultation bilaterally. No crackles or rales. On 3L O2 NC Cardiovascular: tachycardic rate, regular rhythm. no MRG appreciated Gastrointestinal (Abdomen): soft, nontender Skin: warm and dry Neurologic: A&Ox3 Results & Data Results & Data ([facility]) Vital Signs (Past 12 Hours) Vital Signs Temp Pulse Resp BP Pulse Ox 11/11/21 06:55 92 H 16 94 11/11/21 06:00 91 H 24 104/74 11/11/21 05:45 82 24 137/86 96 11/11/21 05:30 85 24 116/78 95 11/11/21 05:15 95 H 24 102/69 11/11/21 05:00 89 24 109/71 11/11/21 04:45 87 24 118/73 11/11/21 04:30 96 H 24 143/86 H 99 11/11/21 04:15 85 24 118/82 100 11/11/21 04:00 95 H 24 108/70 11/11/21 03:45 96 H 24 121/79 97 11/11/21 03:30 93 H 24 144/95 H 97 11/11/21 03:17 36.7 C 99 H 25 H 147/86 H 93 11/11/21 03:00 90 24 96 11/11/21 02:30 95 H 24 101/70 95 11/11/21 02:15 91 H 24 122/79 96 11/11/21 02:00 96 H 24 100/66 94 11/11/21 01:45 93 H 24 126/77 97 11/11/21 01:30 89 24 140/94 95 11/11/21 01:15 82 24 135/85 100 11/11/21 01:00 87 24 108/77 98 11/11/21 00:30 83 24 100 11/11/21 00:15 87 24 95/65 L 96 11/11/21 00:00 36.8 C 90 24 93/65 L 97 11/10/21 23:45 88 24 100/71 98 11/10/21 23:30 85 24 98 11/10/21 23:15 93 H 24 105/72 97 11/10/21 23:12 89 25 H 98 11/10/21 23:00 93 H 24 97/68 L 97 11/10/21 22:45 90 24 105/73 96 11/10/21 22:30 99 H 20 128/88 99 11/10/21 22:15 92 H 24 142/95 H 97
--- NOTE | 2021-11-11 11:55 | Electrocardiogram Report ---
Test Reason : Blood Pressure : / mmHG Vent. Rate : 092 BPM Atrial Rate : 092 BPM P-R Int : 118 ms QRS Dur : 080 ms QT Int : 376 ms P-R-T Axes : 085 084 068 degrees QTc Int : 464 ms Normal sinus rhythm Normal ECG When compared with ECG of 10-NOV-2021 12:36, Criteria for Anteroseptal infarct are no longer Present Confirmed by Shahab Lewis ([id number]) on 11/11/2021 11:54:48 AM Referred By: REFERRED SELF Confirmed By:Link Lewis
--- NOTE | 2021-11-11 13:19 | Pulmonary Consultation ---
Date of Consultation November 11, 2021 Assessment & Plan (1) COPD exacerbation: (2) Acute and chronic respiratory failure: (3) COPD (chronic obstructive pulmonary disease): COPD type: emphysema Emphysema type: centrilobular Qualified Code(s): J43.2 - Centrilobular emphysema (4) Tobacco abuse: (5) BiPAP (biphasic positive airway pressure) dependence: CT chest 10/09/2021 personally reviewed: Severe centrilobular and paraseptal emphysema appreciated bilaterally ET tube in place No mediastinal lymphadenopathy Chest x-ray 11/10/2021 personally reviewed: Portable film, hyperinflated, flattening of bilateral diaphragm, no clear lung event appreciated -- Acute exacerbation of severe COPD Gold class D On Trelegy inhaler at home along with Singulair Patient states that he prefers Symbicort inhaler as he finds most benefit from it. Patient also has apparently BiPAP machine at home but was not compliant with it. Importance of compliance explained QTC is 464, it would not be a good candidate for chronic azithromycin therapy. Spirometry 12/21/2019: FEV1 0.6 L 16%, FVC 2.15 L 47%, FEV1/FVC 28% --Acute on chronic hypercapnic hypoxic respiratory failure Likely secondary to COPD exacerbation Usually uses 1 and half to 3 L oxygen at home [id number] Continue with O2 supplementation to keep oxygen saturation between 88-92% Patient has been following up with Dr. Chen as well as SHERLYN Siddiqi as an outpatient --Current smoker Occasionally smokes couple of cigarettes here and there Has significantly decreased the amount of smoking he did Encouraged to completely quit smoking Patient falls under very high risk for respiratory infection including but not limited to Covid-19. Recommend vaccination against pneumonia Pneumovax/Prevnar if not already taken along with COVID-vaccine Plan: Can change Solu-Medrol to 40 mg twice daily as of tomorrow. He is an active smoker unfortunately would not be a candidate for lung transplant. Patient feels that Symbicort works better for him rather than Trelegy. I did explain to the patient that Trelegy has 3 medications and it was Symbicort is only 2. If he likes the mode of delivery of Symbicort, it is okay for him to use Symbicort but he will need another inhaler on top of it it could be Incruse or Spiriva. Should not use Trelegy when using the other inhalers like Symbicort/Incruse. Roflumilast could be considered to be added prior to discharge Outpatient follow-up with pulmonary, he was apparently referred to [facility] for lung volume reduction surgery Case was discussed with Dr. Proctor Please note the above document was generated using voice recognition software. It may contain grammatical, syntax or spelling errors.Any formal questions or concerns about the content, text or information contained within the body of this dictation should be directly addressed to the provider for clarification. History of Present Illness Attending Physician: Boy Proctor MD History of Present Illness 51-year-old male was admitted to the hospital initially for shortness of breath but he got more somnolent and was intubated Past medical history: End-stage COPD, A. fib, hypertension, anxiety Patient was already extubated when I saw him today. He states that he is doing well compared to when he came to the hospital. He has been using his Trelegy inhaler on a daily basis. He uses rescue inhaler up to 4-6 times on a daily basis He does not use nebulizer that often. He does have BiPAP at home but there has been some issues with BiPAP and he is not compliant with it. Does complain of cough and bringing up clear phlegm. Denies any hemoptysis. At the time of examination patient was saturating 95% on 2 L nasal cannula. I went down to 1 L nasal cannula and he was saturating 92-93%. He was breathing around 16-17 breaths/min. He does use accessory muscles when he takes deep breath in but did not seem to be in any respiratory discomfort No fever or chills. No dysuria, no diarrhea. No headache, no blurry vision. No nausea or vomiting. Social history: Patient has significantly decreased the amount of smoking he is doing since the last 5 months. He occasionally smokes 1 or 2 cigarettes Allergies Allergy/AdvReac Type Severity Reaction Status Date / Time No Known Allergies Allergy Verified 10/09/21 19:55 Home Medications Medication Instructions Recorded Confirmed Type aspirin 81 mg tablet,delayed 81 mg PO DAILY 04/12/19 11/10/21 History release ascorbic acid (vitamin C) 500 mg 1 g PO DAILY tab 08/04/20 11/10/21 History tablet (Vitamin C) BI-PAP 07/17/21 09/15/21 History Portable Oxygen 07/17/21 09/15/21 History ipratropium 20 mcg-albuterol 100 1 puff INHALATION BID #4 g 08/18/21 11/10/21 Rx mcg/actuation mist for inhalation (Combivent Respimat) albuterol sulfate 90 mcg/actuation 2 puff INHALATION Q4H PRN #8.5 g 09/15/21 11/10/21 Rx aerosol inhaler (Ventolin HFA) multivitamin 1 tab PO DAILY 10/09/21 11/10/21 History fluticasone fur. 200 mcg-umeclid 1 inh INHALATION DAILY #60 ea 10/14/21 11/10/21 Rx 62.5 mcg-vilant 25 mcg inhalat.powder (Trelegy Ellipta) montelukast 10 mg tablet 10 mg PO HS #30 tab 10/14/21 11/10/21 Rx (Singulair) pantoprazole 40 mg tablet,delayed 40 mg PO BID #60 tab 10/14/21 11/10/21 Rx release Patient History Medical History Acute on chronic respiratory failure with hypoxia and hypercapnia Anxiety Brain aneurysm Centrilobular emphysema Chronic hypoxemic respiratory failure COPD (chronic obstructive pulmonary disease) Dyspnea and respiratory abnormalities Dyspnea on exertion History of tobacco abuse Pulmonary air trapping Tobacco abuse Surgical History History of intravascular stent placement Family History Grandfather (Maternal) Myocardial infarction Grandfather (Paternal) Myocardial infarction Mother Ovarian cancer Bladder cancer Other Diabetes Denies family history of Prostate cancer Breast cancer Colorectal cancer Social History Smoking Status: Unknown if ever smoked Tobacco Type: Cigarettes Age Started Using Tobacco: 16; Age Quit Using Tobacco: 49; packs per day: 1; Years Smoked: 33; Cigarettes Per Day: 0.5; Second Hand Exposure: Yes; Preferred Language: Macedonian Communication Ability: Effective Visual Impairment: No Limitations Hearing Ability: Normal Logistics Project Manager Required: No Beliefs That Will Affect Care: None marital status: Single Current Living Situation: Alone and Other current occupational status: employed 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 Feels Safe at Home: Yes Childhood Exposure to Second-Hand Smoke: Yes Dental Care, Regularly: No Physical Activity Frequency: Does not Exercise Seatbelt Use: always Sunscreen Use: No Assistive Devices: Oxygen - Continuous Review of Systems Review of Systems: All systems reviewed & are unremarkable except as noted in HPI & below Physical Exam Physical Exam: Constitutional: No acute distress, frail-appearing HEENT: EOMI, PERRLA Respiratory system: Decreased air entry bilaterally, no wheeze, no rhonchi, minimal crackles bilateral lower lobes CVS: S1-S2 positive, no murmurs or gallops Abdomen: Soft, nontender, nondistended, positive bowel sounds x4 Extremities: +2 pulses bilaterally radialis/ dorsalis pedis, no cyanosis, no edema Neuro: Awake alert oriented x3 Psych: Normal mood and affect G/U: No Pimentel Skin: no rashes, warm and dry Lymphatic: no cervical or axillary lymphadenopathy Results & Data Results & Data ([facility]) Vital Signs (Past 12 Hours) Vital Signs Temp Pulse Resp BP Pulse Ox 11/11/21 11:00 110 H 20 123/70 97 11/11/21 10:50 109 H 34 H 98 11/11/21 10:45 114 H 19 131/76 99 11/11/21 10:40 115 H 15 97 11/11/21 10:31 114 H 26 H 103/86 98 11/11/21 10:30 112 H 34 H 83 L 11/11/21 10:20 100 H 21 95 11/11/21 10:15 98 H 26 H 124/72 94 11/11/21 10:10 98 H 27 H 93 11/11/21 10:00 105 H 23 118/66 11/11/21 09:50 99 H 18 92 11/11/21 09:45 103 H 27 H 124/74 85 L 11/11/21 09:40 103 H 29 H 90 11/11/21 09:30 101 H 24 125/69 89 L 11/11/21 09:20 103 H 26 H 91 11/11/21 09:15 106 H 19 113/67 11/11/21 09:10 103 H 24 99 11/11/21 09:00 112 H 22 113/75 97 11/11/21 08:50 105 H 17 99 11/11/21 08:45 107 H 25 H 93/70 L 90 11/11/21 08:40 106 H 25 H 96 11/11/21 08:30 109 H 15 124/73 11/11/21 08:20 107 H 32 H 99 11/11/21 08:15 104 H 24 128/77 11/11/21 08:10 105 H 25 H 100 11/11/21 08:01 105 H 29 H 128/77 98 11/11/21 08:00 105 H 36 H 99 11/11/21 07:50 108 H 35 H 99 11/11/21 07:45 103 H 25 H 135/73 11/11/21 07:40 107 H 15 96 11/11/21 07:30 103 H 18 134/95 11/11/21 07:20 104 H 13 97 11/11/21 07:15 95 H 23 137/84 98 11/11/21 07:10 95 H 28 H 96 11/11/21 06:55 92 H 16 94 11/11/21 06:00 91 H 24 104/74 11/11/21 05:45 82 24 137/86 96 11/11/21 05:30 85 24 116/78 95 11/11/21 05:15 95 H 24 102/69 11/11/21 05:00 89 24 109/71 11/11/21 04:45 87 24 118/73 11/11/21 04:30 96 H 24 143/86 H 99 11/11/21 04:15 85 24 118/82 100 11/11/21 04:00 95 H 24 108/70 11/11/21 03:45 96 H 24 121/79 97 11/11/21 03:30 93 H 24 144/95 H 97 11/11/21 03:17 36.7 C 99 H 25 H 147/86 H 93 11/11/21 03:00 90 24 96 11/11/21 02:30 95 H 24 101/70 95 11/11/21 02:15 91 H 24 122/79 96 11/11/21 02:00 96 H 24 100/66 94 11/11/21 01:45 93 H 24 126/77 97 11/11/21 01:30 89 24 140/94 95 11/11/21 01:15 82 24 135/85 100 Laboratory Results 11/11/21 04:58 11/11/21 04:58 PG Care Time/CCT Total # of Minutes Spent Total Time Spent with Patient: Total time spent is greater than 50% in coordination of care (as documented) at patient's floor/unit and/or counseling patient: Coding Level of Care Code 37431 Inpt Consult Level 5 Diagnoses COPD exacerbation J44.1 Acute and chronic respiratory failure J96.20 COPD (chronic obstructive pulmonary disease) J43.2 COPD type: emphysema Emphysema type: centrilobular Tobacco abuse Z72.0 BiPAP (biphasic positive airway pressure) dependence Z99.89
[2021-11-11] MEDS ORDERED: Nursing to Pharmacy Communication SCH (13:45)
[2021-11-11] MEDS ORDERED: AZITHROMYCIN 250 MG TAB PO SCH (14:00)
[2021-11-11] MEDS ORDERED: ALBUT/IPRATROP 3MG/0.5MG NEB 3 ML VIAL ONE (14:44)
[2021-11-11] MEDS: MONTELUKAST SODIUM 10 MG TABLET PO SCH (21:00)
[2021-11-11] MEDS: PANTOprazole 40 MG TAB PO SCH (21:00)
[2021-11-11] MEDS ORDERED: methylPREDNISolone 40 MG in SYRINGE 0 ML IV SCH (21:00)
[2021-11-11] MEDS: guaiFENesin 600 MG TABCR PO SCH (21:15)
[2021-11-12] MEDS: ALBUTEROL 0.5% NEB SOLN 2.5 MG/0.5 ML VIAL NEB SCH ×4 (00:25→19:14)
[2021-11-12] MEDS: BUDESONIDE 0.5 MG/2 ML VIAL (PULMICORT) NEB SCH ×2 (07:00→19:14)
[2021-11-12 08:00] LABS: Prothrombin Time 10.9 Seconds (9.0-12.0)
[2021-11-12] MEDS: guaiFENesin 600 MG TABCR PO SCH ×2 (08:13→22:34)
[2021-11-12] MEDS: ENOXAPARIN INJ 40 MG/0.4 ML SYR SQ SCH (08:13)
[2021-11-12] MEDS: PANTOprazole 40 MG TAB PO SCH ×2 (08:13→22:34)
[2021-11-12] MEDS: AZITHROMYCIN 250 MG TAB PO SCH (08:13)
[2021-11-12] MEDS: methylPREDNISolone 40 MG in SYRINGE 0 ML IV SCH ×2 (08:14→22:34)
[2021-11-12 08:18] LABS: BUN Creatinine Ratio 38.5 (10-20); Calcium 8.3 mg/dl (8.5-10.1); Creatinine Clr Calc Pharmacy 142.6 ml/min; Est GFR (African American) 143.1 ml/min; Est GFR (Non-African American) 123.5 ml/min; Hematocrit (blood only) 35.5 % (42-52); Hemoglobin 11.4 g/dL (14.0-18.0); Immature Granulocytes # (auto) 0.03 K/uL (0.00-0.02); Immature Granulocytes % (auto) 0.2 %; Lymphocytes # (auto) 0.93 K/uL (1.2-3.4); Lymphocytes % (auto) 5.5 %; Magnesium 2.2 mg/dl (1.7-2.4); Mean Corpuscular Hemoglobin 30.6 pg (25-34); Mean Corpuscular Hgb Conc 32.1 g/dL (32-36); Mean Corpuscular Volume 95.2 fL (80-100); Mean Platelet Volume 9.7 fL (7.4-10.4); Monocytes # (auto) 0.71 K/uL (0.11-0.59); Monocytes % (auto) 4.2 %; Neutrophils # (auto) 15.29 K/uL (1.4-6.5); Neutrophils % (auto) 90.1 %; Phosphorus 3.4 mg/dl (2.5-4.9); Platelet Count 359 K/uL (130-400); Potassium 4.2 mmol/L (3.5-5.1); RDW Coefficient of Variation 13.5 % (11.5-14.5); RDW Standard Deviation 46.9 fL (36.4-46.3); Red Blood Count 3.73 M/uL (4.7-6.1); White Blood Count 16.96 K/uL (4.8-10.8)
[2021-11-12] MEDS: INSULIN ASPART PER UNIT SC SCH ×4 (08:44→23:31)
--- NOTE | 2021-11-12 09:57 | Hospitalist Progress Note ---
Date of Service November 12, 2021 Assessment & Plan (1) Acute on chronic respiratory failure with hypoxia and hypercapnia: Plan: 51-year-old male with severe COPD and chronic oxygen therapy with COPD exacerbation requiring intubation and ICU admission on 11/10. Was extubated on 11/11 and transferred out of ICU. This is the 4th hospitalization with intubation since Feb 2021, last being September 2021. Acute on Chronic hypercapnic hypoxic respiratory failure 2/2 COPD exacerbation: GOLD Stage D, last known PFTs in 2019 with FEV1 16% and FEV1/FVC 28%. Current exacerbation with no clear etiology although may be due to possible smoking, med nonadherence, or oxygen compressor failure - taper Methylprednisolone 40mg IV to BID, plan to transition to oral prednisone taper tomorrow AM - scheduled Albuterol nebs Q6H; PRN Duonebs Q4H - scheduled Mucinex 600mg PO BID - supplemental O2 to maintain SpO2 88-92% (on chronic 2L at rest, 3L ambulation) - continue Azithromycin 500mg PO daily x3 days total - initially started on Vanco/CTX as well (MRSA positive) but no evidence for pneumonia so these were d/c'd - blood cultures pending, no growth to date Pulmonology consulted - appreciate recs - consider addition of Roflumilast before discharge - patient is poor candidate for lung transplant due to questionable current smoking, frail body habitus, and lack of COVID/pneumococcal vaccinations (and refusal to get these done as of yet) - continue home Trelegy, although can consider transition to Symbicort + anticholinergic per patient preference - QTC is 464, it would not be a good candidate for chronic azithromycin therapy Patient states he remains interested in lung transplant - per [facility] vice president [employer], eligibility for lung transplant would include smoking cessation for >6 months, vaccination against common respiratory including Covid-19, along with many other factors including weight gain. Patient was counseled on these eligibility criteria at that time. - patient states he is open to getting Covid-19 vaccination if it is a requireme nt for transplant eligibility - patient counseled that he would still need to be evaluated by transplant/[facility] pulmonology and meet all criteria prior to transplant eligibility BiPAP - contacted respiratory therapy for mask fit adjustment Leukocytosis: - Likely due to steroid induced demargination - WBC 5.53 -> 16.96 Acute metabolic encephalopathy: resolved -Likely secondary to hypercapnia -A&Ox3 this AM History of recent gastritis -Diagnosed at last hospitalization mid-September 2021 by EGD -Protonix 40 mg PO BID Vascular access: Peripheral IVs Code Status: Full code FEN/GI: sliding scale insulin, regular diet, +nutritional supplements DVT prophylaxis: Lovenox 40 mg daily Disposition: med/surg with tele (2) GERD (gastroesophageal reflux disease): (3) Hypertension: (4) Metabolic encephalopathy: Admission and Anticipated Discharge Date Admission Date: November 10, 2021 Supervising Physician Co-Signing Physician Notes Attending attestation Pt seen and examined in concert with Dr. Christensen and St. Dr. Spaulding. In agreement with the documented findings as noted in the student/resident documentation with any exceptions or additions as noted here. Improvement in SOB at rest, though still short of severe baseline on high end of home O2 requirement (purportedly 2L at rest, 3L w/ activity). Still fatigued/"out of it" compared to baseline. VS reviewed, on examination, S1/S2 nl tachycardic no MCG. Minimal air movement without adventitious sounds, significant accessory muscle use on O2. Abd NT/ND BS+ve. CNII-XII grossly intact as tested. Acute on chronic hypercapnic hypoxic respiratory failure in the setting of Stage 4 COPD, GOLD stage D - pulm consult - will continue methylpred with conversion to PO prednisone in AM for slow taper. Azithromycin and inhaled therapy as currently prescribed. Trend CMP. Patient interested in returning to symbicort therapy which he also used as a 'rescue' which he found helpful - pulmonology open to this change on discharge. End stage COPD - established w/ [facility] - Previously reviewed that criteria for transplant may likely include 6+ months of smoking cessation, vaccination again st common pulmonary pathogens and multiple other factors decided by the transplant center. Patient is generally vaccine hesitant but after discussion he consented to vaccination but we are unsure which pneumonia vaccines he has already received. Will start with pneumovax Gastritis - continue protonix BID with steroid use Else see student/resident documentation as noted. Subjective Patient still SOB with chronic productive cough today. On 3L NC. No chest pain or palpitations. Patient states that the BiPAP did not fit properly overnight and he was not able to sleep for very long. Review of Systems Constitutional: no fevers or chills Respiratory: +SOB and productive chronic cough Cardiovascular: Additional Comments: no chest pain or palpitations Gastrointestinal: no abdominal pain or diarrhea Genitourinary: no dysuria Physical Exam Constitutional: sitting up in bed, no acute distress Respiratory: decreased breath sounds bilaterally, no crackles or rales, increased respiratory effort with some accessory muscle use Cardiovascular: RRR no MRG appreciated Gastrointestinal (Abdomen): soft and nontender Skin: warm and dry Neurologic: A&Ox3 Results & Data Results & Data ([facility]) Vital Signs (Past 12 Hours) Vital Signs Temp Pulse Pulse Resp BP Pulse Ox 11/12/21 08:32 36.7 C 92 H 18 112/70 96 11/12/21 07:01 91 H 20 94 11/12/21 03:09 36.8 C 111 H 24 139/74 91 11/12/21 00:45 110 H 15 99 11/12/21 00:29 106 H 22 95 11/11/21 23:00 111 H 27 H 92
[2021-11-12] MEDS: ALBUT/IPRATROP 3MG/0.5MG NEB 3 ML VIAL NEB PRN ×2 (13:04→22:38)
--- NOTE | 2021-11-12 13:06 | Pulmonology Progress Note ---
Date of Service November 12, 2021 Assessment & Plan (1) COPD exacerbation: (2) Acute and chronic respiratory failure: (3) COPD (chronic obstructive pulmonary disease): COPD type: emphysema Emphysema type: centrilobular Qualified Code(s): J43.2 - Centrilobular emphysema (4) Tobacco abuse: (5) BiPAP (biphasic positive airway pressure) dependence: Plan: CT chest 10/09/2021 personally reviewed: Severe centrilobular and paraseptal emphysema appreciated bilaterally ET tube in place No mediastinal lymphadenopathy Chest x-ray 11/10/2021 personally reviewed: Portable film, hyperinflated, flattening of bilateral diaphragm, no clear lung event appreciated -- Acute exacerbation of severe COPD Gold class D On Trelegy inhaler at home along with Singulair Patient states that he prefers Symbicort inhaler as he finds most benefit from it. Patient also has apparently BiPAP machine at home but was not compliant with it. Importance of compliance explained QTc 425 on 11/12/2021. Addition of azithromycin 250 mg [id number] could be considered as an outpatient Spirometry 12/21/2019: FEV1 0.6 L 16%, FVC 2.15 L 47%, FEV1/FVC 28% Outpatient follow-up with pulmonary, he was apparently referred to [place] for lung volume reduction surgery --Acute on chronic hypercapnic hypoxic respiratory failure Likely secondary to COPD exacerbation Usually uses 1 and half to 3 L oxygen at home [id number] Continue with O2 supplementation to keep oxygen saturation between 88-92% Patient has been following up with Dr. Chen as well as SHERLYN Siddiqi as an outpatient --Current smoker Occasionally smokes couple of cigarettes here and there Has significantly decreased the amount of smoking he did Encouraged to completely quit smoking Patient falls under very high risk for respiratory infection including but not limited to Covid-19. Recommend vaccination against pneumonia Pneumovax/Prevnar if not already taken along with COVID-vaccine Plan: Transition to p.o. prednisone 40 mg for 3 days followed by 20 mg for 3 days and then stop Needs to be compliant with BiPAP at home Patient feels that Symbicort works better for him rather than Trelegy. I did explain to the patient that Trelegy has 3 medications and it was Symbicort is only 2. If he likes the mode of delivery of Symbicort, it is okay for him to use Symbicort but he will need another inhaler on top of it it could be Incruse or Spiriva. Should not use Trelegy when using the other inhalers like Symbicort/Incruse. Roflumilast 250 MCG daily for 4 weeks followed by 500 MCG daily to be added prior to discharge No further recommendation from pulmonary perspective. We will sign off Please call directly with any questions Please note the above document was generated using voice recognition software. It may contain grammatical, syntax or spelling errors.Any formal questions or concerns about the content, text or information contained within the body of this dictation should be directly addressed to the provider for clarification. Admission and Anticipated Discharge Date Admission Date: November 10, 2021 Subjective Patient seen and examined at bedside. No acute distress, no developments overnight. He says that he is feeling better. Shortness of breath is improved. He did try to use the BiPAP but he used it only for 2-3 hours as he was not comfortable with the mask. Denies any headache, no chest pain No nausea vomiting Fair appetite. Review of Systems Review of Systems: All systems reviewed & are unremarkable except as noted in Subjective Physical Exam Physical Exam: Constitutional: No acute distress, frail-appearing HEENT: EOMI, PERRLA Respiratory system: Decreased air entry bilaterally, no wheeze, no rhonchi, minimal crackles bilateral lower lobes CVS: S1-S2 positive, no murmurs or gallops Abdomen: Soft, nontender, nondistended, positive bowel sounds x4 Extremities: +2 pulses bilaterally radialis/ dorsalis pedis, no cyanosis, no edema Neuro: Awake alert oriented x3 Psych: Normal mood and affect G/U: No Pimentel Skin: no rashes, warm and dry Lymphatic: no cervical or axillary lymphadenopathy Results & Data Results & Data ([facility]) Vital Signs (Past 12 Hours) Vital Signs Temp Pulse Resp BP Pulse Ox 11/12/21 11:49 36.8 C 108 H 22 124/70 95 11/12/21 08:32 36.7 C 92 H 18 112/70 96 11/12/21 07:01 91 H 20 94 11/12/21 03:09 36.8 C 111 H 24 139/74 91 Laboratory Results 11/12/21 07:14 11/12/21 07:14 PG Care Time/CCT Total # of Minutes Spent Total Time Spent with Patient: Total time spent is greater than 50% in coordination of care (as documented) at patient's floor/unit and/or counseling patient: Coding Level of Care Code 67729 Subseq Hosp Care Lvl 2 Diagnoses COPD exacerbation J44.1 Acute and chronic respiratory failure J96.20 COPD (chronic obstructive pulmonary disease) J43.2 COPD type: emphysema Emphysema type: centrilobular Tobacco abuse Z72.0 BiPAP (biphasic positive airway pressure) dependence Z99.89
--- NOTE | 2021-11-12 18:21 | Electrocardiogram Report ---
Test Reason : Blood Pressure : / mmHG Vent. Rate : 090 BPM Atrial Rate : 090 BPM P-R Int : 100 ms QRS Dur : 082 ms QT Int : 348 ms P-R-T Axes : 090 079 072 degrees QTc Int : 425 ms Poor data quality, interpretation may be adversely affected Sinus rhythm Otherwise normal ECG When compared with ECG of 11-NOV-2021 03:11, No significant change was found Confirmed by Shahab Lewis ([id number]) on 11/12/2021 6:21:30 PM Referred By: REFERRED SELF Confirmed By:Link Lewis
[2021-11-12] MEDS: MONTELUKAST SODIUM 10 MG TABLET PO SCH (22:33)
[2021-11-13] MEDS: ALBUTEROL 0.5% NEB SOLN 2.5 MG/0.5 ML VIAL NEB SCH ×3 (00:45→12:26)
[2021-11-13] MEDS: BUDESONIDE 0.5 MG/2 ML VIAL (PULMICORT) NEB SCH ×2 (06:57→19:12)
[2021-11-13] MEDS: INSULIN ASPART PER UNIT SC SCH ×4 (08:31→21:43)
[2021-11-13] MEDS: PANTOprazole 40 MG TAB PO SCH ×2 (08:35→21:44)
[2021-11-13] MEDS: guaiFENesin 600 MG TABCR PO SCH ×2 (08:35→21:44)
[2021-11-13] MEDS: AZITHROMYCIN 250 MG TAB PO SCH (08:35)
[2021-11-13] MEDS: methylPREDNISolone 40 MG in SYRINGE 0 ML IV SCH (08:35)
[2021-11-13] MEDS: ENOXAPARIN INJ 40 MG/0.4 ML SYR SQ SCH (08:35)
[2021-11-13 09:08] LABS: Hematocrit (blood only) 40.9 % (42-52); Lymphocytes % (auto) 2.5 %; Mean Corpuscular Hemoglobin 31.1 pg (25-34); Mean Corpuscular Hgb Conc 31.8 g/dL (32-36); Mean Corpuscular Volume 97.8 fL (80-100); Mean Platelet Volume 10.1 fL (7.4-10.4); Monocytes % (auto) 5.3 %; Neutrophils % (auto) 91.9 %; Platelet Count 357 K/uL (130-400); RDW Coefficient of Variation 13.2 % (11.5-14.5); RDW Standard Deviation 47.7 fL (36.4-46.3); Red Blood Count 4.18 M/uL (4.7-6.1); White Blood Count 16.38 K/uL (4.8-10.8)
[2021-11-13 09:09] LABS: Immature Granulocytes # (auto) 0.05 K/uL (0.00-0.02); Immature Granulocytes % (auto) 0.3 %; Lymphocytes # (auto) 0.41 K/uL (1.2-3.4); Monocytes # (auto) 0.86 K/uL (0.11-0.59); Neutrophils # (auto) 15.06 K/uL (1.4-6.5)
[2021-11-13 09:29] LABS: BUN Creatinine Ratio 34.5 (10-20); Calcium 9.1 mg/dl (8.5-10.1); Creatinine Clr Calc Pharmacy 132.2 ml/min; Est GFR (African American) 139.8 ml/min; Est GFR (Non-African American) 120.7 ml/min; Magnesium 2.2 mg/dl (1.7-2.4); Phosphorus 3.6 mg/dl (2.5-4.9); Potassium 4.2 mmol/L (3.5-5.1)
[2021-11-13 09:31] LABS: Prothrombin Time 10.4 Seconds (9.0-12.0)
[2021-11-13] MEDS: predniSONE 20 MG TAB PO SCH (10:28)
[2021-11-13] MEDS: ALBUT/IPRATROP 3MG/0.5MG NEB 3 ML VIAL NEB PRN (12:23)
--- NOTE | 2021-11-13 14:00 | Hospitalist Progress Note ---
Date of Service November 13, 2021 Assessment & Plan (1) Acute on chronic respiratory failure with hypoxia and hypercapnia: Plan: 51-year-old male with severe COPD and chronic oxygen therapy with COPD exacerbation requiring intubation and ICU admission on 11/10. Was extubated on 11/11 and transferred out of ICU. This is the 4th hospitalization with intubation since Feb 2021, last being September 2021. Acute on Chronic hypercapnic hypoxic respiratory failure 2/2 COPD exacerbation: GOLD Stage D, last known PFTs in 2019 with FEV1 16% and FEV1/FVC 28%. Current exacerbation with no clear etiology although may be due to possible smoking, med nonadherence, or oxygen compressor failure - initially started on Vanco/CTX as well (MRSA positive) but no evidence for pneumonia so these were d/c'd - switch to oral prednisone taper 40mg PO tomorrow (40mg on 11/14, 20mg on 11/15 and 11/16) - scheduled Albuterol QIDR - switched from neb to inhaler per patient preference; discontinue PRN Duonebs Q4H - scheduled Mucinex 600mg PO BID - d/c trelegy, replace with fluticasone/vilanterol and incruse per patient preference - ok per pulmonology - supplemental O2 to maintain SpO2 88-92% (on chronic 2L at rest, 3L ambulation) - continue Azithromycin 250mg PO daily - last dose on 11/15 - blood cultures - no growth to date at 48 hrs Pulmonology consulted - appreciate recs - consider addition of Roflumilast before discharge 250mcg QD for 4 weeks, then 500mcg daily - patient is poor candidate for lung transplant due to questionable current smoking, frail body habitus, and lack of COVID/pneumococcal vaccinations (and refusal to get these done as of yet) - QTC is 425 on 11/12, consider chronic azithromycin therapy MWF dosing on discharge Patient states he remains interested in lung transplant - per [facility], eligibility for lung transplant would include smoking cessation for >6 months, vaccination against common respiratory including Covid-19, along with many other factors including weight gain. Patient was counseled on these eligibility criteria at that time. - patient states he is open to getting Covid-19 vaccination if it is a requirement for transplant eligibility - patient counseled that he would still need to be evaluated by [facility] and meet all criteria prior to transplant eligibility BiPAP - contacted respiratory therapy for mask fit adjustment - encouraged to wear BiPAP for longer at night and also during daytime naps - CO2 43 today Leukocytosis: - Likely due to steroid induced demargination - WBC 5.53 -> 16.38 Acute metabolic encephalopathy: resolved -Likely secondary to hypercapnia -A&Ox3 this AM History of recent gastritis -Diagnosed at last hospitalization mid-September 2021 by EGD -Protonix 40 mg PO BID Vascular access: Peripheral IVs Code Status: Full code FEN/GI: sliding scale insulin, regular diet, +nutritional supplements DVT prophylaxis: Lovenox 40 mg daily Disposition: med/surg with tele (2) GERD (gastroesophageal reflux disease): (3) Hypertension: (4) Metabolic encephalopathy: Admission and Anticipated Discharge Date Admission Date: November 10, 2021 Supervising Physician Co-Signing Physician Notes Patient seen and examined with PGY-3 Dr. Baum and MS-3 Nieves Spaulding. Agree with history, exam findings, assessment and plan of care as outlined. In brief, Mr. Geronimo is a 51 year old male with severe, end-stage COPD with chronic hypoxia admitted COPD exacerbation requiring intubation. Today, he continues to be short of breath with talking and minimal exertion. Has difficulty tolerating BIPAP due to fit of the mask here. Also feels that his home Symbicort works better than the Trelegy and would like to switch back to Symbicort. He is amenable to adding an anticholinergic agent like Spiriva, which he has acknowledged is a separate inhaler and would be an added cost. He does not like the nebs as he feels that extra humidification makes it more difficult for him to breath. VS and nursing notes reviewed. Thin appearing. Supraclavicular area is sunken and there is some neck muscle usage for breathing when he is talking. Lungs with diminished breath sounds throughout with a slight end expiratory wheeze, prolonged expiratory phase. Heart with regular rate and rhythm. No murmur. Labs and imaging reviewed. * Acute on chronic hypercapnic hypoxic respiratory failure, COPD exacerbation. GOLD Stage D. Switched from IV methylpred to oral prednisone today. Quick taper. Albuterol and Duonebs both scheduled and PRN. Continue Pulmicort BID, Breo and Incruse. Azithromycin to finish on 11/15. BiPAP while asleep and NC while awake. Will plan to start roflumilast at discharge. * Leukocytosis. Steroid induced. Continue to monitor. Dispo: pending clinical improvement. Subjective Patient is feeling worse today with more SOB and fatigue. He was not able to wear the BiPAP for more than a few hours overnight due to discomfort and also woke up from a nap with O2 sats in high 80s. He also asked for symbicort due to increased SOB. He also stated that the nebulizers do not work for him and that the moisture in the nebulizers irritate his lungs. He is agreeable to trying the BiPAP for longer stretches overnight and also for daytime naps. Review of Systems Constitutional: no fevers or chills Respiratory: +SOB and productive chronic cough Cardiovascular: Additional Comments: no chest pain or palpitations Gastrointestinal: no abdominal pain or diarrhea Genitourinary: no dysuria Physical Exam Constitutional: laying in bed, no acute distress Respiratory: increased respiratory effort with pursed lip breathing and accessory muscle use, decreased breath sounds globally, no crackles. On 3L NC Cardiovascular: tachycardic, regular rhythm, no murmurs or gallops appreciated Gastrointestinal (Abdomen): soft and nontender Skin: warm and dry Neurologic: A&Ox3 Results & Data Results & Data ([facility]) Vital Signs (Past 12 Hours) Vital Signs Temp Pulse Pulse Pulse Resp BP Pulse Ox 11/13/21 12:24 113 H 25 H 92 11/13/21 11:37 36.9 C 101 H 20 130/84 96 11/13/21 08:00 99 H 11/13/21 07:21 36.9 C 100 H 18 126/76 95 11/13/21 06:58 98 H 22 99 11/13/21 05:12 103 H 11/13/21 04:00 36.6 C 92 H 18 124/77 98 11/13/21 03:30 94 H
[2021-11-13] MEDS ORDERED: ALBUTEROL HFA 8 GM INHALER INH SCH (19:00)
[2021-11-13] MEDS: MONTELUKAST SODIUM 10 MG TABLET PO SCH (21:44)
[2021-11-13] MEDS: ALBUTEROL HFA 8 GM INHALER INH SCH (22:45)
[2021-11-14] MEDS: ALBUTEROL HFA 8 GM INHALER INH SCH ×6 (02:39→23:01)
[2021-11-14 06:58] LABS: Hematocrit (blood only) 39.6 % (42-52); Hemoglobin 12.7 g/dL (14.0-18.0); Mean Corpuscular Hemoglobin 31.1 pg (25-34); Mean Corpuscular Hgb Conc 32.1 g/dL (32-36); Mean Corpuscular Volume 96.8 fL (80-100); Mean Platelet Volume 10.1 fL (7.4-10.4); Platelet Count 356 K/uL (130-400); RDW Coefficient of Variation 12.8 % (11.5-14.5); RDW Standard Deviation 45.6 fL (36.4-46.3); Red Blood Count 4.09 M/uL (4.7-6.1); White Blood Count 16.26 K/uL (4.8-10.8)
[2021-11-14 07:37] LABS: Immature Granulocytes # (auto) 0.04 K/uL (0.00-0.02); Immature Granulocytes % (auto) 0.2 %; Lymphocytes # (auto) 2.46 K/uL (1.2-3.4); Lymphocytes % (auto) 15.1 %; Monocytes # (auto) 0.97 K/uL (0.11-0.59); Neutrophils # (auto) 12.79 K/uL (1.4-6.5); Neutrophils % (auto) 78.7 %
[2021-11-14 08:29] LABS: BUN Creatinine Ratio 35.9 (10-20); Calcium 8.8 mg/dl (8.5-10.1); Creatinine Clr Calc Pharmacy 115.3 ml/min; Est GFR (African American) 131.4 ml/min; Est GFR (Non-African American) 113.4 ml/min; Potassium 3.8 mmol/L (3.5-5.1)
[2021-11-14] MEDS: INSULIN ASPART PER UNIT SC SCH ×4 (08:31→19:44)
[2021-11-14] MEDS: predniSONE 20 MG TAB PO SCH (08:36)
[2021-11-14] MEDS: PANTOprazole 40 MG TAB PO SCH ×2 (08:36→19:35)
[2021-11-14] MEDS: AZITHROMYCIN 250 MG TAB PO SCH (08:36)
[2021-11-14] MEDS: guaiFENesin 600 MG TABCR PO SCH ×2 (08:37→19:34)
[2021-11-14] MEDS: UMECLIDINIUM BROMIDE 62.5MCG/BLISTER 7 PUFFS/INHALER INH SCH (08:37)
[2021-11-14] MEDS: FLUTICASONE/VILANTEROL 100/25MCG 14 PUFFS/INHALER INH SCH (08:37)
[2021-11-14] MEDS: ENOXAPARIN INJ 40 MG/0.4 ML SYR SQ SCH (08:37)
--- NOTE | 2021-11-14 14:02 | Hospitalist Progress Note ---
Date of Service November 14, 2021 Assessment & Plan (1) Acute on chronic respiratory failure with hypoxia and hypercapnia: Plan: 51-year-old male with severe COPD and chronic oxygen therapy with COPD exacerbation requiring intubation and ICU admission on 11/10. Was extubated on 11/11 and transferred out of ICU. This is the 4th hospitalization with intubation since Feb 2021, last being September 2021. Acute on Chronic hypercapnic hypoxic respiratory failure 2/2 COPD exacerbation: - GOLD Stage D, last known PFTs in 2019 with FEV1 16% and FEV1/FVC 28%. - Current exacerbation with no clear etiology although may be due to possible smoking, med nonadherence, or oxygen compressor failure - blood cultures - no growth to date at 48 hrs - procalcitonin 0.13 (11/14) - d/c trelegy, replace with fluticasone/vilanterol and incruse per patient preference - ok per pulmonology - supplemental O2 to maintain SpO2 88-92% (on chronic 2L at rest, 3L ambulation) - continue Azithromycin 250mg PO daily - last dose on 11/15 - initially started on Vanco/CTX as well (MRSA positive) but no evidence for pneumonia so these were d/c'd - Continue prednisone 40 mg daily - scheduled Albuterol QIDR - switched from neb to inhaler per patient preference - scheduled Mucinex 600mg PO BID - XR Chest (11/14) demonstrating increased air retention and lung volumes with no acute process - Continue to encourage compliance with BiPAP at night and with all naps during the daytime - If worsening shortness of breath and/or tachypnea despite BiPAP; would get ABG for potential increasing CO2 retention and potential need for intubation Pulmonology consulted: - consider addition of Roflumilast before discharge 250mcg QD for 4 weeks, then 500mcg daily - patient is poor candidate for lung transplant due to questionable current smoking, frail body habitus, and lack of COVID/pneumococcal vaccinations (and refusal to get these done as of yet) - QTC is 425 on 11/12, consider chronic azithromycin therapy MWF dosing on discharge Patient states he remains interested in lung transplant: - per [facility], eligibility for lung transplant would include smoking cessation for >6 months, vaccination against common respiratory including Covid-19, along with many other factors including weight gain. Patient was counseled on these eligibility criteria at that time. - patient states he is open to getting Covid-19 vaccination if it is a requirement for transplant eligibility - patient counseled that he would still need to be evaluated by transplant/[facility]monology and meet all criteria prior to transplant eligibility BiPAP: - contacted respiratory therapy for mask fit adjustment - encouraged to wear BiPAP for longer at night and also during daytime naps - CO2 42 today Leukocytosis: - Likely due to steroid induced demargination - WBC 5.53 -> 16.38 Acute metabolic encephalopathy: resolved - Likely secondary to hypercapnia - A&Ox3 this AM History of recent gastritis - Diagnosed at last hospitalization mid-September 2021 by EGD - Protonix 40 mg PO BID Code Status: Full code FEN/GI: regular diet, +nutritional supplements DVT ppx: Lovenox 40 mg daily (2) GERD (gastroesophageal reflux disease): (3) Hypertension: (4) Metabolic encephalopathy: Admission and Anticipated Discharge Date Admission Date: November 10, 2021 Supervising Physician Co-Signing Physician Notes Patient seen and examined with PGY-3 Dr. Baum. Agree with history, exam findings, assessment and plan of care as outlined. In brief, Mr. Geronimo is a 51 year old male with severe, end-stage COPD with chronic hypoxia admitted COPD exacerbation requiring intubation. Today, had some increased work of breathing and tachypnea. Placed back on BiPAP with some improvement in his breathing. VS and nursing notes reviewed. Thin, cachectic appearing. Supraclavicular area is sunken and there is some neck muscle usage for breathing when he is talking. Lungs with diminished breath sounds throughout, prolonged expiratory phase. Heart with regular rate and rhythm. No murmur. Labs and imaging reviewed. 1. Acute on chronic hypercapnic hypoxic respiratory failure, COPD exacerbation. GOLD Stage D. Switched from IV methylpred to prednisone with plans for quick taper. Albuterol inhaler scheduled. Continue Pulmicort BID, Breo and Incruse. Azithromycin to finish on 11/15. BiPAP while asleep and NC while awake. If he starts to have increased work of breathing this evening, will plan to get ABG and place back on BiPAP. If needed, may need to switch back to IV steroids vs increase prednisone dose slightly. Repeat CXR today without significant change from previous radiograph. Procal negative. Will plan to start roflumilast at discharge. 2. Leukocytosis. Steroid induced. Continue to monitor. Dispo: pending clinical improvement. Subjective Patient was seen earlier this morning he was feeling overall okay with tolerance of BiPAP overnight was able to use it for about 6 hours intermittently. Throughout the day today had worsening shortness of breath and return retractions and labored breathing. No fevers, chills, or sweats. Review of Systems Review of Systems: All systems reviewed & are unremarkable except as noted in Subjective Physical Exam Constitutional: WD/WN, vitals as above Eyes: PERRL, conjunctivae normal, anicteric sclerae Respiratory: + labored breathing, + retractions (Intercostal and suprasternal), + uses accessory muscles, + tachypneic, + prolonged expiratory phase, + pursed lip breathing and + tripod positioning; + not able to speak in complete sentence Auscultation: + diminished lung sounds; no wheezes Cardiovascular: Rate/Rhythm: regular rhythm and + tachycardic Heart Sounds: no gallop, no murmur and no cardiac rub Vessels: normal peripheral pulses; no JVD Extremities: no edema Musculoskeletal: no cyanosis or clubbing, extremities motor strength 5/5 Neurologic: PERRL, EOMI, accommodation nl, no face palsy, no dysarthria CN's II-XI intact bilaterally and moves all extremities Psychiatric: Orientation: alert and oriented x 3 Results & Data Results & Data ([facility]) Vital Signs (Past 12 Hours) Vital Signs Temp Pulse Pulse Pulse Resp BP BP 11/14/21 13:55 107 H 20 11/14/21 11:44 36.4 C L 98 H 20 117/71 11/14/21 11:18 90 20 11/14/21 07:41 36.8 C 91 H 18 111/66 11/14/21 07:27 99 H 11/14/21 06:38 94 H 22 11/14/21 03:25 36.4 C L 100 H 20 136/90 11/14/21 02:48 107 H 24 11/14/21 02:39 107 H 22 Pulse Ox 11/14/21 13:55 95 11/14/21 11:44 95 11/14/21 11:18 96 11/14/21 07:41 96 11/14/21 07:27 11/14/21 06:38 95 11/14/21 03:25 97 11/14/21 02:48 92 11/14/21 02:39 92 Laboratory Results 11/14/21 11/14/21 11/14/21 Range/Units 11:59 07:57 06:07 WBC (4.8-10.8) K/uL RBC (4.7-6.1) M/uL Hgb (14.0-18.0) g/dL Hct (42-52) % MCV (80-100) fL MCH (25-34) pg MCHC (32-36) g/dL RDW Std Deviation (36.4-46.3) fL RDW Coeff of Abner (11.5-14.5) % Plt Count (130-400) K/uL MPV (7.4-10.4) fL Immature Gran % (Auto) % Neut % (Auto) % Lymph % (Auto) % [place] % (Auto) % Eos % (Auto) % Baso % (Auto) % Neut # (Auto) (1.4-6.5) K/uL Lymph # (Auto) (1.2-3.4) K/uL [place] # (Auto) (0.11-0.59) K/uL Eos # (Auto) (0-0.5) K/uL Baso # (Auto) (0-0.2) K/uL Immature Gran # (Auto) (0.00-0.02) K/uL Sodium (136-145) mmol/L Potassium (3.5-5.1) mmol/L Chloride (98-107) mmol/L Carbon Dioxide (21-32) mmol/L Anion Gap (3-11) BUN (6-23) mg/dl Creatinine (0.6-1.4) mg/dl Est Cr Clr Drug Dosing ml/min Est GFR ( Amer) ml/min Est GFR (Non-Af Amer) ml/min BUN/Creatinine Ratio (10-20) Glucose (70-99(Fasting)) mg/dl POC Glucose 130 H 90 (70-99) mg/dl Calcium (8.5-10.1) mg/dl Procalcitonin 0.13 (0-0.5) ng/ml 11/14/21 11/14/21 11/13/21 Range/Units 06:06 06:06 20:14 WBC 16.26 H (4.8-10.8) K/uL RBC 4.09 L (4.7-6.1) M/uL Hgb 12.7 L (14.0-18.0) g/dL Hct 39.6 L (42-52) % MCV 96.8 (80-100) fL MCH 31.1 (25-34) pg MCHC 32.1 (32-36) g/dL RDW Std Deviation 45.6 (36.4-46.3) fL RDW Coeff of Abner 12.8 (11.5-14.5) % Plt Count 356 (130-400) K/uL MPV 10.1 (7.4-10.4) fL Immature Gran % (Auto) 0.2 % Neut % (Auto) 78.7 % Lymph % (Auto) 15.1 % [place] % (Auto) 6.0 % Eos % (Auto) 0.0 % Baso % (Auto) 0.0 % Neut # (Auto) 12.79 H (1.4-6.5) K/uL Lymph # (Auto) 2.46 (1.2-3.4) K/uL [place] # (Auto) 0.97 H (0.11-0.59) K/uL Eos # (Auto) 0.00 (0-0.5) K/uL Baso # (Auto) 0.00 (0-0.2) K/uL Immature Gran # (Auto) 0.04 H (0.00-0.02) K/uL Sodium 136 (136-145) mmol/L Potassium 3.8 (3.5-5.1) mmol/L Chloride 93 L (98-107) mmol/L Carbon Dioxide 42 H* (21-32) mmol/L Anion Gap 1 L (3-11) BUN 23 (6-23) mg/dl Creatinine 0.64 (0.6-1.4) mg/dl Est Cr Clr Drug Dosing 115.3 ml/min Est GFR ( Amer) 131.4 ml/min Est GFR (Non-Af Amer) 113.4 ml/min BUN/Creatinine Ratio 35.9 H (10-20) Glucose 135 H (70-99(Fasting)) mg/dl POC Glucose 156 H (70-99) mg/dl Calcium 8.8 (8.5-10.1) mg/dl Procalcitonin (0-0.5) ng/ml 11/13/21 Range/Units 16:34 WBC (4.8-10.8) K/uL RBC (4.7-6.1) M/uL Hgb (14.0-18.0) g/dL Hct (42-52) % MCV (80-100) fL MCH (25-34) pg MCHC (32-36) g/dL RDW Std Deviation (36.4-46.3) fL RDW Coeff of Abner (11.5-14.5) % Plt Count (130-400) K/uL MPV (7.4-10.4) fL Immature Gran % (Auto) % Neut % (Auto) % Lymph % (Auto) % [place] % (Auto) % Eos % (Auto) % Baso % (Auto) % Neut # (Auto) (1.4-6.5) K/uL Lymph # (Auto) (1.2-3.4) K/uL [place] # (Auto) (0.11-0.59) K/uL Eos # (Auto) (0-0.5) K/uL Baso # (Auto) (0-0.2) K/uL Immature Gran # (Auto) (0.00-0.02) K/uL Sodium (136-145) mmol/L Potassium (3.5-5.1) mmol/L Chloride (98-107) mmol/L Carbon Dioxide (21-32) mmol/L Anion Gap (3-11) BUN (6-23) mg/dl Creatinine (0.6-1.4) mg/dl Est Cr Clr Drug Dosing ml/min Est GFR ( Amer) ml/min Est GFR (Non-Af Amer) ml/min BUN/Creatinine Ratio (10-20) Glucose (70-99(Fasting)) mg/dl POC Glucose 137 H (70-99) mg/dl Calcium (8.5-10.1) mg/dl Procalcitonin (0-0.5) ng/ml Medications Administered Current Inpatient Medications Albuterol (Albuterol Hfa 8 Gm Inhaler) 2 puffs INH Q4R MIT[facility] Stop: 12/13/21 22:59 Last Admin: 11/14/21 13:55 Dose: 2 puffs Documented by: Azithromycin (Azithromycin 250 Mg Tab) 250 mg PO QAM [facility] Stop: 11/15/21 09:01 Last Admin: 11/14/21 08:36 Dose: 250 mg Documented by: Dextrose (Dextrose 50% 50 Ml Syringe) 25 - 50 ml IV UD PRN; Protocol PRN Reason: Hypoglycemia Protocol Stop: 12/10/21 13:45 Enoxaparin Sodium (Enoxaparin Inj 40 Mg/0.4 Ml Syr) 40 mg SQ QAM [facility] Stop: 12/11/21 08:59 Last Admin: 11/14/21 08:37 Dose: 40 mg Documented by: Fluticasone/Vilanterol (Fluticasone/Vilanterol 100/25mcg 14 Puffs/Inhaler) 1 puffs INH DAILY [facility]; Protocol Stop: 12/14/21 08:59 Last Admin: 11/14/21 08:37 Dose: 1 puffs Documented by: Glucagon (Glucagon For Inj 1 Mg Vial) 1 mg SQ UD PRN; Protocol PRN Reason: Hypoglycemia Protocol Stop: 12/10/21 13:45 Glucose (Glucose 10 Tabs/Tube) 4 - 8 tabs PO UD PRN; Protocol PRN Reason: Hypoglycemia Protocol Stop: 12/10/21 13:45 Glucose (Glucose 40% Gel 15 Gm Tube) 15 - 30 gm PO UD PRN; Protocol PRN Reason: Hypoglycemia Protocol Stop: 12/10/21 13:45 Guaifenesin (Guaifenesin 600 Mg Tabcr) 600 mg PO Q12 [facility] Stop: 12/11/21 20:59 Last Admin: 11/14/21 08:37 Dose: 600 mg Documented by: Insulin Aspart (Insulin Aspart Per Unit) 0 units SC ACHS [facility] Stop: 12/11/21 16:29 Last Admin: 11/14/21 12:21 Dose: Not Given Documented by: Miscellaneous (Carbohydrates For Hypoglycemia ) 15 - 30 gm PO UD PRN PRN Reason: Hypoglycemia Protocol Stop: 12/10/21 13:45 Montelukast Sodium (Montelukast Sodium 10 Mg Tablet) 10 mg PO HS [facility] Stop: 12/10/21 20:59 Last Admin: 11/13/21 21:44 Dose: 10 mg Documented by: Pantoprazole Sodium (Pantoprazole 40 Mg Tab) 40 mg PO BID [facility] Stop: 12/11/21 20:59 Last Admin: 11/14/21 08:36 Dose: 40 mg Documented by: Prednisone (Prednisone 20 Mg Tab) 40 mg PO DAILY [facility] Stop: 11/15/21 08:59 Last Admin: 11/14/21 08:36 Dose: 40 mg Documented by: Umeclidinium [place] (Umeclidinium [place] 62.5mcg/Blister 7 Puffs/Inhaler) 1 puffs INH DAILY [facility]; Protocol Stop: 12/14/21 08:59 Last Admin: 11/14/21 08:37 Dose: 1 puffs Documented by: Resident Activity Tracking Resident Involvement: Resident Care Provided Care Provided: Adult Hospital Medicine
--- NOTE | 2021-11-14 14:41 | XRay Report ---
XR chest 1V portable CLINICAL HISTORY: increasing shortness of breath COMPARISON STUDY: Chest radiograph November 11, 2021. FINDINGS: The endotracheal and nasogastric tubes have been removed. Lung hyperinflation with severe e mphysema is present. There is no pneumothorax or pleural effusion. There is no consolidation or evide nce for pulmonary edema. Cardiomediastinal silhouette is stable. IMPRESSION: No acute cardiopulmonary findings. Emphysema. ACT 112: Negative or not required by law. Electronically signed by: Matt Garay M.D. 11/14/2021 2:40 PM
[2021-11-14] MEDS: MONTELUKAST SODIUM 10 MG TABLET PO SCH (19:35)
[2021-11-15] MEDS: ALBUTEROL HFA 8 GM INHALER INH SCH ×6 (03:08→23:56)
[2021-11-15 06:31] LABS: Basophils # (auto) 0.01 K/uL (0-0.2); Basophils % (auto) 0.1 %; Eosinophils # (auto) 0.02 K/uL (0-0.5); Eosinophils % (auto) 0.2 %; Hematocrit (blood only) 39.8 % (42-52); Hemoglobin 12.7 g/dL (14.0-18.0); Immature Granulocytes # (auto) 0.05 K/uL (0.00-0.02); Immature Granulocytes % (auto) 0.5 %; Lymphocytes % (auto) 18.2 %; Mean Corpuscular Hemoglobin 30.6 pg (25-34); Mean Corpuscular Hgb Conc 31.9 g/dL (32-36); Mean Corpuscular Volume 95.9 fL (80-100); Mean Platelet Volume 9.7 fL (7.4-10.4); Monocytes # (auto) 2.16 K/uL (0.11-0.59); Monocytes % (auto) 19.7 %; Neutrophils # (auto) 6.74 K/uL (1.4-6.5); Neutrophils % (auto) 61.3 %; Platelet Count 333 K/uL (130-400); RDW Coefficient of Variation 12.7 % (11.5-14.5); RDW Standard Deviation 44.4 fL (36.4-46.3); Red Blood Count 4.15 M/uL (4.7-6.1); White Blood Count 10.98 K/uL (4.8-10.8)
[2021-11-15 07:45] LABS: BUN Creatinine Ratio 41.7 (10-20); Creatinine Clr Calc Pharmacy 153.2 ml/min; Est GFR (African American) 147.9 ml/min; Est GFR (Non-African American) 127.6 ml/min; Magnesium 2.1 mg/dl (1.7-2.4); Potassium 3.7 mmol/L (3.5-5.1)
[2021-11-15] MEDS: INSULIN ASPART PER UNIT SC SCH ×4 (08:54→20:05)
[2021-11-15] MEDS: guaiFENesin 600 MG TABCR PO SCH ×2 (09:12→20:06)
[2021-11-15] MEDS: PANTOprazole 40 MG TAB PO SCH ×2 (09:12→20:07)
[2021-11-15] MEDS: FLUTICASONE/VILANTEROL 100/25MCG 14 PUFFS/INHALER INH SCH (09:12)
[2021-11-15] MEDS: ENOXAPARIN INJ 40 MG/0.4 ML SYR SQ SCH (09:12)
[2021-11-15] MEDS: AZITHROMYCIN 250 MG TAB PO SCH (09:12)
[2021-11-15] MEDS: UMECLIDINIUM BROMIDE 62.5MCG/BLISTER 7 PUFFS/INHALER INH SCH (09:13)
[2021-11-15 10:21] LABS: Calcium 8.5 mg/dl (8.5-10.1)
[2021-11-15] MEDS ORDERED: predniSONE 20 MG TAB PO STA (11:06)
--- NOTE | 2021-11-15 11:46 | Hospitalist Progress Note ---
Date of Service November 15, 2021 Assessment & Plan (1) Acute on chronic respiratory failure with hypoxia and hypercapnia: Plan: 51-year-old male with severe COPD and chronic oxygen therapy with COPD exacerbation requiring intubation and ICU admission on 11/10. Was extubated on 11/11 and transferred out of ICU. This is the 4th hospitalization with intubation since Feb 2021, last being September 2021. Acute on Chronic hypercapnic hypoxic respiratory failure 2/2 COPD exacerbation: - GOLD Stage D, last known PFTs in 2019 with FEV1 16% and FEV1/FVC 28%. - Current exacerbation with no clear etiology although may be due to possible smoking, med nonadherence, or oxygen compressor failure - blood cultures - no growth to date at 48 hrs - procalcitonin consistently negative - d/c trelegy, replace with fluticasone/vilanterol and incruse per patient preference - ok per pulmonology - supplemental O2 to maintain SpO2 88-92% (on chronic 2L at rest, 3L ambulation) - completed Azithromycin 5 day course on 11/15 will transition to MWF chronic therapy - increased prednisone to 60 mg daily - scheduled Albuterol QIDR - switched from neb to inhaler per patient preference - scheduled Mucinex 600mg PO BID - XR Chest (11/14) demonstrating increased air retention and lung volumes with no acute process - Continue to encourage compliance with BiPAP at night and with all naps during the daytime - ABG demonstrating increased CO2 retention - If worsening shortness of breath and/or tachypnea despite BiPAP, would consider re-intubation Pulmonology consulted: - consider addition of Roflumilast before discharge 250mcg QD for 4 weeks, then 500mcg daily - patient is poor candidate for lung transplant due to questionable current smoking, frail body habitus, and lack of COVID/pneumococcal vaccinations (and refusal to get these done as of yet) - QTC is 425 on 11/12, consider chronic azithromycin therapy MWF dosing on discharge Patient states he remains interested in lung transplant: - 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 Patient was counseled on these eligibility criteria at that time. - patient states he is open to getting Covid-19 vaccination if it is a requirement for transplant eligibility - patient counseled that he would still need to be evaluated by transplant/[place] pulmonology and meet all criteria prior to transplant eligibility BiPAP: - contacted respiratory therapy for mask fit adjustment - encouraged to wear BiPAP for longer at night and also during daytime naps - CO2 42 today Leukocytosis: - Likely due to steroid induced demargination - WBC 5.53 -> 16.38 -> downtrended to 10.9 on 11/15 Acute metabolic encephalopathy: resolved - Likely secondary to hypercapnia - A&Ox3 this AM History of recent gastritis - Diagnosed at last hospitalization mid-September 2021 by EGD - Protonix 40 mg PO BID Code Status: Full code FEN/GI: regular diet, +nutritional supplements DVT ppx: Lovenox 40 mg daily (2) GERD (gastroesophageal reflux disease): (3) Hypertension: (4) Metabolic encephalopathy: Admission and Anticipated Discharge Date Admission Date: November 10, 2021 Supervising Physician Co-Signing Physician Notes Patient seen and examined with PGY-3 Dr. Baum. Agree with history, exam findings, assessment and plan of care as outlined. In brief, Mr. Geronimo is a 51 year old male with severe, end-stage COPD with chronic hypoxia admitted COPD exacerbation requiring intubation. Overnight, wore BiPAP intermittently. Has intermittently had some increased work of breathing throughout the day. Does not feel that he needs albuterol in between the scheduled doses that are being given. He does note that he has been feeling a little more tiredhe is not sure if this is from his respiratory issues. He does have a BiPAP machine at home, but in the past has not always been adherent with using. VS and nursing notes reviewed. Thin, cachectic appearing. Sunken supraclavicular space bilaterally. Lungs with diminished breath sounds throughout with a slight end expiratory wheeze, prolonged expiratory phase. Speaking in short sentences and gets out of breath easily. Heart with regular rate and rhythm. No murmur. Labs and imaging reviewed. 1. Acute on chronic hypercapnic hypoxic respiratory failure, COPD exacerbation. GOLD Stage D. Increased prednisone to 60mg given that he went from BID solumedrol (100mg pred equivalent) to 40mg prednisone in the last couple of days. Albuterol inhaler scheduled. Continue Pulmicort BID, Breo and Incruse. Azithromycin to finish today. BiPAP while asleep and NC while awake. ABG today on nasal cannua did show CO2 retention. Will plan to start roflumilast at discharge. 2. Leukocytosis. Steroid induced. Downtrending with the switch to oral steroids. Continue to monitor. Dispo: pending clinical improvement. Subjective Patient with increased shortness of breath and feeling of increased work of breathing; tolerated BiPAP somewhat overnight but continues to not continuously use it during the day when he is sleeping. Is able to use it for about 45-60 minutes before it irritates him too much and he has to take it off. Feels like the inhalers have worked better than the nebs as the mist/moisture has given him more problems from the nebs. Review of Systems Review of Systems: All systems reviewed & are unremarkable except as noted in Subjective Physical Exam Constitutional: WD/WN, vitals as above Eyes: PERRL, conjunctivae normal, anicteric sclerae Respiratory: + labored breathing, + retractions (Intercostal and suprasternal), + uses accessory muscles, + tachypneic, + prolonged expiratory phase, + pursed lip breathing and + tripod positioning; + not able to speak in complete sentence Auscultation: + diminished lung sounds; no wheezes Cardiovascular: Rate/Rhythm: regular rhythm and + tachycardic Heart Sounds: no gallop, no murmur and no cardiac rub Vessels: normal peripheral pulses; no JVD Extremities: no edema Musculoskeletal: no cyanosis or clubbing, extremities motor strength 5/5 Neurologic: PERRL, EOMI, accommodation nl, no face palsy, no dysarthria CN's II-XI intact bilaterally and moves all extremities Psychiatric: Orientation: alert and oriented x 3 Results & Data Results & Data ([facility]) Vital Signs (Past 12 Hours) Vital Signs Temp Pulse Pulse Resp BP Pulse Ox 11/15/21 11:36 37 C 98 H 18 122/77 96 11/15/21 10:49 90 18 96 11/15/21 07:40 86 11/15/21 07:15 89 18 92 11/15/21 06:39 37 C 86 20 127/75 99 11/15/21 03:30 36.5 C 91 H 20 125/80 97 11/15/21 03:09 93 H 18 96 Laboratory Results 06/19/22 06/19/22 06/19/22 Range/Units 16:42 11:50 11:32 WBC (4.8-10.8) K/uL RBC (4.7-6.1) M/uL Hgb (14.0-18.0) g/dL POC Hgb 14.3 (14.0-18.0) g/dl Hct (42-52) % POC Hct 42 (42-52) % MCV (80-100) fL MCH (25-34) pg MCHC (32-36) g/dL RDW Std Deviation (36.4-46.3) fL RDW Coeff of Abner (11.5-14.5) % Plt Count (130-400) K/uL MPV (7.4-10.4) fL Immature Gran % (Auto) % Neut % (Auto) % Lymph % (Auto) % Hamlin % (Auto) % Eos % (Auto) % Baso % (Auto) % Neut # (Auto) (1.4-6.5) K/uL Lymph # (Auto) (1.2-3.4) K/uL Hamlin # (Auto) (0.11-0.59) K/uL Eos # (Auto) (0-0.5) K/uL Baso # (Auto) (0-0.2) K/uL Immature Gran # (Auto) (0.00-0.02) K/uL Sample Site L Brachial POC pH 7.41 (7.35-7.45) POC pCO2 71 H (35-46) mmHg POC pO2 71 L (80-95) mmHg POC HCO3 45 H (19-24) tj/L POC Total CO2 > 40 H* (24-31) mmol/L POC Base Excess 21.0 H (-9-1.8) tj/L ABG pH (Temp Correct) 7.414 (7.35-7.45) ABG pCO2 (Temp Corrct 71 H (35-46) mmHg POC ABG pO2 at Pt Temp 71 POC ABG O2 Sat 93.0 (90-95) % Terrell Test Pass O2 Delivery Device Cannula POC Sodium 137 (135-144) mmol/L Sodium (136-145) mmol/L POC Potassium 3.3 (3.3-5.0) mmol/L Potassium (3.5-5.1) mmol/L Chloride (98-107) mmol/L Carbon Dioxide (21-32) mmol/L Anion Gap (3-11) BUN (6-23) mg/dl Creatinine (0.6-1.4) mg/dl Est Cr Clr Drug Dosing ml/min Est GFR ( Amer) ml/min Est GFR (Non-Af Amer) ml/min BUN/Creatinine Ratio (10-20) Glucose (70-99(Fasting)) mg/dl POC Glucose 140 H 147 H (70-99) mg/dl Calcium (8.5-10.1) mg/dl Phosphorus (2.5-4.9) mg/dl Magnesium (1.7-2.4) mg/dl Procalcitonin (0-0.5) ng/ml 11/15/21 11/15/21 11/15/21 Range/Units 07:35 06:08 06:08 WBC (4.8-10.8) K/uL RBC (4.7-6.1) M/uL Hgb (14.0-18.0) g/dL POC Hgb (14.0-18.0) g/dl Hct (42-52) % POC Hct (42-52) % MCV (80-100) fL MCH (25-34) pg MCHC (32-36) g/dL RDW Std Deviation (36.4-46.3) fL RDW Coeff of Abner (11.5-14.5) % Plt Count (130-400) K/uL MPV (7.4-10.4) fL Immature Gran % (Auto) % Neut % (Auto) % Lymph % (Auto) % Hamlin % (Auto) % Eos % (Auto) % Baso % (Auto) % Neut # (Auto) (1.4-6.5) K/uL Lymph # (Auto) (1.2-3.4) K/uL Hamlin # (Auto) (0.11-0.59) K/uL Eos # (Auto) (0-0.5) K/uL Baso # (Auto) (0-0.2) K/uL Immature Gran # (Auto) (0.00-0.02) K/uL Sample Site POC pH (7.35-7.45) POC pCO2 (35-46) mmHg POC pO2 (80-95) mmHg POC HCO3 (19-24) tj/L POC Total CO2 (24-31) mmol/L POC Base Excess (-9-1.8) tj/L ABG pH (Temp Correct) (7.35-7.45) ABG pCO2 (Temp Corrct (35-46) mmHg POC ABG pO2 at Pt Temp POC ABG O2 Sat (90-95) % Terrell Test O2 Delivery Device POC Sodium (135-144) mmol/L Sodium 138 (136-145) mmol/L POC Potassium (3.3-5.0) mmol/L Potassium 3.7 (3.5-5.1) mmol/L Chloride 93 L (98-107) mmol/L Carbon Dioxide 45 H* (21-32) mmol/L Anion Gap 0 L (3-11) BUN 20 (6-23) mg/dl Creatinine 0.48 L (0.6-1.4) mg/dl Est Cr Clr Drug Dosing 153.2 ml/min Est GFR ( Amer) 147.9 ml/min Est GFR (Non-Af Amer) 127.6 ml/min BUN/Creatinine Ratio 41.7 H (10-20) Glucose 97 (70-99(Fasting)) mg/dl POC Glucose 105 H (70-99) mg/dl Calcium 8.5 (8.5-10.1) mg/dl Phosphorus 4.0 (2.5-4.9) mg/dl Magnesium 2.1 (1.7-2.4) mg/dl Procalcitonin < 0.05 (0-0.5) ng/ml 11/15/21 11/14/21 Range/Units 06:08 19:40 WBC 10.98 H (4.8-10.8) K/uL RBC 4.15 L (4.7-6.1) M/uL Hgb 12.7 L (14.0-18.0) g/dL POC Hgb (14.0-18.0) g/dl Hct 39.8 L (42-52) % POC Hct (42-52) % MCV 95.9 (80-100) fL MCH 30.6 (25-34) pg MCHC 31.9 L (32-36) g/dL RDW Std Deviation 44.4 (36.4-46.3) fL RDW Coeff of Abner 12.7 (11.5-14.5) % Plt Count 333 (130-400) K/uL MPV 9.7 (7.4-10.4) fL Immature Gran % (Auto) 0.5 % Neut % (Auto) 61.3 % Lymph % (Auto) 18.2 % Hamlin % (Auto) 19.7 % Eos % (Auto) 0.2 % Baso % (Auto) 0.1 % Neut # (Auto) 6.74 H (1.4-6.5) K/uL Lymph # (Auto) 2.00 (1.2-3.4) K/uL Hamlin # (Auto) 2.16 H (0.11-0.59) K/uL Eos # (Auto) 0.02 (0-0.5) K/uL Baso # (Auto) 0.01 (0-0.2) K/uL Immature Gran # (Auto) 0.05 H (0.00-0.02) K/uL Sample Site POC pH (7.35-7.45) POC pCO2 (35-46) mmHg POC pO2 (80-95) mmHg POC HCO3 (19-24) tj/L POC Total CO2 (24-31) mmol/L POC Base Excess (-9-1.8) tj/L ABG pH (Temp Correct) (7.35-7.45) ABG pCO2 (Temp Corrct (35-46) mmHg POC ABG pO2 at Pt Temp POC ABG O2 Sat (90-95) % Terrell Test O2 Delivery Device POC Sodium (135-144) mmol/L Sodium (136-145) mmol/L POC Potassium (3.3-5.0) mmol/L Potassium (3.5-5.1) mmol/L Chloride (98-107) mmol/L Carbon Dioxide (21-32) mmol/L Anion Gap (3-11) BUN (6-23) mg/dl Creatinine (0.6-1.4) mg/dl Est Cr Clr Drug Dosing ml/min Est GFR ( Amer) ml/min Est GFR (Non-Af Amer) ml/min BUN/Creatinine Ratio (10-20) Glucose (70-99(Fasting)) mg/dl POC Glucose 180 H (70-99) mg/dl Calcium (8.5-10.1) mg/dl Phosphorus (2.5-4.9) mg/dl Magnesium (1.7-2.4) mg/dl Procalcitonin (0-0.5) ng/ml Medications Administered Current Inpatient Medications Albuterol (Albuterol Hfa 8 Gm Inhaler) 2 puffs INH Q4R MITCH Stop: 12/13/21 22:59 Last Admin: 11/15/21 13:59 Dose: 2 puffs Documented by: Dextrose (Dextrose 50% 50 Ml Syringe) 25 - 50 ml IV UD PRN; Protocol PRN Reason: Hypoglycemia Protocol Stop: 12/10/21 13:45 Enoxaparin Sodium (Enoxaparin Inj 40 Mg/0.4 Ml Syr) 40 mg SQ QAM MITCH Stop: 12/11/21 08:59 Last Admin: 11/15/21 09:12 Dose: 40 mg Documented by: Fluticasone/Vilanterol (Fluticasone/Vilanterol 100/25mcg 14 Puffs/Inhaler) 1 puffs INH DAILY MITCH; Protocol Stop: 12/14/21 08:59 Last Admin: 11/15/21 09:12 Dose: 1 puffs Documented by: Glucagon (Glucagon For Inj 1 Mg Vial) 1 mg SQ UD PRN; Protocol PRN Reason: Hypoglycemia Protocol Stop: 12/10/21 13:45 Glucose (Glucose 10 Tabs/Tube) 4 - 8 tabs PO UD PRN; Protocol PRN Reason: Hypoglycemia Protocol Stop: 12/10/21 13:45 Glucose (Glucose 40% Gel 15 Gm Tube) 15 - 30 gm PO UD PRN; Protocol PRN Reason: Hypoglycemia Protocol Stop: 12/10/21 13:45 Guaifenesin (Guaifenesin 600 Mg Tabcr) 600 mg PO Q12 MITCH Stop: 12/11/21 20:59 Last Admin: 11/15/21 09:12 Dose: 600 mg Documented by: Insulin Aspart (Insulin Aspart Per Unit) 0 units SC ACHS [facility] Stop: 12/11/21 16:29 Last Admin: 11/15/21 12:00 Dose: Not Given Documented by: Miscellaneous (Carbohydrates For Hypoglycemia ) 15 - 30 gm PO UD PRN PRN Reason: Hypoglycemia Protocol Stop: 12/10/21 13:45 Montelukast Sodium (Montelukast Sodium 10 Mg Tablet) 10 mg PO HS MITCH Stop: 12/10/21 20:59 Last Admin: 11/14/21 19:35 Dose: 10 mg Documented by: Pantoprazole Sodium (Pantoprazole 40 Mg Tab) 40 mg PO BID MITCH Stop: 12/11/21 20:59 Last Admin: 11/15/21 09:12 Dose: 40 mg Documented by: Prednisone (Prednisone 20 Mg Tab) 60 mg PO QAM [facility] Stop: 12/16/21 08:59 Umeclidinium Epps (Umeclidinium Epps 62.5mcg/Blister 7 Puffs/Inhaler) 1 puffs INH DAILY MITCH; Protocol Stop: 12/14/21 08:59 Last Admin: 11/15/21 09:13 Dose: 1 puffs Documented by:
[2021-11-15 11:49] LABS: iSTAT Allen Test Pass; iSTAT Art Bld Gas pCO2 Correct 71 mmHg (35-46); iSTAT Art Bld Gas pH Corrected 7.414 (7.35-7.45); iSTAT Arterial Blood Gas HCO3 45 meg/L (19-24); iSTAT Arterial Blood Gas pCO2 71 mmHg (35-46); iSTAT Arterial Blood Gas pH 7.41 (7.35-7.45); iSTAT Arterial Blood Gas pO2 71 mmHg (80-95); iSTAT Arterial Blood Gas pO2 C 71; iSTAT Carbon Dioxide > 40 mmol/L (24-31); iSTAT Hematocrit 42 % (42-52); iSTAT Hemoglobin 14.3 g/dl (14.0-18.0); iSTAT Potassium 3.3 mmol/L (3.3-5.0); iSTAT Site L Brachial; iSTAT Sodium 137 mmol/L (135-144)
[2021-11-15] MEDS: MONTELUKAST SODIUM 10 MG TABLET PO SCH (20:06)
[2021-11-16] MEDS: ALBUTEROL HFA 8 GM INHALER INH SCH ×4 (04:00→14:55)
[2021-11-16 06:14] LABS: Hematocrit (blood only) 37.5 % (42-52); Hemoglobin 12.3 g/dL (14.0-18.0); Mean Corpuscular Hemoglobin 31.1 pg (25-34); Mean Corpuscular Hgb Conc 32.8 g/dL (32-36); Mean Corpuscular Volume 94.9 fL (80-100); Mean Platelet Volume 9.9 fL (7.4-10.4); Platelet Count 306 K/uL (130-400); RDW Coefficient of Variation 12.6 % (11.5-14.5); RDW Standard Deviation 44.5 fL (36.4-46.3); Red Blood Count 3.95 M/uL (4.7-6.1); White Blood Count 9.69 K/uL (4.8-10.8)
[2021-11-16 06:40] LABS: Base Excess ABG 16.3 mEq/L (-9-1.8); HCO3 ABG 43 mmol/L (19-24); Oxygen Saturation ABG 97.1 % (90-95); PCO2 ABG 65 mmHg (35-46); PO2 ABG 97 mmHg (80-95); pH ABG 7.45 (7.35-7.45)
[2021-11-16 06:47] LABS: Allen Test POS (Pos); BUN Creatinine Ratio 38.8 (10-20); Calcium 8.3 mg/dl (8.5-10.1); Creatinine Clr Calc Pharmacy 150.1 ml/min; Est GFR (African American) 146.6 ml/min; Est GFR (Non-African American) 126.5 ml/min; Potassium 3.5 mmol/L (3.5-5.1)
--- NOTE | 2021-11-16 06:51 | Hospitalist Progress Note ---
Date of Service November 16, 2021 Assessment & Plan (1) Acute on chronic respiratory failure with hypoxia and hypercapnia: Plan: 51-year-old male with severe COPD and chronic oxygen therapy with COPD exacerbation requiring intubation and ICU admission on 11/10. Was extubated on 11/11 and transferred out of ICU. This is the 4th hospitalization with intubation since Feb 2021, last being September 2021. Acute on Chronic hypercapnic hypoxic respiratory failure 2/2 COPD exacerbation: - GOLD Stage D, last known PFTs in 2019 with FEV1 16% and FEV1/FVC 28%. - Current exacerbation with no clear etiology although may be due to possible smoking, med nonadherence, or oxygen compressor failure - blood cultures - no growth to date at 48 hrs - procalcitonin consistently negative - d/c trelegy, replace with fluticasone/vilanterol and incruse per patient preference - ok per pulmonology - supplemental O2 to maintain SpO2 88-92% (on chronic 2L at rest, 3L ambulation) - completed Azithromycin 5 day course on 11/15 will transition to MWF chronic therapy - increased prednisone to 60 mg daily - scheduled Albuterol QIDR - switched from neb to inhaler per patient preference - scheduled Mucinex 600mg PO BID - XR Chest (11/14) demonstrating increased air retention and lung volumes with no acute process - Continue to encourage compliance with BiPAP at night and with all naps during the daytime - ABG demonstrating increased CO2 retention - If worsening shortness of breath and/or tachypnea despite BiPAP, would consider re-intubation Pulmonology consulted: - consider addition of Roflumilast before discharge 250mcg QD for 4 weeks, then 500mcg daily - patient is poor candidate for lung transplant due to questionable current smoking, frail body habitus, and lack of COVID/pneumococcal vaccinations (and refusal to get these done as of yet) - QTC is 425 on 11/12, consider chronic azithromycin therapy MWF dosing on discharge Patient states he remains interested in lung transplant: - per [place] eyeletter, eligibility for lung transplant would include smoking cessation for >6 months, vaccination against common respiratory including Covid-19, along with many other factors including weight gain. Patient was counseled on these eligibility criteria at that time. - patient states he is open to getting Covid-19 vaccination if it is a requirement for transplant eligibility - patient counseled that he would still need to be evaluated by transplant/[place] pulmonology and meet all criteria prior to transplant eligibility BiPAP: - contacted respiratory therapy for mask fit adjustment - encouraged to wear BiPAP for longer at night and also during daytime naps - CO2 42 today Leukocytosis: - Likely due to steroid induced demargination - WBC 5.53 -> 16.38 -> downtrended to 10.9 on 11/15 Acute metabolic encephalopathy: resolved - Likely secondary to hypercapnia - A&Ox3 this AM History of recent gastritis - Diagnosed at last hospitalization mid-September 2021 by EGD - Protonix 40 mg PO BID Code Status: Full code FEN/GI: regular diet, +nutritional supplements DVT ppx: Lovenox 40 mg daily (2) GERD (gastroesophageal reflux disease): (3) Hypertension: (4) Metabolic encephalopathy: Admission and Anticipated Discharge Date Admission Date: November 10, 2021 Review of Systems Review of Systems: All systems reviewed & are unremarkable except as noted in HPI & below Physical Exam Physical Exam: General: Grossly A&O. NAD. Cooperative. HEENT: Atraumatic, normocephalic. EOMI Pulm: CTAB. -wheezes, -rales, -rhonchi. No respiratory distress. Cardiac: RRR, -mrg. Radial pulses intact and symmetrical. Abdominal: Nontender, nondistended, soft. Results & Data Results & [facility]) Vital Signs (Past 12 Hours) Vital Signs Temp Pulse Pulse Resp BP Pulse Ox 11/16/21 04:00 36.5 C 92 H 78 20 126/81 97 11/16/21 00:39 94 H 19 93 11/16/21 00:00 90 11/15/21 23:56 98 H 20 95 11/15/21 22:00 36.6 C 95 H 20 122/85 98 11/15/21 21:16 95 H 20 95 11/15/21 19:00 36.7 C 104 H 20 128/80 96 11/15/21 18:54 112 H 18 95 11/15/21 18:50 103 H 20 94 Resident Activity Tracking Resident Involvement: Resident Care Provided Care Provided: Adult Hospital Medicine
[2021-11-16] MEDS ORDERED: POTASSIUM CHLORIDE PWD 20 MEQ PACK PO ONE (08:15)
[2021-11-16] MEDS: PANTOprazole 40 MG TAB PO SCH (08:48)
[2021-11-16] MEDS: UMECLIDINIUM BROMIDE 62.5MCG/BLISTER 7 PUFFS/INHALER INH SCH (08:48)
[2021-11-16] MEDS: guaiFENesin 600 MG TABCR PO SCH (08:50)
[2021-11-16] MEDS: FLUTICASONE/VILANTEROL 100/25MCG 14 PUFFS/INHALER INH SCH (08:51)
[2021-11-16] MEDS: ENOXAPARIN INJ 40 MG/0.4 ML SYR SQ SCH (08:51)
[2021-11-16] MEDS ORDERED: AZITHROMYCIN 250 MG TAB PO SCH (09:00)
[2021-11-16] MEDS ORDERED: predniSONE 20 MG TAB PO SCH (09:00)
[2021-11-16] MEDS: INSULIN ASPART PER UNIT SC SCH ×2 (09:08→12:37)
--- NOTE | 2021-11-16 11:11 | Discharge Summary ---
Date of Service November 16, 2021 Admission HPI Per Admitting Provider 51 YOM with medical history of COPD emphysema Stage D, afib, anxiety, smoker, MRSA + sputum, HTN. Patient comes to the EMD today for 1 day history of increased dyspnea, cough, and sputum production with no relieve with his inhalers. States he hasn't been smoking, but did go outside yesterday and after the humidity and "pollen" he started to feel dysgenic and coughing. Patient was previously admitted in September for hypercarbic respiratory failure with failing of BiPAP requiring intubation he was discharged and inhalers changed to include Trelegy. Patient states that he was doing well at home up until yesterday. He states his sputum is saenz and yellow in color and this is his normal sputum for him. In the EMD on arrival the patient was somnulent with hypercarbia noted on VBG with Co2 99 and HCo3 42, he was placed on bipap with hour long nebulizer. Hospitalist was consulted for admission, patient was more awake but remains somnolent and he remains not moving much air on the BiPAP despite adequate VT. Discussed with patient and EMD physician, and unlikely to reverse his hypercarbia and remain stable on the BiPAP. Decision was made with patient for intubation secondary to hypercarbic respiratory failure secondary to severe COPD. COVID and Flu on admission are: NEGATIVE Admission Exam Per Admitting Provider General: awake but somnumlent, oriented, and dyspneic Head: Normocephalic, atraumatic ENT: PERRL, EOMI, no pharyngeal exudate, mucous membranes moist Neuro: AAO x 3, speech clear and appropriate, strength intact bilaterally 5/5, sensation intact and equal all extremities and dermatomes, no pronator drift Chest: equal rise and fall of the chest, accessory muscle use, air movement in upper lobes only, with inspiratory/expiratory wheezing. Cardiac: Regular rate and rhythm, telemetry reviewed, skin warm dry, cap refill <3 seconds, peripheral pulses +2 no JVD, no murmur, no edema, tachycardic following intubation GI: NABS x 4 quadrants, soft, nontender to palpation, no rebound, guarding or tenderness : Spontaneously voiding, no pain, no CVA tenderness, Extremities: Normal inspection, no peripheral edema or erythema, calfs nontender to palpation Psych: Normal mood and affect Skin: no rash or erythema Principal Diagnosis COPD exacerbation Discharge Exam General: Grossly A&O. NAD. Cooperative. HEENT: Atraumatic, normocephalic. EOMI Pulm: Severely diiminished lungs posteriorly, slightly better anteriorly. No crackles or wheezes posteriorly. Very faint insp coarseness anteriorly. Symmetrical chest rise. Pursed lip breathing. No significant accessory muscle use. Wearing nasal cannula. Cardiac: RRR, -mrg. No LE edema. Abdominal: Nontender, nondistended, soft. Discharge Data Allergies Allergy/AdvReac Type Severity Reaction Status Date / Time No Known Allergies Allergy Verified 10/09/21 19:55 Consultations 11/10/21 13:29 ED Decision to Admit Stat 11/10/21 13:47 Consult Service Plumber Routine 11/11/21 11:06 Consult Pulmonology Routine Ordered Studies CBC 11/16/21 Range/Units 05:52 WBC 9.69 (4.8-10.8) K/uL RBC 3.95 L (4.7-6.1) M/uL Hgb 12.3 L (14.0-18.0) g/dL Hct 37.5 L (42-52) % Plt Count 306 (130-400) K/uL Comprehensive Metabolic Panel 11/16/21 Range/Units 05:52 Sodium 138 (136-145) mmol/L Potassium 3.5 (3.5-5.1) mmol/L Chloride 94 L (98-107) mmol/L Carbon Dioxide 42 H* (21-32) mmol/L BUN 19 (6-23) mg/dl Creatinine 0.49 L (0.6-1.4) mg/dl Glucose 90 (70-99(Fasting)) mg/dl Calcium 8.3 L (8.5-10.1) mg/dl Intake and Output 11/16/21 11/16/21 11/16/21 06:59 14:59 22:59 Intake Total 150 / 510 300 / 300 Output Total 600 / 1500 450 / 950 500 / 950 Balance -450 / -990 -450 / -650 -200 / -650 Intake: Oral 150 / 510 300 / 300 Output: Urine 600 / 1500 450 / 950 500 / 950 Other: Weight 59.5 kg Patient Weight 11/17/21 06:59 Weight 59.5 kg Chest X-Ray 11/10/21 12:20 XR chest 1V portable CLINICAL HISTORY: Dyspnea. COMPARISON STUDY: Chest CT October 09, 2021. Chest radiograph October 14, 2021. FINDINGS: Lung hyperinflation with emphysema is noted. Lung volumes are normal. Lungs are clear. There is no pneumothorax or pleural effusion. Cardiac size is normal. Mediastinal contours are normal. There is no evidence for pulmonary edema. IMPRESSION: No acute cardiopulmonary findings. Emphysema. ACT 112: Negative or not required by law. Electronically signed by: Matt Garay M.D. 11/10/2021 1:02 PM Chest X-Ray 11/10/21 13:45 XR chest 1V portable CLINICAL HISTORY: ETT placement. COMPARISON STUDY: 11/10/2021 TECHNIQUE: 1 view of the chest FINDINGS: Single frontal view of the chest demonstrates the cardiomediastinal silhouette to be within normal limits. There has been interval placement of an endotracheal tube with tip 2.5 cm above the jaison. There is evidence for hyperinflation the lungs with emphysematous changes again seen. The lungs are clear of alveolar opacities. There is no evidence for pleural effusion. There is no evidence for vascular congestion. There is no acute osseous pathology. IMPRESSION: 1. ET tube 2.5 cm above the jaison. 2. No acute chest disease with emphysematous changes again noted. ACT 112: Negative or not required by law. Electronically signed by: Gene Puckett M.D. 11/10/2021 1:53 PM Chest X-Ray 11/11/21 07:00 XR chest 1V portable CLINICAL HISTORY: f/u TECHNIQUE: Single frontal radiograph of the chest was obtained. Comparison: Comparison is made to chest radiograph 11/10/2021 FINDINGS: Interval placement of enteric tube with the side-port and tip below the diaphragm. Endotracheal tube is unchanged. The cardiomediastinal silhouette is normal. The lungs are clear. No evidence of pleural effusion or pneumothorax. IMPRESSION: Satisfactory placement of enteric tube. Endotracheal tube is unchanged. ACT 112: Negative or not required by law. Electronically signed by: Timothy Gomez M.D. 11/11/2021 8:21 AM Chest X-Ray 11/14/21 14:09 XR chest 1V portable CLINICAL HISTORY: increasing shortness of breath COMPARISON STUDY: Chest radiograph November 11, 2021. FINDINGS: The endotracheal and nasogastric tubes have been removed. Lung h yperinflation with severe emphysema is present. There is no pneumothorax or pleural effusion. There is no consolidation or evidence for pulmonary edema. Cardiomediastinal silhouette is stable. IMPRESSION: No acute cardiopulmonary findings. Emphysema. ACT 112: Negative or not required by law. Electronically signed by: Matt Garay M.D. 11/14/2021 2:40 PM Hospital Course (1) Acute on chronic respiratory failure with hypoxia and hypercapnia: 51-year-old male with severe COPD and chronic oxygen therapy with COPD exacerbation requiring intubation and ICU admission on 11/10. Was extubated on 11/11 and transferred out of ICU. This is the 4th hospitalization with intubation since Feb 2021, last being September 2021. Acute on Chronic hypercapnic hypoxic respiratory failure 2/ COPD exacerbation: - GOLD Stage D, last known PFTs in 2019 with FEV1 16% and FEV1/FVC 28%. - blood cultures - no growth to date, final. procalcitonin negative. - d/c trelegy, replace with Symbicort plus Spiriva per patient preference - ok per pulmonology - completed Azithromycin 5 day course on 11/15 will transition to [facility] chronic therapy - prednisone taper on dispo: 4 days of 60mg, 4 days of 40mg, 4 days of 20mg, and 4 days of 10mg - Continue to encourage compliance with BiPAP at night and with all naps during the daytime - ABG demonstrating increased CO2 retention. last ab.//43 - Strongly encouraged tobacco cessation; patient states is a very light smoker in preceding months Pulmonology: consider addition of Roflumilast before discharge 250mcg QD for 4 weeks, then 500mcg daily. bdc manager checking w/ insurance and will f/u w/ patient on this. - patient is poor candidate for lung transplant due to questionable current smoking, frail body habitus, and lack of COVID/pneumococcal vaccinations (and refusal to get these done as of yet) - patient states he remains interested in lung transplant - per [place] manufacturing sr engineer, eligibility for lung transplant would include smoking cessation for >6 months, vaccination against common respiratory including Covid-19, along with many other factors including weight gain. Acute metabolic encephalopathy: resolved History of recent gastritis - Diagnosed at last hospitalization mid-September 2021 by EGD - Continue protonix 40 mg PO BID Code Status this admission: Full code (2) GERD (gastroesophageal reflux disease): (3) Hypertension: (4) Metabolic encephalopathy: (5) History of tobacco abuse: Total Time Total Time Spent Total Time Spent (In Minutes): <30 Discharge Plan Discharge Items Patient Disposition: Home - Home Health Services Reason For Visit: COPD EXACERBATION Discharge Diagnosis: COPD exacerbation Activity: Per Instructions section Non-emergency contact: Primary Care Provider and Clinical Research Monitor Call non-emergency contact if: you have any medication questions and your symptoms worsen Follow-up/Referrals: Josep Arguello III, CRNP [Primary Care Provider] - (PCP f/u within 1 wk of hospital discharge. ) Oneal Alexander MD [Physician] - (An appointment request has been placed to this office on your behalf. If appointment information is not received within one week, please follow up with this office.) Diet: Carb Consistent or DM2 Addtl Attending Provider Instructions: Hi Mr. Geronimo, You were admitted to [facility] for COPD exacerbation. You were briefly in the ICU on the mechanical ventilator. You were then transitioned to Bipap, mostly at night. The bipap is very important to use because your condition results in too much carbon dioxide and the bipap is needed to treat this. The nasal cannula is not as good at getting rid of the carbon dioxide. You are encouraged to wear the bipap during every night and during any daytime naps, as much as possible. Please follow up with your primary care doctor within 1 week of leaving the hospital. Follow up with your lung doctor (manufacturing sr engineer) as well. If you are not called about the appointment details in the next few days, call to make the appointments yourself. Your manufacturing sr engineer had recommended a new medication called roflumilast. Our physician assistant primary care is calling your insurance to see if this is covered. MEDICATIONS 1. As discussed, your inhaler regimen be twice a day Symbicort. An inhaler called Spiriva will be taken once daily. These will replace the Trelegy which will be discontinued. You stated you have not been taking the Combivent, so this has been removed from your meds list. Continue to take as needed albuterol. Mucinex 600mg twice a day; take this for a week when you have a worsening cough or throat mucus. This is not for long-term use. 2. Azithromycin: This is an antibiotic that you will take intermediate every Tuesday, Tuesday, and Tuesday. This was recommended by your lung doctor. 3. Prednisone: You will be taking a 16 day taper, every morning. Start the first dose on 11/17/21. You will be taking 4 days of 60mg/day, 4 days of 40mg/day, 4 days of 20mg/day, and 4 days of 10mg/day, in that order. Please reduce smoking as much as possible. You stated that you will follow up [facility] regarding lung transplant evaluation requirements. If you develop any new or worsening symptoms including fever, chills, sweats, chest pain, chest pressure, difficulty breathing, uncontrolled nausea/vomiting, rash, wheezing, passing out or nearly passing out, bleeding, black/bloody bowel movements, or other new or concerning symptoms please call your primary care physician, or call 911 for re-evaluation in the emergency department if you are very concerned. Pending Studies at Discharge: No Stand-Alone Forms: My [facility], Smoking Cessation Medications and DC Order Prescriptions: New azithromycin 250 mg Tablet 250 mg PO .MWF 30 Days Qty: 18 RF: 1 prednisone 20 mg tablet See Rx Instructions .ROUTE .COMPLEX Qty: 24 RF: 0 prednisone 5 mg tablet 10 mg PO DAILY Qty: 8 RF: 0 guaifenesin [Mucinex] 600 mg tablet extended release 12hr 600 mg PO BID PRN (Reason: cough) 7 Days Qty: 14 RF: 2 Continued budesonide-formoterol [Symbicort] 160-4.5 mcg/actuation HFA aerosol inhaler 2 puff inhalation BID Qty: 10.2 RF: 2 aspirin 81 mg tablet,delayed release (DR/EC) 81 mg PO DAILY RF: 0 albuterol sulfate [Ventolin HFA] 90 mcg/actuation HFA aerosol inhaler 2 puff inhalation Q4H PRN (Reason: shortness of breath or wheezing) Qty: 8.5 RF: 3 (DME) BI-PAP Misc See Rx Instructions .Route RF: 0 (DME) Portable Oxygen Misc See Rx Instructions .Route RF: 0 ascorbic acid (vitamin C) [Vitamin C] 500 mg tablet 1 g PO DAILY RF: 0 multivitamin Tablet 1 tab PO DAILY RF: 0 montelukast [Singulair] 10 mg Tablet 10 mg PO HS Qty: 30 RF: 0 pantoprazole 40 mg tablet,delayed release (DR/EC) 40 mg PO BID Qty: 60 RF: 0 Discontinued Combivent Respimat 20-100 mcg/actuation mist 1 puff inhalation BID Qty: 4 RF: 2 Trelegy Ellipta 200-62.5-25 mcg blister with device 1 inh inhalation DAILY Qty: 60 RF: 0 Discharge Orders: Discharge Order (Routine); Ordered 11/16/21 Ordered By: Chad Dial/Other Patient Handouts: COPD Quit Smoking, COPD: Using Inhalers Admission Data Admit Date/Time: 11/10/21 13:47 Attending Provider: Pascual Donaldson Admit Provider: Steve Santana Primary Care Provider: Josep Argeullo III Other Providers: Steve Santana ; Augie Dejesus ; Oneal Alexander Other Interventions: Discharge Summary Assessment (RN) Last Done: 11/16/21 16:19 Supervising Physician Co-Signing Physician Notes Resident Physician Supervision Note: I interviewed and examined the patient. Discussed with Dr. Servin and agree with findings and plan as documented in the note. Any exceptions or clarifications are listed here: None pt is stable but has severe COPD with need for home Bipap most of the time will need close outpt support he has tachypnea and purse lipped breathing at baseine ok for discharge with steroid taper and continued Documented By: Pascual Donaldson MD Resident Activity Tracking Resident Involvement: Resident Care Provided Care Provided: Adult Hospital Medicine
--- NOTE | 2021-11-16 17:03 | Billing Data ---
Date of Service November 16, 2021 Coding Level of Care Code D/C DAY MANAGEMENT <30 MINS
== END 2021-11-16 17:58 | disposition home health service (06) | DRG 208 ==
LOC: ED 12:14 → SUATTDRO 13:47 → 1E 13:47 → 2W 11-11 21:34

== ENCOUNTER 2021-12-09 15:16 | Inpatient (IN) ==
[~2021-12-09 15:16] MED LIST changes: +ALBUT/IPRATROP 3MG/0.5MG NEB 3 ML VIAL INH STA; +ALBUT/IPRATROP 3MG/0.5MG NEB 3 ML VIAL ONE; -ETOMIDATE 2 MG/ML 20 ML VIAL IV ONE; +PROPOFOL IV EMULSION 10 MG/ML 100 ML VIAL IV ONE; -ROCURONIUM BROMIDE 10 MG/ML 5 ML VIAL IV ONE; +methylPREDNISolone 125 MG/2 ML VIAL IV STA
[2021-12-09] MEDS ORDERED: STAT IV Infusion **Titration per Protocol STA ×5 (15:20→19:13)
[2021-12-09] MEDS ORDERED: PROPOFOL BOLUS FROM BAG IV PRN (15:20)
[2021-12-09] MEDS ORDERED: fentaNYL citrate 100 MCG/2 ML VIAL ONE (15:22)
--- NOTE | 2021-12-09 15:26 | Emergency Department Note ---
History of Present Illness General Chief complaint: Respiratory Distress Time Seen by Provider: 12/09/21 15:16 Source: EMS Mode of arrival: EMS Limitations: clinical acuity History of Present Illness Provider complaint: Shortness of breath Onset (ago): day(s) Location: chest Pain Consistency: + constant Quality: + other (Short of breath) Relieved By: + none Associated symptoms: no chest pain, no cough, no fever/chills or no nausea/vomiting History is limited as the patient is intubated and nonverbal. I did obtain history from the park recreation manager who spoke to him prior to intubation. The patient is a 51-year-old male with COPD and asthma presenting with difficulty breathing today. He has had no chest pain, cough or vomiting or fevers. He was only able to give a very brief history to the park recreation manager due to his clinical acuity. He was very dyspneic and developed worsening mental status. His O2 saturation was in the 70s on room air. He was intubated in the field by the park recreation manager. 20 mg of etomidate was ordered by myself for intubation via medical command. He was slightly hypotensive initially but responded to half liter of fluids. Home Medications Medication Instructions Recorded Confirmed Type aspirin 81 mg tablet,delayed 81 mg PO DAILY 04/12/19 12/09/21 History release ascorbic acid (vitamin C) 500 mg 1 g PO DAILY 08/04/20 12/09/21 History tablet (Vitamin C) BI-PAP 07/17/21 12/09/21 History Portable Oxygen 07/17/21 12/09/21 History multivitamin 1 tab PO DAILY 10/09/21 12/09/21 History montelukast 10 mg tablet 10 mg PO HS #30 tabs 10/14/21 12/09/21 Rx (Singulair) pantoprazole 40 mg tablet,delayed 40 mg PO BID #60 tabs 10/14/21 12/09/21 Rx release azithromycin 250 mg tablet 250 mg PO .MWF 30 days #18 tabs 11/16/21 12/09/21 Rx guaifenesin 600 mg tablet, 600 mg PO BID PRN cough 7 days #14 11/16/21 12/09/21 Rx extended release 12 hr (Mucinex) tabs prednisone 20 mg tablet See Rx Instructions .Route 11/16/21 12/09/21 Rx .COMPLEX #24 tabs prednisone 5 mg tablet 10 mg PO DAILY #8 tabs 11/16/21 12/09/21 Rx budesonide-formoterol HFA 160 2 puff inhalation BID #10.2 grams 11/17/21 12/09/21 Rx mcg-4.5 mcg/actuation aerosol inhaler (Symbicort) tiotropium bromide 1.25 2 puff inhalation DAILY #4 grams 11/23/21 12/09/21 Rx mcg/actuation mist for inhalation albuterol sulfate 90 mcg/actuation 2 puff inhalation Q4H PRN 12/08/21 12/09/21 Rx aerosol inhaler (Ventolin HFA) shortness of breath or wheezing #8.5 grams Allergies Allergy/AdvReac Type Severity Reaction Status Date / Time No Known Allergies Allergy Verified 11/23/21 16:10 Past Med/Surg History Medical History Acute on chronic respiratory failure with hypoxia and hypercapnia Anxiety Brain aneurysm Centrilobular emphysema Chronic hypoxemic respiratory failure COPD (chronic obstructive pulmonary disease) Dyspnea and respiratory abnormalities Dyspnea on exertion History of tobacco abuse Pulmonary air trapping Tobacco abuse Surgical History History of intravascular stent placement Family History Grandfather (Maternal) Myocardial infarction Grandfather (Paternal) Myocardial infarction Mother Ovarian cancer Bladder cancer Other Diabetes Denies family history of Prostate cancer Breast cancer Colorectal cancer Social History Smoking Status: Current every day smoker Tobacco Type: Cigarettes Age Started Using Tobacco: 16; Age Quit Using Tobacco: 49; packs per day: 1; Years Smoked: 33; Cigarettes Per Day: 0.5; Second Hand Exposure: Yes; Preferred Language: Danish Communication Ability: Effective Visual Impairment: No Limitations Hearing Ability: Normal Church Official Required: No Beliefs That Will Affect Care: None marital status: Single Current Living Situation: Alone and Other current occupational status: employed 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 and A total of 10 systems reviewed and were otherwise negative Physical Exam Vital Signs Vital Signs - 24 hr 12/09/21 15:15 12/09/21 15:20 12/09/21 15:21 Temperature 36.8 C Temperature Source Temporal Artery Scan Pulse Rate 87 Pulse Rate [Apical] Pulse Rate from SpO2 Sensor 140 H Respiratory Rate 16 Respiratory Effort / Characteristics Non-Labored Respiratory Depth Normal Blood Pressure 133/81 133/81 Blood Pressure Mean 98 98 Pulse Oximetry 100 100 Oxygen Delivery Method Other Mechanical Vent Fraction of Inspired Oxygen Sepsis Recent Fever Within 48 Hours No Sepsis New/Unexplained Change in Mental Status N/A Sepsis Action Taken by Nursing No Action Required End-Tidal CO2 80 12/09/21 15:25 12/09/21 15:25 12/09/21 15:28 Temperature Temperature Source Pulse Rate Pulse Rate [Apical] Pulse Rate from SpO2 Sensor 132 H Respiratory Rate Respiratory Effort / Characteristics Respiratory Depth Blood Pressure 108/91 83/54 L Blood Pressure Mean 96 63 Pulse Oximetry 94 Oxygen Delivery Method Fraction of Inspired Oxygen Sepsis Recent Fever Within 48 Hours Sepsis New/Unexplained Change in Mental Status Sepsis Action Taken by Nursing End-Tidal CO2 12/09/21 15:28 12/09/21 15:30 12/09/21 15:33 Temperature Temperature Source Pulse Rate 121 H Pulse Rate [Apical] Pulse Rate from SpO2 Sensor 121 H 121 H Respiratory Rate 16 Respiratory Effort / Characteristics Respiratory Depth Blood Pressure 54/29 L Blood Pressure Mean 37 Pulse Oximetry 81 L 100 Oxygen Delivery Method Fraction of Inspired Oxygen Sepsis Recent Fever Within 48 Hours Sepsis New/Unexplained Change in Mental Status Sepsis Action Taken by Nursing End-Tidal CO2 12/09/21 15:33 12/09/21 15:35 12/09/21 15:35 Temperature Temperature Source Pulse Rate 102 H 101 H Pulse Rate [Apical] Pulse Rate from SpO2 Sensor Respiratory Rate 21 22 Respiratory Effort / Characteristics Respiratory Depth Blood Pressure 46/28 L Blood Pressure Mean 34 Pulse Oximetry Oxygen Delivery Method Fraction of Inspired Oxygen Sepsis Recent Fever Within 48 Hours Sepsis New/Unexplained Change in Mental Status Sepsis Action Taken by Nursing End-Tidal CO2 44 43 12/09/21 15:40 12/09/21 15:41 12/09/21 15:41 Temperature Temperature Source Pulse Rate 109 H Pulse Rate [Apical] Pulse Rate from SpO2 Sensor 108 H 102 H Respiratory Rate 11 L 12 Respiratory Effort / Characteristics Respiratory Depth Blood Pressure 95/58 L Blood Pressure Mean 70 Pulse Oximetry 99 98 Oxygen Delivery Method Fraction of Inspired Oxygen Sepsis Recent Fever Within 48 Hours Sepsis New/Unexplained Change in Mental Status Sepsis Action Taken by Nursing End-Tidal CO2 57 66 12/09/21 15:45 12/09/21 15:45 12/09/21 15:50 Temperature Temperature Source Pulse Rate 113 H Pulse Rate [Apical] Pulse Rate from SpO2 Sensor 111 H Respiratory Rate 12 Respiratory Effort / Characteristics Respiratory Depth Blood Pressure 110/75 100/54 L Blood Pressure Mean 86 69 Pulse Oximetry 100 Oxygen Delivery Method Fraction of Inspired Oxygen Sepsis Recent Fever Within 48 Hours Sepsis New/Unexplained Change in Mental Status Sepsis Action Taken by Nursing End-Tidal CO2 72 12/09/21 15:50 12/09/21 15:55 12/09/21 15:55 Temperature Temperature Source Pulse Rate 99 H 96 H Pulse Rate [Apical] Pulse Rate from SpO2 Sensor 99 H 96 H Respiratory Rate 23 21 Respiratory Effort / Characteristics Respiratory Depth Blood Pressure 96/67 L Blood Pressure Mean 76 Pulse Oximetry 97 95 Oxygen Delivery Method Fraction of Inspired Oxygen Sepsis Recent Fever Within 48 Hours Sepsis New/Unexplained Change in Mental Status Sepsis Action Taken by Nursing End-Tidal CO2 64 66 12/09/21 15:55 12/09/21 16:07 12/09/21 16:11 Temperature Temperature Source Pulse Rate 120 H Pulse Rate [Apical] 120 H Pulse Rate from SpO2 Sensor Respiratory Rate 20 20 Respiratory Effort / Characteristics Mechanically Ventilated Respiratory Depth Blood Pressure 96/67 L Blood Pressure Mean 76 Pulse Oximetry 100 100 Oxygen Delivery Method Mechanical Vent Fraction of Inspired Oxygen 30 30 Sepsis Recent Fever Within 48 Hours Sepsis New/Unexplained Change in Mental Status Sepsis Action Taken by Nursing End-Tidal CO2 52 12/09/21 16:00 12/09/21 16:06 12/09/21 16:06 Temperature Temperature Source Pulse Rate 101 H 99 H Pulse Rate [Apical] Pulse Rate from SpO2 Sensor 102 H 99 H Respiratory Rate 29 H 23 Respiratory Effort / Characteristics Respiratory Depth Blood Pressure 98/68 L Blood Pressure Mean 78 Pulse Oximetry 98 95 Oxygen Delivery Method Fraction of Inspired Oxygen Sepsis Recent Fever Within 48 Hours Sepsis New/Unexplained Change in Mental Status Sepsis Action Taken by Nursing End-Tidal CO2 50 38 12/09/21 16:10 12/09/21 16:10 12/09/21 16:15 Temperature Temperature Source Pulse Rate 100 H Pulse Rate [Apical] Pulse Rate from SpO2 Sensor 100 H 100 H Respiratory Rate 23 20 Respiratory Effort / Characteristics Respiratory Depth Blood Pressure 95/54 L Blood Pressure Mean 67 Pulse Oximetry 100 89 L Oxygen Delivery Method Fraction of Inspired Oxygen Sepsis Recent Fever Within 48 Hours Sepsis New/Unexplained Change in Mental Status Sepsis Action Taken by Nursing End-Tidal CO2 56 60 12/09/21 16:15 12/09/21 16:20 12/09/21 16:20 Temperature Temperature Source Pulse Rate 98 H Pulse Rate [Apical] Pulse Rate from SpO2 Sensor 96 H Respiratory Rate 21 Respiratory Effort / Characteristics Respiratory Depth Blood Pressure 83/52 L 94/56 L Blood Pressure Mean 62 68 Pulse Oximetry 100 Oxygen Delivery Method Fraction of Inspired Oxygen Sepsis Recent Fever Within 48 Hours Sepsis New/Unexplained Change in Mental Status Sepsis Action Taken by Nursing End-Tidal CO2 62 12/09/21 14:53 Temperature Temperature Source Pulse Rate Pulse Rate [Apical] Pulse Rate from SpO2 Sensor Respiratory Rate Respiratory Effort / Characteristics Mechanically Ventilated Respiratory Depth Normal Blood Pressure Blood Pressure Mean Pulse Oximetry Oxygen Delivery Method Fraction of Inspired Oxygen Sepsis Recent Fever Within 48 Hours Sepsis New/Unexplained Change in Mental Status Sepsis Action Taken by Nursing End-Tidal CO2 The physical exam is limited due to the patient's condition. Constitutional: Vital signs reviewed. Eyes: Pupils are equal round reactive to light. Conjunctiva are noninjected. HENT: Intubated. Respiratory: Diminished breath sounds bilaterally with expiratory wheezing. Breath sounds are equal bilaterally. Cardiovascular: Tachycardic. Heart rate 126. GI: Soft, nondistended and nontender. Bowel sounds are present. Musculoskeletal: No peripheral edema. Integumentary: No cyanosis. Neurological: The patient is breathing over the ventilator. Agitated. Psychiatric: Unable to assess. Course Administered Medications Propofol (Diprivan) 1,000 mg in 100 mls @ 13.062 mls/hr IV .[id number] [facility]; Protocol Stop: 12/12/21 15:29 Last Titration: 12/09/21 16:39 Dose: 35 mcg/kg/min, 13.1 mls/hr Documented By: Titration: 12/09/21 16:07 Dose: 40 mcg/kg/min, 14.9 mls/hr Documented By: Titration: 12/09/21 15:43 Dose: 20 mcg/kg/min, 7.5 mls/hr Documented By: Titration: 12/09/21 15:27 Dose: 25 mcg/kg/min, 9.3 mls/hr Documented By: Admin: 12/09/21 15:26 Dose: 20 mcg/kg/min, 7.5 mls/hr Documented By: HS Co-signed By: TENNILLE Norepinephrine Bitartrate (Levophed/D5w) 4 mg in 250 mls @ 11.663 mls/hr IV .[id number] [facility]; Protocol Stop: 01/08/22 15:44 Last Titration: 12/09/21 17:32 Dose: 0 mcg/kg/min, 0 mls/hr Documented By: Admin: 12/09/21 15:43 Dose: 0.05 mcg/kg/min, 11.7 mls/hr Documented By: SENA Co-signed By: TENNILLE Vancomycin HCl 1,500 mg/ (Sodium Chloride) 530 mls @ 200 mls/hr IV NOW ONE Stop: 12/09/21 18:24 Last Admin: 12/09/21 16:43 Dose: 200 mls/hr Documented By: SENA Propofol (Propofol Bolus From Bag) 20 mg IV Q5M PRN PRN Reason: Sedation Stop: 12/12/21 15:19 Last Admin: 12/09/21 15:26 Dose: 20 mg Documented By: HS Co-signed By: TENNILLE Discontinued Medications Albuterol (Albut/Ipratrop 3mg/0.5mg Neb 3 Ml Vial) Confirm Administered Dose 12 ml .ROUTE .STK-MED ONE Stop: 12/09/21 15:14 Last Admin: 12/09/21 15:33 Dose: 12 ml Documented By: DAHIANA Albuterol (Albut/Ipratrop 3mg/0.5mg Neb 3 Ml Vial) 12 ml INH ONE STA Stop: 12/09/21 15:16 Last Admin: 12/09/21 15:33 Dose: Not Given Documented By: DAHIANA Fentanyl Citrate (Fentanyl Citrate 100 Mcg/2 Ml Vial) Confirm Administered Dose 100 mcg .ROUTE .STK-MED ONE Stop: 12/09/21 15:23 Last Admin: 12/09/21 15:28 Dose: Not Given Documented By: SENA Fentanyl Citrate (Fentanyl Citrate 100 Mcg/2 Ml Vial) 50 mcg IV NOW ONE Stop: 12/09/21 15:31 Last Admin: 12/09/21 15:27 Dose: 50 mcg Documented By: HS Fentanyl Citrate (Fentanyl Citrate 100 Mcg/2 Ml Vial) 50 mcg IV NOW ONE Stop: 12/09/21 15:46 Last Admin: 12/09/21 15:47 Dose: 50 mcg Documented By: HS Piperacillin Sod/Tazobactam Sod (Zosyn) 4.5 gm in 120 mls @ 240 mls/hr IV NOW ONE Stop: 12/09/21 16:14 Last Infusion: 12/09/21 16:20 Dose: 0 mls/hr Documented By: Admin: 12/09/21 15:43 Dose: 240 mls/hr Documented By: HS Methylprednisolone (Methylprednisolone 125 Mg/2 Ml Vial) 125 mg IV NOW STA Stop: 12/09/21 15:16 Last Admin: 12/09/21 15:44 Dose: 125 mg Documented By: HS Norepinephrine Bitartrate (Norepinephrine/D5w 4 Mg/250 Ml) Confirm Administered Dose 4 mg IV .STK-MED ONE Stop: 12/09/21 15:40 Last Admin: 12/09/21 15:44 Dose: Not Given Documented By: HS Piperacillin Sod/Tazobactam Sod (Piperacillin/Tazobactam 4.5 Gm/120ml D5w) Confirm Administered Dose 4.5 gm IV .STK-MED ONE Stop: 12/09/21 15:41 Last Admin: 12/09/21 15:44 Dose: Not Given Documented By: HS Propofol (Propofol Iv Emulsion 10 Mg/Ml 100 Ml Vial) Confirm Administered Dose 1,000 mg IV .STK-MED ONE Stop: 12/09/21 15:16 Last Admin: 12/09/21 15:48 Dose: Not Given Documented By: HS Critical Care Time Critical Care Time: Yes Total Critical Care Time: 40 I have personally spent approximately 40 minutes of critical care time in the direct management of this patient. This includes bedside care, interpretation of diagnostic studies, and testing, discussion with consultants, patient, and family members, and other required patient management activities. These minutes are in excess of all separately billable procedures. Medical Decision Making Differential Diagnosis Respiratory failure, hypercapnia, COPD exacerbation, tobacco abuse, pneumonia, COVID-19 Medical Records Attestation: I reviewed the patient's medical records. I did perform a limited focused review of portions of the patient's old chart on the electronic medical record. The patient was just admitted last month for hypercapnic respiratory failure in the setting of COPD. He was intubated and admitted to the ICU. He had a similar hospital course in September when he was intubated at that time as well. Home Medications Current Medication List: was personally reviewed by me Laboratory Data Attestation: I reviewed the patient's lab results. Result diagrams: 12/09/21 15:27 12/09/21 15:27 Lab Results 12/09/21 12/09/21 12/09/21 Range/Units 15:27 15: 15:27 WBC 4.72 L (4.8-10.8) K/ul RBC 4.10 L (4.63-6.08) M/uL Hgb 12.4 L (14.0-18.0) g/dl POC Hgb (14.0-18.0) g/dl Hct 37.2 L (40.1-51.0) % POC Hct (42-52) % MCV 90.7 (80.0-100.0) fL MCH 30.2 (25.0-34.0) pg MCHC 33.3 (32.0-36.0) g/dL RDW Std Deviation 39.8 (36.4-46.3) fL RDW Coeff of Abner 11.9 (11.5-14.5) % Plt Count 241 (130-400) K/uL MPV 9.5 (9.4-12.4) fL Immature Gran % (Auto) 0.2 % Neut % (Auto) 82.0 % Lymph % (Auto) 7.2 % George % (Auto) 10.2 % Eos % (Auto) 0.2 % Baso % (Auto) 0.2 % Neut # (Auto) 3.87 (1.4-6.5) K/uL Lymph # (Auto) 0.34 L (1.2-3.4) K/uL George # (Auto) 0.48 (0.24-0.82) K/uL Eos # (Auto) 0.01 (0-0.50) K/uL Baso # (Auto) 0.01 (0-0.2) K/uL Immature Gran # (Auto) 0.01 (0.00-0.02) K/uL PT 11.2 (9.0-12.0) Seconds INR 1.1 (0.9-1.1) APTT 24.1 (21.0-31.0) Seconds PTT Ratio 0.9 POC pH (7.35-7.45) POC pCO2 (35-46) mmHg POC pO2 (80-95) mmHg POC HCO3 (19-24) tj/L POC Total CO2 (24-31) mmol/L POC Base Excess (-9-1.8) tj/L POC ABG O2 Sat (90-95) % POC Sodium (135-144) mmol/L Sodium 131 L (136-145) mmol/L POC Potassium (3.3-5.0) mmol/L Potassium 4.1 (3.5-5.1) mmol/L POC Chloride (101-112) mmol/L Chloride 91 L (98-107) mmol/L Carbon Dioxide 35 H (21-32) mmol/L Anion Gap 5 (3-11) POC Anion Gap (16-25) mmol/L POC BUN (7-18) mg/dl BUN 18 (6-23) mg/dl Creatinine 0.35 L (0.6-1.4) mg/dl POC Creatinine (0.6-1.3) mg/dl Est Cr Clr Drug Dosing Not Reportable Est GFR ( Amer) > 150.0 ml/min Est GFR (Non-Af Amer) 145.3 ml/min BUN/Creatinine Ratio 51.4 H (10-20) Glucose 134 H (70-99(Fasting)) mg/dl POC Glucose (other) (70-99) mg/dl Calcium 7.8 L (8.5-10.1) mg/dl POC Ioniz Calcium Ingrid (1.12-1.32) mmol/l Magnesium 1.7 (1.7-2.4) mg/dl Total Bilirubin 0.9 (0.2-1.0) mg/dl AST 16 (13-39) U/L ALT 13 (7-52) U/L Alkaline Phosphatase 47 (34-104) U/L Troponin I High Sens 14.0 D (0-20) pg/ml Total Protein 5.5 L (6.0-8.3) gm/dl Albumin 3.4 (3.4-5.0) gm/dl Globulin 2.1 L (2.5-4.0) gm/dl Albumin/Globulin Ratio 1.6 (0.9-2) Adenovirus (PCR) (NotDetected) B. pertussis DNA (PCR) (NotDetected) B.parapertussis DNA PCR (NotDetected) C. pneumoniae DNA (PCR) (NotDetected) Coronavirus OC43 (PCR) (NotDetected) Coronavirus HKU1 (PCR) (NotDetected) Coronavirus 229E (PCR) (NotDetected) SARS-CoV-2 (PCR) (NotDetected) Coronavirus NL63 (PCR) (NotDetected) Human Metapneumovir PCR (NotDetected) Influenza Type A (PCR) (NotDetected) Influenza Type B (PCR) (NotDetected) M. pneumoniae (PCR) (NotDetected) Parainfluenza 1 (PCR) (NotDetected) Parainfluenza 2 (PCR) (NotDetected) Parainfluenza 3 (PCR) (NotDetected) Parainfluenza 4 (PCR) (NotDetected) RSV (PCR) (NotDetected) Entero/Rhino (PCR) (NotDetected) 12/09/21 12/09/21 12/09/21 Range/Units 15:28 15:32 15:54 WBC (4.8-10.8) K/ul RBC (4.63-6.08) M/uL Hgb (14.0-18.0) g/dl POC Hgb 13.3 L 13.3 L (14.0-18.0) g/dl Hct (40.1-51.0) % POC Hct 39 L 39 L (42-52) % MCV (80.0-100.0) fL MCH (25.0-34.0) pg MCHC (32.0-36.0) g/dL RDW Std Deviation (36.4-46.3) fL RDW Coeff of Abner (11.5-14.5) % Plt Count (130-400) K/uL MPV (9.4-12.4) fL Immature Gran % (Auto) % Neut % (Auto) % Lymph % (Auto) % George % (Auto) % Eos % (Auto) % Baso % (Auto) % Neut # (Auto) (1.4-6.5) K/uL Lymph # (Auto) (1.2-3.4) K/uL George # (Auto) (0.24-0.82) K/uL Eos # (Auto) (0-0.50) K/uL Baso # (Auto) (0-0.2) K/uL Immature Gran # (Auto) (0.00-0.02) K/uL PT (9.0-12.0) Seconds INR (0.9-1.1) APTT (21.0-31.0) Seconds PTT Ratio POC pH 7.33 L (7.35-7.45) POC pCO2 83 H (35-46) mmHg POC pO2 232 H (80-95) mmHg POC HCO3 44 H (19-24) tj/L POC Total CO2 > 40 H* 37 H (24-31) mmol/L POC Base Excess 18.0 H (-9-1.8) tj/L POC ABG O2 Sat 100.0 H (90-95) % POC Sodium 128 L 129 L (135-144) mmol/L Sodium (136-145) mmol/L POC Potassium 4.1 4.1 (3.3-5.0) mmol/L Potassium (3.5-5.1) mmol/L POC Chloride 87 L (101-112) mmol/L Chloride (98-107) mmol/L Carbon Dioxide (21-32) mmol/L Anion Gap (3-11) POC Anion Gap 11.0 L (16-25) mmol/L POC BUN 16 (7-18) mg/dl BUN (6-23) mg/dl Creatinine (0.6-1.4) mg/dl POC Creatinine 0.4 L (0.6-1.3) mg/dl Est Cr Clr Drug Dosing Est GFR ( Amer) ml/min Est GFR (Non-Af Amer) ml/min BUN/Creatinine Ratio (10-20) Glucose (70-99(Fasting)) mg/dl POC Glucose (other) 138 H (70-99) mg/dl Calcium (8.5-10.1) mg/dl POC Ioniz Calcium Ingrid 1.05 L (1.12-1.32) mmol/l Magnesium (1.7-2.4) mg/dl Total Bilirubin (0.2-1.0) mg/dl AST (13-39) U/L ALT (7-52) U/L Alkaline Phosphatase (34-104) U/L Troponin I High Sens (0-20) pg/ml Total Protein (6.0-8.3) gm/dl Albumin (3.4-5.0) gm/dl Globulin (2.5-4.0) gm/dl Albumin/Globulin Ratio (0.9-2) Adenovirus (PCR) Not Detected (NotDetected) B. pertussis DNA (PCR) Not Detected (NotDetected) B.parapertussis DNA PCR Not Detected (NotDetected) C. pneumoniae DNA (PCR) Not Detected (NotDetected) Coronavirus OC43 (PCR) Not Detected (NotDetected) Coronavirus HKU1 (PCR) Not Detected (NotDetected) Coronavirus 229E (PCR) Not Detected (NotDetected) SARS-CoV-2 (PCR) Not Detected (NotDetected) Coronavirus NL63 (PCR) Not Detected (NotDetected) Human Metapneumovir PCR Not Detected (NotDetected) Influenza Type A (PCR) Not Detected (NotDetected) Influenza Type B (PCR) Not Detected (NotDetected) M. pneumoniae (PCR) Not Detected (NotDetected) Parainfluenza 1 (PCR) Not Detected (NotDetected) Parainfluenza 2 (PCR) Not Detected (NotDetected) Parainfluenza 3 (PCR) Not Detected (NotDetected) Parainfluenza 4 (PCR) Not Detected (NotDetected) RSV (PCR) Not Detected (NotDetected) Entero/Rhino (PCR) Not Detected (NotDetected) Imaging Data Radiologist's Impression: Chest X-Ray 12/09/21 15:15 XR chest 1V portable CLINICAL HISTORY: Dyspnea intubaated. COMPARISON STUDY: 11/14/2021 TECHNIQUE: 1 view of the chest FINDINGS: Single frontal view of the chest demonstrates the cardiomediastinal silhouette to be within normal limits. There has been placement of an endotracheal tube with its tip approximately 2.6 cm above the jaison. There is hyperinflation of the lungs with attenuation of the pulmonary vasculature peripherally characteristic of underlying chronic obstructive pulmonary disease. The lungs a re clear of alveolar opacities. There is no evidence for pleural effusion. There is no evidence for vascular congestion. There is no acute osseous pathology. IMPRESSION: 1. Status post intubation. 2. Evidence for underlying moderate COPD with otherwise no acute chest disease. ACT 112: Negative or not required by law. Electronically signed by: Gene Puckett M.D. 12/09/2021 4:13 PM ECG Data Attestation: I personally reviewed and interpreted this ECG as follows: Indication: + SOB/dyspnea Rate (beats per minute): 137 Rhythm: + sinus tachycardia ECG Intervals/blocks: + Short MN ECG [place]: + Normal ECG ST segments: + Nonspecific ST abnormalities ECG Findings: no PVCs Comparison ECG Date: from (November 12, 2021) Change: the following changes noted (Shortened MN and tachycardia is new) MDM Narrative I did provide prehospital medical command for the patient. He had worsening mental status, very little air movement in his lungs and hypoxemia with tachypnea. The park recreation manager felt he needed to be intubated. I did order 20 of etomidate to facilitate this intubation. He was intubated in the field. I did evaluate the patient as noted above. He has poor air entry bilaterally. He was given an hour-long DuoNeb inline through the ventilator. He was also given Solu-Medrol IV. A second IV was established. He is fighting the ventilator and so he was placed on a propofol drip. He was also given 50 mcg of fentanyl IV. He is currently hypertensive. I did place an order for continuous cardiac mo nitoring. The monitor showed sinus tachycardia at a rate of 117 bpm. I did order and personally review the patient's 12-lead EKG as described above. He has a shortened MN but no acute ischemia. I did order and personally reviewed the images of the patient's chest x-ray as described above. I did not note any pneumonia. I did order and review the patient's blood work as noted in the electronic medical record. ABG shows a pH of 7.3, PaO2 of 232 and PaCO2 of 83. Bicarb is 44 with a base excess of 18. We did wean down his oxygen on his ventilator.CBC shows a white count of 4.7 with a hemoglobin of 12.4. Platelet count is 241. Chemistry shows sodium of 129 with a CO2 of 37. Creatinine is 0.4. The nurse told me that his blood pressure dropped to 40 systolic. His propofol was held and he was given a liter bolus of normal saline. His blood pressure did come up. I did discuss the case with the hospitalist and insurance case manager. I also spoke to Dr. Tony of the ICU. I did talk to the pharmacist and the patient was given IV Zosyn and vancomycin. He has a prior history of MRSA pneumonia. Blood cultures were ordered before this. High-sensitivity troponin came back negative. His Feeding Forward PCR is negative for COVID, influenza and other viruses. I did reassess the patient multiple times. His air entry did improve significantly after the nebulizer and treatment. He still continues to have expiratory wheezing. His blood pressure remained stable after he was restarted on the propofol drip. He was admitted to the ICU. Impression & Plan Respiratory failure with hypoxia, Acute exacerbation of chronic obstructive airways disease, Hypotension, Hyponatremia, Tobacco abuse, Anemia Discharge Plan Visit Data Chief Complaint: Respiratory Distress ED Provider: Pascual Dodge Discharge Problem: Respiratory failure with hypoxia, Acute exacerbation of chronic obstructive airways disease, Hypotension, Hyponatremia, Tobacco abuse, Anemia Patient Disposition: Admitted As Inpatient Discharge Instructions Interventions: ED Discharge Assessment Last Done: 12/09/21 17:27
[2021-12-09] MEDS ORDERED: propofoL 1,000 MG/100 ML VIAL IV SCH (15:30)
[2021-12-09] MEDS ORDERED: fentaNYL citrate 100 MCG/2 ML VIAL IV ONE ×2 (15:30→15:45)
[2021-12-09] MEDS ORDERED: NOREPINEPHRINE/D5W 4 MG/250 ML IV ONE (15:39)
[2021-12-09 15:40] LABS: iSTAT Arterial Blood Gas HCO3 44 meg/L (19-24); iSTAT Arterial Blood Gas pCO2 83 mmHg (35-46); iSTAT Arterial Blood Gas pH 7.33 (7.35-7.45); iSTAT Arterial Blood Gas pO2 232 mmHg (80-95); iSTAT Carbon Dioxide > 40 mmol/L (24-31); iSTAT Hematocrit 39 % (42-52); iSTAT Hemoglobin 13.3 g/dl (14.0-18.0); iSTAT Potassium 4.1 mmol/L (3.3-5.0); iSTAT Sodium 128 mmol/L (135-144)
[2021-12-09] MEDS ORDERED: PIPERACILLIN/TAZOBACTAM 4.5 GM/120ML D5W IV ONE (15:40)
[2021-12-09 15:42] LABS: Basophils # (auto) 0.01 K/uL (0-0.2); Basophils % (auto) 0.2 %; Eosinophils # (auto) 0.01 K/uL (0-0.50); Eosinophils % (auto) 0.2 %; Hematocrit (blood only) 37.2 % (40.1-51.0); Hemoglobin 12.4 g/dl (14.0-18.0); Immature Granulocytes # (auto) 0.01 K/uL (0.00-0.02); Immature Granulocytes % (auto) 0.2 %; Lymphocytes # (auto) 0.34 K/uL (1.2-3.4); Lymphocytes % (auto) 7.2 %; Mean Corpuscular Hemoglobin 30.2 pg (25.0-34.0); Mean Corpuscular Hgb Conc 33.3 g/dL (32.0-36.0); Mean Corpuscular Volume 90.7 fL (80.0-100.0); Mean Platelet Volume 9.5 fL (9.4-12.4); Monocytes # (auto) 0.48 K/uL (0.24-0.82); Monocytes % (auto) 10.2 %; Neutrophils # (auto) 3.87 K/uL (1.4-6.5); Platelet Count 241 K/uL (130-400); RDW Coefficient of Variation 11.9 % (11.5-14.5); RDW Standard Deviation 39.8 fL (36.4-46.3); White Blood Count 4.72 K/ul (4.8-10.8)
[2021-12-09 15:45] LABS: iSTAT Creatinine 0.4 mg/dl (0.6-1.3); iSTAT Hemoglobin 13.3 g/dl (14.0-18.0); iSTAT Ionized Calcium 1.05 mmol/l (1.12-1.32); iSTAT Potassium 4.1 mmol/L (3.3-5.0)
[2021-12-09] MEDS ORDERED: PIPERACILLIN/TAZOBACTAM 4.5 GM/120 ML BAG IV ONE (15:45)
[2021-12-09] MEDS ORDERED: NOREPINEPHRINE/D5W 4 MG/250 ML PLCT IV SCH (15:45)
[2021-12-09] MEDS ORDERED: VANCOMYCIN HCL 1,500 MG in SODIUM CHLORIDE 0.9% 500 ML IV ONE (15:46)
[2021-12-09] MEDS ORDERED: VANCOMYCIN CONSULT ACTIVE PRN (15:46)
[2021-12-09 15:58] LABS: INR 1.1 (0.9-1.1); Partial Thromboplastin Ratio 0.9; Partial Thromboplastin Time 24.1 Seconds (21.0-31.0); Prothrombin Time 11.2 Seconds (9.0-12.0)
[2021-12-09 16:05] LABS: Appearance Urine Clear (Clear); Bacteria Urine Automated Negative (Negative); Bilirubin Urine Negative (Negative); Blood Urine Trace (Negative); Color Urine Yellow; Epithelial Cell Urine Auto >30 /lpf (0-5); Glucose Urine UA Negative (Negative); Ketones Urine Negative (Negative); Leukocyte Esterase Urine Negative (Negative); Nitrite Urine Negative (Negative); Protein Urine 2+ (Negative); Specific Gravity Urine 1.017 (1.000-1.030); Urobilinogen Urine Negative (Negative); pH Urine 5.5 (4.5-7.5)
[2021-12-09 16:09] LABS: Alanine Aminotransferase 13 U/L (7-52); Albumin Globulin Ratio 1.6 (0.9-2); Albumin Level 3.4 gm/dl (3.4-5.0); Alkaline Phosphatase 47 U/L (34-104); Anion Gap 5 (3-11); Aspartate Aminotransferase 16 U/L (13-39); BUN Creatinine Ratio 51.4 (10-20); Bilirubin,Total 0.9 mg/dl (0.2-1.0); Blood Urea Nitrogen 18 mg/dl (6-23); Calcium 7.8 mg/dl (8.5-10.1); Carbon Dioxide 35 mmol/L (21-32); Chloride 91 mmol/L (98-107); Est GFR (African American) > 150.0 ml/min; Est GFR (Non-African American) 145.3 ml/min; Globulin 2.1 gm/dl (2.5-4.0); Glucose 134 mg/dl (70-99(Fasting)); Magnesium 1.7 mg/dl (1.7-2.4); Potassium 4.1 mmol/L (3.5-5.1); Sodium 131 mmol/L (136-145); Total Protein 5.5 gm/dl (6.0-8.3)
[2021-12-09 16:14] LABS: Mucus Urine Present (None Prsent)
--- NOTE | 2021-12-09 16:16 | XRay Report ---
XR chest 1V portable CLINICAL HISTORY: Dyspnea intubaated. COMPARISON STUDY: 11/14/2021 TECHNIQUE: 1 view of the chest FINDINGS: Single frontal view of the chest demonstrates the cardiomediastinal silhouette to be within normal li mits. There has been placement of an endotracheal tube with its tip approximately 2.6 cm above the ca gladys. There is hyperinflation of the lungs with attenuation of the pulmonary vasculature peripherally characteristic of underlying chronic obstructive pulmonary disease. The lungs are clear of alveolar opacities. There is no evidence for pleural effusion. There is no evidence for vascular congestion. T here is no acute osseous pathology. IMPRESSION: 1. Status post intubation. 2. Evidence for underlying moderate COPD with otherwise no acute chest disease. ACT 112: Negative or not required by law. Electronically signed by: Gene Puckett M.D. 12/09/2021 4:13 PM
--- NOTE | 2021-12-09 16:33 | History & Physical Report ---
Date of Service December 09, 2021 Assessment & Plan (1) COPD exacerbation: Plan: COPD exacerbation secondary to hypercarbic/hypoxic respiratory failure requiring intubation and mechanical ventilation - COPD stage D - Continue combivent nebulizers q6 hour scheduled - Pulmicort respules 0.5mg BID - Methyl-pred 60mg IV q8 - Azithromycin 250mg IV daily - Wean ventilator as able- currently AC/PC titrate per [facility] (2) Hyponatremia: Plan: Hyponatremia and hypotensive - Received 2liters saline in EMD secondary to hypotension - Continue Normosol (3) Hypotensive episode: Plan: Hypotensive- likely multifactorial at this time to include hypovolemia, sedation and auto-peeping as very dyschronous - Continue with Normosol - bolus crystalloid vs. vasopressor- defer to ICU - No infectious cause at this time suspected - blood cultures pending - lactate 2.1 - following hypoxia and nebulizer administration - repeat pending (4) Acute and chronic respiratory failure: Plan: Secondary to COPD and continued smoking (5) Tobacco abuse: Plan: As above greatly needs to substain (6) Hypertension: Plan: Hold hypertensive medications at this time until hemodyanamics are stable (7) GERD (gastroesophageal reflux disease): Plan: Protonix 40mg IV daily (8) MRSA colonization: Plan: HX of MRSA in sputum- nasal swab positive previously - repeat nasal swab - keep on isolation - consider treatment- defer to ICU at this time History of Present Illness Primary Care Provider: Puja Moura MD 51 YOM with medical history of COPD emphysema Stage D, afib, anxiety, smoker, MRSA + sputum, HTN. Patient arrives to the EMD intubated after calling EMS today. EMS reports SPO2 70% Patient was intubated in the field. In the EMD the patient had routine labs performed, ABG, CXR for evaluation of ETT and evaluation of lungs. Patient is currently sedated with Propofol and Fentanyl boluses. He remains with coarse lung sounds throughout but is dyschronous with the ventilator. Receiving nebulizer. He is localizing to pain. Patient will be admitted to the ICU for COPD exacerbation. Will place on AC/PC. Continue with scheduled Combivent nebulizers, Azithromycin daily, Pulmicort nebs BID, continue IV steroids. Patient intubation in 07/21, 10/18, 11/18. COVID and respiratory biofire is: NEGATIVE on admission Allergies Allergy/AdvReac Type Severity Reaction Status Date / Time No Known Allergies Allergy Verified 11/23/21 16:10 Home Medications Medication Instructions Recorded Confirmed Type aspirin 81 mg tablet,delayed 81 mg PO DAILY 04/12/19 12/09/21 History release ascorbic acid (vitamin C) 500 mg 1 g PO DAILY 08/04/20 12/09/21 History tablet (Vitamin C) BI-PAP 07/17/21 12/09/21 History Portable Oxygen 07/17/21 12/09/21 History multivitamin 1 tab PO DAILY 10/09/21 12/09/21 History montelukast 10 mg tablet 10 mg PO HS #30 tabs 10/14/21 12/09/21 Rx (Singulair) pantoprazole 40 mg tablet,delayed 40 mg PO BID #60 tabs 10/14/21 12/09/21 Rx release azithromycin 250 mg tablet 250 mg PO .MWF 30 days #18 tabs 11/16/21 12/09/21 Rx guaifenesin 600 mg tablet, 600 mg PO BID PRN cough 7 days #14 11/16/21 12/09/21 Rx extended release 12 hr (Mucinex) tabs prednisone 20 mg tablet See Rx Instructions .Route 11/16/21 12/09/21 Rx .COMPLEX #24 tabs prednisone 5 mg tablet 10 mg PO DAILY #8 tabs 11/16/21 12/09/21 Rx budesonide-formoterol HFA 160 2 puff inhalation BID #10.2 grams 11/17/21 12/09/21 Rx mcg-4.5 mcg/actuation aerosol inhaler (Symbicort) tiotropium bromide 1.25 2 puff inhalation DAILY #4 grams 11/23/21 12/09/21 Rx mcg/actuation mist for inhalation albuterol sulfate 90 mcg/actuation 2 puff inhalation Q4H PRN 12/08/21 12/09/21 Rx aerosol inhaler (Ventolin HFA) shortness of breath or wheezing #8.5 grams Past Med/Surg History Medical History Acute on chronic respiratory failure with hypoxia and hypercapnia Anxiety Brain aneurysm Centrilobular emphysema Chronic hypoxemic respiratory failure COPD (chronic obstructive pulmonary disease) Dyspnea and respiratory abnormalities Dyspnea on exertion History of tobacco abuse Pulmonary air trapping Tobacco abuse Surgical History History of intravascular stent placement Family History Grandfather (Maternal) Myocardial infarction Grandfather (Paternal) Myocardial infarction Mother Ovarian cancer Bladder cancer Other Diabetes Denies family history of Prostate cancer Breast cancer Colorectal cancer Social History Smoking Status: Current every day smoker Tobacco Type: Cigarettes Age Started Using Tobacco: 16; Age Quit Using Tobacco: 49; packs per day: 1; Years Smoked: 33; Cigarettes Per Day: 0.5; Second Hand Exposure: Yes; Tobacco Cessation Education Requested by Patient: No Preferred Language: Algerian Communication Ability: Unable Visual Impairment: No Limitations Hearing Ability: Normal Railroad Car 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 Required: No Beliefs That Will Affect Care: None marital status: Single Current Living Situation: Alone current occupational status: employed 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 Feels Safe at Home: Yes Childhood Exposure to Second-Hand Smoke: Yes Dental Care, Regularly: No Physical Activity Frequency: Does not Exercise Seatbelt Use: always Sunscreen Use: No Assistive Devices: Oxygen - Continuous Review of Systems Review of Systems: REVIEW OF SYSTEMS: unable to be performed Physical Exam Physical Exam: PHYSICAL EXAM: General: sedated and intubated Head: Normocephalic, atraumatic ENT: PERRLA, mucous membranes dry Neuro: sedated intubated, localizes pain all extremities Chest: equal rise and fall of the chest, paradoxical with the ventilator, inspiratory and expiratory wheezing Cardiac: Regular rate and rhythm, telemetry reviewed, skin warm dry, cap refill <3 seconds, peripheral pulses +2 no JVD, no murmur, no edema GI: NABS x 4 quadrants, soft, nontender to palpation, no rebound, guarding or tenderness : [place] to gravity, draining sarah urine Skin: no rash or erythema Results & Data Results & Data ([facility]) Vital Signs (Past 12 Hours) Vital Signs Temp Pulse Pulse Resp BP Pulse Ox O2 Del Method 12/09/21 16:11 120 H 20 100 Mechanical Vent 12/09/21 16:07 120 H 20 100 12/09/21 15:55 96/67 L 12/09/21 15:55 96 H 21 95 12/09/21 15:55 96/67 L 12/09/21 15:50 99 H 23 97 12/09/21 15:50 100/54 L 12/09/21 15:45 110/75 12/09/21 15:45 113 H 12 100 12/09/21 15:41 12 98 12/09/21 15:41 95/58 L 12/09/21 15:40 109 H 11 L 99 12/09/21 15:35 46/28 L 12/09/21 15:35 101 H 22 12/09/21 15:33 102 H 21 12/09/21 15:33 54/29 L 12/09/21 15:30 121 H 16 100 12/09/21 15:28 81 L 12/09/21 15:28 83/54 L 12/09/21 15:25 94 12/09/21 15:25 108/91 12/09/21 15:21 100 Mechanical Vent 12/09/21 15:20 133/81 12/09/21 15:15 36.8 C 87 16 133/81 100 Other FiO2 12/09/21 16:11 30 12/09/21 16:07 30 12/09/21 15:55 12/09/21 15:55 12/09/21 15:55 12/09/21 15:50 12/09/21 15:50 12/09/21 15:45 12/09/21 15:45 12/09/21 15:41 12/09/21 15:41 12/09/21 15:40 12/09/21 15:35 12/09/21 15:35 12/09/21 15:33 12/09/21 15:33 12/09/21 15:30 12/09/21 15:28 12/09/21 15:28 12/09/21 15:25 12/09/21 15:25 12/09/21 15:21 12/09/21 15:20 12/09/21 15:15 Laboratory Results Abnormal lab results 12/09/21 12/09/21 12/09/21 Range/Units 15:27 15:27 15:28 WBC 4.72 L (4.8-10.8) K/ul RBC 4.10 L (4.63-6.08) M/uL Hgb 12.4 L (14.0-18.0) g/dl POC Hgb 13.3 L (14.0-18.0) g/dl Hct 37.2 L (40.1-51.0) % POC Hct 39 L (42-52) % Lymph # (Auto) 0.34 L (1.2-3.4) K/uL POC pH 7.33 L (7.35-7.45) POC pCO2 83 H (35-46) mmHg POC pO2 232 H (80-95) mmHg POC HCO3 44 H (19-24) tj/L POC Total CO2 > 40 H* (24-31) mmol/L POC Base Excess 18.0 H (-9-1.8) tj/L POC ABG O2 Sat 100.0 H (90-95) % POC Sodium 128 L (135-144) mmol/L Sodium 131 L (136-145) mmol/L POC Chloride (101-112) mmol/L Chloride 91 L (98-107) mmol/L Carbon Dioxide 35 H (21-32) mmol/L POC Anion Gap (16-25) mmol/L Creatinine 0.35 L (0.6-1.4) mg/dl POC Creatinine (0.6-1.3) mg/dl BUN/Creatinine Ratio 51.4 H (10-20) Glucose 134 H (70-99(Fasting)) mg/dl POC Glucose (other) (70-99) mg/dl Calcium 7.8 L (8.5-10.1) mg/dl POC Ioniz Calcium Ingrid (1.12-1.32) mmol/l Total Protein 5.5 L (6.0-8.3) gm/dl Globulin 2.1 L (2.5-4.0) gm/dl Urine Protein (Negative) Urine Blood (Negative) Urine RBC (Auto) (0-4) /hpf U Hyaline Cast (Auto) (0-5) /lpf U Epithel Cells (Auto) (0-5) /lpf Urine Mucus (None Prsent) 12/09/21 12/09/21 Range/Units 15:32 Unknown WBC (4.8-10.8) K/ul RBC (4.63-6.08) M/uL Hgb (14.0-18.0) g/dl POC Hgb 13.3 L (14.0-18.0) g/dl Hct (40.1-51.0) % POC Hct 39 L (42-52) % Lymph # (Auto) (1.2-3.4) K/uL POC pH (7.35-7.45) POC pCO2 (35-46) mmHg POC pO2 (80-95) mmHg POC HCO3 (19-24) tj/L POC Total CO2 37 H (24-31) mmol/L POC Base Excess (-9-1.8) tj/L POC ABG O2 Sat (90-95) % POC Sodium 129 L (135-144) mmol/L Sodium (136-145) mmol/L POC Chloride 87 L (101-112) mmol/L Chloride (98-107) mmol/L Carbon Dioxide (21-32) mmol/L POC Anion Gap 11.0 L (16-25) mmol/L Creatinine (0.6-1.4) mg/dl POC Creatinine 0.4 L (0.6-1.3) mg/dl BUN/Creatinine Ratio (10-20) Glucose (70-99(Fasting)) mg/dl POC Glucose (other) 138 H (70-99) mg/dl Calcium (8.5-10.1) mg/dl POC Ioniz Calcium Ingrid 1.05 L (1.12-1.32) mmol/l Total Protein (6.0-8.3) gm/dl Globulin (2.5-4.0) gm/dl Urine Protein 2+ H (Negative) Urine Blood Trace H (Negative) Urine RBC (Auto) 5-10 H (0-4) /hpf U Hyaline Cast (Auto) 10-30 H (0-5) /lpf U Epithel Cells (Auto) >30 H (0-5) /lpf Urine Mucus Present A (None Prsent) Diagnostic Findings Chest X-Ray 12/09/21 15:15 XR chest 1V portable CLINICAL HISTORY: Dyspnea intubaated. COMPARISON STUDY: 11/14/2021 TECHNIQUE: 1 view of the chest FINDINGS: Single frontal view of the chest demonstrates the cardiomediastinal silhouette to be within normal limits. There has been placement of an endotracheal tube with its tip approximately 2.6 cm above the jaison. There is hyperinflation of the lungs with attenuation of the pulmonary vasculature peripherally characteristic of underlying chronic obstructive pulmonary disease. The lungs are clear of alveolar opacities. There is no evidence for pleural effusion. There is no evidence for vascular congestion. There is no acute osseous pathology. IMPRESSION: 1. Status post intubation. 2. Evidence for underlying moderate COPD with otherwise no acute chest disease. ACT 112: Negative or not required by law. Electronically signed by: Gene Puckett M.D. 12/09/2021 4:13 PM Medications Administered Home Medications aspirin 81 mg tablet,delayed release 81 mg PO DAILY 04/12/19 [History Confirmed 11/23/21] ascorbic acid (vitamin C) 500 mg tablet (Vitamin C) 1 g PO DAILY 08/04/20 [History Confirmed 11/23/21] BI-PAP 07/17/21 [History Confirmed 11/23/21] Portable Oxygen 07/17/21 [History Confirmed 11/23/21] multivitamin 1 tab PO DAILY 10/09/21 [History Confirmed 11/23/21] montelukast 10 mg tablet (Singulair) 10 mg PO HS #30 tabs 10/14/21 [Rx Confirmed 11/23/21] pantoprazole 40 mg tablet,delayed release 40 mg PO BID #60 tabs 10/14/21 [Rx Confirmed 11/23/21] azithromycin 250 mg tablet 250 mg PO .MWF 30 days #18 tabs 11/16/21 [Rx Confirmed 11/23/21] guaifenesin 600 mg tablet, extended release 12 hr (Mucinex) 600 mg PO BID PRN cough 7 days #14 tabs 11/16/21 [Rx Confirmed 11/23/21] prednisone 20 mg tablet See Rx Instructions .Route .COMPLEX #24 tabs 11/16/21 [Rx Confirmed 11/23/21] prednisone 5 mg tablet 10 mg PO DAILY #8 tabs 11/16/21 [Rx Confirmed 11/23/21] budesonide-formoterol HFA 160 mcg-4.5 mcg/actuation aerosol inhaler (Symbicort) 2 puff inhalation BID #10.2 grams 11/17/21 [Rx Confirmed 11/23/21] tiotropium bromide 1.25 mcg/actuation mist for inhalation 2 puff inhalation DAILY #4 grams 11/23/21 [Rx Confirmed 11/23/21] albuterol sulfate 90 mcg/actuation aerosol inhaler (Ventolin HFA) 2 puff inhalation Q4H PRN shortness of breath or wheezing #8.5 grams 12/08/21 [Rx] Active Medications Propofol (Diprivan) 1,000 mg in 100 mls @ 7.464 mls/hr IV .[id number] MITCH; Protocol Stop: 12/12/21 15:29 Last Titration: 12/09/21 16:39 Dose: 35 mcg/kg/min, 13.1 mls/hr Norepinephrine Bitartrate (Levophed/D5w) 4 mg in 250 mls @ 11.663 mls/hr IV .[id number] MITCH; Protocol Stop: 01/08/22 15:44 Last Admin: 12/09/21 15:43 Dose: 0.05 mcg/kg/min, 11.7 mls/hr Vancomycin HCl 1,500 mg/ (Sodium Chloride) 530 mls @ 200 mls/hr IV NOW ONE Stop: 12/09/21 18:24 Miscellaneous Information (Vancomycin Consult Active) 1 each N/A UD PRN PRN Reason: Consult Stop: 01/08/22 15:45 Propofol (Propofol Bolus From Bag) 20 mg IV Q5M PRN PRN Reason: Sedation Stop: 12/12/21 15:19 Last Admin: 12/09/21 15:26 Dose: 20 mg Propofol (Diprivan) 1,000 mg in 100 mls @ 7.464 mls/hr IV .[id number] MITCH; Protocol Stop: 12/12/21 15:29 Last Titration: 12/09/21 16:39 Dose: 35 mcg/kg/min, 13.1 mls/hr Documented By: Titration: 12/09/21 16:07 Dose: 40 mcg/kg/min, 14.9 mls/hr Documented By: Titration: 12/09/21 15:43 Dose: 20 mcg/kg/min, 7.5 mls/hr Documented By: Titration: 12/09/21 15:27 Dose: 25 mcg/kg/min, 9.3 mls/hr Documented By: Admin: 12/09/21 15:26 Dose: 20 mcg/kg/min, 7.5 mls/hr Documented By: HS Co-signed By: TENNILLE Norepinephrine Bitartrate (Levophed/D5w) 4 mg in 250 mls @ 11.663 mls/hr IV .[id number] [facility]; Protocol Stop: 01/08/22 15:44 Last Admin: 12/09/21 15:43 Dose: 0.05 mcg/kg/min, 11.7 mls/hr Documented By: HS Co-signed By: TENNILLE Propofol (Propofol Bolus From Bag) 20 mg IV Q5M PRN PRN Reason: Sedation Stop: 12/12/21 15:19 Last Admin: 12/09/21 15:26 Dose: 20 mg Documented By: HS Co-signed By: TENNILLE Discontinued Medications Albuterol (Albut/Ipratrop 3mg/0.5mg Neb 3 Ml Vial) Confirm Administered Dose 12 ml .ROUTE .STK-MED ONE Stop: 12/09/21 15:14 Last Admin: 12/09/21 15:33 Dose: 12 ml Documented By: DAHIANA Albuterol (Albut/Ipratrop 3mg/0.5mg Neb 3 Ml Vial) 12 ml INH ONE STA Stop: 12/09/21 15:16 Last Admin: 12/09/21 15:33 Dose: Not Given Documented By: DAHIANA Fentanyl Citrate (Fentanyl Citrate 100 Mcg/2 Ml Vial) Confirm Administered Dose 100 mcg .ROUTE .STK-MED ONE Stop: 12/09/21 15:23 Last Admin: 12/09/21 15:28 Dose: Not Given Documented By: SENA Fentanyl Citrate (Fentanyl Citrate 100 Mcg/2 Ml Vial) 50 mcg IV NOW ONE Stop: 12/09/21 15:31 Last Admin: 12/09/21 15:27 Dose: 50 mcg Documented By: HS Fentanyl Citrate (Fentanyl Citrate 100 Mcg/2 Ml Vial) 50 mcg IV NOW ONE Stop: 12/09/21 15:46 Last Admin: 12/09/21 15:47 Dose: 50 mcg Documented By: HS Piperacillin Sod/Tazobactam Sod (Zosyn) 4.5 gm in 120 mls @ 240 mls/hr IV NOW ONE Stop: 12/09/21 16:14 Last Infusion: 12/09/21 16:20 Dose: 0 mls/hr Documented By: Admin: 12/09/21 15:43 Dose: 240 mls/hr Documented By: HS Methylprednisolone (Methylprednisolone 125 Mg/2 Ml Vial) 125 mg IV NOW STA Stop: 12/09/21 15:16 Last Admin: 12/09/21 15:44 Dose: 125 mg Documented By: HS Norepinephrine Bitartrate (Norepinephrine/D5w 4 Mg/250 Ml) Confirm Administered Dose 4 mg IV .STK-MED ONE Stop: 12/09/21 15:40 Last Admin: 12/09/21 15:44 Dose: Not Given Documented By: HS Piperacillin Sod/Tazobactam Sod (Piperacillin/Tazobactam 4.5 Gm/120ml D5w) Confirm Administered Dose 4.5 gm IV .STK-MED ONE Stop: 12/09/21 15:41 Last Admin: 12/09/21 15:44 Dose: Not Given Documented By: HS Propofol (Propofol Iv Emulsion 10 Mg/Ml 100 Ml Vial) Confirm Administered Dose 1,000 mg IV .STK-MED ONE Stop: 12/09/21 15:16 Last Admin: 12/09/21 15:48 Dose: Not Given Documented By: HS ECG Additional Comments: Sinus tachycardia with short SD Right atrial enlargement Pulmonary disease pattern Nonspecific ST abnormality Abnormal ECG Code Status & VTE Plan Code Status CODE: FULL- unable to discuss secondary to intubation- previous admissions has been full code VTE: SCDS, Heparin 5000 units sub q q12 VTE Prophylaxis Plan VTE Prophylaxis will be ordered: Yes Supervising Physician Co-Signing Physician Notes Discussed case with MAIL INSERTER, reviewed his documentation. This is a patient who is well-known to the critical care service, recent discharge with [facility]. Presents secondary to hypoxic respiratory failure and once again required mechanical ventilation in the emergency room. Plan is for the patient to be admitted to the ICU. Patient is on Solu-Medrol 60 mg IV every 8 along with azithromycin. Vent management per critical care. Continue to monitor sodium levels for hyponatremia. Defer further work-up and management to critical care service. PG Care Time/CCT Total # of Minutes Spent Total Time Spent with Patient: Total time spent is greater than 50% in coordination of care (as documented) at patient's floor/unit and/or counseling patient: 45 minutes critical care time. Time spent with ventilator adjustment, sedation adjustment, reviewing CXR independently, reviewing and interpreting labs, and re-evaluation of pulmonary status and ventilator synchrony Coding Level of Care Code None Diagnoses COPD exacerbation J44.1 Hyponatremia E87.1 Hypotensive episode I95.9 Acute and chronic respiratory failure J96.20 Tobacco abuse Z72.0 Hypertension I10 GERD (gastroesophageal reflux disease) K21.9 MRSA colonization Z22.322
[2021-12-09 16:57] LABS: Adenovirus PCR Not Detected (NotDetected); Bordetella parapertussis PCR Not Detected (NotDetected); Bordetella pertussis PCR Not Detected (NotDetected); Chlamydia pneumoniae PCR Not Detected (NotDetected); Coronavirus 229E PCR Not Detected (NotDetected); Coronavirus CoV-2 (COVID19)PCR Not Detected (NotDetected); Coronavirus HKU1 PCR Not Detected (NotDetected); Coronavirus NL63 PCR Not Detected (NotDetected); Coronavirus OC43PCR Not Detected (NotDetected); Human Metapneumovirus PCR Not Detected (NotDetected); Influenza A PCR Not Detected (NotDetected); Influenza B PCR Not Detected (NotDetected); Mycoplasma pneumoniae PCR Not Detected (NotDetected); Parainfluenza Virus 1 PCR Not Detected (NotDetected); Parainfluenza Virus 2 PCR Not Detected (NotDetected); Parainfluenza Virus 3 PCR Not Detected (NotDetected); Parainfluenza Virus 4 PCR Not Detected (NotDetected); Respiratory Syncytial VirusPCR Not Detected (NotDetected); Rhinovirus/Enterovirus PCR Not Detected (NotDetected)
--- NOTE | 2021-12-09 17:53 | Electrocardiogram Report ---
Test Reason : Blood Pressure : / mmHG Vent. Rate : 137 BPM Atrial Rate : 137 BPM P-R Int : 098 ms QRS Dur : 080 ms QT Int : 316 ms P-R-T Axes : 089 088 043 degrees QTc Int : 477 ms Poor data quality, interpretation may be adversely affected Sinus tachycardia Right atrial enlargement Incomplete right bundle branch block Nonspecific ST abnormality Abnormal ECG When compared with ECG of 12-NOV-2021 06:36, Vent. rate has increased BY [address] now depressed in Inferior leads Confirmed by Shahab Lewis ([id number]) on 12/09/2021 5:53:28 PM Referred By: ED Confirmed By:Link Lewis
--- NOTE | 2021-12-09 17:56 | Critical Care Consultation ---
Date of Consultation December 09, 2021 Assessment & Plan (1) Admitted to intensive care unit: Reason Critically Ill: 51-year-old male with severe COPD and chronic oxygen therapy with COPD exacerbation requiring mechanical ventilation. PLAN: Neuro: Acute metabolic encephalopathy -Likely secondary to hypercapnia in the setting of respiratory failure caused by severe COPD exacerbation Resp: COPD Acute on chronic respiratory failure with hypercapnia and respiratory acidosis -saturating well at 98% on mechanical ventilation. Evidence of chronic retention on basic metabolic panel: Carbon dioxide in high 30s and low 40s -Scheduled nebulizers, would benefit from utilizing BiPAP for increase d ventilation when off of mechanical ventilation CV: Tachycardia to 120 -We will hold off any intervention for now, seems to be sinus tachycardia and likely will resolve with increased oxygen saturation Required Levophed in the emergency department, transition from propofol to fentanyl drip with Versed as needed for sedation which should improve blood pressures. Fluids/Renal: Chronic compensation for respiratory acidosis, ICU electrolyte replacement protocol Mild hyponatremia at 129. Recheck BMP in the morning after fluid administration. ID: COPD exacerbation -Rocephin, Zithromax, vancomycin -If MRSA swab negative can discontinue vancomycin Blood biofire negative Blood cultures pending GI/Nutrition: No current GI problems Heme: DVT prophylaxis: Lovenox 40 mg daily Endocrine: ICU hyperglycemia protocol Solu-Medrol 60 mg every 8 hours Vascular access: Peripheral IVs Code Status: Full code Disposition: ICU (2) Acute and chronic respiratory failure: (3) Hypertension: (4) Hyperglycemia: (5) GERD (gastroesophageal reflux disease): (6) Metabolic encephalopathy: Supervising Physician Co-Signing Physician Notes Dr. Newsome was resident physician during care of patient. I separately evaluated patient for brody portions of the history and the exam. I was present during the critical portion of medical decision making, and I discussed the case with the resident. I generally agree with the findings and plan. Recurrent hypercapnic respiratory failure. Changing sedation to Precedex for hopeful early extubation. Continued tobacco/nicotine dependence. I have personally spent 55 minutes of critical care time in the direct management of this patient. This is a life/limb threatening event. This includes time spent evaluating patient, direct bedside care, chart review, placing orders, interpretation of diagnostic studies, discussion with consultants, patient, and/or family members regarding treatment decisions, as well as other required patient management activities. This time is exclusive of all separately billable procedures, and teaching time and separate from and in addition to any other critical care service time. History of Present Illness History of Present Illness Patient is a 51-year-old male with recent admission for respiratory failure secondary to severe COPD presenting to the emergency department via ambulance for shortness of breath. History is overall unable to be obtained at this time as patient is obtunded and currently being ventilated. Any HPI is from previous documentation. According to ED provider note, the forest aide was able to speak with the patient briefly prior to intubation. Patient was reporting dyspnea and forest aide reports worsening mental status with drop in O2 saturation down to the 70s in the field. Last admission to the hospital was on November 10 where he was admitted to the ICU and at that time was also intubated. Patient is on 3 L nasal cannula at baseline at home. Pulmonary regimen includes Trelegy inhaler daily as well as Singulair. Patient has a BiPAP at home but is noncompliant with it. Last known FEV1 of 16% and FEV1 over FVC ratio of 28%. This was noted by pulmonology on November 12. Patient is not COVID vaccinated. No other meaningful HPI able to be obtained at this time. Allergies Allergy/AdvReac Type Severity Reaction Status Date / Time No Known Allergies Allergy Verified 11/23/21 16:10 Home Medications Medication Instructions Recorded Confirmed Type aspirin 81 mg tablet,delayed 81 mg PO DAILY 04/12/19 12/09/21 History release ascorbic acid (vitamin C) 500 mg 1 g PO DAILY 08/04/20 12/09/21 History tablet (Vitamin C) BI-PAP 07/17/21 12/09/21 History Portable Oxygen 07/17/21 12/09/21 History multivitamin 1 tab PO DAILY 10/09/21 12/09/21 History montelukast 10 mg tablet 10 mg PO HS #30 tabs 10/14/21 12/09/21 Rx (Singulair) pantoprazole 40 mg tablet,delayed 40 mg PO BID #60 tabs 10/14/21 12/09/21 Rx release azithromycin 250 mg tablet 250 mg PO .MWF 30 days #18 tabs 11/16/21 12/09/21 Rx guaifenesin 600 mg tablet, 600 mg PO BID PRN cough 7 days #14 11/16/21 12/09/21 Rx extended release 12 hr (Mucinex) tabs prednisone 20 mg tablet See Rx Instructions .Route 11/16/21 12/09/21 Rx .COMPLEX #24 tabs prednisone 5 mg tablet 10 mg PO DAILY #8 tabs 11/16/21 12/09/21 Rx budesonide-formoterol HFA 160 2 puff inhalation BID #10.2 grams 11/17/21 12/09/21 Rx mcg-4.5 mcg/actuation aerosol inhaler (Symbicort) tiotropium bromide 1.25 2 puff inhalation DAILY #4 grams 11/23/21 12/09/21 Rx mcg/actuation mist for inhalation albuterol sulfate 90 mcg/actuation 2 puff inhalation Q4H PRN 12/08/21 12/09/21 Rx aerosol inhaler (Ventolin HFA) shortness of breath or wheezing #8.5 grams Patient History Medical History Acute on chronic respiratory failure with hypoxia and hypercapnia Anxiety Brain aneurysm Centrilobular emphysema Chronic hypoxemic respiratory failure COPD (chronic obstructive pulmonary disease) Dyspnea and respiratory abnormalities Dyspnea on exertion History of tobacco abuse Pulmonary air trapping Tobacco abuse Surgical History History of intravascular stent placement Family History Grandfather (Maternal) Myocardial infarction Grandfather (Paternal) Myocardial infarction Mother Ovarian cancer Bladder cancer Other Diabetes Denies family history of Prostate cancer Breast cancer Colorectal cancer Social History Smoking Status: Current every day smoker Tobacco Type: Cigarettes Age Started Using Tobacco: 16; Age Quit Using Tobacco: 49; packs per day: 1; Years Smoked: 33; Cigarettes Per Day: 0.5; Second Hand Exposure: Yes; Tobacco Cessation Education Requested by Patient: No Preferred Language: Luxembourgish Communication Ability: Unable Visual Impairment: No Limitations Hearing Ability: Normal Investment Banking Manager Required: No Beliefs That Will Affect Care: None marital status: Single Current Living Situation: Alone current occupational status: employed 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 Feels Safe at Home: Yes Childhood Exposure to Second-Hand Smoke: Yes Dental Care, Regularly: No Physical Activity Frequency: Does not Exercise Seatbelt Use: always Sunscreen Use: No Assistive Devices: Oxygen - Continuous Review of Systems Review of Systems: Unobtainable due to endotracheal tube Physical Exam Constitutional: well developed, well nourished, + altered mental status and + mechanically ventilated Eyes: + anicteric sclerae Neck: trachea midline Respiratory: Auscultation: + rhonchi Intubated with mechanical ventilation Cardiovascular: Rate/Rhythm: regular rhythm and + tachycardic Vessels: no JVD Extremities: no edema Gastrointestinal (Abdomen): normal bowel sounds, soft, nontender, no hepatosplenomegaly Musculoskeletal: Head/Neck/Chest: normocephalic and head atraumatic Skin: no rashes, warm and dry Scattered ecchymoses Neurologic: + obtunded Psychiatric: Unable to assess Lymphatic: no cervical lymphadenopathy Results & Data Results & Data ([facility]) Vital Signs (Past 12 Hours) Vital Signs Temp Pulse Pulse Resp BP Pulse Ox O2 Del Method 12/09/21 17:15 97 H 21 100 Mechanical Vent 12/09/21 17:15 109/72 12/09/21 17:10 99 H 21 100 12/09/21 17:10 102/70 12/09/21 17:05 101 H 21 12/09/21 17:05 96/71 L 12/09/21 17:00 102 H 20 96 12/09/21 17:00 117/72 12/09/21 17:27 Mechanical Vent 12/09/21 16:56 109 H 13 100 12/09/21 16:56 97/67 L 12/09/21 16:50 99 H 20 12/09/21 16:50 36.5 C 114/69 12/09/21 16:45 106/74 12/09/21 16:45 100 H 21 12/09/21 16:40 100 H 7 L 99 12/09/21 16:40 126/98 12/09/21 16:55 20 12/09/21 16:35 99 H 20 100 Mechanical Vent 12/09/21 16:35 94/59 L 12/09/21 16:30 99 H 20 12/09/21 16:30 97/62 L 12/09/21 16:25 113/61 12/09/21 16:25 95 H 20 12/09/21 16:20 98 H 21 100 12/09/21 16:20 94/56 L 12/09/21 16:15 83/52 L 12/09/21 16:15 20 89 L 12/09/21 16:10 100 H 23 100 12/09/21 16:10 95/54 L 12/09/21 16:06 98/68 L 12/09/21 16:06 99 H 23 95 12/09/21 16:00 101 H 29 H 98 12/09/21 16:11 120 H 20 100 Mechanical Vent 12/09/21 16:07 120 H 20 100 12/09/21 15:55 96/67 L 12/09/21 15:55 96 H 21 95 12/09/21 15:55 96/67 L 12/09/21 15:50 99 H 23 97 12/09/21 15:50 100/54 L 12/09/21 15:45 110/75 12/09/21 15:45 113 H 12 100 12/09/21 15:41 12 98 12/09/21 15:41 95/58 L 12/09/21 15:40 109 H 11 L 99 12/09/21 15:35 46/28 L 12/09/21 15:35 101 H 22 12/09/21 15:33 102 H 21 12/09/21 15:33 54/29 L 12/09/21 15:30 121 H 16 100 12/09/21 15:28 81 L 12/09/21 15:28 83/54 L 12/09/21 15:25 94 12/09/21 15:25 108/91 12/09/21 15:21 100 Mechanical Vent 12/09/21 15:20 133/81 12/09/21 15:15 36.8 C 87 16 133/81 100 Other FiO2 12/09/21 17:15 12/09/21 17:15 12/09/21 17:10 12/09/21 17:10 12/09/21 17:05 12/09/21 17:05 12/09/21 17:00 12/09/21 17:00 12/09/21 17:27 30 12/09/21 16:56 12/09/21 16:56 12/09/21 16:50 12/09/21 16:50 12/09/21 16:45 12/09/21 16:45 12/09/21 16:40 12/09/21 16:40 12/09/21 16:55 30 12/09/21 16:35 12/09/21 16:35 12/09/21 16:30 12/09/21 16:30 12/09/21 16:25 12/09/21 16:25 12/09/21 16:20 12/09/21 16:20 12/09/21 16:15 12/09/21 16:15 12/09/21 16:10 12/09/21 16:10 12/09/21 16:06 12/09/21 16:06 12/09/21 16:00 12/09/21 16:11 30 12/09/21 16:07 30 12/09/21 15:55 12/09/21 15:55 12/09/21 15:55 12/09/21 15:50 12/09/21 15:50 12/09/21 15:45 12/09/21 15:45 12/09/21 15:41 12/09/21 15:41 12/09/21 15:40 12/09/21 15:35 12/09/21 15:35 12/09/21 15:33 12/09/21 15:33 12/09/21 15:30 12/09/21 15:28 12/09/21 15:28 12/09/21 15:25 12/09/21 15:25 12/09/21 15:21 12/09/21 15:20 12/09/21 15:15
[2021-12-09] MEDS ORDERED: ICU PROTOCOL FOR HYPERGLYCEMIA PRN (18:06)
[2021-12-09] MEDS ORDERED: bisacodyL 10 MG SUPP PR PRN (18:06)
[2021-12-09] MEDS ORDERED: VECURONIUM BROMIDE 10 MG VIAL IV PRN (18:06)
[2021-12-09] MEDS ORDERED: fentaNYL citrate 2,500 MCG/250 ML BAG IV SCH (18:06)
[2021-12-09] MEDS ORDERED: MIDAZOLAM HCL 1 MG/ML 2ML VIAL IV PRN (18:11)
[2021-12-09] MEDS: NORMOSOL-R 1,000 ML IV SCH (18:43)
[2021-12-09] MEDS ORDERED: AZITHROMYCIN 250 MG in DEXTROSE 5% 250 ML IV ONE (18:45)
[2021-12-09] MEDS: ICU ELECTROLYTE REPLACEMENT PROTOCOL SCH (19:35)
[2021-12-09] MEDS: ALBUT/IPRATROP 3MG/0.5MG NEB 3 ML VIAL NEB SCH (19:45)
[2021-12-09] MEDS: dexMEDEtomidine 200 MCG/50 ML BAG IV SCH (19:56)
[2021-12-09] MEDS: ENOXAPARIN INJ 40 MG/0.4 ML SYR SQ SCH (19:59)
[2021-12-09] MEDS: SENNA 8.6 MG TAB PO SCH (20:00)
[2021-12-09] MEDS: BUDESONIDE 0.5 MG/2 ML VIAL (PULMICORT) NEB SCH (20:10)
[2021-12-09] MEDS: methylPREDNISolone 60 MG in SYRINGE 0 ML IV SCH (20:37)
[2021-12-09] MEDS ORDERED: HEPARIN SOD 5,000 UNIT/0.5 ML VIAL SQ SCH (21:00)
[2021-12-09] MEDS: PHENYLEPHRINE HCL 20 MG in DEXTROSE 5% 500 ML IV SCH (21:09)
[2021-12-09] MEDS ORDERED: methylPREDNISolone 125 MG/2 ML VIAL IV SCH (22:00)
[2021-12-10] MEDS: dexMEDEtomidine 200 MCG/50 ML BAG IV SCH (00:49)
[2021-12-10] MEDS: NORMOSOL-R 1,000 ML IV SCH (04:19)
[2021-12-10] MEDS: PHENYLEPHRINE HCL 20 MG in DEXTROSE 5% 500 ML IV SCH ×3 (04:19→13:15)
[2021-12-10 04:33] LABS: iSTAT Allen Test Pass; iSTAT Art Bld Gas pCO2 Correct 32 mmHg (35-46); iSTAT Art Bld Gas pH Corrected 7.569 (7.35-7.45); iSTAT Arterial Blood Gas HCO3 29 meg/L (19-24); iSTAT Arterial Blood Gas pCO2 30 mmHg (35-46); iSTAT Arterial Blood Gas pH 7.59 (7.35-7.45); iSTAT Arterial Blood Gas pO2 140 mmHg (80-95); iSTAT Arterial Blood Gas pO2 C 147; iSTAT Carbon Dioxide 30 mmol/L (24-31); iSTAT FiO2 30 %; iSTAT Hematocrit 41 % (42-52); iSTAT Hemoglobin 13.9 g/dl (14.0-18.0); iSTAT Site R Radial; iSTAT Sodium 126 mmol/L (135-144)
[2021-12-10] MEDS: methylPREDNISolone 60 MG in SYRINGE 0 ML IV SCH ×3 (05:15→21:03)
[2021-12-10] MEDS ORDERED: ICU MODERATE HYPERGLYCEMIA PROTOCOL ONE (05:37)
[2021-12-10] MEDS ORDERED: INSULIN ASPART PER UNIT SC SCH (06:00)
[2021-12-10] MEDS ORDERED: LANTUS PER UNIT CHARGE SQ ONE (06:00)
[2021-12-10] MEDS ORDERED: PHARMACY GLYCEMIC MGMT CONSULT PRN (06:02)
[2021-12-10 06:08] LABS: Hematocrit (blood only) 38.4 % (40.1-51.0); Immature Granulocytes # (auto) 0.02 K/uL (0.00-0.02); Immature Granulocytes % (auto) 0.4 %; Lymphocytes # (auto) 0.49 K/uL (1.2-3.4); Lymphocytes % (auto) 8.6 %; Mean Corpuscular Hemoglobin 30.2 pg (25.0-34.0); Mean Corpuscular Hgb Conc 33.9 g/dL (32.0-36.0); Mean Corpuscular Volume 89.1 fL (80.0-100.0); Monocytes # (auto) 0.57 K/uL (0.24-0.82); Monocytes % (auto) 10.1 %; Neutrophils # (auto) 4.59 K/uL (1.4-6.5); Neutrophils % (auto) 80.9 %; Platelet Count 266 K/uL (130-400); RDW Coefficient of Variation 11.9 % (11.5-14.5); RDW Standard Deviation 38.7 fL (36.4-46.3); Red Blood Count 4.31 M/uL (4.63-6.08); White Blood Count 5.67 K/ul (4.8-10.8)
[2021-12-10 06:14] LABS: BUN Creatinine Ratio 28.2 (10-20); Calcium 8.4 mg/dl (8.5-10.1); Creatinine Clr Calc Pharmacy 94.1 ml/min; Est GFR (African American) 121.1 ml/min; Est GFR (Non-African American) 104.5 ml/min; Magnesium 1.8 mg/dl (1.7-2.4); Phosphorus 2.6 mg/dl (2.5-4.9); Potassium 4.1 mmol/L (3.5-5.1)
[2021-12-10] MEDS: ICU ELECTROLYTE REPLACEMENT PROTOCOL SCH (06:22)
[2021-12-10] MEDS: MAGNESIUM SULFATE / D5W 1 GM/100 ML BAG IV SCH ×2 (06:36→08:05)
[2021-12-10] MEDS: ALBUT/IPRATROP 3MG/0.5MG NEB 3 ML VIAL NEB SCH ×4 (07:36→19:48)
--- NOTE | 2021-12-10 07:59 | Hospitalist Progress Note ---
Date of Service December 10, 2021 Assessment & Plan (1) COPD exacerbation: Plan: COPD exacerbation secondary to hypercarbic/hypoxic respiratory failure requiring intubation and mechanical ventilation -extubated 12/10/21. also intubated 10/09, 11/10 this year - COPD stage D - Continue combivent nebulizers q6 hour scheduled - Pulmicort respules 0.5mg BID - Methyl-pred 60mg IV q8 - Ceftriaxone, Azithromycin/vancomycin(mrsa screen +)-> de escalate to azithro - (2) Hyponatremia: Plan: Hyponatremia and hypotensive - Received 2liters saline in EMD secondary to hypotension - eating and drinking stop ivf (3) Hypotensive episode: Plan: Hypotensive- likely multifactorial at this time to include hypovolemia, sedation and auto-peeping as very dyschronous - Continue with Normosol -covering for pneumonia may de escalate - blood cultures pending - lactate 2.1 - repeat 2.8 (4) Acute and chronic respiratory failure: Plan: Secondary to COPD and continued smoking (5) Tobacco abuse: (6) Hypertension: Plan: Hold hypertensive medications at this time until hemodyanamics are stable (7) GERD (gastroesophageal reflux disease): Plan: Protonix 40mg IV daily (8) MRSA colonization: Plan: HX of MRSA in sputum- nasal swab positive previously Admission and Anticipated Discharge Date Admission Date: December 09, 2021 Subjective Pt is extubated conversant and dismissive still speaks in short sentences Review of Systems Review of Systems: Moderate respiratory distress and fatigue no headache, no visual changes no speech or swallowing issues no chest pain, pressure or palpitations shortness of breath, prolonged exp phase, poor air movement no abdominal pain, nausea or vomiting, diarrhea or constipation no dysuria, hematuria or frequency no focal joint pain or swelling no back pain, CVA tenderness or radicular pain no bruising, bleeding or rashes no focal signs of weakness or numbness or altered sensation no complaints of anxiety or depression.. Physical Exam Physical Exam: The patient appeared chronically ill but stable Vital signs as documented. Head exam is normocephalic atraumatic Neck is without JVD, thyromegaly, or carotid bruits. Lungs decreased air movement pursed lip breathing prolonged expiratory phase Cardiac exam, Rhythm is regular.. No murmurs, rubs or gallops. Abdominal exam reveals normal bowel sounds, soft non tender, no masses Extremities are trace edematous and both pedal pulses are present Neurologic exam is alert and oriented, no focal loss of strength or sensation Skin is without bruises or rashes Psychologically is without concerns for anxiety or depression.. Results & Data Results & Data ([facility]) Vital Signs (Past 12 Hours) Vital Signs Temp Pulse Resp BP Pulse Ox O2 Del Method FiO2 12/10/21 07:41 Mechanical Vent 12/10/21 07:37 70 15 93 12/10/21 07:00 98.4 F 72 13 100/64 93 Mechanical Vent 12/10/21 06:30 98.6 F 67 13 124/76 94 Mechanical Vent 12/10/21 06:00 98.8 F 69 12 136/89 93 Mechanical Vent 12/10/21 05:30 99.1 F 72 16 142/84 H 93 Mechanical Vent 12/10/21 05:00 99.7 F H 81 12 136/98 93 Mechanical Vent 12/10/21 04:52 63 11 L 100 12/10/21 04:30 100.4 F H 90 16 121/92 100 Mechanical Vent 12/10/21 04:00 100.6 F H 95 H 20 100/83 100 Mechanical Vent 12/10/21 04:00 12/10/21 03:30 100.4 F H 97 H 20 97/76 L 100 Mechanical Vent 12/10/21 03:00 100.6 F H 99 H 20 97/79 L 100 Mechanical Vent 12/10/21 02:30 100.6 F H 100 H 20 91/76 L 100 Mechanical Vent 12/10/21 02:00 100.6 F H 102 H 20 97/72 L 100 Mechanical Vent 12/10/21 01:30 100.8 F H 98 H 20 108/81 100 Mechanical Vent 12/10/21 01:00 100.8 F H 100 H 20 112/79 100 Mechanical Vent 12/10/21 00:30 100.8 F H 98 H 20 114/86 100 Mechanical Vent 12/10/21 00:00 100.8 F H 100 H 20 97/81 L 100 Mechanical Vent 12/10/21 00:00 12/09/21 23:30 100.6 F H 103 H 20 94/67 L 100 Mechanical Vent 12/09/21 23:10 102 H 20 100 30 12/09/21 23:00 100.4 F H 104 H 20 97/72 L 100 Mechanical Vent 12/09/21 22:30 100.0 F H 106 H 20 72/60 L 100 Mechanical Vent 12/09/21 22:00 100.0 F H 107 H 20 92/59 L 100 Mechanical Vent 12/09/21 21:30 100.2 F H 116 H 20 100 12/09/21 21:30 100.2 F H 117 H 20 86/54 L 100 Mechanical Vent 12/09/21 21:15 100.4 F H 123 H 20 73/52 L 100 Mechanical Vent 12/09/21 21:06 100.6 F H 125 H 20 74/57 L 100 Mechanical Vent 12/09/21 21:00 100.4 F H 124 H 20 65/51 L 98 Mechanical Vent 12/09/21 20:30 98.1 F 129 H 20 89/53 L 100 Mechanical Vent 12/09/21 20:15 98.2 F 126 H 20 82/56 L 100 Mechanical Vent 12/09/21 20:00 99.5 F 130 H 20 93/65 L 100 Mechanical Vent 12/09/21 20:00 Mechanical Vent 12/09/21 20:00 30 PG Care Time/CCT Total # of Minutes Spent Total Time Spent with Patient: Total time spent is greater than 50% in coordination of care (as documented) at patient's floor/unit and/or counseling patient: Coding Level of Care Code 02829 Subseq Hosp Care Lvl 2 Diagnoses COPD exacerbation J44.1 Hyponatremia E87.1 Hypotensive episode I95.9 Acute and chronic respiratory failure J96.20 Tobacco abuse Z72.0 Hypertension I10 GERD (gastroesophageal reflux disease) K21.9 MRSA colonization Z22.322
--- NOTE | 2021-12-10 08:56 | XRay Report ---
XR chest 1V portable CLINICAL HISTORY: Dyspnea. Status post intubation.. COMPARISON STUDY: 12/09/2021 TECHNIQUE: 1 view of the chest FINDINGS: Single frontal view of the chest demonstrates the cardiomediastinal silhouette to be within normal li mits. Endotracheal tube appears unchanged. There is hyperinflation of the lungs with attenuation of t he pulmonary vasculature peripherally characteristic of underlying chronic obstructive pulmonary dise ase. The lungs are clear of alveolar opacities. There is no evidence for pleural effusion. There is n o evidence for vascular congestion. There is no acute osseous pathology. IMPRESSION: 1. Compared to previous study, there is again evidence for chronic obstructive pulmonary disease with no acute chest disease. ACT 112: Negative or not required by law. Electronically signed by: Gene Puckett M.D. 12/10/2021 8:55 AM
--- NOTE | 2021-12-10 09:05 | Critical Care Progress Note ---
Date of Service December 10, 2021 Assessment & Plan (1) Admitted to intensive care unit: Plan: Reason Critically Ill: 51-year-old male with severe COPD and chronic oxygen therapy with COPD exacerbation requiring mechanical ventilation. PLAN: Neuro: Acute metabolic encephalopathy -Likely secondary to hypercapnia in the setting of respiratory failure caused by severe COPD exacerbation Resp: COPD Acute on chronic respiratory failure with hypercapnia and respiratory acidosis -saturating well at 98% on mechanical ventilation, will attempt extubation today Evidence of chronic retention on basic metabolic panel: Carbon dioxide in high 30s and low 40s -Scheduled nebulizers, would benefit from utilizing BiPAP for increased ventilation when off of mechanical ventilation CV: Tachycardia resolved Pressures improved without additional pressors Fluids/Renal: Chronic compensation for respiratory acidosis, ICU electrolyte replacement protocol Mild hyponatremia at 131. Continue to monitor ID: COPD exacerbation -Zithromax Blood biofire negative Blood cultures pending GI/Nutrition: No current GI problems Heme: DVT prophylaxis: Lovenox 40 mg daily Endocrine: ICU hyperglycemia protocol Solu-Medrol 60 mg every 8 hours Vascular access: Peripheral IVs Code Status: Full code Disposition: ICU, possible downgrade pending successful extubation (2) Acute and chronic respiratory failure: (3) Hypertension: (4) Hyperglycemia: (5) GERD (gastroesophageal reflux disease): (6) Metabolic encephalopathy: Admission and Anticipated Discharge Date Admission Date: December 09, 2021 Supervising Physician Co-Signing Physician Notes Dr. Newsome was resident physician during care of patient. I separately evaluated patient for brody portions of the history and the exam. I was present during the critical portion of medical decision making, and I discussed the case with the resident. I generally agree with the findings and plan. Patient had acceptable spontaneous breathing trial parameters this morning we will proceed with extubation. Long course steroid taper highly recommend pulmonary follow-up this is third exacerbation with intubation in 3 months. I have personally spent 35 minutes of critical care time in the direct management of this patient. This is a life/limb threatening event. This includes time spent evaluating patient, direct bedside care, chart review, placing orders, interpretation of diagnostic studies, discussion with consultants, patient, and/or family members regarding treatment decisions, as well as other required patient management activities. This time is exclusive of all separately billable procedures, and teaching time and separate from and in addition to any other critical care service time. Subjective Patient seen at bedside this morning. No acute events reported overnight. Patient is arousable albeit still lethargic obviously from sedation medications. Saturating well on mechanical ventilation, will attempt extubation trial later today. No other meaningful HPI obtained at this time. Review of Systems Review of Systems: All systems reviewed & are unremarkable except as noted in HPI & below Physical Exam Constitutional: well developed, well nourished, + altered mental status and + mechanically ventilated Eyes: + anicteric sclerae Neck: trachea midline Respiratory: Auscultation: + rhonchi Cardiovascular: Rate/Rhythm: regular rhythm and + tachycardic Vessels: no JVD Extremities: no edema Gastrointestinal (Abdomen): normal bowel sounds, soft, nontender, no hepatosplenomegaly Musculoskeletal: Head/Neck/Chest: normocephalic and head atraumatic Skin: no rashes, warm and dry Scattered ecchymoses Neurologic: Spontaneously moving all 4 extremities Lymphatic: no cervical lymphadenopathy Results & Data Results & Data ([facility]) Vital Signs (Past 12 Hours) Vital Signs Temp Pulse Resp BP Pulse Ox O2 Del Method FiO2 12/10/21 08:00 12/10/21 07:41 Mechanical Vent 12/10/21 07:37 70 15 93 12/10/21 07:00 36.9 C 72 13 100/64 93 Mechanical Vent 12/10/21 06:30 37.0 C 67 13 124/76 94 Mechanical Vent 12/10/21 06:00 37.1 C 69 12 136/89 93 Mechanical Vent 12/10/21 05:30 37.3 C 72 16 142/84 H 93 Mechanical Vent 12/10/21 05:00 37.6 C H 81 12 136/98 93 Mechanical Vent 12/10/21 04:52 63 11 L 100 12/10/21 04:30 38.0 C H 90 16 121/92 100 Mechanical Vent 12/10/21 04:00 38.1 C H 95 H 20 100/83 100 Mechanical Vent 12/10/21 04:00 12/10/21 03:30 38.0 C H 97 H 20 97/76 L 100 Mechanical Vent 12/10/21 03:00 38.1 C H 99 H 20 97/79 L 100 Mechanical Vent 12/10/21 02:30 38.1 C H 100 H 20 91/76 L 100 Mechanical Vent 12/10/21 02:00 38.1 C H 102 H 20 97/72 L 100 Mechanical Vent 12/10/21 01:30 38.2 C H 98 H 20 108/81 100 Mechanical Vent 12/10/21 01:00 38.2 C H 100 H 20 112/79 100 Mechanical Vent 12/10/21 00:30 38.2 C H 98 H 20 114/86 100 Mechanical Vent 12/10/21 00:00 38.2 C H 100 H 20 97/81 L 100 Mechanical Vent 12/10/21 00:00 30 12/09/21 23:30 38.1 C H 103 H 20 94/67 L 100 Mechanical Vent 12/09/21 23:10 102 H 20 100 12/09/21 23:00 38.0 C H 104 H 20 97/72 L 100 Mechanical Vent 12/09/21 22:30 37.8 C H 106 H 20 72/60 L 100 Mechanical Vent 12/09/21 22:00 37.8 C H 107 H 20 92/59 L 100 Mechanical Vent 12/09/21 21:30 37.9 C H 116 H 20 100 12/09/21 21:30 37.9 C H 117 H 20 86/54 L 100 Mechanical Vent 12/09/21 21:15 38.0 C H 123 H 20 73/52 L 100 Mechanical Vent 12/09/21 21:06 38.1 C H 125 H 20 74/57 L 100 Mechanical Vent 12/09/21 21:00 38 C H 124 H 20 65/51 L 98 Mechanical Vent
--- NOTE | 2021-12-10 09:19 | Billing Data ---
Date of Service December 09, 2021 Coding Level of Care Code Critical Care 1st 30-74 mins
--- NOTE | 2021-12-10 09:20 | Billing Data ---
Date of Service December 10, 2021 Coding Level of Care Code Critical Care 1st 30-74 mins
[2021-12-10] MEDS ORDERED: AZITHROMYCIN 250 MG TAB PO ONE (09:35)
[2021-12-10] MEDS ORDERED: PANTOprazole 40 MG in SYRINGE 0 ML IV SCH (11:00)
[2021-12-10] MEDS: INSULIN ASPART PER UNIT SC SCH ×3 (11:33→21:03)
--- NOTE | 2021-12-10 12:20 | Pharmacy Report ---
Pharmacy Glycemic Short Note 2 - Date of Service December 10, 2021 - Glycemic Short BSG Results (Last 24 hours): 12/09/21 12/09/21 12/09/21 15:27 15:32 20:30 Glucose 134 H POC Glucose 156 H POC Glucose (other) 138 H 12/10/21 12/10/21 12/10/21 05:30 05:31 11:27 Glucose 197 H POC Glucose 186 H 160 H POC Glucose (other) OUTPATIENT ANTIDIABETIC REGIMEN: * None HbA1C: ___ ASSESSMENT: * Patient admitted to the ICU with respiratory failure secondary to severe COPD exacerbation requiring intubation. No history of diabetes or DM medications at home. Pharmacy consulted to assist with glycemic management in setting of steroid requirement. * BSGs largely within goal since admission: [phone]/dL * Extubated this AM. Continues on methylprednisolone 60mg IV q8h. Ordered a diet (no documented intake as of yet). * S/p Lantus 10units X 1 this AM. Given no history of DM, no documented PO intake, and current BSG trend, will continue with Novolog ACHS for now. Plan to reassess basal in AM. PLAN FOR INPATIENT GLYCEMIC CONTROL: * Bolus insulin * NovoLog per scale ACHS or Q6hrs while NPO * Goal Range: Low 110 mg/dL - High 140 mg/dL * Correction Factor: 25 mg/dL/unit * Nutritional / Prandial insulin per carb ratio of 1 unit per 13 grams CHO consumed
[2021-12-10] MEDS: ENOXAPARIN INJ 40 MG/0.4 ML SYR SQ SCH (18:01)
[2021-12-10] MEDS: BUDESONIDE 0.5 MG/2 ML VIAL (PULMICORT) NEB SCH (19:48)
[2021-12-10] MEDS ORDERED: LANTUS PER UNIT CHARGE SQ SCH (21:00)
[2021-12-10] MEDS: SENNA 8.6 MG TAB PO SCH (21:03)
[2021-12-10] MEDS ORDERED: LORazepam 0.25 MG in SYRINGE 0.125 ML IV ONE (22:40)
[2021-12-11] MEDS: INSULIN ASPART PER UNIT SC SCH ×6 (00:06→21:43)
[2021-12-11] MEDS: methylPREDNISolone 60 MG in SYRINGE 0 ML IV SCH (05:49)
[2021-12-11 05:58] LABS: Basophils # (auto) 0.01 K/uL (0-0.2); Basophils % (auto) 0.1 %; Hemoglobin 12.1 g/dl (14.0-18.0); Immature Granulocytes # (auto) 0.13 K/uL (0.00-0.02); Immature Granulocytes % (auto) 1.1 %; Lymphocytes # (auto) 0.31 K/uL (1.2-3.4); Lymphocytes % (auto) 2.5 %; Mean Corpuscular Hemoglobin 30.2 pg (25.0-34.0); Mean Corpuscular Hgb Conc 32.7 g/dL (32.0-36.0); Mean Corpuscular Volume 92.3 fL (80.0-100.0); Mean Platelet Volume 9.7 fL (9.4-12.4); Monocytes # (auto) 0.97 K/uL (0.24-0.82); Monocytes % (auto) 7.9 %; Neutrophils # (auto) 10.88 K/uL (1.4-6.5); Neutrophils % (auto) 88.4 %; Platelet Count 223 K/uL (130-400); RDW Coefficient of Variation 12.5 % (11.5-14.5); RDW Standard Deviation 42.3 fL (36.4-46.3); Red Blood Count 4.01 M/uL (4.63-6.08)
[2021-12-11 06:34] LABS: BUN Creatinine Ratio 45.1 (10-20); Calcium 8.9 mg/dl (8.5-10.1); Creatinine Clr Calc Pharmacy 148.3 ml/min; Est GFR (African American) 144.2 ml/min; Est GFR (Non-African American) 124.5 ml/min; Magnesium 2.3 mg/dl (1.7-2.4); Phosphorus 3.2 mg/dl (2.5-4.9); Potassium 4.2 mmol/L (3.5-5.1)
[2021-12-11 07:08] LABS: Estimated Average Glucose 123 mg/dl; Hemoglobin A1C 5.9 % (4.5-5.6)
[2021-12-11] MEDS: ALBUT/IPRATROP 3MG/0.5MG NEB 3 ML VIAL NEB SCH ×4 (08:05→19:30)
[2021-12-11] MEDS: BUDESONIDE 0.5 MG/2 ML VIAL (PULMICORT) NEB SCH (08:05)
--- NOTE | 2021-12-11 08:44 | Critical Care Progress Note ---
Date of Service December 11, 2021 Assessment & Plan (1) Admitted to intensive care unit: Plan: Reason Critically Ill: 51-year-old male with severe COPD and chronic oxygen therapy with COPD exacerbation requiring mechanical ventilation. Patient extubated yesterday and is currently saturating well on 3 L nasal cannula. PLAN: Neuro: Acute metabolic encephalopathy, resolved Resp: COPD Acute on chronic respiratory failure with hypercapnia and respiratory acidosis -saturating well at 98% on 3LNC Evidence of chronic retention on basic metabolic panel: Carbon dioxide in high 30s and low 40s -Scheduled nebulizers, would benefit from utilizing BiPAP for increased ventilation CV: Tachycardia -Likely secondary to pulmonary disease and resp acidosis Fluids/Renal: Chronic compensation for respiratory acidosis, ICU electrolyte replacement protocol Hyponatremia resolved with current sodium of 141 ID: COPD exacerbation -Zithromax Blood biofire negative Blood cultures negative GI/Nutrition: No current GI problems Heme: DVT prophylaxis: Lovenox 40 mg daily Endocrine: ICU hyperglycemia protocol Solu-Medrol 60 mg every 8 hours Vascular access: Peripheral IVs Code Status: Full code Disposition: ICU, downgrade later today (2) Acute and chronic respiratory failure: (3) Hypertension: (4) Hyperglycemia: (5) GERD (gastroesophageal reflux disease): (6) Metabolic encephalopathy: Admission and Anticipated Discharge Date Admission Date: December 09, 2021 Supervising Physician Co-Signing Physician Notes Dr. Newsome was resident physician during care of patient. I separately evaluated patient for brody portions of the history and the exam. I was present during the critical portion of medical decision making, and I discussed the case with the resident. I generally agree with the findings and plan. Continue BiPAP as needed. Transition to oral steroids today. Stable for downgrade out of ICU Subjective Patient seen at bedside this morning. Patient overall utilize the BiPAP for about 2 hours overnight. Patient is conversive but does get winded with discussion. Currently at his home oxygen which is 3 L nasal cannula. Denies any pain at this time. No new complaints. Review of Systems Review of Systems: All systems reviewed & are unremarkable except as noted in HPI & below Physical Exam Constitutional: well developed and well nourished Eyes: + anicteric sclerae Neck: trachea midline Respiratory: normal respiratory effort and + tachypneic; no respiratory distress Auscultation: lungs clear to auscultation bilaterally Cardiovascular: Rate/Rhythm: regular rhythm and + tachycardic Vessels: no JVD Extremities: no edema Gastrointestinal (Abdomen): normal bowel sounds, soft, nontender, no hepatosplenomegaly Musculoskeletal: Head/Neck/Chest: normocephalic and head atraumatic Skin: no rashes, warm and dry Neurologic: moves all extremities Psychiatric: Orientation: oriented x 3 Lymphatic: no cervical lymphadenopathy Results & Data Results & Data ([facility]) Vital Signs (Past 12 Hours) Vital Signs Temp Pulse Pulse Resp BP Pulse Ox O2 Del Method 12/11/21 08:05 115 H 32 H 96 Nasal Cannula 12/11/21 07:39 Nasal Cannula 12/11/21 06:00 36.8 C 119 H 28 H 98 12/11/21 06:00 134/103 H 12/11/21 05:00 36.7 C 103 H 24 92 12/11/21 05:00 139/95 12/11/21 04:00 36.6 C 101 H 23 89 L BiPAP 12/11/21 04:00 146/94 H 12/11/21 03:00 36.5 C 109 H 30 H 100 12/11/21 03:00 149/93 H 12/11/21 05:58 26 H 96 Nasal Cannula 12/11/21 03:56 21 93 BiPAP 12/11/21 03:15 111 H 30 H 96 12/11/21 02:00 36.5 C 105 H 29 H 94 12/11/21 02:00 142/97 H 12/11/21 01:00 36.6 C 109 H 25 H 99 12/11/21 01:00 151/82 H 12/11/21 00:00 36.5 C 114 H 27 H 98 12/11/21 00:00 152/88 H 12/10/21 23:17 143/89 H 12/10/21 23:17 36.7 C 113 H 25 H 100 12/10/21 23:00 36.8 C 114 H 20 94 12/10/21 22:00 36.7 C 109 H 22 100 12/10/21 22:00 145/86 H 12/10/21 21:00 36.7 C 109 H 23 98 12/10/21 21:00 123/79 12/10/21 22:03 116 H O2 Flow Rate FiO2 12/11/21 08:05 12/11/21 07:39 3 12/11/21 06:00 3 12/11/21 06:00 12/11/21 05:00 12/11/21 05:00 12/11/21 04:00 30 12/11/21 04:00 12/11/21 03:00 3 12/11/21 03:00 12/11/21 05:58 3 12/11/21 03:56 30 12/11/21 03:15 24 12/11/21 02:00 3 12/11/21 02:00 12/11/21 01:00 3 12/11/21 01:00 12/11/21 00:00 3 12/11/21 00:00 12/10/21 23:17 12/10/21 23:17 12/10/21 23:00 12/10/21 22:00 12/10/21 22:00 12/10/21 21:00 3 12/10/21 21:00 12/10/21 22:03
--- NOTE | 2021-12-11 09:16 | Billing Data ---
Date of Service December 11, 2021 Coding Level of Care Code 06089 Subseq Obs Care Lvl 1
[2021-12-11] MEDS: AZITHROMYCIN 250 MG TAB PO SCH (09:27)
[2021-12-11] MEDS: predniSONE 20 MG TAB PO SCH (10:11)
--- NOTE | 2021-12-11 11:39 | Pharmacy Report ---
Pharmacy Glycemic Short Note 2 - Date of Service December 11, 2021 - Glycemic Short BSG Results (Last 24 hours): 12/10/21 12/10/21 12/10/21 16:09 19:38 23:00 Glucose POC Glucose 135 H 152 H 170 H 12/11/21 12/11/21 12/11/21 05:32 05:35 07:11 Glucose 104 H POC Glucose 103 H 170 H 12/11/21 11:28 Glucose POC Glucose 164 H OUTPATIENT ANTIDIABETIC REGIMEN: * None HbA1C: 5.9% (pre-diabetes) ASSESSMENT: 12/11: * BSGs within goal the last 24h ([phone]/dL). Patient received a total of 12 units of insulin yesterday (10units basal). * Tolerating a diet, SoluMedrol 60mg IV q8h tapered to prednisone 40mg PO daily this AM. Other stressors stable * Continue Novolog scale. May need to loosen parameters with steroid adjustment pending BSG trend. Will follow. 12/10 * Patient admitted to the ICU with respiratory failure secondary to severe COPD exacerbation requiring intubation. No history of diabetes or DM medications at home. Pharmacy consulted to assist with glycemic management in setting of steroid requirement. * BSGs largely within goal since admission: [phone]/dL * Extubated this AM. Continues on methylprednisolone 60mg IV q8h. Ordered a diet (no documented intake as of yet). * S/p Lantus 10units X 1 this AM. Given no history of DM, no documented PO intake, and current BSG trend, will continue with Novolog ACHS for now. Plan to reassess basal in AM. PLAN FOR INPATIENT GLYCEMIC CONTROL: * Bolus insulin * NovoLog per scale ACHS or Q6hrs while NPO * Goal Range: Low 110 mg/dL - High 140 mg/dL * Correction Factor: 25 mg/dL/unit * Nutritional / Prandial insulin per carb ratio of 1 unit per 13 grams CHO consumed
[2021-12-11] MEDS: METOPROLOL TARTRATE 25 MG TAB PO SCH ×2 (13:09→20:13)
--- NOTE | 2021-12-11 17:36 | Hospitalist Progress Note ---
Date of Service December 11, 2021 Assessment & Plan (1) COPD exacerbation: Plan: COPD exacerbation secondary to hypercarbic/hypoxic respiratory failure requiring intubation and mechanical ventilation -extubated 12/10/21. also intubated 10/09, 11/10 this year - COPD stage D -symbicort and singulair as per last pulmonary clinic note - Pulmicort respules 0.5mg BID -prednisone 40 mg a day - Ceftriaxone, Azithromycin/vancomycin(mrsa screen +)-> de escalate to azithro - (2) Hyponatremia: Plan: Hyponatremia and hypotensive - Received 2liters saline in EMD secondary to hypotension - eating and drinking stop ivf (3) Hypotensive episode: Plan: Hypotensive- likely multifactorial at this time to include hypovolemia, sedation and auto-peeping as very dyschronous - Continue with Normosol -covering for pneumonia may de escalate - blood cultures pending - lactate 2.1 - repeat 2.8 (4) Acute and chronic respiratory failure: Plan: Secondary to COPD and continued smoking (5) Tobacco abuse: Plan: councelled on cessation (6) Hypertension: Plan: Hold hypertensive medications at this time until hemodyanamics are stable (7) GERD (gastroesophageal reflux disease): Plan: Protonix 40mg IV daily (8) MRSA colonization: Plan: 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 Pt seems to be focused on [facility] transplant evaluation Review of Systems Review of Systems: Moderate respiratory distress and fatigue no headache, no visual changes no speech or swallowing issues no chest pain, pressure or palpitations shortness of breath, prolonged exp phase, poor air movement no abdominal pain, nausea or vomiting, diarrhea or constipation no dysuria, hematuria or frequency no focal joint pain or swelling no back pain, CVA tenderness or radicular pain no bruising, bleeding or rashes no focal signs of weakness or numbness or altered sensation no complaints of anxiety or depression.. Physical Exam Physical Exam: The patient appeared chronically ill but stable Vital signs as documented. Head exam is normocephalic atraumatic Neck is without JVD, thyromegaly, or carotid bruits. Lungs decreased air movement pursed lip breathing prolonged expiratory phase purse lipped breathing Cardiac exam, Rhythm is regular.. No murmurs, rubs or gallops. Abdominal exam reveals normal bowel sounds, soft non tender, no masses Extremities are trace edematous and both pedal pulses are present Neurologic exam is alert and oriented, no focal loss of strength or sensation Skin is without bruises or rashes Psychologically is without concerns for anxiety or depression.. Results & Data Results & Data ([facility]) Vital Signs (Past 12 Hours) Vital Signs Temp Pulse Pulse Pulse Resp BP BP 12/11/21 17:27 98.2 F 114 H 147/74 H 12/11/21 16:41 115 H 12/11/21 16:00 99 H 28 H 12/11/21 16:00 148/89 H 12/11/21 15:00 98 H 28 H 12/11/21 15:00 148/89 H 12/11/21 15:29 98 H 28 H 12/11/21 15:49 98.6 F 12/11/21 14:00 117 H 28 H 12/11/21 14:00 145/95 H 12/11/21 13:00 118 H 28 H 12/11/21 13:00 150/87 H 12/11/21 12:00 122 H 23 12/11/21 12:00 173/103 H 12/11/21 11:30 115 H 21 12/11/21 11:30 183/111 H 12/11/21 11:00 120 H 19 12/11/21 11:00 173/102 H 12/11/21 10:36 120 H 17 12/11/21 10:36 149/99 H 12/11/21 10:30 118 H 29 H 12/11/21 10:00 12/11/21 09:30 98.4 F 127 H 19 12/11/21 09:05 98.4 F 122 H 25 H 12/11/21 09:05 159/81 H 12/11/21 09:00 169/100 H 12/11/21 11:43 180 H 30 H 12/11/21 10:08 12/11/21 09:31 125 H 26 H 12/11/21 08:30 120 H 12/11/21 09:00 98.2 F 120 H 30 H 12/11/21 08:00 98.2 F 115 H 32 H 12/11/21 08:00 146/92 H 12/11/21 07:00 111 H 19 12/11/21 07:00 145/94 H 12/11/21 08:05 115 H 32 H 12/11/21 07:39 12/11/21 06:00 98.2 F 119 H 28 H 12/11/21 06:00 134/103 H 12/11/21 05:58 26 H Pulse Ox O2 Del Method O2 Flow Rate FiO2 12/11/21 17:27 92 Nasal Cannula 2.5 12/11/21 16:41 12/11/21 16:00 94 12/11/21 16:00 12/11/21 15:00 94 12/11/21 15:00 12/11/21 15:29 95 Nasal Cannula 3 12/11/21 15:49 12/11/21 14:00 96 12/11/21 14:00 12/11/21 13:00 93 12/11/21 13:00 12/11/21 12:00 96 12/11/21 12:00 12/11/21 11:30 95 12/11/21 11:30 12/11/21 11:00 98 12/11/21 11:00 12/11/21 10:36 97 12/11/21 10:36 12/11/21 10:30 98 12/11/21 10:00 95 12/11/21 09:30 95 12/11/21 09:05 100 12/11/21 09:05 12/11/21 09:00 12/11/21 11:43 92 Nasal Cannula 3 12/11/21 10:08 Nasal Cannula, BiPAP 12/11/21 09:31 95 30 12/11/21 08:30 12/11/21 09:00 99 12/11/21 08:00 97 12/11/21 08:00 12/11/21 07:00 100 12/11/21 07:00 12/11/21 08:05 96 Nasal Cannula 12/11/21 07:39 Nasal Cannula 3 12/11/21 06:00 98 3 12/11/21 06:00 12/11/21 05:58 96 Nasal Cannula 3 PG Care Time/CCT Total # of Minutes Spent Total Time Spent with Patient: Total time spent is greater than 50% in coordination of care (as documented) at patient's floor/unit and/or counseling patient: Coding Level of Care Code 43784 Subseq Hosp Care Lvl 3 Diagnoses COPD exacerbation J44.1 Hyponatremia E87.1 Hypotensive episode I95.9 Acute and chronic respiratory failure J96.20 Tobacco abuse Z72.0 Hypertension I10 GERD (gastroesophageal reflux disease) K21.9 MRSA colonization Z22.322
[2021-12-11] MEDS: ENOXAPARIN INJ 40 MG/0.4 ML SYR SQ SCH (18:40)
[2021-12-11] MEDS: SENNA 8.6 MG TAB PO SCH (20:12)
[2021-12-11] MEDS: PANTOprazole 40 MG TAB PO SCH (20:12)
[2021-12-11] MEDS: MONTELUKAST SODIUM 10 MG TABLET PO SCH (20:13)
[2021-12-11] MEDS: ALBUTEROL HFA 8 GM INHALER INH PRN (20:32)
[2021-12-12 05:59] LABS: Basophils # (auto) 0.01 K/uL (0-0.2); Basophils % (auto) 0.1 %; Hematocrit (blood only) 36.9 % (40.1-51.0); Hemoglobin 11.7 g/dl (14.0-18.0); Immature Granulocytes # (auto) 0.09 K/uL (0.00-0.02); Immature Granulocytes % (auto) 0.7 %; Lymphocytes # (auto) 0.46 K/uL (1.2-3.4); Lymphocytes % (auto) 3.8 %; Mean Corpuscular Hgb Conc 31.7 g/dL (32.0-36.0); Mean Corpuscular Volume 94.6 fL (80.0-100.0); Mean Platelet Volume 9.7 fL (9.4-12.4); Monocytes # (auto) 1.39 K/uL (0.24-0.82); Monocytes % (auto) 11.5 %; Neutrophils # (auto) 10.09 K/uL (1.4-6.5); Neutrophils % (auto) 83.9 %; Platelet Count 226 K/uL (130-400); RDW Coefficient of Variation 12.5 % (11.5-14.5); RDW Standard Deviation 43.6 fL (36.4-46.3); White Blood Count 12.04 K/ul (4.8-10.8)
[2021-12-12 06:45] LABS: BUN Creatinine Ratio 38.1 (10-20); Blood Urea Nitrogen 16 mg/dl (6-23); Calcium 8.5 mg/dl (8.5-10.1); Carbon Dioxide > 45 mmol/L (21-32); Chloride 95 mmol/L (98-107); Creatinine Clr Calc Pharmacy 180.1 ml/min; Est GFR (African American) > 150.0 ml/min; Est GFR (Non-African American) 134.8 ml/min; Glucose 114 mg/dl (70-99(Fasting)); Magnesium 1.9 mg/dl (1.7-2.4); Phosphorus 2.9 mg/dl (2.5-4.9); Potassium 4.2 mmol/L (3.5-5.1); Sodium 142 mmol/L (136-145)
[2021-12-12] MEDS: ALBUT/IPRATROP 3MG/0.5MG NEB 3 ML VIAL NEB SCH ×4 (07:01→19:19)
[2021-12-12] MEDS: FLUTICASONE/VILANTEROL 200/25MCG 14 PUFFS/INHALER INH SCH (09:30)
[2021-12-12] MEDS: predniSONE 20 MG TAB PO SCH (09:30)
[2021-12-12] MEDS: AZITHROMYCIN 250 MG TAB PO SCH (09:30)
[2021-12-12] MEDS: PANTOprazole 40 MG TAB PO SCH ×2 (09:31→20:51)
[2021-12-12] MEDS: METOPROLOL TARTRATE 25 MG TAB PO SCH ×2 (09:31→20:51)
[2021-12-12] MEDS: INSULIN ASPART PER UNIT SC SCH ×4 (09:34→20:39)
[2021-12-12] MEDS ORDERED: METOPROLOL TARTRATE 1 MG/ML VIAL IV PRN (17:32)
[2021-12-12] MEDS ORDERED: STAT IV Infusion **Titration per Protocol STA (17:34)
[2021-12-12] MEDS ORDERED: AMIODARONE / D5W 150 MG/100 ML BAG IV STA (17:34)
[2021-12-12] MEDS ORDERED: AMIODARONE IV BOLUS & DRIP IV STA (17:34)
[2021-12-12] MEDS ORDERED: 0.2 MICRON FILTER SET 1 EACH IV STA (17:34)
[2021-12-12] MEDS ORDERED: MoRPHine SULFATE 5 MG/0.25 ML UDP PO PRN (17:43)
[2021-12-12] MEDS ORDERED: AMIODARONE / D5W 360 MG/200 ML BAG IV ONE (17:44)
[2021-12-12] MEDS: MAGNESIUM SULFATE / D5W 1 GM/100 ML BAG IV SCH ×2 (18:42→20:42)
[2021-12-12] MEDS: ENOXAPARIN INJ 40 MG/0.4 ML SYR SQ SCH (19:11)
[2021-12-12] MEDS: MONTELUKAST SODIUM 10 MG TABLET PO SCH (21:21)
[2021-12-12] MEDS: SENNA 8.6 MG TAB PO SCH (21:21)
[2021-12-12] MEDS ORDERED: AMIODARONE / D5W 360 MG/200 ML BAG IV SCH (23:45)
[2021-12-13] MEDS: ALBUT/IPRATROP 3MG/0.5MG NEB 3 ML VIAL NEB SCH ×4 (07:20→19:13)
[2021-12-13] MEDS: FLUTICASONE/VILANTEROL 200/25MCG 14 PUFFS/INHALER INH SCH (08:06)
[2021-12-13] MEDS: METOPROLOL TARTRATE 25 MG TAB PO SCH ×2 (08:07→20:56)
[2021-12-13] MEDS: AZITHROMYCIN 250 MG TAB PO SCH (08:10)
[2021-12-13] MEDS: PANTOprazole 40 MG TAB PO SCH ×2 (08:10→20:56)
[2021-12-13] MEDS: predniSONE 20 MG TAB PO SCH (08:10)
[2021-12-13] MEDS: INSULIN ASPART PER UNIT SC SCH ×4 (08:33→21:00)
--- NOTE | 2021-12-13 12:42 | Electrocardiogram Report ---
Test Reason : Blood Pressure : / mmHG Vent. Rate : 177 BPM Atrial Rate : 174 BPM P-R Int : 000 ms QRS Dur : 072 ms QT Int : 264 ms P-R-T Axes : 000 091 076 degrees QTc Int : 453 ms Poor data quality, interpretation may be adversely affected Atrial fibrillation with rapid ventricular response Rightward axis Abnormal ECG When compared with ECG of 09-DEC-2021 15:22, Atrial fibrillation has replaced Sinus rhythm Nonspecific T wave abnormality now evident in Lateral leads Confirmed by Lenadr Elizondo ([id number]) on 12/13/2021 12:42:25 PM Referred By: Puja Moura Confirmed By:Lenard Elizondo
[2021-12-13] MEDS: AMIODARONE 200 MG TAB PO SCH (17:09)
[2021-12-13] MEDS: ENOXAPARIN INJ 40 MG/0.4 ML SYR SQ SCH (17:09)
--- NOTE | 2021-12-13 18:19 | Hospitalist Progress Note ---
Date of Service December 13, 2021 Assessment & Plan (1) COPD exacerbation: Plan: COPD exacerbation secondary to hypercarbic/hypoxic respiratory failure requiring intubation and mechanical ventilation -extubated 12/10/21. also intubated 10/09, 11/10 this year - COPD stage D -symbicort and singulair as per last pulmonary clinic note - Pulmicort respules 0.5mg BID -prednisone 40 mg a day - Ceftriaxone, Azithromycin/vancomycin(mrsa screen +)-> de escalate to azithro - (2) PAF (paroxysmal atrial fibrillation): Plan: PAF RVR, converted with amiodarone, now on po amiodarone, plus metoprolol, German vasc score is low will not start anticoagulation unless cardiology feels strongly, now returned to sinus rhythm (3) Hyponatremia: Plan: Hyponatremia and hypotensive resolved - Received 2liters saline in EMD secondary to hypotension - eating and drinking stop ivf (4) Hypotensive episode: Plan: Hypotensive- likely multifactorial at this time to include hypovolemia, sedation and auto-peeping as very dyschronous - resolved -covering for pneumonia did descalate to azithromycin - blood cultures pending - lactate 2.1 - repeat 2.8 (5) Acute and chronic respiratory failure: Plan: Secondary to COPD and continued smoking (6) Tobacco abuse: Plan: councelled on cessation (7) Hypertension: Plan: Hold hypertensive medications at this time until hemodyanamics are stable (8) GERD (gastroesophageal reflux disease): Plan: Protonix 40mg IV daily (9) MRSA colonization: Plan: 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 Pt had PAF with RVR that resolvd once again with amiodarone, could the PAF be his inciting event? will ask cardiology to follow up Review of Systems Review of Systems: Moderate respiratory distress and fatigue continues no headache, no visual changes no speech or swallowing issues no chest pain, pressure or palpitations, even with RVR did not sense palpitations shortness of breath, prolonged exp phase, poor air movement no abdominal pain, nausea or vomiting, diarrhea or constipation no dysuria, hematuria or frequency no focal joint pain or swelling no back pain, CVA tenderness or radicular pain no bruising, bleeding or rashes no focal signs of weakness or numbness or altered sensation no complaints of anxiety or depression.. Physical Exam Physical Exam: The patient appeared chronically ill but stable Vital signs as documented. Head exam is normocephalic atraumatic Neck is without JVD, thyromegaly, or carotid bruits. Lungs continue with decreased air movement pursed lip breathing prolonged expiratory phase purse lipped breathing Cardiac exam, Rhythm is regular.. No murmurs, rubs or gallops. Abdominal exam reveals normal bowel sounds, soft non tender, no masses Extremities are trace edematous and both pedal pulses are present Neurologic exam is alert and oriented, no focal loss of strength or sensation Skin is without bruises or rashes Psychologically is without concerns for anxiety or depression.. Results & Data Results & Data ([facility]) Vital Signs (Past 12 Hours) Vital Signs Temp Pulse Pulse Resp BP Pulse Ox O2 Del Method 12/13/21 15:19 98.2 F 96 H 24 138/77 96 Nasal Cannula 12/13/21 14:42 95 H 12/13/21 14:30 94 H 24 97 Nasal Cannula 12/13/21 11:46 98.4 F 87 18 128/81 97 Nasal Cannula 12/13/21 11:12 89 22 96 Nasal Cannula 12/13/21 09:52 Nasal Cannula 12/13/21 07:20 88 16 95 Nasal Cannula 12/13/21 07:14 102 H 12/13/21 07:13 98.2 F 80 20 119/78 93 CPAP O2 Flow Rate 12/13/21 15:19 3 12/13/21 14:42 12/13/21 14:30 3 12/13/21 11:46 3 12/13/21 11:12 3 12/13/21 09:52 3 12/13/21 07:20 3 12/13/21 07:14 12/13/21 07:13 PG Care Time/CCT Total # of Minutes Spent Total Time Spent with Patient: Total time spent is greater than 50% in coordination of care (as documented) at patient's floor/unit and/or counseling patient: Coding Level of Care Code 83571 Subseq Hosp Care Lvl 3 Diagnoses COPD exacerbation J44.1 PAF (paroxysmal atrial fibrillation) I48.0 Hyponatremia E87.1 Hypotensive episode I95.9 Acute and chronic respiratory failure J96.20 Tobacco abuse Z72.0 Hypertension I10 GERD (gastroesophageal reflux disease) K21.9 MRSA colonization Z22.322
[2021-12-13] MEDS: MONTELUKAST SODIUM 10 MG TABLET PO SCH (20:56)
[2021-12-13] MEDS: SENNA 8.6 MG TAB PO SCH (20:56)
[2021-12-14 06:07] LABS: Hematocrit (blood only) 36.5 % (40.1-51.0); Hemoglobin 11.9 g/dl (14.0-18.0); Mean Corpuscular Hemoglobin 30.4 pg (25.0-34.0); Mean Corpuscular Hgb Conc 32.6 g/dL (32.0-36.0); Mean Corpuscular Volume 93.4 fL (80.0-100.0); Mean Platelet Volume 9.4 fL (9.4-12.4); Platelet Count 217 K/uL (130-400); RDW Coefficient of Variation 12.3 % (11.5-14.5); RDW Standard Deviation 42.5 fL (36.4-46.3); Red Blood Count 3.91 M/uL (4.63-6.08); White Blood Count 8.34 K/ul (4.8-10.8)
[2021-12-14 06:43] LABS: BUN Creatinine Ratio 43.8 (10-20); Blood Urea Nitrogen 21 mg/dl (6-23); Calcium 8.2 mg/dl (8.5-10.1); Carbon Dioxide > 45 mmol/L (21-32); Chloride 90 mmol/L (98-107); Est GFR (African American) 147.9 ml/min; Est GFR (Non-African American) 127.6 ml/min; Glucose 82 mg/dl (70-99(Fasting)); Magnesium 1.9 mg/dl (1.7-2.4); Potassium 3.8 mmol/L (3.5-5.1); Sodium 139 mmol/L (136-145)
[2021-12-14] MEDS: ALBUT/IPRATROP 3MG/0.5MG NEB 3 ML VIAL NEB SCH ×4 (07:06→19:18)
[2021-12-14] MEDS: INSULIN ASPART PER UNIT SC SCH ×4 (08:21→20:25)
[2021-12-14] MEDS: METOPROLOL TARTRATE 25 MG TAB PO SCH ×2 (08:56→20:21)
[2021-12-14] MEDS: AMIODARONE 200 MG TAB PO SCH ×2 (08:56→17:54)
[2021-12-14] MEDS: FLUTICASONE/VILANTEROL 200/25MCG 14 PUFFS/INHALER INH SCH (08:58)
[2021-12-14] MEDS: predniSONE 20 MG TAB PO SCH (08:58)
[2021-12-14] MEDS: PANTOprazole 40 MG TAB PO SCH ×2 (08:58→20:21)
[2021-12-14] MEDS: AZITHROMYCIN 250 MG TAB PO SCH (08:58)
--- NOTE | 2021-12-14 12:04 | Pharmacy Report ---
Pharmacy Glycemic Short Note 2 - Date of Service December 14, 2021 - Glycemic Short BSG Results (Last 24 hours): 12/13/21 12/13/21 12/14/21 16:17 21:00 05:54 Glucose 82 POC Glucose 187 H 129 H 12/14/21 12/14/21 07:21 11:29 Glucose POC Glucose 86 141 H OUTPATIENT ANTIDIABETIC REGIMEN: * None HbA1C: 5.9% (pre-diabetes) ASSESSMENT: 12/14: * BSGs somewhat erratic the last 24h ([phone]). Received 28 units of bolus insulin yesterday, and 27 units on 12/12. * Continues on prednisone 40mg daily and tolerating a diet. Stressors stable. * Given sporadic low BSGs into the 80s the last 48h, will adjust carb ratio today to 10gm/unit. 12/11: * BSGs within goal the last 24h ([phone]/dL). Patient received a total of 12 units of insulin yesterday (10units basal). * Tolerating a diet, SoluMedrol 60mg IV q8h tapered to prednisone 40mg PO daily this AM. Other stressors stable * Continue Novolog scale. May need to loosen parameters with steroid adjustment pending BSG trend. Will follow. 12/10 * Patient admitted to the ICU with respiratory failure secondary to severe COPD exacerbation requiring intubation. No history of diabetes or DM medications at home. Pharmacy consulted to assist with glycemic management in setting of steroid requirement. * BSGs largely within goal since admission: [phone]/dL * Extubated this AM. Continues on methylprednisolone 60mg IV q8h. Ordered a diet (no documented intake as of yet). * S/p Lantus 10units X 1 this AM. Given no history of DM, no documented PO intake, and current BSG trend, will continue with Novolog ACHS for now. Plan to reassess basal in AM. PLAN FOR INPATIENT GLYCEMIC CONTROL: * Bolus insulin * NovoLog per scale ACHS or Q6hrs while NPO * Goal Range: Low 110 mg/dL - High 140 mg/dL * Correction Factor: 35 mg/dL/unit * Nutritional / Prandial insulin per carb ratio of 1 unit per 10 grams CHO consumed
[2021-12-14] MEDS: ALBUTEROL HFA 8 GM INHALER INH PRN ×2 (14:40→19:19)
--- NOTE | 2021-12-14 17:53 | Hospitalist Progress Note ---
Date of Service December 14, 2021 Assessment & Plan (1) COPD exacerbation: Plan: COPD exacerbation secondary to hypercarbic/hypoxic respiratory failure requiring intubation and mechanical ventilation -extubated 12/10/21. also intubated 10/09, 11/10 this year - COPD stage D -symbicort and singulair as per last pulmonary clinic note - Pulmicort respules 0.5mg BID -prednisone 40 mg a day we will do long slow taper when eventually discharges. - Ceftriaxone, Azithromycin/vancomycin(mrsa screen +)-> de escalate to azithro - (2) PAF (paroxysmal atrial fibrillation): Plan: PAF RVR, converted with amiodarone, now on po amiodarone, plus metoprolol, German vasc score is low will not start anticoagulation unless cardiology feels strongly, now returned to sinus rhythm will convert to oral amiodarone eventual ly having 1 week of 400 twice daily then 200 twice daily with follow-up with electrophysiology in [facility] cardiology group (3) Hyponatremia: Plan: Hyponatremia and hypotensive resolved - Received 2liters saline in EMD secondary to hypotension - eating and drinking stopped ivf (4) Hypotensive episode: Plan: Hypotensive- likely multifactorial at this time to include hypovolemia, sedation and auto-peeping as very dyschronous - resolved - (5) Acute and chronic respiratory failure: Plan: Secondary to COPD and continued smoking (6) Tobacco abuse: Plan: councelled on cessation (7) Hypertension: Plan: Hold hypertensive medications at this time until hemodyanamics are stable (8) GERD (gastroesophageal reflux disease): Plan: Protonix 40mg daily (9) MRSA colonization: Plan: HX of MRSA in sputum- nasal swab positive previously Admission and Anticipated Discharge Date Admission Date: December 09, 2021 Subjective Patient had a rough night his oxygen became dislodged and he was for a fairly prolonged period of time without oxygen. He feels weak and tired although he said better heart rate control and amiodarone. Review of Systems Review of Systems: Moderate respiratory distress and fatigue continues this seems to be his baseline no headache, no visual changes no speech or swallowing issues no chest pain, pressure or palpitations, even with RVR did not sense palpitations shortness of breath, prolonged exp phase, poor air movement no abdominal pain, nausea or vomiting, diarrhea or constipation no dysuria, hematuria or frequency no focal joint pain or swelling no back pain, CVA tenderness or radicular pain no bruising, bleeding or rashes no focal signs of weakness or numbness or altered sensation no complaints of anxiety or depression.. Physical Exam Physical Exam: The patient appeared chronically ill but stable Vital signs as documented. Head exam is normocephalic atraumatic Neck is without JVD, thyromegaly, or carotid bruits. Lungs continue with decreased air movement pursed lip breathing prolonged expiratory phase purse lipped breathing Cardiac exam, Rhythm is regular.. No murmurs, rubs or gallops. Abdominal exam reveals normal bowel sounds, soft non tender, no masses Extremities are trace edematous and both pedal pulses are present Neurologic exam is alert and oriented, no focal loss of strength or sensation Skin is without bruises or rashes Psychologically is without concerns for anxiety or depression.. Results & Data Results & Data ([facility]) Vital Signs (Past 12 Hours) Vital Signs Temp Pulse Pulse Resp BP Pulse Ox O2 Del Method 12/14/21 14:15 94 H 12/14/21 07:25 Nasal Cannula 12/14/21 14:41 91 H 16 95 Nasal Cannula 12/14/21 06:45 95 H 12/14/21 11:02 87 14 96 Nasal Cannula 12/14/21 08:29 98.2 F 98 H 18 139/83 93 Nasal Cannula 12/14/21 07:09 91 H 16 99 Nasal Cannula O2 Flow Rate 12/14/21 14:15 12/14/21 07:25 3 12/14/21 14:41 3 12/14/21 06:45 12/14/21 11:02 4 12/14/21 08:29 2.5 12/14/21 07:09 3 PG Care Time/CCT Total # of Minutes Spent Total Time Spent with Patient: Total time spent is greater than 50% in coordination of care (as documented) at patient's floor/unit and/or counseling patient: Coding Level of Care Code 56410 Subseq Hosp Care Lvl 2 Diagnoses COPD exacerbation J44.1 PAF (paroxysmal atrial fibrillation) I48.0 Hyponatremia E87.1 Hypotensive episode I95.9 Acute and chronic respiratory failure J96.20 Tobacco abuse Z72.0 Hypertension I10 GERD (gastroesophageal reflux disease) K21.9 MRSA colonization Z22.322
[2021-12-14] MEDS: ENOXAPARIN INJ 40 MG/0.4 ML SYR SQ SCH (18:22)
[2021-12-14] MEDS: SENNA 8.6 MG TAB PO SCH (20:20)
[2021-12-14] MEDS: MONTELUKAST SODIUM 10 MG TABLET PO SCH (20:21)
[2021-12-15] MEDS: ALBUTEROL HFA 8 GM INHALER INH PRN ×5 (00:32→19:35)
[2021-12-15] MEDS: ALBUT/IPRATROP 3MG/0.5MG NEB 3 ML VIAL NEB SCH ×4 (07:21→19:36)
[2021-12-15] MEDS: METOPROLOL TARTRATE 25 MG TAB PO SCH ×2 (07:52→20:48)
[2021-12-15] MEDS: PANTOprazole 40 MG TAB PO SCH ×2 (07:53→20:52)
[2021-12-15] MEDS: FLUTICASONE/VILANTEROL 200/25MCG 14 PUFFS/INHALER INH SCH (07:53)
[2021-12-15] MEDS: predniSONE 20 MG TAB PO SCH (07:53)
[2021-12-15] MEDS: AMIODARONE 200 MG TAB PO SCH ×2 (07:54→17:12)
[2021-12-15] MEDS: AZITHROMYCIN 250 MG TAB PO SCH (07:55)
[2021-12-15] MEDS: INSULIN ASPART PER UNIT SC SCH ×4 (07:59→20:48)
--- NOTE | 2021-12-15 14:54 | Hospitalist Progress Note ---
Date of Service December 15, 2021 Assessment & Plan (1) COPD exacerbation: Plan: COPD exacerbation secondary to hypercarbic/hypoxic respiratory failure requiring intubation and mechanical ventilation -extubated 12/10/21. also intubated 10/09, 11/10 this year - COPD stage D -symbicort and singulair as per last pulmonary clinic note - Pulmicort respules 0.5mg BID -prednisone 40 mg a day we will do long slow taper when eventually discharges. - Ceftriaxone, Azithromycin/vancomycin(mrsa screen +)-> de escalated to azithro - (2) PAF (paroxysmal atrial fibrillation): Plan: PAF RVR, converted with amiodarone, now on po amiodarone, plus metoprolol, German vasc score is low will not start anticoagulation unless cardiology feels strongly, now returned to sinus rhythm will convert to oral amiodarone eventua lly having 1 week of 400 twice daily then 200 twice daily with follow-up with electrophysiology in [facility] cardiology group (3) Hyponatremia: Plan: Hyponatremia and hypotensive resolved - Received 2liters saline in EMD secondary to hypotension - eating and drinking stopped ivf (4) Hypotensive episode: Plan: Hypotensive- likely multifactorial at this time to include hypovolemia, sedation and auto-peeping as very dyschronous - resolved - (5) Acute and chronic respiratory failure: Plan: Secondary to COPD and continued smoking (6) Tobacco abuse: Plan: councelled on cessation (7) Hypertension: Plan: Hold hypertensive medications at this time until hemodyanamics are stable (8) GERD (gastroesophageal reflux disease): Plan: Protonix 40mg daily (9) MRSA colonization: Plan: HX of MRSA in sputum- nasal swab positive previously Admission and Anticipated Discharge Date Admission Date: December 09, 2021 Subjective Patient had a better night but he does not feel quite ready enough to go home. Certainly he is anxious given the fact he is been intubated 3 times in 3 months. With the discovery of recurrent atrial fibrillation perhaps paroxysmal atrial fibrillation as a cause of this. He subsequently is on amiodarone at this time. But is not have a [id number] risk to consider anticoagulation given his young age. This point time the patient request another night to be stable before going home. Review of Systems Review of Systems: Moderate respiratory distress and fatigue continues this seems to be his baseline no headache, no visual changes no speech or swallowing issues no chest pain, pressure or palpitations, even with RVR did not sense palpitations shortness of breath, prolonged exp phase, poor air movement no abdominal pain, nausea or vomiting, diarrhea or constipation no dysuria, hematuria or frequency no focal joint pain or swelling no back pain, CVA tenderness or radicular pain no bruising, bleeding or rashes no focal signs of weakness or numbness or altered sensation no complaints of anxiety or depression.. Physical Exam Physical Exam: The patient appeared chronically ill but stable Vital signs as documented. Head exam is normocephalic atraumatic Neck is without JVD, thyromegaly, or carotid bruits. Lungs continue with decreased air movement pursed lip breathing prolonged expiratory phase purse lipped breathing Cardiac exam, Rhythm is regular.. No murmurs, rubs or gallops. Abdominal exam reveals normal bowel sounds, soft non tender, no masses Extremities are trace edematous and both pedal pulses are present Neurologic exam is alert and oriented, no focal loss of strength or sensation Skin is without bruises or rashes Psychologically is without concerns for anxiety or depression.. Results & Data Results & Data ([facility]) Vital Signs (Past 12 Hours) Vital Signs Temp Pulse Pulse Resp BP Pulse Ox O2 Del Method 12/15/21 14:14 89 20 96 12/15/21 11:40 97.7 F 87 17 123/77 99 Nasal Cannula 12/15/21 10:19 85 18 97 Nasal Cannula 12/15/21 08:00 Nasal Cannula 12/15/21 08:00 79 12/15/21 07:31 98.4 F 81 20 145/90 H 98 Nasal Cannula 12/15/21 07:21 88 20 98 Nasal Cannula 12/15/21 04:46 98.2 F 80 17 146/85 H 95 Nasal Cannula O2 Flow Rate 12/15/21 14:14 3 12/15/21 11:40 3 12/15/21 10:19 3 12/15/21 08:00 3 12/15/21 08:00 12/15/21 07:31 3 12/15/21 07:21 3 12/15/21 04:46 3 PG Care Time/CCT Total # of Minutes Spent Total Time Spent with Patient: Total time spent is greater than 50% in coordination of care (as documented) at patient's floor/unit and/or counseling patient: Coding Level of Care Code 81953 Subseq Hosp Care Lvl 2 Diagnoses COPD exacerbation J44.1 PAF (paroxysmal atrial fibrillation) I48.0 Hyponatremia E87.1 Hypotensive episode I95.9 Acute and chronic respiratory failure J96.20 Tobacco abuse Z72.0 Hypertension I10 GERD (gastroesophageal reflux disease) K21.9 MRSA colonization Z22.322
[2021-12-15] MEDS: ENOXAPARIN INJ 40 MG/0.4 ML SYR SQ SCH (17:12)
[2021-12-15] MEDS: SENNA 8.6 MG TAB PO SCH (20:48)
[2021-12-15] MEDS: MONTELUKAST SODIUM 10 MG TABLET PO SCH (20:52)
[2021-12-16 06:45] LABS: Hemoglobin 12.9 g/dl (14.0-18.0); Mean Corpuscular Hemoglobin 30.1 pg (25.0-34.0); Mean Corpuscular Hgb Conc 32.3 g/dL (32.0-36.0); Mean Corpuscular Volume 93.2 fL (80.0-100.0); Mean Platelet Volume 9.4 fL (9.4-12.4); Platelet Count 273 K/uL (130-400); RDW Coefficient of Variation 12.3 % (11.5-14.5); RDW Standard Deviation 42.6 fL (36.4-46.3); Red Blood Count 4.29 M/uL (4.63-6.08); White Blood Count 8.39 K/ul (4.8-10.8)
[2021-12-16] MEDS: ALBUTEROL HFA 8 GM INHALER INH PRN ×2 (07:12→10:48)
[2021-12-16 07:14] LABS: BUN Creatinine Ratio 27.8 (10-20); Blood Urea Nitrogen 15 mg/dl (6-23); Calcium 8.5 mg/dl (8.5-10.1); Carbon Dioxide > 45 mmol/L (21-32); Chloride 92 mmol/L (98-107); Creatinine Clr Calc Pharmacy 134.6 ml/min; Est GFR (African American) 140.9 ml/min; Est GFR (Non-African American) 121.6 ml/min; Glucose 90 mg/dl (70-99(Fasting)); Magnesium 1.7 mg/dl (1.7-2.4); Potassium 3.5 mmol/L (3.5-5.1); Sodium 140 mmol/L (136-145)
[2021-12-16] MEDS: ALBUT/IPRATROP 3MG/0.5MG NEB 3 ML VIAL NEB SCH ×5 (07:31→21:55)
[2021-12-16] MEDS: INSULIN ASPART PER UNIT SC SCH ×4 (08:18→21:08)
[2021-12-16] MEDS: METOPROLOL TARTRATE 25 MG TAB PO SCH ×2 (08:19→21:07)
[2021-12-16] MEDS: AMIODARONE 200 MG TAB PO SCH ×2 (08:20→17:02)
[2021-12-16] MEDS: FLUTICASONE/VILANTEROL 200/25MCG 14 PUFFS/INHALER INH SCH (08:20)
[2021-12-16] MEDS: predniSONE 20 MG TAB PO SCH (08:21)
[2021-12-16] MEDS: PANTOprazole 40 MG TAB PO SCH ×2 (08:21→21:05)
[2021-12-16] MEDS: AZITHROMYCIN 250 MG TAB PO SCH (08:21)
--- NOTE | 2021-12-16 12:01 | Pharmacy Report ---
Pharmacy Glycemic Short Note 2 - Date of Service December 16, 2021 - Glycemic Short BSG Results (Last 24 hours): 12/15/21 12/15/21 12/16/21 16:09 20:19 06:27 Glucose 90 POC Glucose 172 H 200 H 12/16/21 12/16/21 07:30 11:18 Glucose POC Glucose 82 184 H OUTPATIENT ANTIDIABETIC REGIMEN: * None HbA1C: 5.9% (pre-diabetes) ASSESSMENT: 12/16: * BSGs largely within goal the last 48h ([phone]/dL). AM BSG tends to be slightly below goal (no basal on board). Received 15 units of bolus insulin yesterday. * Continues on azithromycin and prednisone 40mg daily. Tolerating diet. Other stressors stable. * Plan to tighten carb ratio slightly today for greater prandial BSG control (target BSG <180mg/dL) 12/14: * BSGs somewhat erratic the last 24h ([phone]). Received 28 units of bolus insulin yesterday, and 27 units on 12/12. * Continues on prednisone 40mg daily and tolerating a diet. Stressors stable. * Given sporadic low BSGs into the 80s the last 48h, will adjust carb ratio today to 10gm/unit. 12/11: * BSGs within goal the last 24h ([phone]/dL). Patient received a total of 12 units of insulin yesterday (10units basal). * Tolerating a diet, SoluMedrol 60mg IV q8h tapered to prednisone 40mg PO daily this AM. Other stressors stable * Continue Novolog scale. May need to loosen parameters with steroid adjustment pending BSG trend. Will follow. 12/10 * Patient admitted to the ICU with respiratory failure secondary to severe COPD exacerbation requiring intubation. No history of diabetes or DM medications at home. Pharmacy consulted to assist with glycemic management in setting of steroid requirement. * BSGs largely within goal since admission: [phone]/dL * Extubated this AM. Continues on methylprednisolone 60mg IV q8h. Ordered a diet (no documented intake as of yet). * S/p Lantus 10units X 1 this AM. Given no history of DM, no documented PO intake, and current BSG trend, will continue with Novolog ACHS for now. Plan to reassess basal in AM. PLAN FOR INPATIENT GLYCEMIC CONTROL: * Bolus insulin * NovoLog per scale ACHS or Q6hrs while NPO * Goal Range: Low 110 mg/dL - High 140 mg/dL * Correction Factor: 35 mg/dL/unit * Nutritional / Prandial insulin per carb ratio of 1 unit per 8 grams CHO consumed
[2021-12-16] MEDS: ENOXAPARIN INJ 40 MG/0.4 ML SYR SQ SCH (18:17)
[2021-12-16] MEDS: SENNA 8.6 MG TAB PO SCH (21:05)
[2021-12-16] MEDS: MONTELUKAST SODIUM 10 MG TABLET PO SCH (21:05)
--- NOTE | 2021-12-16 21:43 | Hospitalist Progress Note ---
Date of Service December 16, 2021 Assessment & Plan (1) COPD exacerbation: Plan: COPD exacerbation secondary to hypercarbic/hypoxic respiratory failure requiring intubation and mechanical ventilation -extubated 12/10/21. also intubated 10/09, 11/10 this year - COPD stage D -symbicort and singulair as per last pulmonary clinic note - Pulmicort respules 0.5mg BID -prednisone 40 mg a day we will do long slow taper when eventually discharges. - Ceftriaxone, Azithromycin/vancomycin(mrsa screen +)-> de escalated to azithro -discharge planned for 12/17 awaiting PT/OT (2) PAF (paroxysmal atrial fibrillation): Plan: PAF RVR, converted with amiodarone, now on po amiodarone, plus metoprolol, German vasc score is low will not start anticoagulation unless cardiology feels strongly, now returned to sinus rhythm will convert to oral amiodarone eventually having 1 week of 400 twice daily then 200 twice daily with follow-up with electrophysiology in [facility] cardiology group (3) Hyponatremia: Plan: Hyponatremia and hypotensive resolved - Received 2liters saline in EMD secondary to hypotension - eating and drinking stopped ivf (4) Hypotensive episode: Plan: Hypotensive- likely multifactorial at this time to include hypovolemia, sedation and auto-peeping as very dyschronous - resolved - (5) Acute and chronic respiratory failure: Plan: Secondary to COPD and continued smoking (6) Tobacco abuse: Plan: councelled on cessation (7) Hypertension: Plan: Hold hypertensive medications at this time until hemodyanamics are stable (8) GERD (gastroesophageal reflux disease): Plan: Protonix 40mg daily (9) MRSA colonization: Plan: HX of MRSA in sputum- nasal swab positive previously Admission and Anticipated Discharge Date Admission Date: December 09, 2021 Subjective Patient reports feeling well. Patient has no new complaints. Review of Systems Review of Systems: All systems reviewed & are unremarkable except as noted in HPI & below Physical Exam Physical Exam: The patient appeared chronically ill but stable Vital signs as documented. Head exam is normocephalic atraumatic Neck is without JVD, thyromegaly, or carotid bruits. Lungs continue with decreased air movement pursed lip breathing prolonged expiratory phase purse lipped breathing Cardiac exam, Rhythm is regular.. No murmurs, rubs or gallops. Abdominal exam reveals normal bowel sounds, soft non tender, no masses Extremities are trace edematous and both pedal pulses are present Neurologic exam is alert and oriented, no focal loss of strength or sensation Skin is without bruises or rashes Psychologically is without concerns for anxiety or depression Results & Data Results & Data ([place]) Vital Signs (Past 12 Hours) Vital Signs Temp Pulse Pulse Resp BP Pulse Ox O2 Del Method 12/16/21 19:59 91 H 20 97 Nasal Cannula 12/16/21 19:43 37.0 C 87 18 124/68 98 Nasal Cannula 12/16/21 14:15 82 12/16/21 15:31 36.9 C 86 20 113/84 97 Nasal Cannula 12/16/21 14:22 83 22 98 Nasal Cannula 12/16/21 11:19 36.8 C 78 20 125/81 98 Nasal Cannula 12/16/21 10:48 85 22 98 Nasal Cannula O2 Flow Rate 12/16/21 19:59 3 12/16/21 19:43 3 12/16/21 14:15 12/16/21 15:31 3 12/16/21 14:22 3 12/16/21 11:19 3 12/16/21 10:48 3 PG Care Time/CCT Total # of Minutes Spent Total Time Spent with Patient: Total time spent is greater than 50% in coordination of care (as documented) at patient's floor/unit and/or counseling patient: Coding Level of Care Code 47505 Subseq Hosp Care Lvl 2 Diagnoses COPD exacerbation J44.1 PAF (paroxysmal atrial fibrillation) I48.0 Hyponatremia E87.1 Hypotensive episode I95.9 Acute and chronic respiratory failure J96.20 Tobacco abuse Z72.0 Hypertension I10 GERD (gastroesophageal reflux disease) K21.9 MRSA colonization Z22.322
[2021-12-17 06:17] LABS: Hematocrit (blood only) 35.4 % (40.1-51.0); Hemoglobin 11.8 g/dl (14.0-18.0); Mean Corpuscular Hemoglobin 30.6 pg (25.0-34.0); Mean Corpuscular Hgb Conc 33.3 g/dL (32.0-36.0); Mean Corpuscular Volume 91.9 fL (80.0-100.0); Mean Platelet Volume 9.2 fL (9.4-12.4); Platelet Count 277 K/uL (130-400); RDW Coefficient of Variation 12.2 % (11.5-14.5); RDW Standard Deviation 40.9 fL (36.4-46.3); Red Blood Count 3.85 M/uL (4.63-6.08); White Blood Count 8.61 K/ul (4.8-10.8)
[2021-12-17 07:04] LABS: BUN Creatinine Ratio 32.2 (10-20); Calcium 8.1 mg/dl (8.5-10.1); Est GFR (African American) 135.9 ml/min; Est GFR (Non-African American) 117.2 ml/min; Magnesium 1.7 mg/dl (1.7-2.4); Potassium 3.2 mmol/L (3.5-5.1)
[2021-12-17] MEDS: ALBUT/IPRATROP 3MG/0.5MG NEB 3 ML VIAL NEB SCH ×5 (07:24→22:48)
[2021-12-17] MEDS ORDERED: POTASSIUM CHLORIDE CRTAB 20 MEQ TABCR PO STA (07:42)
[2021-12-17] MEDS: INSULIN ASPART PER UNIT SC SCH ×4 (08:09→21:24)
[2021-12-17] MEDS: METOPROLOL TARTRATE 25 MG TAB PO SCH ×2 (08:10→21:23)
[2021-12-17] MEDS: AMIODARONE 200 MG TAB PO SCH ×2 (08:11→17:35)
[2021-12-17] MEDS: AZITHROMYCIN 250 MG TAB PO SCH (08:12)
[2021-12-17] MEDS: PANTOprazole 40 MG TAB PO SCH ×2 (08:12→21:23)
[2021-12-17] MEDS: FLUTICASONE/VILANTEROL 200/25MCG 14 PUFFS/INHALER INH SCH (08:12)
[2021-12-17] MEDS ORDERED: predniSONE 20 MG TAB PO ONE (12:00)
--- NOTE | 2021-12-17 14:58 | Hospitalist Progress Note ---
Date of Service December 17, 2021 Assessment & Plan (1) COPD exacerbation: Plan: COPD exacerbation secondary to hypercarbic/hypoxic respiratory failure requiring intubation and mechanical ventilation -extubated 12/10/21. also intubated 10/09, 11/10 this year - COPD stage D - on Symbicort and Singulair - Pulmicort respules 0.5mg BID -Patient on prednisone 40 mg daily, now being converted to slow taper of 5 mg decrease every 4 days. -Patient was [place] treated with ceftriaxone/azithromycin/vancomycin. Was de- escalated to azithromycin and continued to clinically improve May resume 3 times weekly azithromycin COPD suppressive dosing at return home. No signs of ongoing pneumonia -PT/OT recommend return home Patient was to be discharged 12/17 with close follow-up to PCP and pulmonary. Does remain with some electrolyte abnormalities including hypokalemia being corrected/repleted today patient reports that he has both had trouble with humidity and a ride, and that with the humidity in the afternoon and adamantly refuses to leave. Reports he also does not have transportation available, but would be able to have his friend pick him up at 9 AM tomorrow. Case management following and assisting, is having updates to his POA and facilitating BiPAP equipment at home. Correct electrolytes, dissipate return home with [facility] home health services at discharge (2) PAF (paroxysmal atrial fibrillation): Plan: PAF RVR, converted with amiodarone, now on po amiodarone, plus metoprolol, German vasc score is low will not start anticoagulation unless cardiology feels strongly, now returned to sinus rhythm will convert to oral amiodarone eventually having 1 week of 400 twice daily then 200 twice daily with follow-up with electrophysiology in [facility] cardiology group Continue amio (decrease to 200mg BID starting 12/21) and mtp tartrate 12.5mg BID (3) Hypotensive episode: Plan: Hypotensive- likely multifactorial at this time to include hypovolemia, sedation and auto-peeping as very dyschronous - resolved (4) Acute and chronic respiratory failure: Plan: Secondary to COPD and continued smoking (5) Tobacco abuse: Plan: councelled on cessation (6) Hypertension: Plan: Hold hypertensive medications at this time until hemodyanamics are stable (7) GERD (gastroesophageal reflux disease): Plan: Protonix 40mg daily (8) MRSA colonization: Plan: HX of MRSA in sputum- nasal swab positive previously Admission and Anticipated Discharge Date Admission Date: December 09, 2021 Subjective Seen at bedside this morning. Feels anxious and a little short of breath, but is breathing comfortably on 2-3 L of nasal cannula. No wheezing today. Denies chest pain, chest pressure, lightheadedness, dizziness. Is waiting to work with PT, has not ambulated yet this morning. No nausea/vomiting/diarrhea/constipation patient reports he is extremely anxious a bout leaving, and notes that when the weather has been hot and humid it immediately triggers exacerbations and adamantly refuses to leave today/this afternoon. Is agreeable to leave tomorrow morning around 9 AM if can be set up. Reports if he is to leave would like to appeal discharge or will just go straight to the emergency department. Also like to talk to case management before discharge Review of Systems Review of Systems: All systems reviewed & are unremarkable except as noted in Subjective Physical Exam Physical Exam: General: A&Ox3. NAD. Cooperative. HEENT: Atraumatic, normocephalic. Hearing intact. Pulm: Grossly clear without wheezing/rales although with prolonged expiration. Cardiac: RRR, -mrg. Radial pulses intact and symmetrical. Abdominal: Nontender, nondistended, soft. BS present. Results & Data Results & Data ([facility]) Vital Signs (Past 12 Hours) Vital Signs Temp Pulse Pulse Resp BP BP Pulse Ox 12/17/21 12:05 36.8 C 89 18 131/85 91 12/17/21 11:42 81 12 96 12/17/21 06:08 73 12/17/21 08:00 12/17/21 07:42 84 128/77 12/17/21 07:24 82 16 97 12/17/21 03:00 36.7 C 68 20 119/71 97 O2 Del Method O2 Flow Rate 12/17/21 12:05 Nasal Cannula 3 12/17/21 11:42 Nasal Cannula 2 12/17/21 06:08 12/17/21 08:00 Nasal Cannula 3 12/17/21 07:42 12/17/21 07:24 Nasal Cannula 3 12/17/21 03:00 Nasal Cannula 3 PG Care Time/CCT Total # of Minutes Spent Total Time Spent with Patient: Total time spent is greater than 50% in coordination of care (as documented) at patient's floor/unit and/or counseling patient: Coding Level of Care Code 27365 Subseq Hosp Care Lvl 1 Diagnoses COPD exacerbation J44.1 PAF (paroxysmal atrial fibrillation) I48.0 Hypotensive episode I95.9 Acute and chronic respiratory failure J96.20 Tobacco abuse Z72.0 Hypertension I10 GERD (gastroesophageal reflux disease) K21.9 MRSA colonization Z22.322
--- NOTE | 2021-12-17 17:09 | Discharge Summary ---
Date of Service December 18, 2021 Admission HPI Per Admitting Provider 51 YOM with medical history of COPD emphysema Stage D, afib, anxiety, smoker, MRSA + sputum, HTN. Patient arrives to the EMD intubated after calling EMS today. EMS reports SPO2 70% Patient was intubated in the field. In the EMD the patient had routine labs performed, ABG, CXR for evaluation of ETT and evaluation of lungs. Patient is currently sedated with Propofol and Fentanyl boluses. He remains with coarse lung sounds throughout but is dyschronous with the ventilator. Receiving nebulizer. He is localizing to pain. Patient will be admitted to the ICU for COPD exacerbation. Will place on AC/PC. Continue with scheduled Combivent nebulizers, Azithromycin daily, Pulmicort nebs BID, continue IV steroids. Patient intubation in 07/21, 10/18, 11/18. COVID and respiratory biofire is: NEGATIVE on admission Principal Diagnosis Acute on chronic COPD exasperation, Gold D Discharge Exam General: A&Ox3. NAD. Cooperative. HEENT: Atraumatic, normocephalic. Hearing intact. Pulm: Grossly clear without wheezing/rales although with prolonged expiration. Cardiac: RRR, -mrg. Radial pulses intact and symmetrical. Abdominal: Nontender, nondistended, soft. BS present. Discharge Data Allergies Allergy/AdvReac Type Severity Reaction Status Date / Time No Known Allergies Allergy Verified 11/23/21 16:10 Consultations 12/09/21 15:59 ED Decision to Admit Stat 12/09/21 18:06 Consult Rn Care Manager Routine Hospital Course (1) COPD exacerbation: Angel Luis is a 51-year-old male with gold stage D COPD with multiple hospitalizations and intubations who was admitted for an acute COPD exacerbation requiring intubation, extubated 12/10/2021 with gradual improvement. Routine steroids, was placed on a slow taper as noted below. He did experience paroxysmal atrial fibrillation with RVR which required amiodarone and metoprolol during admission, and which was reviewed with cardiology during admission. Was recommended to continue amiodarone and metoprolol as noted below. To do as outpatient: 1. Complete prednisone taper, slow taper 40 mg decrease by 5 mg every 4 days 2. Follow-up with PCP, follow-up with pulmonology, follow-up with cardiology 3. Continue amiodarone, 400 mg twice daily dose to be decreased to 200 mg twice daily starting 12/21. Continue metoprolol 12.5 mg twice daily. COPD exacerbation secondary to hypercarbic/hypoxic respiratory failure requiring intubation and mechanical ventilation -extubated 12/10/21. also intubated 10/09, 11/10 this year - COPD stage D - on Symbicort and Singulair - Pulmicort respules 0.5mg BID -Patient on prednisone 40 mg daily, now being converted to slow taper of 5 mg decrease every 4 days. -Patient was [place] treated with ceftriaxone/azithromycin/vancomycin. Was de- escalated to azithromycin and continued to clinically improve May resume 3 times weekly azithromycin COPD suppressive dosing at return home. No signs of ongoing pneumonia -PT/OT recommend return home Patient was to be discharged 12/17 with close follow-up to PCP and pulmonary. Does remain with some electrolyte abnormalities including hypokalemia being corrected/repleted today patient reports that he has both had trouble with humidity and a ride, and that with the humidity in the afternoon and adamantly refuses to leave due to other. Reports he also does not have transportation available, but would be able to have his friend pick him up at 9 AM tomorrow. Case management following, facilitating home equipment. Evaluated patient felt he was at his normal state of health the following morning, okay for discharge and with transport home from a friend. (2) PAF (paroxysmal atrial fibrillation): PAF RVR, converted with amiodarone, now on po amiodarone, plus metoprolol, German vasc score is low will not start anticoagulation unless cardiology feels strongly, now returned to sinus rhythm will convert to oral amiodarone eventually having 1 week of 400 twice daily then 200 twice daily with follow-up with electrophysiology in [facility] cardiology group Continue amio (decrease to 200mg BID starting 12/21) and mtp tartrate 12.5mg BID (3) Hypotensive episode: Hypotensive- likely multifactorial at this time to include hypovolemia, sedation and auto-peeping as very dyschronous - resolved (4) Acute and chronic respiratory failure: Secondary to COPD and continued smoking (5) Tobacco abuse: councelled on cessation (6) Hypertension: BP stable and normotensive 12/17 (7) GERD (gastroesophageal reflux disease): Protonix 40mg daily (8) MRSA colonization: HX of MRSA in sputum- nasal swab positive previously Total Time Total Time Spent Total Time Spent (In Minutes): Time spend day of discharge 25 minutes including direct patient care, documentation, review of labs and images, and coordination of care. Discharge Plan Discharge Items Patient Disposition: Home - Self-Care Reason For Visit: COPD EXACERBATION INTUBATED Discharge Diagnosis: Acute on Chronic COPD Activity: Resume your previous activity Non-emergency contact: Primary Care Provider and Supervisor [facility] Call non-emergency contact if: you have any medication questions and your symptoms worsen Follow-up/Referrals: Faheem Villaseñor PA-C [Physician Unattended Ground Sensor Specialist] - 12/31/21 2:30 pm (Please follow up with Faheem Villaseñor PA-C on 12/31/21 at 2:30 pm. Please arrive to the office at 2:15 pm for your appointment. If you are unable to keep this appointment, please call the office to reschedule at [phone].) Lenard Elizondo MD [Physician] - (Follow up appointment scheduled with Faheem Villaseñor PA-C.) Puja Moura MD [Primary Care Provider] - (Follow up appointment scheduled with Cr Will PA-C.) Dylon Chen MD [Physician] - 12/29/21 11:30 am (Please follow up with Dr. Chen on Tuesday12/29/21 at 11:30 am. Please arrive to the office at 11:15 am for your appointment. If you are unable to keep this appointment, please call the office to reschedule at [phone].) Oseas Glover MD [Physician] - (Follow up appointment scheduled with Dr. Chen.) Cr Will PA-C [Physician Unattended Ground Sensor Specialist] - 12/29/21 2:45 pm (Please follow up with Cr Will PA-C on Tuesday12/29/21 at 2:45 pm. Please arrive to the office at 2:30 pm for your appointment. If you are unable to keep this appointment, please call the office to reschedule at [phone].) Diet: Heart Healthy Addtl Attending Provider Instructions: You are seen in the hospital for an acute on chronic COPD exacerbation requiring intubation. You were extubated and clinically progressed. Your inhalers have been continued, you completed a course of antibiotics while inpatient. You are being discharged on a prednisone taper as below. You are noted to have paroxysmal atrial fibrillation which converted to a normal rhythm, and if had medications added to control this rhythm as noted below with follow-up to cardiology. Been prescribed a slow prednisone taper. Please take prednisone 40 mg daily, and decrease by 10 mg every 7 days. Follow-up is being scheduled for you with your primary care provider and abrasives sales representative for adjustments and clinical reassessment. You have been prescribed a heart medicine, amiodarone. Please continue take amiodarone 400 mg twice daily until 12/20/2021, and then take amiodarone 200 mg twice daily thereafter. You have been prescribed a heart medicine to help prevent fast heart rates, metoprolol. Please take metoprolol 12.5 mg tartrate by mouth twice daily. Follow-up appointments are being scheduled for you with your primary care provider, pulmonology, and cardiology as above. You should be seen by your primary care provider within 1 week If you develop any new or worsening symptoms including fever, chills, sweats, chest pain, chest pressure, difficulty breathing, uncontrolled nausea/vomiting, rash, wheezing, passing out or nearly passing out, bleeding, black/bloody bowel movements, or other new or concerning symptoms please call your primary care physician, or call 911 for re-evaluation in the emergency department if you are very concerned. Pending Studies at Discharge: No Stand-Alone Forms: My [facility], Smoking Cessation Medications and DC Order Prescriptions: New metoprolol tartrate 25 mg Tablet 12.5 mg PO BID Qty: 30 0RF prednisone 5 mg tablet See Rx Instructions .ROUTE .COMPLEX Qty: 144 0RF Rx Instructions: Take prednisone 40mg (8 tablets) daily starting 12/18. Every 4 days decrease dose by 1 tablet/5mg. amiodarone 200 mg tablet See Rx Instructions .ROUTE .COMPLEX 30 Days Qty: 70 0RF Rx Instructions: Take amiodarone 400mg by mouth twice daily until 12/20. Starting on 12/21 take amiodarone 200mg by mouth twice daily. Continued budesonide-formoterol [Symbicort] 160-4.5 mcg/actuation HFA aerosol inhaler 2 puff inhalation BID Qty: 10.2 2RF albuterol sulfate [Ventolin HFA] 90 mcg/actuation HFA aerosol inhaler 2 puff inhalation Q4H PRN (Reason: shortness of breath or wheezing) Qty: 8.5 3RF aspirin 81 mg tablet,delayed release (DR/EC) 81 mg PO DAILY tiotropium bromide 1.25 mcg/actuation mist 2 puff inhalation DAILY Qty: 4 1RF (DME) BI-PAP Misc See Rx Instructions .Route Rx Instructions: As directed (DME) Portable Oxygen Misc See Rx Instructions .Route Rx Instructions: As directed ascorbic acid (vitamin C) [Vitamin C] 500 mg tablet 1 g PO DAILY azithromycin 250 mg Tablet 250 mg PO .MWF 30 Days Qty: 18 1RF Rx Instructions: 250 mg PO; guaifenesin [Mucinex] 600 mg tablet extended release 12hr 600 mg PO BID PRN (Reason: cough) 7 Days Qty: 14 2RF multivitamin Tablet 1 tab PO DAILY montelukast [Singulair] 10 mg Tablet 10 mg PO HS Qty: 30 0RF pantoprazole 40 mg tablet,delayed release (DR/EC) 40 mg PO BID Qty: 60 0RF Discontinued prednisone 20 mg tablet See Rx Instructions .ROUTE .COMPLEX Qty: 24 0RF Rx Instructions: 60mg/day x 4 days 40mg/day x 4 days 20mg/day x 4 days after completing the above taper, take 10mg/day x 4 days, see separate script 10 prednisone 5 mg tablet 10 mg PO DAILY Qty: 8 0RF Rx Instructions: take for 4 days, after completing the other taper prescribed separately Discharge Orders: Discharge Order (Routine); Ordered 12/18/21 Ordered By: Kwasi Garces Admission Data Admit Date/Time: 12/09/21 16:24 Attending Provider: Kwasi Garces Admit Provider: Baldomero Beltre Primary Care Provider: Puja Moura Other Providers: Baldomero Beltre ; Augie Dejesus Other Interventions: Discharge Summary Assessment (RN) Last Done: 12/18/21 07:49 Coding Level of Care Code D/C DAY MANAGEMENT <30 MINS Diagnoses COPD exacerbation J44.1 PAF (paroxysmal atrial fibrillation) I48.0 Hypotensive episode I95.9 Acute and chronic respiratory failure J96.20 Tobacco abuse Z72.0 Hypertension I10 GERD (gastroesophageal reflux disease) K21.9 MRSA colonization Z22.322
[2021-12-17] MEDS: ENOXAPARIN INJ 40 MG/0.4 ML SYR SQ SCH (17:36)
[2021-12-17] MEDS: SENNA 8.6 MG TAB PO SCH (21:23)
[2021-12-17] MEDS: MONTELUKAST SODIUM 10 MG TABLET PO SCH (21:23)
[2021-12-18 06:08] LABS: Hematocrit (blood only) 35.5 % (40.1-51.0); Hemoglobin 11.7 g/dl (14.0-18.0); Mean Corpuscular Hemoglobin 30.2 pg (25.0-34.0); Mean Corpuscular Volume 91.7 fL (80.0-100.0); Mean Platelet Volume 9.4 fL (9.4-12.4); Platelet Count 300 K/uL (130-400); RDW Coefficient of Variation 12.5 % (11.5-14.5); RDW Standard Deviation 41.7 fL (36.4-46.3); Red Blood Count 3.87 M/uL (4.63-6.08); White Blood Count 9.39 K/ul (4.8-10.8)
[2021-12-18 06:32] LABS: BUN Creatinine Ratio 30.5 (10-20); Creatinine Clr Calc Pharmacy 125.3 ml/min; Est GFR (African American) 135.9 ml/min; Est GFR (Non-African American) 117.2 ml/min; Magnesium 1.8 mg/dl (1.7-2.4); Potassium 3.5 mmol/L (3.5-5.1)
[2021-12-18] MEDS: ALBUT/IPRATROP 3MG/0.5MG NEB 3 ML VIAL NEB SCH (07:04)
[2021-12-18] MEDS: AMIODARONE 200 MG TAB PO SCH (08:29)
[2021-12-18] MEDS: PANTOprazole 40 MG TAB PO SCH (08:29)
[2021-12-18] MEDS: FLUTICASONE/VILANTEROL 200/25MCG 14 PUFFS/INHALER INH SCH (08:29)
[2021-12-18] MEDS: INSULIN ASPART PER UNIT SC SCH (08:29)
[2021-12-18] MEDS: METOPROLOL TARTRATE 25 MG TAB PO SCH (08:29)
[2021-12-18] MEDS ORDERED: predniSONE 20 MG TAB PO SCH (09:00)
--- NOTE | 2021-12-18 09:00 | Pharmacy Report ---
Pharmacy Glycemic Sign Off Nt - Date of Service December 18, 2021 - Assessment & Plan ASSESSMENT: * Pharmacy was consulted by Dr Dejesus on 12/10/21 for glycemic control and to write orders per [facility] inpatient glycemic control protocol. * Major changes made by pharmacy to antidiabetic regimen include: * Initiation/adjustment of Novolog * Patient has been receiving/requiring ~17 units of insulin per day for adequate glycemic control * BSGs within goal * Regimen has only required minor adjustments over the past 48hrs to achieve this level of control * Do not anticipate further changes in patient status that would quickly deteriorate glycemic control (i.e. patient to be NPO for upcoming procedure, steroids tapering, starting tube feedings, etc) PLAN FOR INPATIENT GLYCEMIC CONTROL: No changes needed to current regimen. * Continue NovoLog per scale ACHS/Q6hrs while NPO * Goal range = 110- 140 mg/dl * CF = 35 mg/dl/unit * CR = 1 unit for ever 8 g CHO consumed * Pharmacy is signing off of glycemic consult and will no longer be making adjustments to inpatient regimen. Please feel free to re-consult if needed. Thank you.
== END 2021-12-18 09:16 | disposition home health service (06) | DRG 208 ==
LOC: ED 15:16 → 1E 16:24 → SUATTDRO 16:24 → 1E 17:27 → 2N 12-11 17:25 → 2E 12-12 18:52